=== PATIENT | male | born 1985 | race Caucasian/White ===

== ENCOUNTER 2018-11-19 21:10 | Inpatient (IN) | payer SELFPAY ==
[2018-11-19] MEDS ORDERED: ONDANSETRON 4 MG/2 ML VIAL IVP STA (21:23)
[2018-11-19] MEDS ORDERED: SODIUM CHLORIDE 0.9% 1,000 ML IV ONE (21:23)
[2018-11-19] MEDS ORDERED: ACETAMINOPHEN 500 MG TABLET PO STA (21:23)
[2018-11-19] MEDS ORDERED: KETOROLAC 15 MG/ML VIAL IVP STA (21:23)
[2018-11-19] MEDS ORDERED: SODIUM CHLORIDE 0.9% 3,500 ML IV STA (21:30)
[2018-11-19 21:51] LABS: BASOPHILS # (AUTO) 0.1 10^3/uL (0.0-0.1); BASOPHILS % (AUTO) 0.9 %; EOSINOPHILS % (AUTO) 0.6 %; HGB - HEMOGLOBIN 13.7 g/dL (14.0-18.0); LYMPHOCYTES # (AUTO) 0.7 10^3/uL (1.5-3.5); LYMPHOCYTES % (AUTO) 9.1 %; MEAN CORPUSCULAR HEMOGLOBIN 28.6 pg (27.0-31.0); MEAN CORPUSCULAR HGB CONC 35.1 g/dL (32.0-36.0); MEAN CORPUSCULAR VOLUME 81.5 fL (80.0-94.0); MEAN PLATELET VOLUME 7.2 fL (7.4-11.4); MONOCYTES # (AUTO) 0.6 10^3/uL (0.0-1.0); MONOCYTES % (AUTO) 7.7 %; NEUTROPHILS # (AUTO) 6.7 10^3/uL (1.5-6.6); NEUTROPHILS % (AUTO) 81.7 %; PLT - PLATELET COUNT 207 10^3/uL (130-450); RED BLOOD COUNT 4.79 10^6/uL (4.70-6.10); RED CELL DISTRIBUTION WIDTH 13.4 % (12.0-15.0); WHITE BLOOD COUNT 8.2 x10^3/uL (4.8-10.8)
[2018-11-19 22:00] LABS: ALBUMIN 3.9 g/dL (3.2-5.5); BILIRUBIN,TOTAL 1.6 mg/dL (0.2-1.0); CALCIUM 8.8 mg/dL (8.5-10.3); CREATININE 1.3 mg/dL (0.6-1.2); TOTAL PROTEIN 7.9 g/dL (6.7-8.2)
--- NOTE | 2018-11-19 22:17 | XRAY Report ---
Reason: Diabetic foot wound Procedure Date: 11/19/2018 Accession Number: [id number] / [id number] Procedure: XR - Foot 3 View RT CPT Code: FULL RESULT: EXAM: RIGHT FOOT RADIOGRAPHY EXAM DATE: 11/19/2018 09:57 PM. CLINICAL HISTORY: Diabetic foot wound. Swelling. COMPARISON: None. TECHNIQUE: 3 views. FINDINGS: Bones: Fracture in the proximal aspect of the fifth proximal phalanx which is probably healing. No focal area of bone destruction. Joints: No dislocation seen. Mild degenerative changes in the first MTP joint. Soft Tissues: Soft tissue swelling. Vascular calcifications. Gas in the plantar soft tissues at the proximal lateral aspect of the first proximal phalanx and first MTP joint. IMPRESSION: 1. Soft tissue swelling with gas in the soft tissues at the lateral proximal aspect of the great toe and first MTP joint. 2. Fracture at the base of the fifth proximal phalanx which is probably healing. [facility]
--- NOTE | 2018-11-19 22:18 | XRAY Report ---
Reason: chest pain Procedure Date: 11/19/2018 Accession Number: [id number] / [id number] Procedure: XR - Chest 1 View X-Ray CPT Code: 68654 FULL RESULT: EXAM: CHEST RADIOGRAPHY EXAM DATE: 11/19/2018 09:57 PM. CLINICAL HISTORY: Chest pain. Cough. Shortness of breath. COMPARISON: None. TECHNIQUE: 1 view. FINDINGS: Lungs/Pleura: No alveolar consolidation or pleural effusion seen. No pneumothorax is identified. Mediastinum: Within exam limitations, cardiomediastinal silhouette is unremarkable. Other: None. IMPRESSION: 1. No acute abnormality seen in the chest. [facility]
[2018-11-19 23:19] LABS: BILIRUBIN,URINE NEGATIVE (NEGATIVE); GLUCOSE, URINE (UA) >=1000 mg/dL (NEGATIVE); KETONES,URINE (UA) 15 mg/dL (NEGATIVE); LEUKOCYTE ESTERASE, URINE NEGATIVE (NEGATIVE); NITRITE,URINE NEGATIVE (NEGATIVE); OCCULT BLOOD,URINE SMALL (NEGATIVE); PH,URINE 5.5 PH (5.0-7.5); PROTEIN,URINE 30 mg/dL (NEGATIVE); UROBILINOGEN,URINE 2 E.U./dL (NORMAL)
[2018-11-19 23:24] LABS: CLARITY,URINE HAZY (CLEAR)
[2018-11-19] MEDS ORDERED: INSULIN REGULAR HUMAN 100 UNIT/1 ML 10 ML MDV IVP STA (23:35)
[2018-11-19 23:41] LABS: BACTERIA,URINE None Seen /HPF (None Seen); RBC,URINE 0-5 /HPF (0-5); SQUAMOUS EPITHELIAL CELL,UR RARE Squamous (<= Few)
[2018-11-19 23:51] LABS: VBG BASE EXCESS -2.6 mmol/L (-2 - +2); VBG PCO2 26.3 mmHg (41-51); VBG PH 7.488 (7.31-7.41); VBG PO2 79.5 mmHg (25-47); VBG TOTAL CO2 20.3 mmol/L (24-29)
--- NOTE | 2018-11-20 00:32 | ED Physician Documentation ---
History of Present Illness - Stated complaint Stated Complaint: FEVER/CHILLS/VOMITTING - Chief complaint Chief Complaint: General - History obtained from History obtained from: Patient - History of Present Illness Timing: How many days ago (3) Pain level max: 3 Pain level now: 3 Severity Comments: moderate Quality: Aching Radiates to: None Improved by: Nothing Worsened by: Nothing Associated symptoms: Body aches, fevers and chills Review of Systems Ten Systems: 10 systems reviewed and negative Constitutional: reports: Reviewed and negative Eyes: reports: Reviewed and negative Ears: reports: Reviewed and negative Nose: reports: Reviewed and negative Throat: reports: Reviewed and negative Cardiac: reports: Reviewed and negative Respiratory: reports: Reviewed and negative GI: reports: Reviewed and negative : reports: Reviewed and negative Skin: reports: Reviewed and negative Musculoskeletal: reports: Reviewed and negative Neurologic: reports: Reviewed and negative Psychiatric: reports: Reviewed and negative Endocrine: reports: Reviewed and negative Immunocompromised: reports: Reviewed and negative PD PAST MEDICAL HISTORY - Past Medical History Past Medical History: Yes Cardiovascular: Hypertension, High cholesterol Endocrine/Autoimmune: Type 2 diabetes - Past Surgical History Past Surgical History: No - Present Medications Home Medications: Ambulatory Orders Medication Instructions Recorded Confirmed Metformin HCl 500 mg PO BID 11/19/18 11/19/18 - Allergies Allergies/Adverse Reactions: Allergies Allergy/AdvReac Type Severity Reaction Status Date / Time macadiam nuts Allergy Anaphylaxis Uncoded 11/19/18 21:17 - Social History Does the pt smoke?: No Smoking Status: Never smoker Does the pt drink ETOH?: No - Immunizations Immunizations are current?: Yes PD ED PE NORMAL - Vitals Vital signs reviewed: Yes - General General: Alert and oriented X 3, No acute distress - HEENT HEENT: PERRL - Neck Neck: Supple, no meningeal sign - Cardiac Cardiac: RRR, No murmur - Respiratory Respiratory: Clear bilaterally - Abdomen Abdomen: Normal bowel sounds, Soft, Non tender, Non distended - Derm Derm: Warm and dry - Extremities Extremities: No deformity, Other (Right foot with open wound at the Right first metatarsal phalangeal jointNo crepitance) - Neuro Neuro: Alert and oriented X 3 - Psych Psych: Normal mood, Normal affect Results - Vitals Vitals: Vital Signs - 24 hr 01/27/19 01/27/19 01/27/19 21:12 21:40 21:45 Temperature 37.1 C 38.4 C H 38.4 C H Heart Rate 121 H 104 H Respiratory 19 15 Rate Blood Pressure 145/85 H 179/98 H O2 Saturation 100 97 11/19/18 11/19/18 11/19/18 22:11 22:26 22:30 Temperature 39.6 C H Heart Rate 102 H 96 96 Respiratory 20 17 19 Rate Blood Pressure 179/96 H 184/96 H 166/89 H O2 Saturation 95 97 99 11/19/18 11/19/18 11/19/18 23:10 23:30 23:45 Temperature 39.6 C H Heart Rate 96 96 96 Respiratory 18 17 18 Rate Blood Pressure 149/83 H 142/77 H 142/77 H O2 Saturation 98 99 99 11/20/18 11/20/18 00:00 00:26 Temperature Heart Rate 93 94 Respiratory 18 18 Rate Blood Pressure 128/74 131/74 H O2 Saturation 99 97 Oxygen O2 Source Room air - Labs Labs: Laboratory Tests 11/19/18 11/19/18 11/19/18 21:35 21:35 21:35 WBC 8.2 RBC 4.79 Hgb 13.7 L Hct 39.0 L MCV 81.5 MCH 28.6 MCHC 35.1 RDW 13.4 Plt Count 207 MPV 7.2 L Neut # (Auto) 6.7 H Lymph # (Auto) 0.7 L Hunt # (Auto) 0.6 Eos # (Auto) 0.0 Baso # (Auto) 0.1 Absolute Nucleated RBC 0.00 Nucleated RBC % 0.0 VBG pH VBG pCO2 VBG pO2 VBG HCO3 VBG Total CO2 VBG O2 Saturation VBG Base Excess Sodium 127 L Potassium 3.9 Chloride 90 L Carbon Dioxide 22 Anion Gap 15.0 H BUN 17 Creatinine 1.3 H Estimated GFR (MDRD) 63 L Glucose 386 H Lactic Acid 2.5 H Calcium 8.8 Total Bilirubin 1.6 H AST 30 ALT 27 Alkaline Phosphatase 70 Total Protein 7.9 Albumin 3.9 Globulin 4.0 Albumin/Globulin Ratio 1.0 Lipase 36 Urine Color Urine Clarity Urine pH Ur Specific [place] Urine Protein Urine Glucose (UA) Urine Ketones Urine Occult Blood Urine Nitrite Urine Bilirubin Urine Urobilinogen Ur Leukocyte Esterase Urine RBC Urine WBC Ur Squamous Epith Cells Urine Bacteria Urine Culture Comments Influenza A (Rapid) Influenza B (Rapid) 11/19/18 11/19/18 11/19/18 21:36 23:05 23:43 WBC RBC Hgb Hct MCV MCH MCHC RDW Plt Count MPV Neut # (Auto) Lymph # (Auto) Hunt # (Auto) Eos # (Auto) Baso # (Auto) Absolute Nucleated RBC Nucleated RBC % VBG pH 7.488 H VBG pCO2 26.3 L VBG pO2 79.5 H VBG HCO3 19.5 L VBG Total CO2 20.3 L VBG O2 Saturation 96.2 H VBG Base Excess -2.6 L Sodium Potassium Chloride Carbon Dioxide Anion Gap BUN Creatinine Estimated GFR (MDRD) Glucose Lactic Acid Calcium Total Bilirubin AST ALT Alkaline Phosphatase Total Protein Albumin Globulin Albumin/Globulin Ratio Lipase Urine Color DARK YELLOW Urine Clarity HAZY Urine pH 5.5 Ur Specific [place] 1.010 Urine Protein 30 H Urine Glucose (UA) >=1000 H Urine Ketones 15 H Urine Occult Blood SMALL H Urine Nitrite NEGATIVE Urine Bilirubin NEGATIVE Urine Urobilinogen 2 H Ur Leukocyte Esterase NEGATIVE Urine RBC 0-5 Urine WBC 0-3 Ur Squamous Epith Cells RARE Squamous Urine Bacteria None Seen Urine Culture Comments NOT INDICATED Influenza A (Rapid) Negative Influenza B (Rapid) Negative 11/20/18 00:56 WBC RBC Hgb Hct MCV MCH MCHC RDW Plt Count MPV Neut # (Auto) Lymph # (Auto) Hunt # (Auto) Eos # (Auto) Baso # (Auto) Absolute Nucleated RBC Nucleated RBC % VBG pH VBG pCO2 VBG pO2 VBG HCO3 VBG Total CO2 VBG O2 Saturation VBG Base Excess Sodium Potassium Chloride Carbon Dioxide Anion Gap BUN Creatinine Estimated GFR (MDRD) Glucose Lactic Acid 1.3 Calcium Total Bilirubin AST ALT Alkaline Phosphatase Total Protein Albumin Globulin Albumin/Globulin Ratio Lipase Urine Color Urine Clarity Urine pH Ur Specific [place] Urine Protein Urine Glucose (UA) Urine Ketones Urine Occult Blood Urine Nitrite Urine Bilirubin Urine Urobilinogen Ur Leukocyte Esterase Urine RBC Urine WBC Ur Squamous Epith Cells Urine Bacteria Urine Culture Comments Influenza A (Rapid) Influenza B (Rapid) - Rads (name of study) Foot x-ray Radiology: Final report received (No osseous destruction,Remote fracture, soft tissue Gas at first MTP) PD MEDICAL DECISION MAKING - ED course Complexity details: reviewed old records, reviewed results, re-evaluated patient, considered differential, d/w patient, d/w family, d/w work and family life consultant ED course: 33-year-old male with type 2 diabetes presents with body aches, fevers and chills, right diabetic foot wound. X-ray with evidence of osteomyelitis. Patient appears to be in borderline DKA and sepsis. However antibiotics were withheld for culture. Patient treated with IV fluids, insulin.Orthopedic surgery consulted who agrees to consult on patient. Departure - Departure Disposition: [facility] DC/Xfer Clinical Impression: Osteomyelitis due to type 2 diabetes mellitus, Diabetic foot infection, Hyponatremia, Hyperglycemia Condition: Fair Discharge Date/Time: 11/20/18 01:30
--- NOTE | 2018-11-20 00:41 | HISTORY & PHYSICAL EXAMINATION ---
Chief Complaint - Chief Complaint Chief Complaint: Flulike symptoms History of Present Illness - Admitted From Admitted From:: Emergency department - History Obtained From Records Reviewed: Emergency department record History obtained from: Patient Exam Limitations: None - History of Present Illness HPI Comment/Other: Patient is a 33-year-old male with past medical history of type 2 diabetes which is not closely monitored who states that he had about 4-5 days of flulike symptoms. He describes generalized body aches, fever chills sweats and headaches, and presented to the emergency room for further evaluation. He does have diabetes but does not check his blood sugar at home. His blood sugar here was noted to be 358, and when ED physician examined him he took off his socks and noticed a wound on the plantar aspect of his right foot. It is an open wound on the plantar aspect at the patient was not aware that he had. Denies any pain in the foot, denies any recent injury or trauma. 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 The x-ray also suggests a proximal phalanx fracture of the fifth digit which is in a stage of healing. He does not recall having this injury. Subsequently the patient went to x-ray which does show evidence of gas suggestive of osteomyelitis. Further labs and vitals reveal a white blood cell count and normal limits, T-max of 39.6 in the ED, minimally elevated blood pressure and normal heart rate, and hyperglycemia with sodium level corrected to 134. He also has a few abnormalities on the blood gases but not of major significance not suggestive of DKA or acidosis. His lactic acid was 2.4. He does not have other clinical signs of sepsis. Orthopedic surgery was notified, and they will see the patient in the morning. He will have an MRI in the morning to further evaluate. History - Past Medical History Cardiovascular: reports: Hypertension, High cholesterol Endocrine/Autoimmune: reports: Type 2 diabetes MRSA Hx?: No - Family & Social History Family History: Mother: Diabetes, Type 2, Hyperlipidemia, Hypertension, Father: Hyperlipidemia, Hypertension Living arrangement: At home Living Situation: With spouse/s.o. 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 - Substance History Use: Uses substance without health or social issues: NONE - POLST Patient has POLST: No POLST Status: Full Code Meds/Allgy - Home Medications Home Medications: Ambulatory Orders Medication Instructions Recorded Confirmed Metformin HCl 500 mg PO BID 11/19/18 11/19/18 - Allergies Allergies/Adverse Reactions: Allergies Allergy/AdvReac Type Severity Reaction Status Date / Time macadiam nuts Allergy Anaphylaxis Uncoded 11/19/18 21:17 Prior Level of Functionality: Fully independent and working Exam - Vital Signs Reviewed Vital Signs: Yes Vital Signs: Vital Signs x48h Temp Pulse Resp BP Pulse Ox 11/20/18 00:26 94 18 131/74 H 97 11/20/18 00:00 93 18 128/74 99 11/19/18 23:45 96 18 142/77 H 99 11/19/18 23:30 96 17 142/77 H 99 11/19/18 23:10 39.6 C H 96 18 149/83 H 98 11/19/18 22:30 96 19 166/89 H 99 11/19/18 22:26 96 17 184/96 H 97 11/19/18 22:11 39.6 C H 102 H 20 179/96 H 95 11/19/18 21:45 38.4 C H 104 H 15 179/98 H 97 11/19/18 21:40 38.4 C H 11/19/18 21:12 37.1 C 121 H 19 145/85 H 100 - Physical Exam General Appearance: positive: No acute distress Eyes Bilateral: positive: Normal inspection ENT: positive: ENT inspection nml Respiratory: positive: Chest non-tender Cardiovascular: positive: Regular rate & rhythm Peripheral Pulses: positive: 2+ Abdomen: positive: Non-tender Skin: positive: Color nml Extremities: positive: Other (Right foot exam demonstrates a plantar wound at the head of the first metatarsal and MTPJ. Small amount of serous drainage. So me surrounding ecchymosis. Sensation to light touch is nearly entirely absent on the plantar aspect of the foot and somewhat diminished on the dorsal aspect of the foot.) Neurologic/Psychiatric: positive: Oriented x3 Sepsis Event Note (H) - Evaluation Current Stage of Sepsis: Ruled out Possible source of Sepsis: positive: Bone/Joint Conclusion/Plan - Problem List (1) Osteomyelitis due to type 2 diabetes mellitus Conclusion/Plan: X-ray is strongly suggestive of osteomyelitis especially given his diabetes status and lack of sensation in the plantar aspect of the right foot. Given that he is stable and does not appear to be in sepsis at this point, I will withhold antibiotics until the morning so that if the patient is taken to the operating room we can have the most accurate culture and sensitivities. I will order an MRI with and without contrast to further delineate this and orthopedic surgery is already involved and plan to see him in the morning. Once he is taken to the operating room he will likely need IV antibiotics for a minimum of 2 weeks and possibly up to 6 weeks depending on the extension of infection in the bone. In the meantime, pain is minimal if any, and patient is stable, further evaluation to be done in the morning. (2) Type 2 diabetes mellitus Conclusion/Plan: It is unclear how well his diabetes is controlled as he admits the last time he had an A1c was 9 months ago. He does not check his blood sugars. He is not on insulin. We will withhold his home metformin for now and use to cover his blood sugar, check an A1c and a cholesterol level in the morning and proceed accordingly. Qualifiers: Diabetes mellitus director long term care insulin use: without director long term care use - Lab Results Lab results reviewed: Yes Fish Bones: 11/19/18 21:35 11/19/18 21:35 - Diagnostic Imaging Results Diagnostic Imaging Results: positive: Final report reviewed, Read independently Core Measures - Anticipated LOS I expect patient to be DC'd or transferred within 96 hours.: Yes - DVT/VTE - Prophylaxis VTE/DVT Device ordered at admit?: Yes
[2018-11-20] MEDS ORDERED: PROCHLORPERAZINE 10 MG/2 ML VIAL IVP PRN (00:58)
[2018-11-20] MEDS ORDERED: MORPHINE 2 MG/ML CARPUJECT IVP PRN (00:58)
[2018-11-20] MEDS ORDERED: SODIUM CHLORIDE FLUSH 0.9% 10 ML SYRINGE IVP PRN (00:58)
[2018-11-20] MEDS ORDERED: ZOLPIDEM 5 MG TABLET PO PRN (00:58)
[2018-11-20] MEDS ORDERED: ONDANSETRON 4 MG/2 ML VIAL IVP PRN (00:58)
[2018-11-20] MEDS: SODIUM CHLORIDE FLUSH 0.9% 10 ML SYRINGE IVP SCH ×3 (02:10→16:54)
[2018-11-20] MEDS: SODIUM CHLORIDE 0.9% 1,000 ML IV SCH ×2 (02:11→17:05)
[2018-11-20 05:36] LABS: MEAN CORPUSCULAR HEMOGLOBIN 28.4 pg (27.0-31.0); MEAN CORPUSCULAR HGB CONC 34.5 g/dL (32.0-36.0); MEAN CORPUSCULAR VOLUME 82.3 fL (80.0-94.0); MEAN PLATELET VOLUME 6.9 fL (7.4-11.4); RED BLOOD COUNT 4.21 10^6/uL (4.70-6.10); WHITE BLOOD COUNT 8.4 x10^3/uL (4.8-10.8)
[2018-11-20 05:43] LABS: BUN - BLOOD UREA NITROGEN 15 mg/dL (6-20); CALCIUM 7.9 mg/dL (8.5-10.3); CARBON DIOXIDE - CO2 21 mmol/L (21-32); CHLORIDE 103 mmol/L (101-111); CHOL/HDL RATIO 8.7 (<5.0); CHOLESTEROL 191 mg/dL; GFR - MDRD 85 (>89); GLUCOSE 254 mg/dL (70-100); HDL CHOLESTEROL 22 mg/dL; LDL CHOLESTEROL,CALCULATED 120 mg/dL; LDL/HDL RATIO 5.5 (<3.6); SODIUM 134 mmol/L (135-145); VLDL CHOLESTEROL 49 mg/dL
[2018-11-20 05:53] LABS: HB2 TOTAL 11.9 g/dL; HEMOGLOBIN A1C 0.97 g/dL; HEMOGLOBIN A1C % 9.6 % (4.6-6.2)
[2018-11-20] MEDS ORDERED: INSULIN ASPART 300 UNIT/3 ML PEN SUBQ SCH (08:00)
--- NOTE | 2018-11-20 08:46 | CONSULTATION NOTE ---
Referring Provider Name of Referring Provider:: Sb Vick MD Consult Date: 11/20/18 Chief Complaint - Chief Complaint Chief Complaint: Asked to evaluate for presumed osteomyelitis right foot. History of Present Illness - History of Present Illness HPI Comment/Other: Pelon is a 33-year-old gentleman with type 2 diabetes in his usual state of health until a number of days ago where he started to notice some overall fevers and malaise. He went to the emergency room at [facility] and was ultimately found to have a open wound on his right foot. Patient reports that he does show er on a regular basis but does not do any checks of his foot and did not notice anything in his foot. He says that he may have broken his toe in the distant past when he was a child but recalls no other recent injury to his foot. Patient is seen and examined in the hospital room with his and parents present. He denies other known problems with his feet neuropathy or other sequelae of diabetes to his knowledge. History - Past Medical History Cardiovascular: reports: Hypertension, High cholesterol Respiratory: reports: None Neuro: reports: Headaches, Peripheral neuropathy Endocrine/Autoimmune: reports: Type 2 diabetes : reports: None HEENT: reports: None Psych: reports: None Musculoskeletal: reports: None Derm: reports: None MRSA Hx?: No - Past Surgical History HEENT: reports: Other - Family & Social History Family History: Mother: Diabetes, Type 2, Hyperlipidemia, Hypertension, Father: Hyperlipidemia, Hypertension Living arrangement: At home Living Situation: With spouse/s.o. 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 - Substance History Use: Uses substance without health or social issues: NONE - POLST Patient has POLST: No POLST Status: Full Code Meds/Allgy - Home Medications Home Medications: Ambulatory Orders Medication Instructions Recorded Confirmed Metformin HCl 500 mg PO BID 11/19/18 11/19/18 - Allergies Allergies/Adverse Reactions: Allergies Allergy/AdvReac Type Severity Reaction Status Date / Time macadiam nuts Allergy Anaphylaxis Uncoded 11/19/18 21:17 Exam - Vital Signs Vital Signs: Vital Signs x48h Temp Pulse Pulse Resp BP BP Pulse Ox 11/20/18 07:43 37.2 C 92 14 136/80 H 96 11/20/18 05:00 36.5 C 85 20 141/85 H 99 11/20/18 02:08 37.0 C 87 18 146/82 H 96 11/20/18 01:30 37.0 C 81 20 146/82 H 96 11/20/18 01:19 37.0 C 84 18 136/83 H 98 - Physical Exam Comments/Other: Patient's well-developed 33-year-old gentleman no acute distress cooperative with the examination. Patient's right lower extremity he is able to initiate flexion extension of his toes and ankle he has reported light touch sensation to the toes with cap refill less than 2 seconds of the great and second toes with good warmth throughout. Foot compartments calf compartments soft. The metatarsal phalangeal region of the plantar aspect of the great toe shows a thick callosity with adjacent hematoma/blister with serosanguineous fluid very superficial. No fluctuance appreciated there is some drainage of the serosanguineous fluid. There is no significant erythema aside from immediately around the small area of drainage. Toe and foot compartments otherwise soft and nontender. Conclusion/Plan - Plan Plan: Pelon is a 33-year-old gentleman with type 2 diabetes and presumed peripheral neuropathy. He has a draining wound on the metatarsal phalangeal region of his right foot centered over the first ray. There is evidence of a superficial hematoma but no more deep fluid collection appreciated. There is a relatively thick callosity. Fortunately no evidence of osteomyelitis on MRI. I recommend plan for broad-spectrum antibiotics per hospitalist team. I recommend dry dressing to compress the superficial hematoma and to help drain residual fluid superficially. This is done with dry dressing and may use Emily or Ziyad wrap with twice daily dressing changes and skin checks. Ultimately once stabilized from a medical standpoint I think discharge is reasonable with appropriate antibiotic treatment and wound care at the [facility] clinic. We remain available for further follow-up as necessary depending on his progress. Patient and patient's family's questions were answered the above was reviewed with them as well as the hospitalist team patient's family will notify us if there is problems questions or worsening his condition. They are advised on daily skin checks and appropriate management of his diabetes. - Lab Results Lab results reviewed: Yes Fish Bones: 11/20/18 05:11 11/20/18 05:11 - Diagnostic Imaging Results Diagnostic Imaging Results: positive: See rad report (Patient had an MRI of his right foot it would be [facility] today. Please see official radiology read for further details. Of note there is evidence of a significant callosity and possible cellulitis at the metatarsal phalangeal region of the great toe. No deeper collection appreciated. No evidence of bony osteomyelitis noted. Fracture fifth proximal phalanx subacute.)
[2018-11-20] MEDS ORDERED: GADOBUTROL 10 MMOL/10 ML VIAL ONE (09:05)
[2018-11-20] MEDS ORDERED: GADOBUTROL 10 MMOL/10 ML VIAL IVP ONE (09:59)
[2018-11-20] MEDS: FAMOTIDINE 20 MG/50 ML 50 ML IV SCH ×2 (10:48→21:15)
[2018-11-20] MEDS: POLYETHYLENE GLYCOL 3350 17 GM PACKET PO SCH (10:51)
--- NOTE | 2018-11-20 11:07 | MRI Report ---
Reason: Open wound R 1st toe, r/o osteomyelitis Procedure Date: 11/20/2018 Accession Number: [id number] / [id number] Procedure: MRI - Foot RT W/WO CPT Code: FULL RESULT: EXAM: RIGHT FOREFOOT MRI WITHOUT AND WITH CONTRAST EXAM DATE: 11/20/2018 10:38 AM. CLINICAL HISTORY: Open wound R 1st toe, r/o osteomyelitis. COMPARISON: FOOT 3 VIEW RT 11/19/2018 9:45 PM. TECHNIQUE: Multiplanar, multisequence T1-weighted and fluid-sensitive sequences of the forefoot before and after administration of intravenous contrast. IV contrast: 10 cc Gadavist. Other: None. FINDINGS: Bones and articular surfaces: There is moderate joint space narrowing, cartilage thinning, fissuring and irregularity and marginal osteophytes at the first MTP joint. Small subchondral cyst formation. Mild joint space narrowing and marginal osteophytes throughout the interphalangeal joints. Hallux valgus and metatarsus primus varus. There is an oblique fracture at the proximal aspect of the fifth proximal phalanx. There is associated marrow edema and adjacent soft tissue edema. Some T1 fatty marrow signal is maintained. No additional fractures are identified. No additional marrow signal abnormality. Musculotendinous structures: Extensive fatty atrophy and low level edema throughout the intrinsic foot musculature. Small volume of fluid associated with the flexor digitorum brevis tendons. Visualized flexor and extensor tendons appear intact. Miscellaneous soft tissues: Subcutaneous soft tissue edema over the dorsum of the foot with contrast enhancement. Soft tissue edema at the first interspace and along the plantar base of the first and second digit. Soft tissue ulceration plantar to the base of the first toe. Soft tissue gas dissecting through the central and plantar aspect of the first interspace at the base of the great toe between the first and second proximal phalanges. However, no drainable fluid collection identified. The soft tissue gas appears confluent with the plantar soft tissue defect. IMPRESSION: 1. Oblique fracture at the proximal aspect of the fifth proximal phalanx with associated marrow edema. 2. Soft tissue gas at the first interspace which appears open to distal and plantar soft tissue ulceration. No obvious drainable fluid. 3. Patchy subcutaneous and deep soft tissue edema most pronounced adjacent to the base of the first and second toes and along the dorsum of the foot. Concerning for cellulitis at the first and second toes. 4. Mild flexor digitorum brevis tenosynovitis. 5. Atrophy and edema throughout the intrinsic foot musculature may reflect chronic diabetic change. Some areas of myositis not excluded. [facility] MUSCULOSKELETAL RADIOLOGY SECTION
[2018-11-20] MEDS: INSULIN GLARGINE 300 UNIT/3 ML PEN SUBQ SCH ×2 (11:11→21:16)
[2018-11-20] MEDS ORDERED: INSULIN REGULAR HUMAN 100 UNIT/1 ML 10 ML MDV SUBQ SCH (12:00)
[2018-11-20] MEDS ORDERED: VANCOMYCIN PER PHARMACY 100 GM in SODIUM CHLORIDE 0.9% 250 ML IV ONE (13:00)
[2018-11-20] MEDS ORDERED: INSULIN REGULAR HUMAN 100 UNIT/1 ML 10 ML MDV ONE (13:44)
[2018-11-20] MEDS ORDERED: VANCOMYCIN INJ 2.5 GM in SODIUM CHLORIDE 0.9% 500 ML IV SCH (14:00)
[2018-11-20] MEDS: INSULIN ASPART 300 UNIT/3 ML PEN SUBQ SCH ×3 (14:02→21:15)
[2018-11-20] MEDS: AMPICILLIN/SULBACTAM 3 GM in SODIUM CHLORIDE 0.9% MINIBAG 100 ML IV SCH ×2 (14:06→17:04)
[2018-11-20] MEDS: VANCOMYCIN INJ 1.5 GM in SODIUM CHLORIDE 0.9% 500 ML IV SCH (21:17)
[2018-11-20] MEDS ORDERED: VANCOMYCIN INJ 1.5 GM in SODIUM CHLORIDE 0.9% 250 ML IV SCH (22:00)
[2018-11-21] MEDS: AMPICILLIN/SULBACTAM 3 GM in SODIUM CHLORIDE 0.9% MINIBAG 100 ML IV SCH ×4 (00:24→17:35)
[2018-11-21] MEDS: SODIUM CHLORIDE FLUSH 0.9% 10 ML SYRINGE IVP SCH ×3 (00:58→17:25)
[2018-11-21] MEDS: ACETAMINOPHEN 325 MG TABLET PO PRN ×2 (01:14→23:54)
[2018-11-21] MEDS: SODIUM CHLORIDE 0.9% 1,000 ML IV SCH ×3 (05:12→17:39)
[2018-11-21] MEDS ORDERED: WATER FOR INJECTION,STERILE 0 ML ONE (05:51)
[2018-11-21] MEDS: VANCOMYCIN INJ 1.5 GM in SODIUM CHLORIDE 0.9% 500 ML IV SCH ×3 (05:54→21:49)
[2018-11-21 06:02] LABS: HGB - HEMOGLOBIN 11.1 g/dL (14.0-18.0); MEAN CORPUSCULAR HEMOGLOBIN 28.5 pg (27.0-31.0); MEAN CORPUSCULAR HGB CONC 34.4 g/dL (32.0-36.0); MEAN CORPUSCULAR VOLUME 82.7 fL (80.0-94.0); MEAN PLATELET VOLUME 6.8 fL (7.4-11.4); RED BLOOD COUNT 3.9 10^6/uL (4.70-6.10); RED CELL DISTRIBUTION WIDTH 13.3 % (12.0-15.0); WHITE BLOOD COUNT 6.6 x10^3/uL (4.8-10.8)
[2018-11-21 06:10] LABS: CALCIUM 7.8 mg/dL (8.5-10.3); CREATININE 0.9 mg/dL (0.6-1.2)
[2018-11-21] MEDS: INSULIN ASPART 300 UNIT/3 ML PEN SUBQ SCH ×4 (07:56→21:50)
[2018-11-21] MEDS: INSULIN GLARGINE 300 UNIT/3 ML PEN SUBQ SCH ×2 (07:58→21:50)
[2018-11-21] MEDS: POLYETHYLENE GLYCOL 3350 17 GM PACKET PO SCH (08:00)
[2018-11-21] MEDS ORDERED: POTASSIUM CHLORIDE 20 MEQ TABLET PO ONE (09:16)
[2018-11-21] MEDS: FAMOTIDINE 20 MG/50 ML 50 ML IV SCH ×2 (10:05→21:50)
--- NOTE | 2018-11-21 12:16 | PROVIDER PROGRESS NOTE ---
Assessment/Plan - Problem List (1) Cellulitis in diabetic foot Assessment/Plan: Osteomyelitis was ruled out by MRI. Dr Torres saw patient in consult, and also concluded that there was no osteo. No surgery was done, as he recommended no debridement, therefore no wound culture specimen was obtained. No superficial wound culture will be ordered, since organisms from superficial swabs are not reliable for predicting the pathogens responsible for deeper infections, according to UpToDate. The WBC is dropping and site of infection is decreasing in size, indicating good empiric iv antibiotic choice. Will treat with iv antibiotics for 48 hours, then [facility] patient on po antibiotics for a 2-4 week course. He will need outpatient follow-up, to determine if 2 weeks of antibiotics was adequate. The plan will be to discharge on Bactrim DS 1 po bid PLUS Augmentin 875/125 po bid (from UpToDate recommendations for moderate foot infection in a Diabetic). This plan was discussed with the patient and his at bedside today. 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 He is off his Metformin 500 ng bid dose while here, and on Insulin ss plus carb- controlled diet. He needs more strict glu control, and therefore will plan to restart the Metformin at 100 mg po bid at [facility]. Discussed with patient and his . He needs better management of Diabetic complications, such and neuropathy, which he has by definition, since there was no pain or other symptom of this foot infection for the patient. I reviewed needs for Ophtho F/U and that he could come to [facility] after [facility]. (3) Hypertriglyceridemia Assessment/Plan: He has a typical lipid panel result, for a diabetic, partly due to poor glucose conrol. I will not start a Fibrate while here, but will add this to his list of needed list of diagoses to manage as an outpatient, possibly with a statin +/- Fibrate. (4) Anemia Assessment/Plan: He has been getting iv fluids at 100 cc/hr since admission, therefore part of this drop in Hgb is due to hemodilation. Will decrease iv rate to 40 cc/hr. Will check Iron panel, stool guiac, B12 and folate levels and replace if low. (5) Hypokalemia Assessment/Plan: Likely due to Insulin use, promoting intracellular Potassium movement. Will replace with po KCl x1. Follow BMP daily. (6) Hyponatremia Assessment/Plan: Resolved. - Current Meds Current Meds: Current Medications Generic Name Dose Route Start Last Admin Trade Name Freq PRN Reason Stop Dose Admin Acetaminophen 650 mg 11/21/18 00:51 11/21/18 01:14 Tylenol PO 650 mg Q4HR PRN Administration Pain or Fever > 38C (100.4F) Famotidine 50 mls @ 100 mls/hr 11/20/18 09:00 11/21/18 10:35 Pepcid 20 Mg/50 Ml IV Infused BID PASCUAL Infusion Ampicillin Sodium/Sulbactam 100 mls @ 200 mls/hr 11/20/18 13:00 11/21/18 11:32 Sodium 3 gm/ Sodium Chloride IV 200 mls/hr Q6HR PASCUAL Administration Vancomycin HCl 1.5 gm/ Sodium 500 mls @ 250 mls/hr 11/20/18 22:00 11/21/18 09:05 Chloride IV Infused Q8H PASCUAL Infusion Sodium Chloride 1,000 mls @ 40 mls/hr 11/21/18 09:17 11/21/18 10:17 Normal Saline 0.9% IV 40 mls/hr .Q25H PASCUAL Administration Insulin Aspart 1 - 5 unit 11/20/18 13:17 11/21/18 11:57 Novolog SUBQ 3 unit 0800,1200,1700,2100 PASCUAL Administration Protocol Insulin Glargine 5 unit 11/20/18 10:00 11/21/18 07:58 Lantus Solostar SUBQ 5 unit [id number] PASCUAL Administration Insulin Glargine 10 unit 11/20/18 21:00 11/20/18 21:16 Lantus Solostar SUBQ 10 unit QPM PASCUAL Administration Polyethylene Glycol 17 gm 11/20/18 09:00 11/21/18 08:00 Miralax PO Not Given DAILY PASCUAL Sodium Chloride 10 ml 11/20/18 01:00 11/21/18 07:59 Normal Saline Flush 0.9% IVP 10 ml 0100,0900,1700 PASCUAL Administration - Lab Result Fish Bone Diagrams: 11/21/18 05:43 11/21/18 05:43 - Additional Planning My Orders: My Active Orders 11/21/18 09:17 Sodium Chloride 0.9% [Normal Saline 0.9%] 1,000 ml IV 40 mls/hr Subjective - Subjective Patient Reports: Feeling Better, Other (When the RN was dressing the wound this a.m., the redness and swelling were less.) Objective Vital Signs: Vital Signs - 24 hr 11/20/18 11/21/18 11/21/18 15:49 00:41 01:55 Temperature 37.6 C H 38.1 C H 37.9 C H Heart Rate [ 81 85 Brachial] Respiratory 16 17 Rate Blood Pressure 125/78 [Left Brachial artery] Blood Pressure 146/85 H [Right Brachial artery] O2 Saturation 97 95 11/21/18 11/21/18 05:25 08:00 Temperature 36.5 C 37.1 C Heart Rate [ 75 Brachial] Respiratory 18 Rate Blood Pressure 130/77 [Left Brachial artery] Blood Pressure [Right Brachial artery] O2 Saturation 99 Oxygen O2 Source Room air I&O (Last 24 Hrs): Intake and Output Totals x24h 11/19/18 11/20/18 11/21/18 23:59 23:59 23:59 Intake Total 3500 3420 2110.000 Output Total 150 803 Balance 3350 2617 2110.000 General: Alert, Oriented x3 HEENT: Mucous membr. moist/pink, Other (Male-pattern balding) Neck: Supple, No JVD Neuro: Alert, Non Focal Cardiovascular: Regular rate Respiratory: No respiratory distress Abdomen: Soft Extremities: No edema, Other (R foot in wound dressing) - Results Results: Laboratory Results WBC 6.6 x10^3/uL (4.8-10.8) 11/21/18 05:43 RBC 3.90 10^6/uL (4.70-6.10) L 11/21/18 05:43 Hgb 11.1 g/dL (14.0-18.0) L 11/21/18 05:43 Hct 32.3 % (42.0-52.0) L 11/21/18 05:43 MCV 82.7 fL (80.0-94.0) 11/21/18 05:43 MCH 28.5 pg (27.0-31.0) 11/21/18 05:43 MCHC 34.4 g/dL (32.0-36.0) 11/21/18 05:43 RDW 13.3 % (12.0-15.0) 11/21/18 05:43 Plt Count 188 10^3/uL (130-450) 11/21/18 05:43 MPV 6.8 fL (7.4-11.4) L 11/21/18 05:43 Neut # (Auto) 6.7 10^3/uL (1.5-6.6) H 11/19/18 21:35 Lymph # (Auto) 0.7 10^3/uL (1.5-3.5) L 11/19/18 21:35 Emanuel # (Auto) 0.6 10^3/uL (0.0-1.0) 11/19/18 21:35 Eos # (Auto) 0.0 10^3/uL (0.0-0.7) 11/19/18 21:35 Baso # (Auto) 0.1 10^3/uL (0.0-0.1) 11/19/18 21:35 Absolute Nucleated RBC 0.00 x10^3/uL 11/19/18 21:35 Nucleated RBC % 0.0 /100WBC 11/19/18 21:35 VBG pH 7.488 (7.31-7.41) H 11/19/18 23:43 VBG pCO2 26.3 mmHg (41-51) L 11/19/18 23:43 VBG pO2 79.5 mmHg (25-47) H 11/19/18 23:43 VBG HCO3 19.5 mmol/L (23-28) L 11/19/18 23:43 VBG Total CO2 20.3 mmol/L (24-29) L 11/19/18 23:43 VBG O2 Saturation 96.2 % (60-80) H 11/19/18 23:43 VBG Base Excess -2.6 mmol/L (-2 - +2) L 11/19/18 23:43 Sodium 135 mmol/L (135-145) 11/21/18 05:43 Potassium 3.4 mmol/L (3.5-5.0) L 11/21/18 05:43 Chloride 105 mmol/L (101-111) 11/21/18 05:43 Carbon Dioxide 22 mmol/L (21-32) 11/21/18 05:43 Anion Gap 8.0 (6-13) 11/21/18 05:43 BUN 11 mg/dL (6-20) 11/21/18 05:43 Creatinine 0.9 mg/dL (0.6-1.2) 11/21/18 05:43 Estimated GFR (MDRD) 96 (>89) 11/21/18 05:43 Glucose 202 mg/dL (70-100) H 11/21/18 05:43 POC Whole Bld Glucose 236 mg/dL (70 - 100) H 11/21/18 11:17 Glycated Hemoglobin 9.6 % (4.6-6.2) H 11/20/18 05:11 Estim Average Glucose 229 (70-100) H 11/20/18 05:11 Lactic Acid 1.3 mmol/L (0.5-2.2) 11/20/18 00:56 Calcium 7.8 mg/dL (8.5-10.3) L 11/21/18 05:43 Total Bilirubin 1.6 mg/dL (0.2-1.0) H 11/19/18 21:35 AST 30 IU/L (10-42) 11/19/18 21:35 ALT 27 IU/L (10-60) 11/19/18 21:35 Alkaline Phosphatase 70 IU/L (42-121) 11/19/18 21:35 Total Protein 7.9 g/dL (6.7-8.2) 11/19/18 21:35 Albumin 3.9 g/dL (3.2-5.5) 11/19/18 21:35 Globulin 4.0 g/dL (2.1-4.2) 11/19/18 21:35 Albumin/Globulin Ratio 1.0 (1.0-2.2) 11/19/18 21:35 Triglycerides 245 mg/dL (-149) H 11/20/18 05:11 Cholesterol 191 mg/dL (-199) 11/20/18 05:11 LDL Cholesterol, Calc 120 mg/dL (-129) 11/20/18 05:11 VLDL Cholesterol 49 mg/dL 11/20/18 05:11 HDL Cholesterol 22 mg/dL (60-) L 11/20/18 05:11 LDL/HDL Ratio 5.5 (<3.6) 11/20/18 05:11 Cholesterol/HDL Ratio 8.7 (<5.0) 11/20/18 05:11 Lipase 36 U/L (22-51) 11/19/18 21:35 Urine Color DARK YELLOW 11/19/18 23:05 Urine Clarity HAZY (CLEAR) 11/19/18 23:05 Urine pH 5.5 PH (5.0-7.5) 11/19/18 23:05 Ur Specific [place] 1.010 (1.002-1.030) 11/19/18 23:05 Urine Protein 30 mg/dL (NEGATIVE) H 11/19/18 23:05 Urine Glucose (UA) >=1000 mg/dL (NEGATIVE) H 11/19/18 23:05 Urine Ketones 15 mg/dL (NEGATIVE) H 11/19/18 23:05 Urine Occult Blood SMALL (NEGATIVE) H 11/19/18 23:05 Urine Nitrite NEGATIVE (NEGATIVE) 11/19/18 23:05 Urine Bilirubin NEGATIVE (NEGATIVE) 11/19/18 23:05 Urine Urobilinogen 2 E.U./dL (NORMAL) H 11/19/18 23:05 Ur Leukocyte Esterase NEGATIVE (NEGATIVE) 11/19/18 23:05 Urine RBC 0-5 /HPF (0-5) 11/19/18 23:05 Urine WBC 0-3 /HPF (0-3) 11/19/18 23:05 Ur Squamous Epith Cells RARE Squamous (<= Few) 11/19/18 23:05 Urine Bacteria None Seen /HPF (None Seen) 11/19/18 23:05 Urine Culture Comments NOT INDICATED 11/19/18 23:05 Influenza A (Rapid) Negative (Negative) 11/19/18 21:36 Influenza B (Rapid) Negative (Negative) 11/19/18 21:36 Sepsis Event Note (H) - Evaluation Current Stage of Sepsis: Ruled out Possible source of Sepsis: positive: Bone/Joint
[2018-11-21 14:02] LABS: VANCOMYCIN,TROUGH 15.4 ug/mL (10.0-20.0)
[2018-11-22] MEDS: AMPICILLIN/SULBACTAM 3 GM in SODIUM CHLORIDE 0.9% MINIBAG 100 ML IV SCH ×2 (00:40→05:28)
[2018-11-22 05:52] LABS: HGB - HEMOGLOBIN 11.1 g/dL (14.0-18.0); MEAN CORPUSCULAR HEMOGLOBIN 27.9 pg (27.0-31.0); MEAN CORPUSCULAR HGB CONC 34.1 g/dL (32.0-36.0); MEAN PLATELET VOLUME 6.8 fL (7.4-11.4); RED BLOOD COUNT 3.96 10^6/uL (4.70-6.10); RED CELL DISTRIBUTION WIDTH 13.3 % (12.0-15.0); WHITE BLOOD COUNT 6.8 x10^3/uL (4.8-10.8)
[2018-11-22 06:07] LABS: CREATININE 0.9 mg/dL (0.6-1.2)
[2018-11-22] MEDS: VANCOMYCIN INJ 1.5 GM in SODIUM CHLORIDE 0.9% 500 ML IV SCH (06:13)
[2018-11-22] MEDS: SODIUM CHLORIDE FLUSH 0.9% 10 ML SYRINGE IVP SCH ×2 (06:13→08:38)
[2018-11-22 06:30] LABS: FOLATE 17.52 ng/mL (5.90 - >24.8)
[2018-11-22 08:04] VITALS: BP 137/76
[2018-11-22] MEDS: INSULIN ASPART 300 UNIT/3 ML PEN SUBQ SCH (08:11)
[2018-11-22] MEDS: INSULIN GLARGINE 300 UNIT/3 ML PEN SUBQ SCH (08:12)
[2018-11-22] MEDS: FAMOTIDINE 20 MG/50 ML 50 ML IV SCH (08:37)
[2018-11-22] MEDS: POLYETHYLENE GLYCOL 3350 17 GM PACKET PO SCH (08:38)
[2018-11-22] MEDS ORDERED: POTASSIUM CHLORIDE 20 MEQ TABLET PO ONE (08:43)
[2018-11-22] MEDS ORDERED: FERROUS GLUCONATE 324 MG TABLET PO SCH (09:00)
--- NOTE | 2018-11-22 09:22 | Discharge Plan ---
Discharge Plan Disposition: Home, Self Care Condition: Fair Prescriptions: Amox/Clav 875/125 [Augmentin] 1 each PO Q12H #26 tablet Metformin HCl 1,000 mg PO BID #60 tablet Sulfamethox/Trimeth 800/160 [Bactrim Ds 800/160] 1 each PO BID #26 tablet Diet: Diabetic Activity Restrictions: Wt Bearing as Tolerated Shower Restrictions: No Driving Restrictions: No Weight Bearing: As tolerated on R foot Instruction Topics: Diabetes Treat Minor Foot Infecs, Cellulitis Dc Additional Instructions or Follow Up instructions: You were admitted with a fever and the infection was found to be a wound of the right foot, called cellulitis. You recieved 2 days of iv antibiotics, which helped the infection and you are being sent home on a 2 week course of 2 antibiotics. Take the pills until they are finished. See your PCP in 5-10 days in follow-up and to determine if longer treatment of the infection is needed. You need tighter glucose control of your Diabetes. The Metformin pill strength was increased from 500 mg twice a day to 1000 mg twice a day. See your PCP for further management of your Diabetes. You may also come [place] [facility] [place]. If you have new or worsening symptoms, come back to the ER. Follow-Up Care: [facility] - Diabetes Ed No Smoking: If you smoke, Please STOP! Call for help. Follow-up with: Viky Hadley MD [Primary Care Provider] -
--- NOTE | 2018-11-28 09:04 | DISCHARGE SUMMARY ---
Physician: Josee Valles MD DATE OF ADMISSION: 11/20/2018 DATE OF DISCHARGE: 11/22/2018 HISTORY OF PRESENT ILLNESS: This is a 33-year-old white male who has type 2 diabetes and does not follow his sugars carefully. He presented with several days of fatigue, aches and pains and a fever of over 39 degrees C. He was found to have a foot infection in the emergency room, as he wasn't aware of it, and was admitted for treatment of diabetes and a foot infection.. HOSPITAL COURSE AND DISCHARGE DIAGNOSES 1. Cellulitis in a diabetic foot. The patient was awaiting an MRI to evaluate for osteomyelitis and then plan for surgical debridement or possibly more extensive surgery. Antibiotics, therefore, were not started immediately, awaiting a surgical specimen. The MRI, however, ruled out osteomyelitis and was consistent with cellulitis. He was put on IV antibiotics, and the Orthopedic surgeon did not need to perform any surgery. He had topical wound treatment with daily dressing changes. He was on 48 hours of IV antibiotics and then discharged on p.o. antibiotics using Bactrim-DS 1 p.o. b.i.d. and Augmentin 875/125 p.o. b.i.d. for a 2-week course. He may need up to a 4-week course, and therefore, was advised to see his PCP for determination if longer antibiotics were needed. With management of his infection, his white blood count went from 8.2 down to 6.8, and he defervesced. Blood cultures x2 were done and had no growth at the time of discharge. Organisms cultured from a superficial swab are not reliable for predicting the pathogens responsible for a deeper infection in a diabetic foot infection (per UpToDate); therefore, there was no wound culture performed. 2. Type 2 diabetes. At admission, his glucose was over 350. His A1c was 9.6, indicating fairly poor control. He was off his metformin 500 b.i.d. dose while here and on a sliding scale of insulin plus a carb-controlled diet. The plan was to restart him on a higher dose of metformin at 1000 mg p.o. b.i.d. at discharge and to have closer followup with his PCP or come to the [facility] here for follow-up. 3. Hypertriglyceridemia. The patient's lipid panel was typical for a diabetic, showing cholesterol of 191, LDL of 120, and triglyceride level of 245. He was started on fibrate while here. Tighter glucose control may drop his triglyceride level as well. 4. Anemia. He was getting IV saline at 100 mL an hour; therefore, part of this was hemodilution. His labs showed adequate B12 and folate levels, but a low iron panel with total iron 21, TIBC 242, and percent saturation 9. He was started on iron while here. 5. Hypokalemia. This was likely due to insulin use, promoting movement of potassium intercellularly. He required minimal potassium chloride replacement while here. 6. Hyponatremia. On admission, he had a sodium of 127, which improved with the normal saline rehydration. LABS AND IMAGING: Reviewed and summarized above. ALLERGIES: MACADAMIA NUTS. MEDICATIONS AT THE TIME OF DISCHARGE 1. Augmentin 1 p.o. b.i.d. for 2 more weeks. 2. Bactrim-DS 1 p.o. b.i.d. for 2 more weeks. 3. Metformin 1000 mg p.o. b.i.d. CONDITION AT DISCHARGE: Stable. PHYSICAL EXAMINATION VITAL SIGNS: Blood pressure 137/76, heart rate 76 in sinus rhythm, afebrile, room air saturation 97%. 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 NECK: Without JVD or carotid bruits. CHEST: Clear. HEART: Sounds normal. ABDOMEN: Soft and benign. EXTREMITIES: The right foot is bandaged. The left has no clubbing, cyanosis or edema. NEUROLOGIC: He has decreased sensation in both feet. FOLLOWUP: He is advised to see his PCP within 1-2 weeks for further management of the foot cellulitis and his diabetes. Please consider Iron replacement, and daily aspirin in a diabetic. CODE STATUS: FULL CODE. Time required to complete this entire discharge, chart review, patient education, prescription orders, dictation: 30 minutes. cc: Viky Hadley MD TD: 11/28/2018 08:40 MTDD
== END 2018-11-22 10:42 | disposition home or self-care (01) | DRG 603 ==
LOC: ED 21:10 → MS2 11-20 01:01
PROVIDERS: ADMIT Family Medicine Sports Medicine; ATTEND Internal Medicine
DX: L03.115 Cellulitis of right lower limb (principal); E87.1 Hypo-osmolality and hyponatremia; E11.621 Type 2 diabetes mellitus with foot ulcer; L97.509 Non-pressure chronic ulcer of other part of unspecified foot with unspecified severity; E11.65 Type 2 diabetes mellitus with hyperglycemia; Z79.84 Long term (current) use of oral hypoglycemic drugs; I10 Essential (primary) hypertension; E78.00 Pure hypercholesterolemia, unspecified; Z91.018 Allergy to other foods; E78.1 Pure hyperglyceridemia; D64.9 Anemia, unspecified; E87.6 Hypokalemia; T38.3X5A Adverse effect of insulin and oral hypoglycemic [antidiabetic] drugs, initial encounter; E11.42 Type 2 diabetes mellitus with diabetic polyneuropathy
CPT/HCPCS: 36415; 71045; 80048; 80053; 80061; 80202; 81001; 82272; 82607; 82746; 82803; 83036; 83540; 83605; 83690; 83721; 84466; 85025; 85027; 87040; 87086; 87275; 87276; 96361; 96374; 96375; 99283; 99284; 99285

== ENCOUNTER 2019-01-12 15:38 | Emergency (ER) | payer SELFPAY ==
[2019-01-12] MEDS ORDERED: fentaNYL 100 MCG/2 ML VIAL IVP STA (18:37)
[2019-01-12] MEDS ORDERED: ACETAMINOPHEN 500 MG TABLET PO STA (18:37)
[2019-01-12] MEDS ORDERED: SODIUM CHLORIDE 0.9% 1,000 ML IV ONE (18:37)
[2019-01-12] MEDS ORDERED: CLINDAMYCIN 600 MG/50 ML 50 ML IV ONE (18:38)
[2019-01-12] MEDS ORDERED: AMPICILLIN/SULBACTAM 3 GM in SODIUM CHLORIDE 0.9% MINIBAG 100 ML IV STA (18:38)
--- NOTE | 2019-01-12 18:38 | ED Physician Documentation ---
History of Present Illness - Stated complaint Stated Complaint: RT FOOT PX - Chief complaint Chief Complaint: General - Additonal information Additional information: 33-year-old male presents the emergency department with a ulcer on his right foot which has become red and swollen.The patient was started on Levaquin and had 1 dose. The patient presents because of ongoing pain and redness and chills. No fevers. No significant change in the redness or swelling. Symptoms are described as moderate. Review of Systems Constitutional: reports: Chills. denies: Fever Eyes: denies: Discharge Ears: denies: Ear pain Nose: denies: Congestion Cardiac: denies: Chest pain / pressure Respiratory: denies: Cough GI: denies: Abdominal Pain Skin: reports: Lesions Musculoskeletal: denies: Neck pain Neurologic: denies: Focal weakness PD PAST MEDICAL HISTORY - Past Medical History Cardiovascular: Hypertension, High cholesterol Respiratory: None Neuro: Headaches, Peripheral neuropathy Endocrine/Autoimmune: Type 2 diabetes : None HEENT: None Psych: None Musculoskeletal: None Derm: None - Past Surgical History Past Surgical History: No HEENT: Other - Present Medications Home Medications: Ambulatory Orders Medication Instructions Recorded Confirmed Metformin HCl 1,000 mg PO BID #60 tablet 11/22/18 01/12/19 Amox/Clav 875/125 [Augmentin] 1 each PO Q12H #20 tablet 01/12/19 Sulfamethox/Trimeth 800/160 1 each PO BID #20 tablet 01/12/19 [Bactrim Ds 800/160] - Allergies Allergies/Adverse Reactions: Allergies Allergy/AdvReac Type Severity Reaction Status Date / Time macadiam nuts Allergy Anaphylaxis Uncoded 01/12/19 15:45 - Social History Does the pt smoke?: No Smoking Status: Never smoker Does the pt drink ETOH?: No - Immunizations Immunizations are current?: Yes - POLST Patient has POLST: No POLST Status: Full Code PD ED PE NORMAL - General General: Alert and oriented X 3, No acute distress - HEENT HEENT: Atraumatic, PERRL, EOMI, Ears normal - Cardiac Cardiac: RRR - Respiratory Respiratory: No respiratory distress - Neuro Neuro: Alert and oriented X 3, Normal speech - Psych Psych: Normal mood PD ED PE EXPANDED - Derm SKin visual: 1 - rash (Cellulitis) - Extremities DELORES LE visual: 1 - tenderness (The patient has an open ulcer on the volar aspect of the great toe and there is surrounding erythematous changes. The patient has a normal dorsalis pedis pulse and normal cap refill. There is no proximal erythematous changes or cellulitis of the leg) Results - Vitals Vitals: Vital Signs - 24 hr 01/12/19 01/12/19 01/12/19 15:45 18:19 20:01 Temperature 37.5 C 37.3 C Heart Rate 117 H 115 H 90 Respiratory 16 18 17 Rate Blood Pressure 142/81 H 123/78 119/67 O2 Saturation 100 98 Oxygen O2 Source Room air - Labs Labs: Laboratory Tests 01/12/19 01/12/19 01/12/19 18:50 18:50 18:50 WBC 11.3 H RBC 4.61 L Hgb 12.9 L Hct 36.8 L MCV 79.8 L MCH 28.0 MCHC 35.1 RDW 14.1 Plt Count 280 MPV 6.8 L Neut # (Auto) 9.0 H Lymph # (Auto) 1.4 L Mccreary # (Auto) 0.8 Eos # (Auto) 0.0 Baso # (Auto) 0.1 Absolute Nucleated RBC 0.00 Nucleated RBC % 0.0 Sodium 129 L Potassium 4.0 Chloride 91 L Carbon Dioxide 24 Anion Gap 14.0 H BUN 15 Creatinine 1.3 H Estimated GFR (MDRD) 63 L Glucose 266 H Lactic Acid 2.2 Calcium 9.1 Total Bilirubin 2.4 H AST 17 ALT 16 Alkaline Phosphatase 78 Total Creatine Kinase 55 Total Protein 8.7 H Albumin 4.0 Globulin 4.7 H Albumin/Globulin Ratio 0.9 L Lipase 26 - Rads (name of study) XR foot Radiology: Final report received, See rad report (IMPRESSION: No acute findings. Hallux valgus) PD MEDICAL DECISION MAKING - ED course ED course: The patient is only had one dose of oral Levaquin, currently I would not call this a failure of outpatient treatment. The patient has had no significant change in the cellulitic aspect of this redness. Presently on reevaluation the patient is resting comfortably and currently appears appropriate for ongoing outpatient management. I have advised to stop the Levaquin and we will start Augmentin and Bactrim. I discussed warning signs with the patient and advised that they should return back to the emergency department immediately for any worsening or any concerns. Otherwise they will follow-up as an outpatient with primary care, orthopedics and wound care which have already been arranged. Departure - Departure Disposition: Home, Self Care Clinical Impression: Diabetic foot infection Condition: Good Instructions: ED Cellulitis Ch, ED Infec Skin Cellulitis Follow-Up: Viky Hadley MD [Primary Care Provider] - Within 3 Days Prescriptions: Amox/Clav 875/125 [Augmentin] 1 each PO Q12H #20 tablet Sulfamethox/Trimeth 800/160 [Bactrim Ds 800/160] 1 each PO BID #20 tablet Comments: Stop taking the Levaquin. I am going to start you on Augmentin and Bactrim Please follow-up with primary care this coming week for recheck and reevaluation. Please return back to the emergency department immediately for any worsening or any concerns
[2019-01-12 19:16] LABS: BASOPHILS # (AUTO) 0.1 10^3/uL (0.0-0.1); BASOPHILS % (AUTO) 0.9 %; EOSINOPHILS % (AUTO) 0.2 %; HGB - HEMOGLOBIN 12.9 g/dL (14.0-18.0); LYMPHOCYTES # (AUTO) 1.4 10^3/uL (1.5-3.5); LYMPHOCYTES % (AUTO) 12.5 %; MEAN CORPUSCULAR HGB CONC 35.1 g/dL (32.0-36.0); MEAN CORPUSCULAR VOLUME 79.8 fL (80.0-94.0); MEAN PLATELET VOLUME 6.8 fL (7.4-11.4); MONOCYTES # (AUTO) 0.8 10^3/uL (0.0-1.0); MONOCYTES % (AUTO) 6.9 %; NEUTROPHILS % (AUTO) 79.5 %; PLT - PLATELET COUNT 280 10^3/uL (130-450); RED BLOOD COUNT 4.61 10^6/uL (4.70-6.10); RED CELL DISTRIBUTION WIDTH 14.1 % (12.0-15.0); WHITE BLOOD COUNT 11.3 x10^3/uL (4.8-10.8)
[2019-01-12] MEDS ORDERED: ONDANSETRON 4 MG/2 ML VIAL IVP STA (19:18)
[2019-01-12] MEDS ORDERED: ONDANSETRON 4 MG/2 ML VIAL ONE (19:24)
[2019-01-12 19:26] LABS: ALBUMIN/GLOBULIN RATIO 0.9 (1.0-2.2); BILIRUBIN,TOTAL 2.4 mg/dL (0.2-1.0); CALCIUM 9.1 mg/dL (8.5-10.3); CREATININE 1.3 mg/dL (0.6-1.2); TOTAL PROTEIN 8.7 g/dL (6.7-8.2)
--- NOTE | 2019-01-12 19:27 | XRAY Report ---
Reason: foot swelling, Redness and pain Procedure Date: 01/12/2019 Accession Number: [id number] / [id number] Procedure: XR - Foot 3 View RT CPT Code: FULL RESULT: EXAM: RIGHT FOOT RADIOGRAPHY EXAM DATE: 01/12/2019 07:13 PM. CLINICAL HISTORY: Right foot pain and swelling. COMPARISON: FOOT 3 VIEW RT 11/19/2018 9:45 PM. TECHNIQUE: 3 views. FINDINGS: Bones: No fracture or bone lesion. Joints: Hallux valgus deformity is seen. Minor first MTP DJD changes are seen. Soft Tissues: Diffuse vascular calcification is seen. IMPRESSION: No acute findings. Hallux valgus. RADIA
[2019-01-12 21:28] VITALS: BP 112/78
== END 2019-01-12 21:33 | disposition home or self-care (01) ==
LOC: ED 15:38
DX: E11.628 Type 2 diabetes mellitus with other skin complications (principal); L03.115 Cellulitis of right lower limb; E11.621 Type 2 diabetes mellitus with foot ulcer; L97.519 Non-pressure chronic ulcer of other part of right foot with unspecified severity; E11.42 Type 2 diabetes mellitus with diabetic polyneuropathy; Z79.84 Long term (current) use of oral hypoglycemic drugs; M20.11 Hallux valgus (acquired), right foot; I10 Essential (primary) hypertension
CPT/HCPCS: 36415; 73630; 80053; 82550; 83605; 83690; 85025; 87040; 96365; 96368; 96375; 99283; 99284; A9270

== ENCOUNTER 2019-01-14 14:07 | Inpatient (IN) | payer SELFPAY ==
[2019-01-14] MEDS ORDERED: PIPERACILLIN/TAZOBACTAM 4.5 GM in SODIUM CHLORIDE 0.9% MINIBAG 100 ML IV STA (14:49)
[2019-01-14] MEDS ORDERED: VANCOMYCIN INJ 2 GM in SODIUM CHLORIDE 0.9% 500 ML IV STA (14:49)
[2019-01-14] MEDS ORDERED: SODIUM CHLORIDE 0.9% 1,000 ML IV ONE (14:49)
--- NOTE | 2019-01-14 14:53 | ED Physician Documentation ---
PD HPI LOWER EXT INJURY - Stated complaint Stated Complaint: R FOOT PX/N/V - Chief complaint Chief Complaint: Wound - History obtained from History obtained from: Patient - History of Present Illness PD HPI LOW EXT INJURY LOCATION: Right, Foot Type of injury: Other (This is a 33 Male with poorly controlled type 2 diabetes, currently on metformin but no insulin due to lack of insurance. He was admitted for diabetic foot infection in October. He was seen 2 nights ago for diabetic foot infection, he was on Levaquin and was switched to Augmentin and Bactrim. Acutely today he is worsened With chills, nausea and vomiting, increased pain and redness of the right foot.) Review of Systems Ten Systems: 10 systems reviewed and negative Constitutional: reports: Fever, Chills Cardiac: denies: Chest pain / pressure, Palpitations Respiratory: denies: Dyspnea, Cough PD PAST MEDICAL HISTORY - Past Medical History Cardiovascular: Hypertension, High cholesterol Respiratory: None Neuro: Headaches, Peripheral neuropathy Endocrine/Autoimmune: Type 2 diabetes : None HEENT: None Psych: None Musculoskeletal: None Derm: None - Past Surgical History Past Surgical History: No HEENT: Other - Present Medications Home Medications: Ambulatory Orders Medication Instructions Recorded Confirmed Metformin HCl 1,000 mg PO BID #60 tablet 11/22/18 01/12/19 Amox/Clav 875/125 [Augmentin] 1 each PO Q12H #20 tablet 01/12/19 Sulfamethox/Trimeth 800/160 1 each PO BID #20 tablet 01/12/19 [Bactrim Ds 800/160] - Allergies Allergies/Adverse Reactions: Allergies Allergy/AdvReac Type Severity Reaction Status Date / Time macadiam nuts Allergy Anaphylaxis Uncoded 01/14/19 14:21 walnuts Allergy Anaphylaxis Uncoded 01/14/19 14:22 - Social History Does the pt smoke?: No Smoking Status: Never smoker Does the pt drink ETOH?: No - Family History Family history: reports: Non contributory - Immunizations Immunizations are current?: Yes - POLST Patient has POLST: No POLST Status: Full Code PD ED PE NORMAL - Vitals Vital signs reviewed: Yes - General General: Alert and oriented X 3, No acute distress - HEENT HEENT: PERRL, EOMI - Neck Neck: Supple, no meningeal sign, No bony TTP - Cardiac Cardiac: No murmur (Tachycardic but regular) - Respiratory Respiratory: No respiratory distress, Clear bilaterally - Abdomen Abdomen: Soft, Non tender - Back Back: No CVA TTP, No spinal TTP - Derm Derm: Normal color, Warm and dry - Extremities Extremities: Other (There is a wound about the size of a quarter, a clean-based ulcer on the bottom of the first metatarsal head. It was cultured during exam. He has cellulitis of basically the whole medial foot up to the midfoot.) - Neuro Neuro: Alert and oriented X 3, Normal speech - Psych Psych: Normal mood, Normal affect Results - Vitals Vitals: Vital Signs - 24 hr 01/14/19 01/14/19 14:18 15:24 Temperature 36.8 C Heart Rate 126 H 109 H Respiratory 18 18 Rate Blood Pressure 124/88 H 149/102 H O2 Saturation 100 100 Oxygen O2 Source Room air - Labs Labs: Laboratory Tests 01/14/19 01/14/19 01/14/19 14:58 14:58 14:58 WBC 8.9 RBC 4.73 Hgb 13.1 L Hct 37.8 L MCV 79.9 L MCH 27.6 MCHC 34.5 RDW 14.1 Plt Count 299 MPV 6.6 L Neut # (Auto) 7.0 H Lymph # (Auto) 1.0 L [place] # (Auto) 0.5 Eos # (Auto) 0.2 Baso # (Auto) 0.2 H Absolute Nucleated RBC 0.00 Nucleated RBC % 0.0 ESR Sodium 131 L Potassium 3.6 Chloride 93 L Carbon Dioxide 24 Anion Gap 14.0 H BUN 14 Creatinine 1.3 H Estimated GFR (MDRD) 63 L Glucose 295 H Lactic Acid 3.1 H* Calcium 9.0 Total Bilirubin 1.4 H AST 29 ALT 20 Alkaline Phosphatase 76 C-Reactive Protein Total Protein 9.0 H Albumin 4.1 Globulin 4.9 H Albumin/Globulin Ratio 0.8 L Lipase 32 01/14/19 01/14/19 14:58 14:58 WBC RBC Hgb Hct MCV MCH MCHC RDW Plt Count MPV Neut # (Auto) Lymph # (Auto) [place] # (Auto) Eos # (Auto) Baso # (Auto) Absolute Nucleated RBC Nucleated RBC % ESR 70 H Sodium Potassium Chloride Carbon Dioxide Anion Gap BUN Creatinine Estimated GFR (MDRD) Glucose Lactic Acid Calcium Total Bilirubin AST ALT Alkaline Phosphatase C-Reactive Protein 19.7 H Total Protein Albumin Globulin Albumin/Globulin Ratio Lipase PD MEDICAL DECISION MAKING - ED course ED course: This is a 33-year-old gentleman with a diabetic foot infection that is failed outpatient treatment with some soft signs of sepsis. He was cultured up and given Zosyn and vancomycin. Spoke with Dr. Orellana for admission at 3:55 PM. - Consults Consults: Consulted (name) (Ian Reyes, agronomy location manager ortho, will see in consult.) - Sepsis Event Current Stage of Sepsis: Sepsis Possible source of Sepsis: Bone/Joint Mental/Cognitive Status: Alert/Oriented X3 Capillary refill: Less than 2 seconds Peripheral Pulse Strength: 4+ Bounding Peripheral Pulse Location: Radial Bedside ultrasound performed: No Departure - Departure Disposition: 66 [facility] DC/Xfer Clinical Impression: Cellulitis in diabetic foot Type 2 diabetes mellitus Qualifiers: Diabetes mellitus termite treater insulin use: without care home use Diabetes mellitus complication status: with hyperglycemia Qualified Code(s): E11.65 - Type 2 diabetes mellitus with hyperglycemia Condition: Serious
[2019-01-14] MEDS ORDERED: INSULIN REGULAR HUMAN 100 UNIT/1 ML 10 ML MDV IVP STA (14:54)
[2019-01-14] MEDS ORDERED: ONDANSETRON 4 MG/2 ML VIAL IVP STA (15:06)
[2019-01-14 15:07] LABS: BASOPHILS # (AUTO) 0.2 10^3/uL (0.0-0.1); BASOPHILS % (AUTO) 2.2 %; EOSINOPHILS # (AUTO) 0.2 10^3/uL (0.0-0.7); EOSINOPHILS % (AUTO) 2.1 %; HGB - HEMOGLOBIN 13.1 g/dL (14.0-18.0); LYMPHOCYTES % (AUTO) 11.4 %; MEAN CORPUSCULAR HEMOGLOBIN 27.6 pg (27.0-31.0); MEAN CORPUSCULAR HGB CONC 34.5 g/dL (32.0-36.0); MEAN CORPUSCULAR VOLUME 79.9 fL (80.0-94.0); MEAN PLATELET VOLUME 6.6 fL (7.4-11.4); MONOCYTES # (AUTO) 0.5 10^3/uL (0.0-1.0); MONOCYTES % (AUTO) 5.9 %; NEUTROPHILS % (AUTO) 78.4 %; PLT - PLATELET COUNT 299 10^3/uL (130-450); RED BLOOD COUNT 4.73 10^6/uL (4.70-6.10); RED CELL DISTRIBUTION WIDTH 14.1 % (12.0-15.0); WHITE BLOOD COUNT 8.9 x10^3/uL (4.8-10.8)
[2019-01-14 15:21] LABS: ALBUMIN 4.1 g/dL (3.2-5.5); ALBUMIN/GLOBULIN RATIO 0.8 (1.0-2.2); BILIRUBIN,TOTAL 1.4 mg/dL (0.2-1.0); CREATININE 1.3 mg/dL (0.6-1.2)
--- NOTE | 2019-01-14 16:18 | XRAY Report ---
Reason: foot infection near 1st MT head, bottom Procedure Date: 01/14/2019 Accession Number: [id number] / [id number] Procedure: XR - Foot 3 View RT CPT Code: FULL RESULT: EXAM: RIGHT FOOT RADIOGRAPHY EXAM DATE: 01/14/2019 03:18 PM. CLINICAL HISTORY: Foot infection near 1st metatarsal head bottom. COMPARISON: FOOT 3 VIEW RT 01/12/2019 7:05 PM. TECHNIQUE: 3 views. FINDINGS: Bones: Normal. No fractures or bone lesions. Joints: Hallux valgus. No subluxations. Soft Tissues: Soft tissue swelling of the great toe. IMPRESSION: No acute osseous abnormality identified. RADIA
[2019-01-14] MEDS ORDERED: ACETAMINOPHEN 325 MG TABLET PO PRN (16:45)
[2019-01-14] MEDS ORDERED: HYDROcod/ACETAM 5/325 MG TABLET PO PRN (16:45)
[2019-01-14] MEDS ORDERED: ONDANSETRON 4 MG/2 ML VIAL IVP PRN (16:45)
--- NOTE | 2019-01-14 16:51 | HISTORY & PHYSICAL EXAMINATION ---
Chief Complaint - Chief Complaint Chief Complaint: right foot infection History of Present Illness - History of Present Illness HPI Comment/Other: Patient is a 33-year-old male with past medical history of uncontrolled type 2 diabetes and right foot infection, HTN, HLD, peripheral neuropathy, who present ER complain of worsening infection, fever, and nausea and vomiting. pt report he is currently on metformin but no insulin because of lack of insurance. He was admitted for diabetic foot infection in October 2018. MRI of his right foot at that time ruled out osteomyelitis. pt was prescribed Augmentin and Bactrim. pt was seen two days ago for diabetic foot infection. pt was prescribed on Levaquin. Pt report from Tuesday, he was worsened With fever and chills and with nausea and vomiting. pt report starting today morning his foot pain increased and redness around the right foot increased as well. Xray of today reveals on acute osseous abnormality identified. Pt denies chest pain, cough, shortness of breath, headache. Initially Pt is afebrile, slight tachycardia, otherwise he is hemodynamically stable. History - Past Medical History Cardiovascular: reports: Hypertension, High cholesterol Respiratory: reports: None Neuro: reports: Headaches, Peripheral neuropathy Endocrine/Autoimmune: reports: Type 2 diabetes : reports: None HEENT: reports: None Psych: reports: None Musculoskeletal: reports: None Derm: reports: None MRSA Hx?: No - Past Surgical History HEENT: reports: Other - Family & Social History Family History: Mother: Diabetes, Type 2, Hyperlipidemia, Hypertension, Father: Hyperlipidemia, Hypertension Family History Comment/Other: pt's mother is at pt's bedside, she report her family has strong DM family hisotry. she and her brothers had early age DM2, and both of her brothers from DM complications. 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 pt denies smoker, alcohol and drug problem - Substance History Use: Uses substance without health or social issues: NONE - POLST Patient has POLST: No POLST Status: Full Code Meds/Allgy - Home Medications Home Medications: Ambulatory Orders Medication Instructions Recorded Confirmed Metformin HCl 1,000 mg PO BID #60 tablet 11/22/18 01/14/19 Amox/Clav 875/125 [Augmentin] 1 each PO Q12H #20 tablet 01/12/19 01/14/19 Sulfamethox/Trimeth 800/160 1 each PO BID #20 tablet 01/12/19 01/14/19 [Bactrim Ds 800/160] - Allergies Allergies/Adverse Reactions: Allergies Allergy/AdvReac Type Severity Reaction Status Date / Time No Known Drug Intolerances Allergy Unknown Unknown Verified 01/14/19 18:34 macadiam nuts Allergy Anaphylaxis Uncoded 01/14/19 14:21 walnuts Allergy Anaphylaxis Uncoded 01/14/19 14:22 Review of Systems - Constitutional Constitutional: reports: Fever. denies: Fatigue, Chills, Malaise, Weakness, Poor appetite, Diaphoresis, Night sweats - Eyes Eyes: denies: Pain, Irritation, Amaurosis, Blurred vision, Field loss, Vision loss, Dipolpia - Ears, Nose & Throat Ears, Nose & Throat: denies: Ear pain, Hearing loss, Tinnitus, Vertigo, Nasal pain, Nasal discharge, Nosebleeds, Nasal obstruction, Dentures, Sore throat, Hoarseness, Mouth lesions, Bleeding gums - Cardiovascular Cariovascular: denies: Irregular heart rate, Palpitations, Chest pain, Edema, Lightheadedness, Syncope, Exertional dyspnea, Decr. exercise tolerance - Respiratory Respiratory: denies: Cough, Sputum production, Wheezing, Snoring, Hemoptysis, Orthopnea, SOB at rest, SOB with exertion - Gastrointestinal Gastrointestinal: reports: Nausea, Vomiting. denies: Abdominal pain, Abdominal distention, Constipation, Diarrhea, Change in bowel habits, Rectal bleeding, Black stools, Bloody stools, Bile emesis, Anjum blood emesis, Coffee grounds emesis, Reflux/heartburn, Bloating - Genitourinary Genitourinary: denies: Dysuria, Frequency, Urgency, Hematuria, Incontinence, Flank pain, Nocturia, Urethral discharge - Musculoskeletal Musculoskeletal: denies: Muscle pain, Back pain, Muscle aches, Stiffness, Limited range of motion, Muscle weakness, Gout, Joint pain - Integumentary Integumentary: reports: Rash. denies: Pruritis, Lesions, Dryness, Lumps, Acne, Pigment changes - Neurological Neurological: denies: General weakness, Focal weakness, Headache, Dizziness, Numbness, Memory problems, Pre-existing deficit, Abnormal gait, Seizures, Incoordination, Slurred speech - Psychiatric Psychiatric: denies: Depression, Anxiety, Suicidal, Delusions, Hallucinations, Homicidal - Endocrine Endocrine: denies: Polyuria, Polydypsia, Polyphagia, Intolerance to cold - Hematologic/Lymphatic Hematologic/Lymphatic: reports: Recurrent infections. denies: Anemia, Bruising, Petechiae, Blood clots, Lymphadenopathy, Bleeding tendencies Prior Level of Functionality: independent Exam - Vital Signs Reviewed Vital Signs: Yes Vital Signs: Vital Signs x48h Temp Pulse Resp BP Pulse Ox 01/14/19 16:14 99 16 132/91 H 100 01/14/19 15:41 100 16 138/88 H 100 01/14/19 15:24 109 H 18 149/102 H 100 01/14/19 14:18 36.8 C 126 H 18 124/88 H 100 - Physical Exam General Appearance: positive: No acute distress, Alert. negative: Lethargic Eyes Bilateral: positive: Normal inspection, PERRL, No lid inflammation, Conjunctivae nml ENT: positive: ENT inspection nml, Pharynx nml, No signs of dehydration. negative: Purulent nasal drainage, Pharyngeal erythema, Oral lesions Neck: positive: Nml inspection, Thyroid nml, No JVD, Trachea midline. negative: Thyromegaly, Lymphadenopathy (R), Lymphadenopathy (L), Stiff neck, Swelling/bruising, Tracheal deviation Respiratory: positive: Chest non-tender, No respiratory distress, Breath sounds nml. negative: Wheezes, Rales, Rhonchi Cardiovascular: positive: Regular rate & rhythm, No murmur, No gallop. negative: Irregularly irregular, Extrasystoles, Tachycardia, Bradycardia, JVD present, Systolic murmur, Diastolic murmur Peripheral Pulses: positive: 2+ Abdomen: positive: Non-tender, No organomegaly, Nml bowel sounds, No distention. negative: Tenderness, Guarding, Rebound Back: positive: Nml inspection. negative: CVA tenderness (R), CVA tenderness (L) Skin: positive: Warm, Skin rash, Laceration (cm). negative: Cyanosis, Diaphoresis, Pallor Extremities: positive: Non-tender, Full ROM. negative: Calf tenderness, Joint swelling, Renato's sign/cords Neurologic/Psychiatric: positive: Oriented x3, Motor nml, Sensation nml, Mood/affect nml. negative: Weakness, Sensory loss, Facial droop, Slurred/abnml speech, Depressed mood/affect Sepsis Event Note (H) - Evaluation Current Stage of Sepsis: Sepsis Possible source of Sepsis: positive: Bone/Joint - Sepsis Criteria Sepsis Criteria: Recorded Temperature greater than 38.3C or Less than 36C Conclusion/Plan - Problem List (1) Diabetic foot infection Conclusion/Plan: chronic foot infection, failure out of out-pt. Recent MRI and today Xray did not indicate osteomyelitis antibiotics IV of Zosyn and Vancomycin blood culture wound consult and wound care lab and vital monitor (2) Cellulitis in diabetic foot Conclusion/Plan: pt present erythema radiated from his right big toe, ulcer location, to the dorsum of right foot, pt also present lower degree of fever start with vancomycin for MRSA, and Zosyn IVF of NS followup blood culture (3) Type 2 diabetes mellitus Conclusion/Plan: pt only had metformin at home. uncontrolled hyperglycemia. his A1C has 8.5. pt may need start on insulin slide scale for insulin, ACHS hypoglycemia protocol Qualifiers: Diabetes mellitus snf insulin use: without snf use Diabetes mellitus complication status: with hyperglycemia Qualified Code(s): E11.65 - Type 2 diabetes mellitus with hyperglycemia (4) Dehydration Conclusion/Plan: pt has fever, elevated creatinine and BUN, it seems prerenal Azotemia IVF of NS, monitor with lab and vital (5) Hyponatremia Conclusion/Plan: chronic slight lower level of Na, can be caused uncontrolled DM2, hyperglycemia controlled glucose level with insulin, diet IVF of NS, lab monitor (6) Elevated lactic acid level Conclusion/Plan: pt has elevated Lactic acid. pt has fever, foot infection, sepsis is consideration aggressively treated with antibiotics with Zosyn and Vancomycin IVF of NS continue monitor lactic acid level (7) Full code status Conclusion/Plan: pt request full code status - Lab Results Fish Bones: 01/15/19 04:49 01/15/19 04:49 Core Measures - Anticipated LOS I expect patient to be DC'd or transferred within 96 hours.: Yes - DVT/VTE - Prophylaxis VTE/DVT Device ordered at admit?: Yes VTE/DVT Prophylaxis med ordered at admit?: Yes
[2019-01-14 16:56] LABS: HB2 TOTAL 14.2 g/dL; HEMOGLOBIN A1C 0.99 g/dL; HEMOGLOBIN A1C % 8.5 % (4.6-6.2)
[2019-01-14] MEDS ORDERED: VANCOMYCIN PER PHARMACY 1 GM in SODIUM CHLORIDE 0.9% 250 ML IV SCH (17:00)
[2019-01-14] MEDS: INSULIN ASPART 300 UNIT/3 ML PEN SUBQ SCH ×2 (18:52→21:51)
[2019-01-14] MEDS: SODIUM CHLORIDE FLUSH 0.9% 10 ML SYRINGE IVP SCH (18:53)
[2019-01-14] MEDS: SODIUM CHLORIDE 0.9% 1,000 ML IV SCH (18:55)
[2019-01-14] MEDS: PIPERACILLIN/TAZOBACTAM 3.375 GM in SODIUM CHLORIDE 0.9% MINIBAG 100 ML IV SCH (21:50)
[2019-01-14] MEDS: FAMOTIDINE 20 MG TABLET PO SCH (21:51)
[2019-01-15] MEDS: SODIUM CHLORIDE 0.9% 1,000 ML IV SCH (03:28)
[2019-01-15] MEDS: PIPERACILLIN/TAZOBACTAM 3.375 GM in SODIUM CHLORIDE 0.9% MINIBAG 100 ML IV SCH ×4 (03:50→22:11)
[2019-01-15] MEDS ORDERED: WATER FOR INJECTION,STERILE 20 ML ONE (04:58)
[2019-01-15] MEDS ORDERED: VANCOMYCIN INJ 1.5 GM in SODIUM CHLORIDE 0.9% 500 ML IV SCH (05:00)
[2019-01-15 05:13] LABS: BASOPHILS # (AUTO) 0.1 10^3/uL (0.0-0.1); BASOPHILS % (AUTO) 1.2 %; EOSINOPHILS # (AUTO) 0.3 10^3/uL (0.0-0.7); EOSINOPHILS % (AUTO) 4.8 %; HGB - HEMOGLOBIN 10.7 g/dL (14.0-18.0); LYMPHOCYTES # (AUTO) 1.3 10^3/uL (1.5-3.5); LYMPHOCYTES % (AUTO) 22.8 %; MEAN CORPUSCULAR HEMOGLOBIN 27.3 pg (27.0-31.0); MEAN CORPUSCULAR HGB CONC 34.1 g/dL (32.0-36.0); MEAN CORPUSCULAR VOLUME 80.1 fL (80.0-94.0); MEAN PLATELET VOLUME 6.6 fL (7.4-11.4); MONOCYTES # (AUTO) 0.6 10^3/uL (0.0-1.0); MONOCYTES % (AUTO) 10.2 %; NEUTROPHILS # (AUTO) 3.6 10^3/uL (1.5-6.6); PLT - PLATELET COUNT 238 10^3/uL (130-450); RED BLOOD COUNT 3.93 10^6/uL (4.70-6.10); RED CELL DISTRIBUTION WIDTH 14.4 % (12.0-15.0); WHITE BLOOD COUNT 5.8 x10^3/uL (4.8-10.8)
[2019-01-15 05:24] LABS: ALBUMIN 3.1 g/dL (3.2-5.5); ALBUMIN/GLOBULIN RATIO 0.9 (1.0-2.2); BILIRUBIN,TOTAL 1.1 mg/dL (0.2-1.0); MAGNESIUM 1.7 mg/dL (1.7-2.8); TOTAL PROTEIN 6.7 g/dL (6.7-8.2)
[2019-01-15] MEDS: SODIUM CHLORIDE FLUSH 0.9% 10 ML SYRINGE IVP SCH ×3 (05:45→18:42)
[2019-01-15] MEDS: FAMOTIDINE 20 MG TABLET PO SCH ×2 (08:01→21:16)
[2019-01-15] MEDS: INSULIN GLARGINE 300 UNIT/3 ML PEN SUBQ SCH (08:01)
[2019-01-15] MEDS: INSULIN ASPART 300 UNIT/3 ML PEN SUBQ SCH ×4 (08:01→21:16)
[2019-01-15] MEDS: ENOXAPARIN 40 MG/0.4 ML SYRINGE SUBQ SCH (08:01)
[2019-01-15] MEDS: POLYETHYLENE GLYCOL 3350 17 GM PACKET PO SCH (08:04)
[2019-01-15] MEDS ORDERED: LIDOCAINE JELLY 2% 30 ML TUBE TOP SCH (11:42)
--- NOTE | 2019-01-15 11:44 | PROVIDER PROGRESS NOTE ---
Subjective - Prog Note Date Prog Note Date: 01/15/19 - Subjective Pt reports feeling: Improved Subjective: pt report he feel better. The erythema is significantly reduced. swelling is reduced, no more drainage. pt report he has no more fever, no chest pain. Current Medications - Current Medications Current Medications: Active Medications Acetaminophen (Tylenol) 650 mg PO Q4HR PRN PRN Reason: Pain 1 to 4 Last Admin: 01/14/19 18:52 Dose: 650 mg Hydrocodone Bitart/Acetaminophen ([place] 5/325) 1 tab PO Q4HR PRN PRN Reason: Pain 5 to 7 Enoxaparin Sodium (Lovenox) 40 mg SUBQ DAILY [facility] Last Admin: 01/15/19 08:01 Dose: 40 mg Famotidine (Pepcid) 20 mg PO BID [facility] Last Admin: 01/15/19 08:01 Dose: 20 mg Piperacillin Sod/Tazobactam (Sod 3.375 gm/ Sodium Chloride) 100 mls @ 200 mls/hr IV Q6H [facility] Last Infusion: 01/15/19 11:15 Dose: Infused Vancomycin HCl 1.5 gm/ Sodium (Chloride) 500 mls @ 250 mls/hr IV Q8H [facility] Insulin Aspart (Novolog) 1 - 9 unit SUBQ 0800,1200,1700,2100 PASCUAL; Protocol Last Admin: 01/15/19 08:01 Dose: 1 unit Insulin Glargine (Lantus Solostar) 5 unit SUBQ QDBREAKFAST [facility] Last Admin: 01/15/19 08:01 Dose: 5 unit Lidocaine HCl (Xylocaine Jelly 2%) 1 ml TOP BID [facility] Ondansetron HCl (Zofran Inj) 4 mg IVP Q6HR PRN PRN Reason: Nausea / Vomiting Polyethylene Glycol (Miralax) 17 gm PO DAILY [facility] Last Admin: 01/15/19 08:04 Dose: Not Given Sodium Chloride (Normal Saline Flush 0.9%) 10 ml IVP PRN PRN PRN Reason: NEEDED PER PROVIDER ORDERS Sodium Chloride (Normal Saline Flush 0.9%) 10 ml IVP 0100,0900,1700 [facility] Last Admin: 01/15/19 08:04 Dose: Not Given Objective - Vital Signs/Intake & Output Reviewed Vital Signs: Yes Vital Signs: Vital Signs x48h Temp Pulse Pulse Resp BP Pulse Ox 01/15/19 10:00 37.2 C 79 12 99 01/15/19 07:25 37.2 C 78 16 132/85 H 98 01/15/19 04:49 37.4 C 87 18 141/89 H 97 Intake & Output: Intake & Output 01/12/19 01/13/19 01/14/19 01/15/19 23:59 23:59 23:59 23:59 Intake Total 2867.583 2935.417 Output Total 425 700 Balance 2442.583 2235.417 - Objective General Appearance: positive: No acute distress, Alert. negative: Lethargic Eyes Bilateral: positive: Normal inspection, PERRL, No lid inflammation, Conjunctivae nml ENT: positive: ENT inspection nml, Pharynx nml, No signs of dehydration. negative: Purulent nasal drainage, Pharyngeal erythema, Oral lesions Neck: positive: Nml inspection, Thyroid nml, No JVD. negative: Trachea midline, Thyromegaly, Lymphadenopathy (R), Lymphadenopathy (L), Stiff neck, Swelling/bruising, Tracheal deviation Respiratory: positive: Chest non-tender, No respiratory distress, Breath sounds nml. negative: Wheezes, Rales, Rhonchi Cardiovascular: positive: Regular rate & rhythm, No murmur, No gallop. negativ e: Irregularly irregular, Extrasystoles, Tachycardia, Bradycardia, JVD present, Systolic murmur, Diastolic murmur Peripheral Pulses: 2+ Radial (R), 2+ Radial (L), 2+ Dorsalis pedis (R), 2+ Dorsalis pedis (L) Abdomen: positive: Non-tender, No organomegaly, Nml bowel sounds, No distention. negative: Tenderness, Guarding, Rebound Back: positive: Nml inspection. negative: CVA tenderness (R), CVA tenderness (L) Skin: positive: Color nml, Warm, Dry, Skin rash, Laceration (cm). negative: Cyanosis, Diaphoresis, Pallor Extremities: positive: Non-tender. negative: Calf tenderness, Joint swelling, Renato's sign/cords Neurologic/Psychiatric: positive: Oriented x3, Sensation nml, Mood/affect nml. negative: Weakness, Sensory loss, Facial droop, Slurred/abnml speech, Depressed mood/affect - Lab Results Fish Bones: 01/15/19 04:49 01/15/19 04:49 Other Labs: Lab Results x24hrs 01/15/19 01/15/19 01/15/19 Range/Units 07:18 04:49 04:49 WBC 5.8 (4.8-10.8) x10^3/uL RBC 3.93 L (4.70-6.10) 10^6/uL Hgb 10.7 L (14.0-18.0) g/dL Hct 31.5 L (42.0-52.0) % MCV 80.1 (80.0-94.0) fL MCH 27.3 (27.0-31.0) pg MCHC 34.1 (32.0-36.0) g/dL RDW 14.4 (12.0-15.0) % Plt Count 238 (130-450) 10^3/uL MPV 6.6 L (7.4-11.4) fL Neut # (Auto) 3.6 (1.5-6.6) 10^3/uL Lymph # (Auto) 1.3 L (1.5-3.5) 10^3/uL [place] # (Auto) 0.6 (0.0-1.0) 10^3/uL Eos # (Auto) 0.3 (0.0-0.7) 10^3/uL Baso # (Auto) 0.1 (0.0-0.1) 10^3/uL Absolute Nucleated RBC 0.00 x10^3/uL Nucleated RBC % 0.0 /100WBC ESR (0-15) mm/Hr Sodium 133 L (135-145) mmol/L Potassium 3.6 (3.5-5.0) mmol/L Chloride 99 L (101-111) mmol/L Carbon Dioxide 24 (21-32) mmol/L Anion Gap 10.0 (6-13) BUN 11 (6-20) mg/dL Creatinine 1.0 (0.6-1.2) mg/dL Estimated GFR (MDRD) 85 L (>89) Glucose 154 H (70-100) mg/dL POC Whole Bld Glucose 141 H (70 - 100) mg/dL Glycated Hemoglobin (4.6-6.2) % Estim Average Glucose (70-100) Lactic Acid (0.5-2.2) mmol/L Calcium 8.0 L (8.5-10.3) mg/dL Magnesium 1.7 (1.7-2.8) mg/dL Total Bilirubin 1.1 H (0.2-1.0) mg/dL AST 18 (10-42) IU/L ALT 16 (10-60) IU/L Alkaline Phosphatase 53 (42-121) IU/L C-Reactive Protein (0-1.0) mg/dL Total Protein 6.7 (6.7-8.2) g/dL Albumin 3.1 L (3.2-5.5) g/dL Globulin 3.6 (2.1-4.2) g/dL Albumin/Globulin Ratio 0.9 L (1.0-2.2) Lipase (22-51) U/L 01/14/19 01/14/19 01/14/19 Range/Units 20:41 18:55 18:51 WBC (4.8-10.8) x10^3/uL RBC (4.70-6.10) 10^6/uL Hgb (14.0-18.0) g/dL Hct (42.0-52.0) % MCV (80.0-94.0) fL MCH (27.0-31.0) pg MCHC (32.0-36.0) g/dL RDW (12.0-15.0) % Plt Count (130-450) 10^3/uL MPV (7.4-11.4) fL Neut # (Auto) (1.5-6.6) 10^3/uL Lymph # (Auto) (1.5-3.5) 10^3/uL [place] # (Auto) (0.0-1.0) 10^3/uL Eos # (Auto) (0.0-0.7) 10^3/uL Baso # (Auto) (0.0-0.1) 10^3/uL Absolute Nucleated RBC x10^3/uL Nucleated RBC % /100WBC ESR (0-15) mm/Hr Sodium (135-145) mmol/L Potassium (3.5-5.0) mmol/L Chloride (101-111) mmol/L Carbon Dioxide (21-32) mmol/L Anion Gap (6-13) BUN (6-20) mg/dL Creatinine (0.6-1.2) mg/dL Estimated GFR (MDRD) (>89) Glucose (70-100) mg/dL POC Whole Bld Glucose 189 H 216 H (70 - 100) mg/dL Glycated Hemoglobin (4.6-6.2) % Estim Average Glucose (70-100) Lactic Acid 1.0 (0.5-2.2) mmol/L Calcium (8.5-10.3) mg/dL Magnesium (1.7-2.8) mg/dL Total Bilirubin (0.2-1.0) mg/dL AST (10-42) IU/L ALT (10-60) IU/L Alkaline Phosphatase (42-121) IU/L C-Reactive Protein (0-1.0) mg/dL Total Protein (6.7-8.2) g/dL Albumin (3.2-5.5) g/dL Globulin (2.1-4.2) g/dL Albumin/Globulin Ratio (1.0-2.2) Lipase (22-51) U/L 01/14/19 01/14/19 01/14/19 Range/Units 14:58 14:58 14:58 WBC (4.8-10.8) x10^3/uL RBC (4.70-6.10) 10^6/uL Hgb (14.0-18.0) g/dL Hct (42.0-52.0) % MCV (80.0-94.0) fL MCH (27.0-31.0) pg MCHC (32.0-36.0) g/dL RDW (12.0-15.0) % Plt Count (130-450) 10^3/uL MPV (7.4-11.4) fL Neut # (Auto) (1.5-6.6) 10^3/uL Lymph # (Auto) (1.5-3.5) 10^3/uL [place] # (Auto) (0.0-1.0) 10^3/uL Eos # (Auto) (0.0-0.7) 10^3/uL Baso # (Auto) (0.0-0.1) 10^3/uL Absolute Nucleated RBC x10^3/uL Nucleated RBC % /100WBC ESR 70 H (0-15) mm/Hr Sodium (135-145) mmol/L Potassium (3.5-5.0) mmol/L Chloride (101-111) mmol/L Carbon Dioxide (21-32) mmol/L Anion Gap (6-13) BUN (6-20) mg/dL Creatinine (0.6-1.2) mg/dL Estimated GFR (MDRD) (>89) Glucose (70-100) mg/dL POC Whole Bld Glucose (70 - 100) mg/dL Glycated Hemoglobin 8.5 H (4.6-6.2) % Estim Average Glucose 197 H (70-100) Lactic Acid (0.5-2.2) mmol/L Calcium (8.5-10.3) mg/dL Magnesium (1.7-2.8) mg/dL Total Bilirubin (0.2-1.0) mg/dL AST (10-42) IU/L ALT (10-60) IU/L Alkaline Phosphatase (42-121) IU/L C-Reactive Protein 19.7 H (0-1.0) mg/dL Total Protein (6.7-8.2) g/dL Albumin (3.2-5.5) g/dL Globulin (2.1-4.2) g/dL Albumin/Globulin Ratio (1.0-2.2) Lipase (22-51) U/L 01/14/19 01/14/19 01/14/19 Range/Units 14:58 14:58 14:58 WBC 8.9 (4.8-10.8) x10^3/uL RBC 4.73 (4.70-6.10) 10^6/uL Hgb 13.1 L (14.0-18.0) g/dL Hct 37.8 L (42.0-52.0) % MCV 79.9 L (80.0-94.0) fL MCH 27.6 (27.0-31.0) pg MCHC 34.5 (32.0-36.0) g/dL RDW 14.1 (12.0-15.0) % Plt Count 299 (130-450) 10^3/uL MPV 6.6 L (7.4-11.4) fL Neut # (Auto) 7.0 H (1.5-6.6) 10^3/uL Lymph # (Auto) 1.0 L (1.5-3.5) 10^3/uL [place] # (Auto) 0.5 (0.0-1.0) 10^3/uL Eos # (Auto) 0.2 (0.0-0.7) 10^3/uL Baso # (Auto) 0.2 H (0.0-0.1) 10^3/uL Absolute Nucleated RBC 0.00 x10^3/uL Nucleated RBC % 0.0 /100WBC ESR (0-15) mm/Hr Sodium 131 L (135-145) mmol/L Potassium 3.6 (3.5-5.0) mmol/L Chloride 93 L (101-111) mmol/L Carbon Dioxide 24 (21-32) mmol/L Anion Gap 14.0 H (6-13) BUN 14 (6-20) mg/dL Creatinine 1.3 H (0.6-1.2) mg/dL Estimated GFR (MDRD) 63 L (>89) Glucose 295 H (70-100) mg/dL POC Whole Bld Glucose (70 - 100) mg/dL Glycated Hemoglobin (4.6-6.2) % Estim Average Glucose (70-100) Lactic Acid 3.1 H* (0.5-2.2) mmol/L Calcium 9.0 (8.5-10.3) mg/dL Magnesium (1.7-2.8) mg/dL Total Bilirubin 1.4 H (0.2-1.0) mg/dL AST 29 (10-42) IU/L ALT 20 (10-60) IU/L Alkaline Phosphatase 76 (42-121) IU/L C-Reactive Protein (0-1.0) mg/dL Total Protein 9.0 H (6.7-8.2) g/dL Albumin 4.1 (3.2-5.5) g/dL Globulin 4.9 H (2.1-4.2) g/dL Albumin/Globulin Ratio 0.8 L (1.0-2.2) Lipase 32 (22-51) U/L ABX Reporting Has patient been on IV antibiotics over the past 48 hours?: Yes Sepsis Event Note (H) - Evaluation Current Stage of Sepsis: Sepsis Possible source of Sepsis: positive: Bone/Joint - Sepsis Criteria Sepsis Criteria: Recorded Temperature greater than 38.3C or Less than 36C Assessment/Plan - Problem List (1) Diabetic foot infection Impression: 01/15 great improvement. The erythema is significantly reduced. swelling is reduced, no more drainage. continue Zosyn and Vancomycin blood culture is pending followup wound consult and wound care lab and vital monitor chronic foot infection, failure out of out-pt. Recent MRI and today Xray did not indicate osteomyelitis antibiotics IV of Zosyn and Vancomycin blood culture wound consult and wound care lab and vital monitor (2) Cellulitis in diabetic foot Conclusion/Plan: 01/15 great improved. The erythema is significantly reduced continue Zosyn and Vancomycin pt present erythema radiated from his right big toe, ulcer location, to the do rsum of right foot, pt also present lower degree of fever start with vancomycin for MRSA, and Zosyn IVF of NS followup blood culture (3) Type 2 diabetes mellitus Conclusion/Plan: pt only had metformin at home. uncontrolled hyperglycemia. his A1C has 8.5. pt may need start on insulin slide scale for insulin, ACHS hypoglycemia protocol Qualifiers: Diabetes mellitus penitentiary insulin use: without penitentiary use Diabetes mellitus complication status: with hyperglycemia Qualified Code(s): E11.65 - Type 2 diabetes mellitus with hyperglycemia (4) Dehydration Conclusion/Plan: 01/15 resolved pt has fever, elevated creatinine and BUN, it seems prerenal Azotemia IVF of NS, monitor with lab and vital (5) Hyponatremia Conclusion/Plan: chronic slight lower level of Na, can be caused uncontrolled DM2, hyperglycemia controlled glucose level with insulin, diet IVF of NS, lab monitor (6) Elevated lactic acid level Conclusion/Plan: 01/15 resolved pt has elevated Lactic acid. pt has fever, foot infection, sepsis is consideration aggressively treated with antibiotics with Zosyn and Vancomycin IVF of NS continue monitor lactic acid level (3) Type 2 diabetes mellitus Qualifiers: Diabetes mellitus penitentiary insulin use: without long term care social worker use Diabetes mellitus complication status: with hyperglycemia Qualified Code(s): E11.65 - Type 2 diabetes mellitus with hyperglycemia
[2019-01-15] MEDS: VANCOMYCIN INJ 1.5 GM in SODIUM CHLORIDE 0.9% 500 ML IV SCH ×2 (11:58→19:54)
[2019-01-15] MEDS ORDERED: SILVER NITRATE APPLICATOR TOP ONE (12:04)
[2019-01-15] MEDS ORDERED: LIDOCAINE OINTMENT 5% 35.44 GM TUBE TOP PRN (12:05)
[2019-01-15] MEDS: SODIUM CHLORIDE FLUSH 0.9% 10 ML SYRINGE IVP PRN ×2 (16:13→19:54)
[2019-01-16] MEDS: PIPERACILLIN/TAZOBACTAM 3.375 GM in SODIUM CHLORIDE 0.9% MINIBAG 100 ML IV SCH ×4 (02:48→21:54)
[2019-01-16] MEDS: SODIUM CHLORIDE FLUSH 0.9% 10 ML SYRINGE IVP SCH ×3 (02:48→17:06)
[2019-01-16] MEDS: SODIUM CHLORIDE FLUSH 0.9% 10 ML SYRINGE IVP PRN ×4 (02:53→19:53)
[2019-01-16] MEDS: VANCOMYCIN INJ 1.5 GM in SODIUM CHLORIDE 0.9% 500 ML IV SCH ×3 (04:02→19:53)
[2019-01-16 05:43] LABS: BASOPHILS # (AUTO) 0.1 10^3/uL (0.0-0.1); BASOPHILS % (AUTO) 1.1 %; EOSINOPHILS # (AUTO) 0.8 10^3/uL (0.0-0.7); EOSINOPHILS % (AUTO) 13.3 %; HGB - HEMOGLOBIN 10.4 g/dL (14.0-18.0); LYMPHOCYTES # (AUTO) 1.8 10^3/uL (1.5-3.5); LYMPHOCYTES % (AUTO) 29.8 %; MEAN CORPUSCULAR HEMOGLOBIN 28.1 pg (27.0-31.0); MEAN CORPUSCULAR HGB CONC 35.7 g/dL (32.0-36.0); MEAN CORPUSCULAR VOLUME 78.8 fL (80.0-94.0); MEAN PLATELET VOLUME 6.2 fL (7.4-11.4); MONOCYTES # (AUTO) 0.6 10^3/uL (0.0-1.0); NEUTROPHILS # (AUTO) 2.8 10^3/uL (1.5-6.6); NEUTROPHILS % (AUTO) 45.8 %; PLT - PLATELET COUNT 230 10^3/uL (130-450); RED BLOOD COUNT 3.71 10^6/uL (4.70-6.10); RED CELL DISTRIBUTION WIDTH 14.2 % (12.0-15.0)
[2019-01-16 06:00] LABS: ALBUMIN 3.1 g/dL (3.2-5.5); ALBUMIN/GLOBULIN RATIO 0.8 (1.0-2.2); CALCIUM 8.4 mg/dL (8.5-10.3); CREATININE 0.8 mg/dL (0.6-1.2); TOTAL PROTEIN 6.9 g/dL (6.7-8.2)
[2019-01-16] MEDS ORDERED: POTASSIUM CHLORIDE 20 MEQ TABLET PO ONE (07:50)
[2019-01-16] MEDS: INSULIN ASPART 300 UNIT/3 ML PEN SUBQ SCH ×4 (08:12→21:52)
[2019-01-16] MEDS: FAMOTIDINE 20 MG TABLET PO SCH ×2 (08:12→21:54)
[2019-01-16] MEDS: INSULIN GLARGINE 300 UNIT/3 ML PEN SUBQ SCH (08:13)
[2019-01-16] MEDS: ENOXAPARIN 40 MG/0.4 ML SYRINGE SUBQ SCH (08:14)
[2019-01-16] MEDS: POLYETHYLENE GLYCOL 3350 17 GM PACKET PO SCH (08:20)
[2019-01-16 11:39] LABS: VANCOMYCIN,TROUGH 16.6 ug/mL (10.0-20.0)
[2019-01-16] MEDS ORDERED: GADOBUTROL 10 MMOL/10 ML VIAL ONE (11:42)
--- NOTE | 2019-01-16 11:56 | PROVIDER PROGRESS NOTE ---
Subjective - Prog Note Date Prog Note Date: 01/16/19 - Subjective Pt reports feeling: Improved Subjective: pt report he feel better, his foot erythema is significantly reduced, swelling is reduced also. pt will have MRI for his foot per orthopedics recommendation. Current Medications - Current Medications Current Medications: Active Medications Acetaminophen (Tylenol) 650 mg PO Q4HR PRN PRN Reason: Pain 1 to 4 Last Admin: 01/14/19 18:52 Dose: 650 mg Hydrocodone Bitart/Acetaminophen ([place] 5/325) 1 tab PO Q4HR PRN PRN Reason: Pain 5 to 7 Enoxaparin Sodium (Lovenox) 40 mg SUBQ DAILY [facility] [place] Last Admin: 01/16/19 08:14 Dose: 40 mg Famotidine (Pepcid) 20 mg PO BID [facility] [place] Last Admin: 01/16/19 08:12 Dose: 20 mg Piperacillin Sod/Tazobactam (Sod 3.375 gm/ Sodium Chloride) 100 mls @ 200 mls/hr IV Q6H [facility] [place] Last Infusion: 01/16/19 09:01 Dose: Infused Vancomycin HCl 1.5 gm/ Sodium (Chloride) 500 mls @ 250 mls/hr IV Q8H [facility] Last Infusion: 01/16/19 06:02 Dose: Infused Insulin Aspart (Novolog) 2 - 10 unit SUBQ 0800,1200,1700,2100 [facility]CUAL; Protocol Last Admin: 01/16/19 08:12 Dose: 2 unit Insulin Glargine (Lantus Solostar) 5 unit SUBQ QDBREAKFAST [facility] [place] Last Admin: 01/16/19 08:13 Dose: 5 unit Lidocaine (Xylocaine Ointment 5%) 1 applic TOP PRN PRN PRN Reason: WOUND CARE Ondansetron HCl (Zofran Inj) 4 mg IVP Q6HR PRN PRN Reason: Nausea / Vomiting Polyethylene Glycol (Miralax) 17 gm PO DAILY [facility] [place] Last Admin: 01/16/19 08:20 Dose: Not Given Sodium Chloride (Normal Saline Flush 0.9%) 10 ml IVP PRN PRN PRN Reason: NEEDED PER PROVIDER ORDERS Last Admin: 01/16/19 06:09 Dose: 10 ml Sodium Chloride (Normal Saline Flush 0.9%) 10 ml IVP 0100,0900,1700 [facility] [place] Last Admin: 01/16/19 08:14 Dose: 10 ml Objective - Vital Signs/Intake & Output Reviewed Vital Signs: Yes Vital Signs: Vital Signs x48h Temp Pulse Resp BP Pulse Ox 01/16/19 07:39 36.6 C 73 18 130/94 H 98 Intake & Output: Intake & Output 01/13/19 01/14/19 01/15/19 01/16/19 23:59 23:59 23:59 23:59 Intake Total 2867.583 5317.417 1200 Output Total 425 700 Balance 2442.583 4617.417 1200 - Objective General Appearance: positive: No acute distress, Alert. negative: Lethargic Eyes Bilateral: positive: Normal inspection, PERRL, No lid inflammation, Conjunctivae nml ENT: positive: ENT inspection nml, Pharynx nml, No signs of dehydration. negative: Purulent nasal drainage, Pharyngeal erythema, Oral lesions Neck: positive: Nml inspection, Thyroid nml, No JVD, Trachea midline. negative: Thyromegaly, Lymphadenopathy (R), Lymphadenopathy (L), Stiff neck, Swelling/bruising, Tracheal deviation Respiratory: positive: Chest non-tender, No respiratory distress, Breath sounds nml. negative: Wheezes, Rales, Rhonchi - Lab Results Fish Bones: 01/17/19 05:25 01/17/19 05:25 Other Labs: Lab Results x24hrs 01/16/19 01/16/19 01/16/19 Range/Units 11:27 11:12 07:35 WBC (4.8-10.8) x10^3/uL RBC (4.70-6.10) 10^6/uL Hgb (14.0-18.0) g/dL Hct (42.0-52.0) % MCV (80.0-94.0) fL MCH (27.0-31.0) pg MCHC (32.0-36.0) g/dL RDW (12.0-15.0) % Plt Count (130-450) 10^3/uL MPV (7.4-11.4) fL Neut # (Auto) (1.5-6.6) 10^3/uL Lymph # (Auto) (1.5-3.5) 10^3/uL [place] # (Auto) (0.0-1.0) 10^3/uL Eos # (Auto) (0.0-0.7) 10^3/uL Baso # (Auto) (0.0-0.1) 10^3/uL Absolute Nucleated RBC x10^3/uL Nucleated RBC % /100WBC Sodium (135-145) mmol/L Potassium (3.5-5.0) mmol/L Chloride (101-111) mmol/L Carbon Dioxide (21-32) mmol/L Anion Gap (6-13) BUN (6-20) mg/dL Creatinine (0.6-1.2) mg/dL Estimated GFR (MDRD) (>89) Glucose (70-100) mg/dL POC Whole Bld Glucose 244 H 161 H (70 - 100) mg/dL Calcium (8.5-10.3) mg/dL Total Bilirubin (0.2-1.0) mg/dL AST (10-42) IU/L ALT (10-60) IU/L Alkaline Phosphatase (42-121) IU/L Total Protein (6.7-8.2) g/dL Albumin (3.2-5.5) g/dL Globulin (2.1-4.2) g/dL Albumin/Globulin Ratio (1.0-2.2) Last Dose Date UNK Last Dose Time UNK Vancomycin Trough 16.6 (10.0-20.0) ug/mL 01/16/19 01/16/19 01/15/19 Range/Units 05:25 05:25 20:27 WBC 6.0 (4.8-10.8) x10^3/uL RBC 3.71 L (4.70-6.10) 10^6/uL Hgb 10.4 L (14.0-18.0) g/dL Hct 29.2 L (42.0-52.0) % MCV 78.8 L (80.0-94.0) fL MCH 28.1 (27.0-31.0) pg MCHC 35.7 (32.0-36.0) g/dL RDW 14.2 (12.0-15.0) % Plt Count 230 (130-450) 10^3/uL MPV 6.2 L (7.4-11.4) fL Neut # (Auto) 2.8 (1.5-6.6) 10^3/uL Lymph # (Auto) 1.8 (1.5-3.5) 10^3/uL [place] # (Auto) 0.6 (0.0-1.0) 10^3/uL Eos # (Auto) 0.8 H (0.0-0.7) 10^3/uL Baso # (Auto) 0.1 (0.0-0.1) 10^3/uL Absolute Nucleated RBC 0.00 x10^3/uL Nucleated RBC % 0.0 /100WBC Sodium 135 (135-145) mmol/L Potassium 3.4 L (3.5-5.0) mmol/L Chloride 100 L (101-111) mmol/L Carbon Dioxide 26 (21-32) mmol/L Anion Gap 9.0 (6-13) BUN 9 (6-20) mg/dL Creatinine 0.8 (0.6-1.2) mg/dL Estimated GFR (MDRD) 110 (>89) Glucose 174 H (70-100) mg/dL POC Whole Bld Glucose 215 H (70 - 100) mg/dL Calcium 8.4 L (8.5-10.3) mg/dL Total Bilirubin 1.0 (0.2-1.0) mg/dL AST 34 (10-42) IU/L ALT 29 (10-60) IU/L Alkaline Phosphatase 61 (42-121) IU/L Total Protein 6.9 (6.7-8.2) g/dL Albumin 3.1 L (3.2-5.5) g/dL Globulin 3.8 (2.1-4.2) g/dL Albumin/Globulin Ratio 0.8 L (1.0-2.2) Last Dose Date Last Dose Time Vancomycin Trough (10.0-20.0) ug/mL 01/15/19 Range/Units 16:40 WBC (4.8-10.8) x10^3/uL RBC (4.70-6.10) 10^6/uL Hgb (14.0-18.0) g/dL Hct (42.0-52.0) % MCV (80.0-94.0) fL MCH (27.0-31.0) pg MCHC (32.0-36.0) g/dL RDW (12.0-15.0) % Plt Count (130-450) 10^3/uL MPV (7.4-11.4) fL Neut # (Auto) (1.5-6.6) 10^3/uL Lymph # (Auto) (1.5-3.5) 10^3/uL [place] # (Auto) (0.0-1.0) 10^3/uL Eos # (Auto) (0.0-0.7) 10^3/uL Baso # (Auto) (0.0-0.1) 10^3/uL Absolute Nucleated RBC x10^3/uL Nucleated RBC % /100WBC Sodium (135-145) mmol/L Potassium (3.5-5.0) mmol/L Chloride (101-111) mmol/L Carbon Dioxide (21-32) mmol/L Anion Gap (6-13) BUN (6-20) mg/dL Creatinine (0.6-1.2) mg/dL Estimated GFR (MDRD) (>89) Glucose (70-100) mg/dL POC Whole Bld Glucose 192 H (70 - 100) mg/dL Calcium (8.5-10.3) mg/dL Total Bilirubin (0.2-1.0) mg/dL AST (10-42) IU/L ALT (10-60) IU/L Alkaline Phosphatase (42-121) IU/L Total Protein (6.7-8.2) g/dL Albumin (3.2-5.5) g/dL Globulin (2.1-4.2) g/dL Albumin/Globulin Ratio (1.0-2.2) Last Dose Date Last Dose Time Vancomycin Trough (10.0-20.0) ug/mL Sepsis Event Note (H) - Evaluation Current Stage of Sepsis: Sepsis Possible source of Sepsis: positive: Bone/Joint - Sepsis Criteria Sepsis Criteria: Recorded Temperature greater than 38.3C or Less than 36C Assessment/Plan - Problem List (1) Diabetic foot infection Impression: 01/[address] Reyes from MRI finding for possible joint septic fluid will followup recommendation continue antibiotics treatment wound culture is pending 01/15 great improvement. The erythema is significantly reduced. swelling is reduc ed, no more drainage. continue Zosyn and Vancomycin blood culture is pending followup wound consult and wound care lab and vital monitor chronic foot infection, failure out of out-pt. Recent MRI and today Xray did not indicate osteomyelitis antibiotics IV of Zosyn and Vancomycin blood culture wound consult and wound care lab and vital monitor (2) Cellulitis in diabetic foot Conclusion/Plan: 01/16 improved, continue antibiotics treatment 01/15 great improved. The erythema is significantly reduced continue Zosyn and Vancomycin pt present erythema radiated from his right big toe, ulcer location, to the dorsum of right foot, pt also present lower degree of fever start with vancomycin for MRSA, and Zosyn IVF of NS followup blood culture (3) Type 2 diabetes mellitus Conclusion/Plan: pt only had metformin at home. uncontrolled hyperglycemia. his A1C has 8.5. pt may need start on insulin slide scale for insulin, ACHS hypoglycemia protocol Qualifiers: Diabetes mellitus chcf insulin use: without exterminator helper termite use Diabetes mellitus complication status: with hyperglycemia Qualified Code(s): E11.65 - Type 2 diabetes mellitus with hyperglycemia (4) Dehydration Conclusion/Plan: 01/15 resolved pt has fever, elevated creatinine and BUN, it seems prerenal Azotemia IVF of NS, monitor with lab and vital (5) Hyponatremia Conclusion/Plan: chronic slight lower level of Na, can be caused uncontrolled DM2, hyperglycemia controlled glucose level with insulin, diet IVF of NS, lab monitor (6) Elevated lactic acid level Conclusion/Plan: 01/15 resolved pt has elevated Lactic acid. pt has fever, foot infection, sepsis is consideration aggressively treated with antibiotics with Zosyn and Vancomycin IVF of NS continue monitor lactic acid level (3) Type 2 diabetes mellitus Qualifiers: Diabetes mellitus exterminator helper termite insulin use: without chcf use Diabetes mellitus complication status: with hyperglycemia Qualified Code(s): E11.65 - Type 2 diabetes mellitus with hyperglycemia
[2019-01-16] MEDS ORDERED: GADOBUTROL 10 MMOL/10 ML VIAL IVP ONE (12:30)
--- NOTE | 2019-01-16 13:40 | MRI Report ---
Reason: DM Foot Infection, osteomyelitis Procedure Date: 01/16/2019 Accession Number: [id number] / [id number] Procedure: MRI - Foot RT W/WO CPT Code: FULL RESULT: EXAM: RIGHT FOREFOOT MRI WITHOUT AND WITH CONTRAST EXAM DATE: 01/16/2019 12:39 PM. CLINICAL HISTORY: Diabetes foot infection, osteomyelitis. COMPARISON: FOOT RT W/WO 11/20/2018 9:24 AM. TECHNIQUE: Multiplanar, multisequence T1-weighted and fluid-sensitive sequences of the forefoot before and after administration of intravenous contrast. IV contrast: 10 mL of Gadavist. Other: None. FINDINGS: Bones: No fractures. No marrow edema or abnormal enhancement. No bone lesions. Joints: Large effusion in the first metatarsophalangeal joint with thick enhancing synovium and internal debris. There is periarticular edema in the head of the first metatarsal and the proximal phalanx of the first digit. There is erosion of the cortex of the base of the proximal phalanx. The skin defect lies over the plantar aspect of the first MTPJ. The findings suggestive of septic arthritis. Articular Cartilage: The hyaline cartilage of the first metatarsophalangeal joint is severely eroded. There is mild degenerative change in the remaining metatarsophalangeal joints. Ligaments: The visualized collateral ligaments are intact. Tendons: The flexor and extensor tendons are unremarkable. Musculature: Moderate volume loss. Other: No Mortons neuroma. No intermetatarsal bursitis. There is moderate subcutaneous edema of the first digit. IMPRESSION: 1. 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 2. 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 RADIA MUSCULOSKELETAL RADIOLOGY SECTION
--- NOTE | 2019-01-16 18:23 | PROVIDER PROGRESS NOTE ---
Subjective - Prog Note Date Prog Note Date: 01/16/19 Prog Note Time: 18:21 - Subjective Pt reports feeling: Improved (Much less tenderness and less painful AROM of right great toe.) Objective - Vital Signs/Intake & Output Vital Signs: Vital Signs x48h Temp Pulse Resp BP Pulse Ox 01/16/19 15:49 36.7 C 72 18 128/94 H 98 Intake & Output: Intake & Output 01/13/19 01/14/19 01/15/19 01/16/19 23:59 23:59 23:59 23:59 Intake Total 2867.583 5317.417 2600 Output Total 425 700 Balance 2442.583 4617.417 2600 - Lab Results Fish Bones: 01/16/19 05:25 01/16/19 05:25 Other Labs: Lab Results x24hrs 01/16/19 01/16/19 01/16/19 Range/Units 16:53 11:27 11:12 WBC (4.8-10.8) x10^3/uL RBC (4.70-6.10) 10^6/uL Hgb (14.0-18.0) g/dL Hct (42.0-52.0) % MCV (80.0-94.0) fL MCH (27.0-31.0) pg MCHC (32.0-36.0) g/dL RDW (12.0-15.0) % Plt Count (130-450) 10^3/uL MPV (7.4-11.4) fL Neut # (Auto) (1.5-6.6) 10^3/uL Lymph # (Auto) (1.5-3.5) 10^3/uL [place] # (Auto) (0.0-1.0) 10^3/uL Eos # (Auto) (0.0-0.7) 10^3/uL Baso # (Auto) (0.0-0.1) 10^3/uL Absolute Nucleated RBC x10^3/uL Nucleated RBC % /100WBC Sodium (135-145) mmol/L Potassium (3.5-5.0) mmol/L Chloride (101-111) mmol/L Carbon Dioxide (21-32) mmol/L Anion Gap (6-13) BUN (6-20) mg/dL Creatinine (0.6-1.2) mg/dL Estimated GFR (MDRD) (>89) Glucose (70-100) mg/dL POC Whole Bld Glucose 244 H 244 H (70 - 100) mg/dL Calcium (8.5-10.3) mg/dL Total Bilirubin (0.2-1.0) mg/dL AST (10-42) IU/L ALT (10-60) IU/L Alkaline Phosphatase (42-121) IU/L Total Protein (6.7-8.2) g/dL Albumin (3.2-5.5) g/dL Globulin (2.1-4.2) g/dL Albumin/Globulin Ratio (1.0-2.2) Last Dose Date UNK Last Dose Time UNK Vancomycin Trough 16.6 (10.0-20.0) ug/mL 01/16/19 01/16/19 01/16/19 Range/Units 07:35 05:25 05:25 WBC 6.0 (4.8-10.8) x10^3/uL RBC 3.71 L (4.70-6.10) 10^6/uL Hgb 10.4 L (14.0-18.0) g/dL Hct 29.2 L (42.0-52.0) % MCV 78.8 L (80.0-94.0) fL MCH 28.1 (27.0-31.0) pg MCHC 35.7 (32.0-36.0) g/dL RDW 14.2 (12.0-15.0) % Plt Count 230 (130-450) 10^3/uL MPV 6.2 L (7.4-11.4) fL Neut # (Auto) 2.8 (1.5-6.6) 10^3/uL Lymph # (Auto) 1.8 (1.5-3.5) 10^3/uL [place] # (Auto) 0.6 (0.0-1.0) 10^3/uL Eos # (Auto) 0.8 H (0.0-0.7) 10^3/uL Baso # (Auto) 0.1 (0.0-0.1) 10^3/uL Absolute Nucleated RBC 0.00 x10^3/uL Nucleated RBC % 0.0 /100WBC Sodium 135 (135-145) mmol/L Potassium 3.4 L (3.5-5.0) mmol/L Chloride 100 L (101-111) mmol/L Carbon Dioxide 26 (21-32) mmol/L Anion Gap 9.0 (6-13) BUN 9 (6-20) mg/dL Creatinine 0.8 (0.6-1.2) mg/dL Estimated GFR (MDRD) 110 (>89) Glucose 174 H (70-100) mg/dL POC Whole Bld Glucose 161 H (70 - 100) mg/dL Calcium 8.4 L (8.5-10.3) mg/dL Total Bilirubin 1.0 (0.2-1.0) mg/dL AST 34 (10-42) IU/L ALT 29 (10-60) IU/L Alkaline Phosphatase 61 (42-121) IU/L Total Protein 6.9 (6.7-8.2) g/dL Albumin 3.1 L (3.2-5.5) g/dL Globulin 3.8 (2.1-4.2) g/dL Albumin/Globulin Ratio 0.8 L (1.0-2.2) Last Dose Date Last Dose Time Vancomycin Trough (10.0-20.0) ug/mL 01/15/19 Range/Units 20:27 WBC (4.8-10.8) x10^3/uL RBC (4.70-6.10) 10^6/uL Hgb (14.0-18.0) g/dL Hct (42.0-52.0) % MCV (80.0-94.0) fL MCH (27.0-31.0) pg MCHC (32.0-36.0) g/dL RDW (12.0-15.0) % Plt Count (130-450) 10^3/uL MPV (7.4-11.4) fL Neut # (Auto) (1.5-6.6) 10^3/uL Lymph # (Auto) (1.5-3.5) 10^3/uL [place] # (Auto) (0.0-1.0) 10^3/uL Eos # (Auto) (0.0-0.7) 10^3/uL Baso # (Auto) (0.0-0.1) 10^3/uL Absolute Nucleated RBC x10^3/uL Nucleated RBC % /100WBC Sodium (135-145) mmol/L Potassium (3.5-5.0) mmol/L Chloride (101-111) mmol/L Carbon Dioxide (21-32) mmol/L Anion Gap (6-13) BUN (6-20) mg/dL Creatinine (0.6-1.2) mg/dL Estimated GFR (MDRD) (>89) Glucose (70-100) mg/dL POC Whole Bld Glucose 215 H (70 - 100) mg/dL Calcium (8.5-10.3) mg/dL Total Bilirubin (0.2-1.0) mg/dL AST (10-42) IU/L ALT (10-60) IU/L Alkaline Phosphatase (42-121) IU/L Total Protein (6.7-8.2) g/dL Albumin (3.2-5.5) g/dL Globulin (2.1-4.2) g/dL Albumin/Globulin Ratio (1.0-2.2) Last Dose Date Last Dose Time Vancomycin Trough (10.0-20.0) ug/mL - Diagnostic Imaging Diagnostic Imaging Comments: MRI scan of right foot showed large effusion of right first MTP joint and periarticular edema. No marrow edema - Other Results/Comments Other Results/Comments: EXAM: Right great toe: Much less tender about first MTP joint. Better, less painful AROM and PROM of great toe MTP joint - total of 60 degree PROM with minimal pain (marked improvement from yesterday's exam). N/V unchanged. No lymphangitis. Mild swelling of first MTP joint; no erythema Sepsis Event Note (H) - Evaluation Current Stage of Sepsis: Sepsis Possible source of Sepsis: positive: Bone/Joint - Sepsis Criteria Sepsis Criteria: Recorded Temperature greater than 38.3C or Less than 36C Assessment/Plan - Problem List (1) Cellulitis in diabetic foot Impression: improved after 24-36 hour antibiotics. Unclear if effusion of first MTP joint seen on MRI scan represents inflammatory vs infectious effusion. However, clinically marked improvement after initial antibiotics PLAN: Since there is no evidence of acute osteomyelitis, recommend switching to broad spectrum oral antibiotics x 2 more weeks for right foot cellulitis and/or right septic first MTP joint due clinical improvement after 24-36 hour antibiotics and fact that high intra-articular antibiotic level can typically be attained with oral antibiotics. Continue outpt followup with wound care clinic for management of his plantar wound. Follow up with PCP for clinical inspection in 2 weeks or as needed.
--- NOTE | 2019-01-16 19:18 | CONSULTATION NOTE ---
DATE OF SERVICE: 01/15/2019 Physician: Ian Reyes MD Date of original evaluation of the patient was on 01/15/2019 (the official consult, however, was generated on 01/16/2019). REFERRING PROVIDER: FRANCO Quiroga, on the hospitalist service. CHIEF COMPLAINT: "My right foot is swollen and painful." HISTORY OF PRESENT ILLNESS: Patient is a 33-year-old male, type 2 diabetic poorly controlled on oral metformin, who has been evaluated for a right foot infection over the past 3 months. He was admitted in October 2018 with a foot infection. MRI scan at that time was negative for any underlying osteomyelitis. Clinically he did improve with his hospital course in-house and as an outpatient. The patient has had a slowly healing plantar wound/ulceration underneath the first metatarsal head associated with his foot infection. Per the patient, his wound was healing well post October admission as well. Approximately 4 days prior to his most recent admission, he began noticing increased swelling and redness in his right forefoot and increasing drainage from his plantar ulceration of his foot. Eventually sought an evaluation in the emergency room. On the day of his admission, the patient presented as being afebrile, but with a painful, swollen and erythematous right forefoot. His plantar wound had surrounding callosity, as well as some minimal drainage from his open wound. Admission laboratory showed a normal white count, but he had a markedly elevated sedimentation rate of 70 and an elevated C-reactive protein of 19.7. The patient was admitted to the medical service for treatment of his right foot infection. The day after his admission, the patient was seen by the wound care nurse who trimmed down the callosity surrounding his plantar wound underlying the first metatarsal head. He was also started on IV antibiotics. The patient denied a fever or shaking chills. FAMILY HISTORY: Significant for a relative who also was diabetic that eventually resulted in multiple foot amputations and eventually a [id number] amputation due to complications from his diabetes. PHYSICAL EXAMINATION GENERAL: The patient appeared to be a young, tall male lying in bed in minimal distress. VITAL SIGNS: Stable and he was afebrile. EXTREMITIES: Examination of his right foot showed some mild diffuse swelling in his right forefoot. Minimal erythema was seen in the forefoot. No lymphangitis noted. The patient had 1 to 2+ tenderness on palpation around the great toe, specifically about the first MTP joint. He had about 10-15 degrees of passive motion of the MTP joint before having some pain. Examination of his plantar wound showed that this was about 1.5 cm in diameter. There is some early granulation tissue seen. No expressible fluid was noted from the wound today. Neurovascularly he was symmetrical with his opposite foot but did appear to have diminished sensation qualitatively. Good capillary filling noted of the toe. RADIOLOGY REPORT: Review of x-rays were taken of the foot showed no obvious osteomyelitis seen. ASSESSMENT: Right foot cellulitis. The patient has a recurrent infection, which may be due to noncompliance. Need to rule out possible osteomyelitis. PLAN 1. Continue wound care as has been done by the wound care nurse. 2. Continue with his IV antibiotics as well. 3. Would recommend getting an MRI scan of the right foot to determine if there is any underlying osteomyelitis involved. TD: 01/16/2019 18:52 ABISAI
[2019-01-17] MEDS: SODIUM CHLORIDE FLUSH 0.9% 10 ML SYRINGE IVP SCH ×3 (00:24→11:53)
[2019-01-17] MEDS: SODIUM CHLORIDE FLUSH 0.9% 10 ML SYRINGE IVP PRN ×2 (02:57→06:42)
[2019-01-17] MEDS: PIPERACILLIN/TAZOBACTAM 3.375 GM in SODIUM CHLORIDE 0.9% MINIBAG 100 ML IV SCH ×3 (02:57→14:22)
[2019-01-17] MEDS: VANCOMYCIN INJ 1.5 GM in SODIUM CHLORIDE 0.9% 500 ML IV SCH ×2 (03:48→11:53)
[2019-01-17 05:50] LABS: BASOPHILS # (AUTO) 0.1 10^3/uL (0.0-0.1); BASOPHILS % (AUTO) 0.9 %; EOSINOPHILS % (AUTO) 13.4 %; HGB - HEMOGLOBIN 10.5 g/dL (14.0-18.0); LYMPHOCYTES % (AUTO) 27.7 %; MEAN CORPUSCULAR HEMOGLOBIN 27.5 pg (27.0-31.0); MEAN CORPUSCULAR HGB CONC 34.9 g/dL (32.0-36.0); MEAN CORPUSCULAR VOLUME 78.8 fL (80.0-94.0); MEAN PLATELET VOLUME 6.2 fL (7.4-11.4); MONOCYTES # (AUTO) 0.5 10^3/uL (0.0-1.0); MONOCYTES % (AUTO) 6.9 %; NEUTROPHILS # (AUTO) 3.7 10^3/uL (1.5-6.6); NEUTROPHILS % (AUTO) 51.1 %; PLT - PLATELET COUNT 261 10^3/uL (130-450); RED BLOOD COUNT 3.81 10^6/uL (4.70-6.10); WHITE BLOOD COUNT 7.3 x10^3/uL (4.8-10.8)
[2019-01-17 06:06] LABS: ALBUMIN 3.1 g/dL (3.2-5.5); ALBUMIN/GLOBULIN RATIO 0.8 (1.0-2.2); BILIRUBIN,TOTAL 0.9 mg/dL (0.2-1.0); CALCIUM 8.3 mg/dL (8.5-10.3); CREATININE 0.8 mg/dL (0.6-1.2); CRP - C-REACTIVE PROTEIN 5.9 mg/dL (0-1.0); TOTAL PROTEIN 6.8 g/dL (6.7-8.2)
[2019-01-17] MEDS: FAMOTIDINE 20 MG TABLET PO SCH (07:43)
[2019-01-17] MEDS: ENOXAPARIN 40 MG/0.4 ML SYRINGE SUBQ SCH (07:43)
[2019-01-17] MEDS: INSULIN ASPART 300 UNIT/3 ML PEN SUBQ SCH ×2 (07:44→11:57)
[2019-01-17] MEDS: INSULIN GLARGINE 300 UNIT/3 ML PEN SUBQ SCH (07:45)
[2019-01-17] MEDS: POLYETHYLENE GLYCOL 3350 17 GM PACKET PO SCH (07:46)
[2019-01-17] MEDS ORDERED: glipiZIDE 5 MG TABLET PO SCH (09:06)
--- NOTE | 2019-01-17 15:53 | Discharge Plan ---
Discharge Plan Disposition: Home, Self Care Condition: Poor Prescriptions: Clindamycin [Cleocin] 300 mg PO Q6H 14 Days #112 capsule Glipizide [Glucotrol] 5 mg PO DAILY #15 tablet Diet: Diabetic Activity Restrictions: Activity as Tolerated Shower Restrictions: No (fall precaution) Instruction Topics: Glipizide tablets, Clindamycin capsules Additional Instructions or Follow Up instructions: You may followup your PCP in one week, followup [facility] [place] [facility] for management of your plantar wound. Should your symptoms return or worsen, you may present ER or call 911, or your PCP for help. Follow-Up Care: [facility] - Wound/Ostomy No Smoking: If you smoke, Please STOP! Call for help. Follow-up with: Viky Hadley MD [Primary Care Provider] -
--- NOTE | 2019-01-17 15:58 | DISCHARGE SUMMARY ---
"Discharge Summary Discharge Date: 01/17/19 Discharging Provider: GALVEZ Primary Care Provider: Dr. Viky Hadley Condition at Discharge: Poor Discharge Disposition: 01 Home, Self Care Discharge Facility Name: home - DIAGNOSES Admission Diagnoses: (1) Diabetic foot infection (2) Cellulitis in diabetic foot (3) Type 2 diabetes mellitus (4) Dehydration (5) Hyponatremia (6) Elevated lactic acid level Discharge Diagnoses with Status of Each Condition: 1) Diabetic foot infection (2) Cellulitis in diabetic foot (3) Type 2 diabetes mellitus (4) Dehydration (5) Hyponatremia (6) Elevated lactic acid level - HPI History of Present Illness: Patient is a 33-year-old male with past medical history of uncontrolled type 2 diabetes and right foot infection, HTN, HLD, peripheral neuropathy, who present ER complain of worsening infection, fever, and nausea and vomiting. pt report he is currently on metformin but no insulin because of lack of insurance. He was admitted for diabetic foot infection in October 2018. MRI of his right foot at that time ruled out osteomyelitis. pt was prescribed Augmentin and Bactrim. pt was seen two days ago for diabetic foot infection. pt was prescribed on Levaquin. Pt report from Tuesday, he was worsened With fever and chills and with nausea and vomiting. pt report starting today morning his foot pain increased and redness around the right foot increased as well. Xray of today reveals on a cute osseous abnormality identified. Pt denies chest pain, cough, shortness of breath, headache. Initially Pt is afebrile, slight tachycardia, otherwise he is hemodynamically stable. - CONSULTS | PROCEDURES Consultations: orthopedics - HOSPITAL COURSE Hospital Course: 1) Diabetic foot infection pt had great improved. No drainage, no swelling, no erythema. WBC is normal. Dr. Reyes orthopedics d/c pt as well. Pt's MRI did not reveal osteomyelitis continue oral antibiotics for two weeks continue [facility] for [place] care. (2) Cellulitis in diabetic foot resolved. no erythema, swelling after treatment. WBC is normal. no fever, chill. (3) Type 2 diabetes mellitus pt is prescribed new meds Glucotrol. educate pt about the meds effect and side effects, pt state he understand. pt is advised to followup his PCP closely monitor his DM status. pt verbally state he will discuss with his PCP if insulin needed. our social work provided pt the help to apply health insurance and other information pt needs (4) Dehydration resolved (5) Hyponatremia resolved (6) Elevated lactic acid level resolved - ALLERGIES Allergies/Adverse Reactions: Allergies Allergy/AdvReac Type Severity Reaction Status Date / Time No Known Drug Intolerances Allergy Unknown Unknown Verified 01/14/19 18:34 macadamia nut oil Allergy Anaphylaxis Verified 01/15/19 12:27 walnut Allergy Anaphylaxis Verified 01/15/19 12:27 - MEDICATIONS Home Medications: Ambulatory Orders Medication Instructions Recorded Confirmed Metformin HCl 1,000 mg PO BID #60 tablet 11/22/18 01/14/19 Clindamycin [Cleocin] 300 mg PO Q6H 14 Days #112 capsule 01/17/19 Glipizide [Glucotrol] 5 mg PO DAILY #15 tablet 01/17/19 Saccharomyces Boulardii [Florastor] 250 mg PO BID #28 capsule 01/17/19 - PHYSICAL EXAM AT DISCHARGE General Appearance: positive: No acute distress, Alert. negative: Lethargic Eyes Bilateral: positive: Normal inspection, PERRL, No lid inflammation, Conjunctivae nml ENT: positive: ENT inspection nml, Pharynx nml, No signs of dehydration. negative: Purulent nasal drainage, Pharyngeal erythema, Oral lesions Neck: positive: Nml inspection, Thyroid nml, No JVD, Trachea midline. negative: Thyromegaly, Lymphadenopathy (R), Lymphadenopathy (L), Stiff neck, Swelling/bruising, Tracheal deviation Respiratory: positive: Chest non-tender, No respiratory distress, Breath sounds nml. negative: Wheezes, Rales, Rhonchi Cardiovascular: positive: Regular rate & rhythm, No murmur, No gallop. negative: Irregularly irregular, Extrasystoles, Tachycardia, Bradycardia, JVD present, Systolic murmur, Diastolic murmur Peripheral Pulses: positive: 2+ Abdomen: positive: Non-tender, No organomegaly, Nml bowel sounds, No distention. negative: Tenderness, Guarding, Rebound Back: positive: Nml inspection. negative: CVA tenderness (R), CVA tenderness (L) Skin: positive: No rash, Warm, Dry. negative: Cyanosis, Diaphoresis, Pallor Extremities: positive: Non-tender, Full ROM. negative: Calf tenderness, Renato's sign/cords Neurologic/Psychiatric: positive: Oriented x3, Motor nml, Sensation nml, Mood/affect nml. negative: Weakness, Sensory loss, Facial droop, Slurred/abnml speech, Depressed mood/affect - LABS Result Diagrams: 01/17/19 05:25 01/17/19 05:25 - SEPSIS Current Stage of Sepsis: Sepsis Possible source of Sepsis: Bone/Joint Sepsis Criteria: Recorded Temperature greater than 38.3C or Less than 36C - FOLLOW UP Follow Up: You may followup your PCP in one week, followup [facility] wound clinic for management of your plantar wound. Should your symptoms return or worsen, you may present ER or call 911, or your PCP for help. - TIME SPENT Time Spent in Discharge (Minutes): 60"
[2019-01-17 16:22] VITALS: BP 134/90
[2019-01-18] MEDS ORDERED: glipiZIDE 5 MG TABLET PO SCH (07:30)
== END 2019-01-17 17:08 | disposition home or self-care (01) | DRG 872 ==
LOC: ED 14:07 → MS2 16:40
PROVIDERS: ADMIT Nurse Practitioner Gerontology; ATTEND Nurse Practitioner Gerontology
DX: A41.01 Sepsis due to Methicillin susceptible Staphylococcus aureus (principal); E87.1 Hypo-osmolality and hyponatremia; E87.2 Acidosis; M00.9 Pyogenic arthritis, unspecified; E11.621 Type 2 diabetes mellitus with foot ulcer; L97.512 Non-pressure chronic ulcer of other part of right foot with fat layer exposed; E11.65 Type 2 diabetes mellitus with hyperglycemia; E11.628 Type 2 diabetes mellitus with other skin complications; L03.031 Cellulitis of right toe; B95.61 Methicillin susceptible Staphylococcus aureus infection as the cause of diseases classified elsewhere; E11.42 Type 2 diabetes mellitus with diabetic polyneuropathy; I10 Essential (primary) hypertension; E78.5 Hyperlipidemia, unspecified; E86.0 Dehydration; R39.2 Extrarenal uremia; T38.3X6A Underdosing of insulin and oral hypoglycemic [antidiabetic] drugs, initial encounter; Z79.84 Long term (current) use of oral hypoglycemic drugs; Z83.3 Family history of diabetes mellitus
CPT/HCPCS: 36415; 73630; 73720; 80053; 80202; 83036; 83605; 83690; 83735; 85025; 85651; 86140; 87040; 87070; 87181; 87205; 96365; 96368; 96375; 99284; 99285; A9270; A9585; J1650; J1815; J3370

== ENCOUNTER 2019-03-29 21:26 | Inpatient (IN) | payer SELFPAY ==
[2019-03-29 22:12] LABS: BASOPHILS # (AUTO) 0.1 10^3/uL (0.0-0.1); BASOPHILS % (AUTO) 0.6 %; EOSINOPHILS # (AUTO) 0.1 10^3/uL (0.0-0.7); EOSINOPHILS % (AUTO) 0.4 %; HGB - HEMOGLOBIN 11.1 g/dL (14.0-18.0); LYMPHOCYTES # (AUTO) 1.7 10^3/uL (1.5-3.5); LYMPHOCYTES % (AUTO) 11.5 %; MEAN CORPUSCULAR HEMOGLOBIN 25.2 pg (27.0-31.0); MEAN CORPUSCULAR HGB CONC 32.8 g/dL (32.0-36.0); MEAN CORPUSCULAR VOLUME 76.8 fL (80.0-94.0); MEAN PLATELET VOLUME 6.4 fL (7.4-11.4); MONOCYTES # (AUTO) 0.7 10^3/uL (0.0-1.0); MONOCYTES % (AUTO) 4.8 %; NEUTROPHILS # (AUTO) 12.1 10^3/uL (1.5-6.6); NEUTROPHILS % (AUTO) 82.7 %; PLT - PLATELET COUNT 414 10^3/uL (130-450); RED BLOOD COUNT 4.41 10^6/uL (4.70-6.10); RED CELL DISTRIBUTION WIDTH 14.8 % (12.0-15.0); WHITE BLOOD COUNT 14.6 x10^3/uL (4.8-10.8)
[2019-03-29 22:28] LABS: ALBUMIN 3.7 g/dL (3.2-5.5); ALBUMIN/GLOBULIN RATIO 0.7 (1.0-2.2); BILIRUBIN,TOTAL 1.1 mg/dL (0.2-1.0); CALCIUM 9.2 mg/dL (8.5-10.3); CREATININE 1.1 mg/dL (0.6-1.2); TOTAL PROTEIN 9.1 g/dL (6.7-8.2)
[2019-03-29] MEDS ORDERED: AMPICILLIN/SULBACTAM 3 GM in SODIUM CHLORIDE 0.9% MINIBAG 100 ML IV STA (22:56)
[2019-03-29] MEDS ORDERED: VANCOMYCIN INJ 2 GM in SODIUM CHLORIDE 0.9% 500 ML IV STA (22:56)
--- NOTE | 2019-03-29 23:00 | ED Physician Documentation ---
PD HPI LOWER EXT INJURY - Stated complaint Stated Complaint: LFT FOOT SWELLING - Chief complaint Chief Complaint: Wound - History obtained from History obtained from: Patient, Family - History of Present Illness PD HPI LOW EXT INJURY LOCATION: Left (This is a 33-year-old gentleman with diabetes. He has recurrent foot infections as a combination of the neuropathy and an odd foot strike. He was hospitalized in December for a few days for diabetic foot infection of the right foot. MRI at that time was suggestive of right first MTP septic arthritis. He improved significantly on IV antibiotics. Now he has an ulcer under the left fifth MTP. He had a debrided by his general warehouse worker on Tuesday and was started on doxycycline. He was not improving and subsequently has added levofloxacin and is taken 2 doses. Despite that has had increasing pain and drainage with a fever to 101.8 at home tonight and shaking chills.) Review of Systems Ten Systems: 10 systems reviewed and negative Constitutional: reports: Fever, Chills, Fatigue Cardiac: denies: Chest pain / pressure, Palpitations Respiratory: denies: Dyspnea, Cough GI: denies: Abdominal Pain PD PAST MEDICAL HISTORY - Past Medical History Cardiovascular: Hypertension, High cholesterol Respiratory: None Neuro: Headaches, Peripheral neuropathy Endocrine/Autoimmune: Type 2 diabetes : None HEENT: None Psych: None Musculoskeletal: None Derm: None - Past Surgical History Past Surgical History: No HEENT: Other - Present Medications Home Medications: Ambulatory Orders Medication Instructions Recorded Confirmed Metformin HCl 1,000 mg PO BID #60 tablet 11/22/18 01/14/19 Clindamycin [Cleocin] 300 mg PO Q6H 14 Days #112 capsule 01/17/19 Glipizide [Glucotrol] 5 mg PO DAILY #15 tablet 01/17/19 Saccharomyces Boulardii [Florastor] 250 mg PO BID #28 capsule 01/17/19 - Allergies Allergies/Adverse Reactions: Allergies Allergy/AdvReac Type Severity Reaction Status Date / Time No Known Drug Intolerances Allergy Unknown Unknown Verified 03/29/19 21:42 macadamia nut oil Allergy Anaphylaxis Verified 03/29/19 21:42 walnut Allergy Anaphylaxis Verified 03/29/19 21:42 - Social History Does the pt smoke?: No Smoking Status: Never smoker Does the pt drink ETOH?: No Does the pt have substance abuse?: No - Family History Family history: reports: Non contributory - Immunizations Immunizations are current?: Yes - POLST Patient has POLST: No POLST Status: Full Code PD ED PE NORMAL - Vitals Vital signs reviewed: Yes (Tachycardic) - General General: Alert and oriented X 3, No acute distress - HEENT HEENT: EOMI, Dentition benign - Neck Neck: Supple, no meningeal sign, No bony TTP - Cardiac Cardiac: Other (Tachycardic regular, no murmur) - Respiratory Respiratory: No respiratory distress, Clear bilaterally - Abdomen Abdomen: Normal bowel sounds, Soft, Non tender - Back Back: No CVA TTP, No spinal TTP - Derm Derm: Normal color, Warm and dry - Extremities Extremities: Other (There is a small ulcer under the right fifth MTP without active signs of infection. It looks like there is a brewing ulcer under the left first MTP and a deep necrotic ulcer with foul-smelling drainage and cellulitis from under the left fifth MTP that was cultured during examination.) - Neuro Neuro: Alert and oriented X 3, Normal speech Results - Vitals Vitals: Vital Signs - 24 hr 03/29/19 21:37 Temperature 37.6 C H Heart Rate 118 H Respiratory 18 Rate Blood Pressure 134/89 H O2 Saturation 99 Oxygen O2 Source Room air - Labs Labs: Microbiology 03/29/19 22:52 Wound Culture - Preliminary Foot - Left Laboratory Tests 03/29/19 03/29/19 03/29/19 22:01 22:01 22:05 WBC 14.6 H RBC 4.41 L Hgb 11.1 L Hct 33.8 L MCV 76.8 L MCH 25.2 L MCHC 32.8 RDW 14.8 Plt Count 414 MPV 6.4 L Neut # (Auto) 12.1 H Lymph # (Auto) 1.7 [place] # (Auto) 0.7 Eos # (Auto) 0.1 Baso # (Auto) 0.1 Absolute Nucleated RBC 0.00 Nucleated RBC % 0.0 Sodium 133 L Potassium 4.2 Chloride 96 L Carbon Dioxide 23 Anion Gap 14.0 H BUN 12 Creatinine 1.1 Estimated GFR (MDRD) 76 L Glucose 242 H Lactic Acid 1.3 Calcium 9.2 Total Bilirubin 1.1 H AST 19 ALT 21 Alkaline Phosphatase 81 Total Protein 9.1 H Albumin 3.7 Globulin 5.4 H Albumin/Globulin Ratio 0.7 L Lipase 39 PD MEDICAL DECISION MAKING - ED course ED course: This is a 33-year-old gentleman with a diabetic full foot ulcer under the left fifth MTP with cellulitis that has failed outpatient treatment with doxycycline and levofloxacin. He is febrile at home to 101.8 with shaking chills. His white count is up. I spoke with the on-call orthopedic surgeon, Dr. Hinds who agreed with admission and will consult. A call was placed to the hospitalist for admission at 11 PM. He was started on Unasyn and vancomycin after blood and wound cultures. Spoke with Dr. Dexter at 1121 for admission. Departure - Departure Disposition: [facility] DC/Xfer Clinical Impression: Cellulitis in diabetic foot, Diabetic foot infection Condition: Serious
[2019-03-29] MEDS ORDERED: MORPHINE 10 MG/ML VIAL IVP STA (23:04)
[2019-03-29] MEDS ORDERED: SODIUM CHLORIDE 0.9% 1,000 ML IV ONE (23:05)
--- NOTE | 2019-03-29 23:53 | XRAY Report ---
Reason: foot infection Procedure Date: 03/29/2019 Accession Number: [id number] / [id number] Procedure: XR - Foot 3 View LT CPT Code: FULL RESULT: EXAM: LEFT FOOT RADIOGRAPHY. EXAM DATE: 03/29/2019 11:18 PM. CLINICAL HISTORY: Foot infection. Diabetic ulcer, foot infection for 1 week. COMPARISON: FOOT 3 VIEW RT 01/14/2019 3:06 PM. FOOT 3 VIEW RT 11/19/2018 9:45 PM. FOOT 3 VIEW RT 01/12/2019 7:05 PM. TECHNIQUE: 3 views. FINDINGS: Bones: There is a cortical destruction noted at the base of the proximal fillings of the fifth toe. Possible cortical destruction of the head of the fifth metatarsal as well. Joints: No dislocation. There is moderate to severe first MTP degenerative joint disease. Mild hallux valgus deformity. Soft Tissues: Soft tissue gas noted at the fifth MTP joint. Mild bunion formation. IMPRESSION: Fifth MTP septic arthritis/osteomyelitis. RADIA
[2019-03-30] MEDS ORDERED: HYDROcod/ACETAM 10 MG/325 MG TABLET PO PRN (00:55)
[2019-03-30] MEDS ORDERED: ONDANSETRON 4 MG/2 ML VIAL IVP PRN (00:55)
[2019-03-30] MEDS ORDERED: LACTATED RINGERS 1,000 ML IV SCH (01:00)
[2019-03-30] MEDS: SODIUM CHLORIDE FLUSH 0.9% 10 ML SYRINGE IVP SCH ×3 (01:10→18:49)
[2019-03-30] MEDS ORDERED: INSULIN REGULAR HUMAN 100 UNIT/1 ML 10 ML MDV SUBQ SCH ×2 (01:25→08:00)
[2019-03-30] MEDS: ACETAMINOPHEN 325 MG TABLET PO PRN ×2 (01:59→08:11)
[2019-03-30 02:33] LABS: BILIRUBIN,URINE NEGATIVE (NEGATIVE); GLUCOSE, URINE (UA) NEGATIVE (NEGATIVE); KETONES,URINE (UA) NEGATIVE (NEGATIVE); LEUKOCYTE ESTERASE, URINE NEGATIVE (NEGATIVE); NITRITE,URINE NEGATIVE (NEGATIVE); OCCULT BLOOD,URINE TRACE-INTA (NEGATIVE); PROTEIN,URINE TRACE mg/dL (NEGATIVE); UROBILINOGEN,URINE 0.2 (NORMAL) E.U./dL (NORMAL)
[2019-03-30 02:45] LABS: CLARITY,URINE CLEAR (CLEAR)
--- NOTE | 2019-03-30 05:29 | HISTORY & PHYSICAL EXAMINATION ---
DATE OF SERVICE: 03/30/2019 Physician: Ingrid Dexter MD CHIEF COMPLAINT: Left foot swelling and pain. Fever. HISTORY OF PRESENT ILLNESS: Patient is a 33-year-old, diabetic male with poorly controlled diabetes. He was admitted in December, between the and , and was treated for right foot infection/diabetic foot. At that time, cultures showed methicillin-sensitive Staphylococcus aureus. He was treated with antibiotics and the right foot improved. Subsequently, the patient made efforts to achieve better diabetic control. Unfortunately, he does not have medical insurance and his 's insurance is not affordable. They do not qualify for Medicare, and it seems it is a catch 22. At the end, he is not able to afford insulin. Recently, he was given metformin and glipizide was increased. About a week prior to current presentation, he developed left foot swelling with a small wound. The wound was on the bottom of his foot and it was at the fifth toe. He followed up with transportation refrigeration technician as outpatient and was seen a week ago, at which time he was given doxycycline. Subsequently, he was followed up on March 26Tuesday, at which time, besides the doxycycline, levofloxacin was prescribed and debridement was done. The wound was worsening. Color Dipper has instructed the patient if he would develop fever or chills to present to the ER. During the past couple of days, the patient had chills and he was taking Tylenol. Subsequently, on March 29, regardless of taking Tylenol, he became febrile. He developed drainage, a bad-smelling wound with enlarging erythema. The wound on the left foot was increasingly painful. Therefore, on the evening of March 29, he came to the ER. 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 Regarding the ER course: vital signs included elevated temperature of 37.8, heart rate initially 118, blood pressure 130/89, oxygen saturation 96% on room air with a respiratory rate of 18. Laboratories showed white blood cell count of 14.6, hemoglobin 11.1, unremarkable lactic acid, blood glucose 242. Sodium 133, potassium 4.2, creatinine 1.1. X-ray of the left foot was ordered, which showed fifth MTP septic arthritis with osteomyelitis. This finding was discussed with the covering orthopedic surgeon, who will see the patient in consultation. In the meantime, Unasyn and vancomycin were started. PAST MEDICAL HISTORY 1. Poorly controlled diabetes/type 2. 2. Diabetic neuropathy. 3. Foot deformity. 4. Diabetic foot started on the right foot in October 2018, led to an admission in December 2018, subsequently developed left foot infection. 5. Dyslipidemia. OUTPATIENT MEDICATIONS 1. Metformin. 2. Glipizide. 3. Levofloxacin, which the patient took for 2 days. 4. Doxycycline, which he took for 4 days prior to admission. 5. Florastor. SOCIAL HISTORY: Patient does not smoke, does not drink. Lives with his . FAMILY HISTORY: Reviewed, noncontributory. PRIMARY CARE PHYSICIAN: Viky Hadley MD REVIEW OF SYSTEMS: Please see pertinent positives listed above at history of present illness. Patient did not report additional complaints on the 12-system review. Besides the above-listed symptoms, the patient complained of about a 30-pound weight loss during the past 6 months. PHYSICAL EXAMINATION VITAL SIGNS: Please see listed above at history of present illness. GENERAL: Patient is a well-developed, young male who was not in acute distress. MUSCULOSKELETAL: Right foot appears with a toe deformity, questionable Charcot foot. Healing, dry wound on the bottom of the foot between the great and second toes. Left foot at the fifth toe with draining wound. Malodorous discharge and erythema extending on the forefoot. Skin: Cellulitis of the left foot. Skin with pallor. No jaundice. CARDIOVASCULAR: S1, S2. Regular tachycardia. No obvious murmur. RESPIRATORY: Clear to auscultation bilaterally. ABDOMEN: Benign. Nontender. Bowel tones present. LYMPHATIC: No lymphedema. NEUROLOGIC: Alert, oriented, nonfocal. PSYCHIATRIC: Cooperative. ASSESSMENT AND PLAN: Patient is a 33-year-old, diabetic male with poorly controlled diabetes. Reviewing the prior record, his hemoglobin A1c in October was 9.6, subsequently in December was 8.5. He is getting admitted with diabetic foot and x-ray of the left foot showed fifth MTP septic arthritis and osteomyelitis. ACTIVE ISSUES/DIAGNOSES 1. Hyperglycemia/poorly controlled diabetes. 2. Lack of resources/insurance coverage issues. For that, social work should be requested, possibly medication assistance should be provided. There must be some program that could cover this patient's insulin, if nothing else than [facility]. 3. Weight loss, secondary to poor diabetic control and ongoing infection of the feet since October. 4. Osteomyelitis of the left foot/fifth toe, with septic arthritis of the MTP. 5. Anemia, likely secondary to chronic inflammation. 6. Sepsis, based on vital sign criteria including elevated temperature and tachycardia, the patient rules in for the diagnosis of sepsis. In addition, he has elevated white blood cell count, which indicates systemic infection and the source of infection is left foot osteomyelitis. 7. Failed outpatient treatment. Notably, patient had outpatient debridement at the podiatry office 3 days prior to current admission and was on 2 different oral antibiotics. At this point, he needs inpatient treatment and IV antibiotic. PLAN AND ORDERS 1. Patient is getting admitted as inpatient. We will continue Unasyn and vancomycin, sent MRSA screen and ESR. Orthopedic consult in the morning. Nonweightbearing on the left foot. Wound care as appropriate. Regarding glycemic control, the patient will be n.p.o., awaiting orthopedic evaluation, possibly could go for surgical procedure. Therefore, he will be covered with regular insulin q.6 hourly. In addition, a small dose of Lantus is ordered, which will be held prior to procedure. 2. The case should be discussed with social contact worker during the daytime to assist this patient with outpatient resources, obtaining insulin. His situation is challenging, but even [facility] resources could be appropriate. 3. Regarding sepsis, patient is getting IV hydration overnight. 4. DVT prophylaxis. 5. Bowel prophylaxis. 6. FULL CODE. ATTESTATION: I certify that the reasonable expectation for this patient is to remain hospitalized for at least 48 hours, he meets inpatient criteria. He requires inpatient treatment with IV antibiotics. I certify that he will likely discharge within 96 hours or transfer to another facility. Time spent in the care of this patient was 65 minutes. TD: 03/30/2019 02:15 ABISAI
[2019-03-30 05:34] LABS: BASOPHILS # (AUTO) 0.1 10^3/uL (0.0-0.1); BASOPHILS % (AUTO) 0.5 %; EOSINOPHILS # (AUTO) 0.1 10^3/uL (0.0-0.7); HGB - HEMOGLOBIN 9.3 g/dL (14.0-18.0); LYMPHOCYTES # (AUTO) 2.3 10^3/uL (1.5-3.5); LYMPHOCYTES % (AUTO) 16.3 %; MEAN CORPUSCULAR HEMOGLOBIN 25.5 pg (27.0-31.0); MEAN CORPUSCULAR HGB CONC 33.1 g/dL (32.0-36.0); MEAN CORPUSCULAR VOLUME 76.8 fL (80.0-94.0); MEAN PLATELET VOLUME 6.8 fL (7.4-11.4); MONOCYTES # (AUTO) 1.1 10^3/uL (0.0-1.0); MONOCYTES % (AUTO) 7.4 %; NEUTROPHILS # (AUTO) 10.7 10^3/uL (1.5-6.6); NEUTROPHILS % (AUTO) 74.8 %; PLT - PLATELET COUNT 343 10^3/uL (130-450); RED BLOOD COUNT 3.64 10^6/uL (4.70-6.10); RED CELL DISTRIBUTION WIDTH 15.2 % (12.0-15.0); WHITE BLOOD COUNT 14.3 x10^3/uL (4.8-10.8)
[2019-03-30 05:38] LABS: INR 1.9 (0.8-1.2); PT - PROTHROMBIN TIME 21.2 secs (9.9-12.6)
[2019-03-30 05:51] LABS: ALBUMIN 2.8 g/dL (3.2-5.5); CALCIUM 8.1 mg/dL (8.5-10.3); CREATININE 1.1 mg/dL (0.6-1.2); PHOSPHORUS 3.1 mg/dL (2.5-4.6)
[2019-03-30] MEDS: AMPICILLIN/SULBACTAM 1.5 GM in SODIUM CHLORIDE 0.9% MINIBAG 100 ML IV SCH ×3 (06:12→18:48)
[2019-03-30] MEDS: INSULIN GLARGINE 300 UNIT/3 ML PEN SUBQ SCH ×2 (06:18→18:57)
[2019-03-30 06:29] LABS: HB2 TOTAL 7.8 g/dL; HEMOGLOBIN A1C 0.53 g/dL; HEMOGLOBIN A1C % 8.4 % (4.6-6.2)
[2019-03-30] MEDS: SACCHAROMYCES BOULARDII 250 MG CAPSULE PO SCH ×2 (08:11→21:15)
[2019-03-30] MEDS: POLYETHYLENE GLYCOL 3350 17 GM PACKET PO SCH (09:00)
--- NOTE | 2019-03-30 09:54 | CONSULTATION NOTE ---
Referring Provider Name of Referring Provider:: Nii Consult Date: 03/30/19 Chief Complaint - Chief Complaint Chief Complaint: left foot diabetic infection and ulcer History of Present Illness - Admitted From Admitted From:: ER - History Obtained From Records Reviewed: Chart History obtained from: Patient Exam Limitations: none - History of Present Illness HPI Comment/Other: 33yo diabetic with chronic breakdown under 5th and 1st Metatarsal heads bilatera l feet. Hx of high arch, foot deformities, and use of standard shoes leading to pressure breakdown. Debridement of left 5th MT head area on 03/26. increasing fevers chills led to hospital admission through ER yesterday. History - Past Medical History Cardiovascular: reports: Hypertension, High cholesterol Respiratory: reports: None Neuro: reports: Headaches, Peripheral neuropathy Endocrine/Autoimmune: reports: Type 2 diabetes : reports: None HEENT: reports: None Psych: reports: None Musculoskeletal: reports: None Derm: reports: None MRSA Hx?: No - Past Surgical History HEENT: reports: Other - Family & Social History Family History: Mother: Diabetes, Type 2, Hyperlipidemia, Hypertension, Father: Hyperlipidemia, Hypertension Family History Comment/Other: pt's mother is at pt's bedside, she report her family has strong DM family hisotry. she and her brothers had early age DM2, and both of her brothers from DM complications. 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 pt denies smoker, alcohol and drug problem - Substance History Use: Uses substance without health or social issues: NONE - POLST Patient has POLST: No POLST Status: Full Code Meds/Allgy - Home Medications Home Medications: Ambulatory Orders Medication Instructions Recorded Confirmed Metformin HCl 1,000 mg PO BID #60 tablet 11/22/18 01/14/19 Clindamycin [Cleocin] 300 mg PO Q6H 14 Days #112 capsule 01/17/19 Glipizide [Glucotrol] 5 mg PO DAILY #15 tablet 01/17/19 Saccharomyces Boulardii [Florastor] 250 mg PO BID #28 capsule 01/17/19 - Allergies Allergies/Adverse Reactions: Allergies Allergy/AdvReac Type Severity Reaction Status Date / Time No Known Drug Intolerances Allergy Unknown Unknown Verified 03/29/19 21:42 macadamia nut oil Allergy Anaphylaxis Verified 03/29/19 21:42 walnut Allergy Anaphylaxis Verified 03/29/19 21:42 Exam - Vital Signs Reviewed Vital Signs: Yes Vital Signs: Vital Signs x48h Temp Pulse Resp BP Pulse Ox 03/30/19 08:00 37.8 C H 95 16 127/71 96 03/30/19 06:56 37.9 C H - Physical Exam General Appearance: positive: No acute distress Eyes Bilateral: positive: Normal inspection ENT: positive: ENT inspection nml Neck: positive: Nml inspection Respiratory: positive: Chest non-tender Cardiovascular: positive: Regular rate & rhythm Peripheral Pulses: positive: 1+ Abdomen: positive: Non-tender Extremities: positive: Other (right foot: hypercallousity under 1st and 5th Metatarsal heads. no current breakdown or cellulitis,drainage or redness. Left foot: 1cm ulcer with necrotic base directly below 5th MT head. dorsal erythema to midfoot. purulent foul smelling drainage can be squeezed from ulcer. no significant pain with 5th toe movement. no generalized leg swelling, or st reaking. no sig. adenopathy. Foot is warm and 1+ pulses. N/V seems intact and pt. denies neuropathy) Conclusion/Plan - Diagnosis Diagnosis: Diabetic ulceration of left foot. Probable septic arthritis 5th MTP joint and Osteomyelitis. - Lab Results Fish Bones: 03/30/19 04:40 03/30/19 04:40 - Diagnostic Imaging Results Diagnostic Imaging Results: positive: Read independently - Other Other Results/Comments: I have had a discussion about the gravity of the patient's problem. He seems to feel that it will "just get better with IV antibiotics just like the other foot did in December 2018". I believe he will require amputation of the 5th toe/ray to bring about a cure. Rec: continue IV abx. for the next 3 days to improve the prospects for a more limited surgery and improved outcome. the patient will ultimately need to give consent after further discussion about the seriousness of the problem. (He seems to be in serious denial).
[2019-03-30] MEDS ORDERED: LIDOCAINE JELLY 2% 5 ML TUBE TOP SCH (12:00)
[2019-03-30] MEDS: INSULIN ASPART 300 UNIT/3 ML PEN SUBQ SCH ×3 (12:19→21:19)
[2019-03-30] MEDS ORDERED: SODIUM CHLORIDE 0.9% 500 ML IV ONE (12:37)
--- NOTE | 2019-03-30 15:42 | PROVIDER PROGRESS NOTE ---
Subjective - Prog Note Date Prog Note Date: 03/30/19 Prog Note Time: 15:39 - Subjective Pt reports feeling: Improved Subjective: Pelon has no complaints, except that he cannot walk very well. He denies headaches, blurred vision, chest pain, shortness of breath, a new rash or a new cough. Current Medications - Current Medications Current Medications: Active Medications: Acetaminophen (Tylenol) 650 mg PO Q4HR PRN Hydrocodone Bitart/Acetaminophen ([place] 10 Mg/325 Mg) 1 tab PO Q4HR PRN Enoxaparin Sodium (Lovenox) 40 mg SUBQ DAILY [facility] Ampicillin Sodium/Sulbactam (Sodium 1.5 gm/ Sodium Chloride) 100 mls @ 200 mls/hr IV Q6HR [facility] Insulin Aspart (Novolog) 1 - 9 unit SUBQ 0800,1200,1700,2100 PASCUAL; Protocol Insulin Glargine (Lantus Solostar) 5 unit SUBQ 0600,1800 PASCUAL Ondansetron HCl (Zofran Inj) 4 mg IVP Q6HR PRN Polyethylene Glycol (Miralax) 17 gm PO DAILY [facility] Saccharomyces Boulardii (Florastor) 250 mg PO BID [facility] HOME meds: Metformin HCl 1,000 mg PO BIDWM 03/30/19 glipiZIDE [Glipizide] 5 mg PO 0730 03/30/19 Objective - Vital Signs/Intake & Output Reviewed Vital Signs: Yes Vital Signs: Vital Signs x48h Temp Pulse Resp BP Pulse Ox 03/30/19 08:00 37.8 C H 95 16 127/71 96 Intake & Output: Intake & Output 03/27/19 03/28/19 03/29/19 03/30/19 23:59 23:59 23:59 23:59 Intake Total 3050 Output Total 550 Balance 2500 - Objective General Appearance: positive: No acute distress, Alert Eyes Bilateral: positive: PERRL ENT: positive: Pharynx nml, No signs of dehydration Neck: positive: Thyroid nml, No JVD, Trachea midline Respiratory: positive: Chest non-tender, No respiratory distress, Breath sounds nml Cardiovascular: positive: Regular rate & rhythm, No gallop, Systolic murmur, Decreased pulse(s) Peripheral Pulses: 1+ Radial (R), 1+ Radial (L), 1+ Popliteal (R), 1+ Popliteal (L) Abdomen: positive: Non-tender, Nml bowel sounds Back: positive: Nml inspection Skin: positive: Color nml, No rash, Warm, Dry Extremities: positive: Non-tender, Pedal edema, Joint swelling Neurologic/Psychiatric: positive: Oriented x3, CN's nml (2-12), Motor nml, Sensation nml Reflexes: Bicep (R): 3+, Bicep (L): 3+ - Lab Results Fish Bones: 03/31/19 05:00 03/31/19 05:00 Other Labs: Lab Results x24hrs 03/30/19 03/30/19 03/30/19 Range/Units 11:40 07:58 04:40 WBC (4.8-10.8) x10^3/uL RBC (4.70-6.10) 10^6/uL Hgb (14.0-18.0) g/dL Hct (42.0-52.0) % MCV (80.0-94.0) fL MCH (27.0-31.0) pg MCHC (32.0-36.0) g/dL RDW (12.0-15.0) % Plt Count (130-450) 10^3/uL MPV (7.4-11.4) fL Neut # (Auto) (1.5-6.6) 10^3/uL Lymph # (Auto) (1.5-3.5) 10^3/uL [place] # (Auto) (0.0-1.0) 10^3/uL Eos # (Auto) (0.0-0.7) 10^3/uL Baso # (Auto) (0.0-0.1) 10^3/uL Absolute Nucleated RBC x10^3/uL Nucleated RBC % /100WBC ESR (0-15) mm/Hr PT 21.2 H (9.9-12.6) secs INR 1.9 H (0.8-1.2) Sodium (135-145) mmol/L Potassium (3.5-5.0) mmol/L Chloride (101-111) mmol/L Carbon Dioxide (21-32) mmol/L Anion Gap (6-13) BUN (6-20) mg/dL Creatinine (0.6-1.2) mg/dL Estimated GFR (MDRD) (>89) Glucose (70-100) mg/dL POC Whole Bld Glucose 167 H 186 H (70 - 100) mg/dL Glycated Hemoglobin (4.6-6.2) % Estim Average Glucose (70-100) Lactic Acid (0.5-2.2) mmol/L Calcium (8.5-10.3) mg/dL Phosphorus (2.5-4.6) mg/dL Total Bilirubin (0.2-1.0) mg/dL AST (10-42) IU/L ALT (10-60) IU/L Alkaline Phosphatase (42-121) IU/L Total Protein (6.7-8.2) g/dL Albumin (3.2-5.5) g/dL Globulin (2.1-4.2) g/dL Albumin/Globulin Ratio (1.0-2.2) Lipase (22-51) U/L Urine Color Urine Clarity (CLEAR) Urine pH (5.0-7.5) PH Ur Specific [place] (1.002-1.030) Urine Protein (NEGATIVE) mg/dL Urine Glucose (UA) (NEGATIVE) mg/dL Urine Ketones (NEGATIVE) mg/dL Urine Occult Blood (NEGATIVE) Urine Nitrite (NEGATIVE) Urine Bilirubin (NEGATIVE) Urine Urobilinogen (NORMAL) E.U./dL Ur Leukocyte Esterase (NEGATIVE) Ur Microscopic Review Urine Culture Comments Nasal Screen MRSA (PCR) (NEGATIVE) 03/30/19 03/30/19 03/30/19 Range/Units 04:40 04:40 04:40 WBC 14.3 H (4.8-10.8) x10^3/uL RBC 3.64 L (4.70-6.10) 10^6/uL Hgb 9.3 L (14.0-18.0) g/dL Hct 27.9 L (42.0-52.0) % MCV 76.8 L (80.0-94.0) fL MCH 25.5 L (27.0-31.0) pg MCHC 33.1 (32.0-36.0) g/dL RDW 15.2 H (12.0-15.0) % Plt Count 343 (130-450) 10^3/uL MPV 6.8 L (7.4-11.4) fL Neut # (Auto) 10.7 H (1.5-6.6) 10^3/uL Lymph # (Auto) 2.3 (1.5-3.5) 10^3/uL [place] # (Auto) 1.1 H (0.0-1.0) 10^3/uL Eos # (Auto) 0.1 (0.0-0.7) 10^3/uL Baso # (Auto) 0.1 (0.0-0.1) 10^3/uL Absolute Nucleated RBC 0.00 x10^3/uL Nucleated RBC % 0.0 /100WBC ESR (0-15) mm/Hr PT (9.9-12.6) secs INR (0.8-1.2) Sodium 133 L (135-145) mmol/L Potassium 3.5 (3.5-5.0) mmol/L Chloride 98 L (101-111) mmol/L Carbon Dioxide 24 (21-32) mmol/L Anion Gap 11.0 (6-13) BUN 11 (6-20) mg/dL Creatinine 1.1 (0.6-1.2) mg/dL Estimated GFR (MDRD) 76 L (>89) Glucose 179 H (70-100) mg/dL POC Whole Bld Glucose (70 - 100) mg/dL Glycated Hemoglobin 8.4 H (4.6-6.2) % Estim Average Glucose 194 H (70-100) Lactic Acid (0.5-2.2) mmol/L Calcium 8.1 L (8.5-10.3) mg/dL Phosphorus 3.1 (2.5-4.6) mg/dL Total Bilirubin (0.2-1.0) mg/dL AST (10-42) IU/L ALT (10-60) IU/L Alkaline Phosphatase (42-121) IU/L Total Protein (6.7-8.2) g/dL Albumin 2.8 L (3.2-5.5) g/dL Globulin (2.1-4.2) g/dL Albumin/Globulin Ratio (1.0-2.2) Lipase (22-51) U/L Urine Color Urine Clarity (CLEAR) Urine pH (5.0-7.5) PH Ur Specific [place] (1.002-1.030) Urine Protein (NEGATIVE) mg/dL Urine Glucose (UA) (NEGATIVE) mg/dL Urine Ketones (NEGATIVE) mg/dL Urine Occult Blood (NEGATIVE) Urine Nitrite (NEGATIVE) Urine Bilirubin (NEGATIVE) Urine Urobilinogen (NORMAL) E.U./dL Ur Leukocyte Esterase (NEGATIVE) Ur Microscopic Review Urine Culture Comments Nasal Screen MRSA (PCR) (NEGATIVE) 03/30/19 03/30/19 03/30/19 Range/Units 02:18 01:51 01:20 WBC (4.8-10.8) x10^3/uL RBC (4.70-6.10) 10^6/uL Hgb (14.0-18.0) g/dL Hct (42.0-52.0) % MCV (80.0-94.0) fL MCH (27.0-31.0) pg MCHC (32.0-36.0) g/dL RDW (12.0-15.0) % Plt Count (130-450) 10^3/uL MPV (7.4-11.4) fL Neut # (Auto) (1.5-6.6) 10^3/uL Lymph # (Auto) (1.5-3.5) 10^3/uL [place] # (Auto) (0.0-1.0) 10^3/uL Eos # (Auto) (0.0-0.7) 10^3/uL Baso # (Auto) (0.0-0.1) 10^3/uL Absolute Nucleated RBC x10^3/uL Nucleated RBC % /100WBC ESR (0-15) mm/Hr PT (9.9-12.6) secs INR (0.8-1.2) Sodium (135-145) mmol/L Potassium (3.5-5.0) mmol/L Chloride (101-111) mmol/L Carbon Dioxide (21-32) mmol/L Anion Gap (6-13) BUN (6-20) mg/dL Creatinine (0.6-1.2) mg/dL Estimated GFR (MDRD) (>89) Glucose (70-100) mg/dL POC Whole Bld Glucose 191 H (70 - 100) mg/dL Glycated Hemoglobin (4.6-6.2) % Estim Average Glucose (70-100) Lactic Acid (0.5-2.2) mmol/L Calcium (8.5-10.3) mg/dL Phosphorus (2.5-4.6) mg/dL Total Bilirubin (0.2-1.0) mg/dL AST (10-42) IU/L ALT (10-60) IU/L Alkaline Phosphatase (42-121) IU/L Total Protein (6.7-8.2) g/dL Albumin (3.2-5.5) g/dL Globulin (2.1-4.2) g/dL Albumin/Globulin Ratio (1.0-2.2) Lipase (22-51) U/L Urine Color YELLOW Urine Clarity CLEAR (CLEAR) Urine pH 7.0 (5.0-7.5) PH Ur Specific [place] 1.010 (1.002-1.030) Urine Protein TRACE (NEGATIVE) mg/dL Urine Glucose (UA) NEGATIVE (NEGATIVE) mg/dL Urine Ketones NEGATIVE (NEGATIVE) mg/dL Urine Occult Blood [place]ACE[place] (NEGATIVE) Urine Nitrite NEGATIVE (NEGATIVE) Urine Bilirubin NEGATIVE (NEGATIVE) Urine Urobilinogen 0.2 (NORMAL) (NORMAL) E.U./dL Ur Leukocyte Esterase NEGATIVE (NEGATIVE) Ur Microscopic Review NOT INDICATED Urine Culture Comments NOT INDICATED Nasal Screen MRSA (PCR) NEGATIVE (NEGATIVE) 03/29/19 03/29/19 03/29/19 Range/Units 23:40 22:05 22:01 WBC (4.8-10.8) x10^3/uL RBC (4.70-6.10) 10^6/uL Hgb (14.0-18.0) g/dL Hct (42.0-52.0) % MCV (80.0-94.0) fL MCH (27.0-31.0) pg MCHC (32.0-36.0) g/dL RDW (12.0-15.0) % Plt Count (130-450) 10^3/uL MPV (7.4-11.4) fL Neut # (Auto) (1.5-6.6) 10^3/uL Lymph # (Auto) (1.5-3.5) 10^3/uL [place] # (Auto) (0.0-1.0) 10^3/uL Eos # (Auto) (0.0-0.7) 10^3/uL Baso # (Auto) (0.0-0.1) 10^3/uL Absolute Nucleated RBC x10^3/uL Nucleated RBC % /100WBC ESR 18 H (0-15) mm/Hr PT (9.9-12.6) secs INR (0.8-1.2) Sodium 133 L (135-145) mmol/L Potassium 4.2 (3.5-5.0) mmol/L Chloride 96 L (101-111) mmol/L Carbon Dioxide 23 (21-32) mmol/L Anion Gap 14.0 H (6-13) BUN 12 (6-20) mg/dL Creatinine 1.1 (0.6-1.2) mg/dL Estimated GFR (MDRD) 76 L (>89) Glucose 242 H (70-100) mg/dL POC Whole Bld Glucose (70 - 100) mg/dL Glycated Hemoglobin (4.6-6.2) % Estim Average Glucose (70-100) Lactic Acid 1.3 (0.5-2.2) mmol/L Calcium 9.2 (8.5-10.3) mg/dL Phosphorus (2.5-4.6) mg/dL Total Bilirubin 1.1 H (0.2-1.0) mg/dL AST 19 (10-42) IU/L ALT 21 (10-60) IU/L Alkaline Phosphatase 81 (42-121) IU/L Total Protein 9.1 H (6.7-8.2) g/dL Albumin 3.7 (3.2-5.5) g/dL Globulin 5.4 H (2.1-4.2) g/dL Albumin/Globulin Ratio 0.7 L (1.0-2.2) Lipase 39 (22-51) U/L Urine Color Urine Clarity (CLEAR) Urine pH (5.0-7.5) PH Ur Specific [place] (1.002-1.030) Urine Protein (NEGATIVE) mg/dL Urine Glucose (UA) (NEGATIVE) mg/dL Urine Ketones (NEGATIVE) mg/dL Urine Occult Blood (NEGATIVE) Urine Nitrite (NEGATIVE) Urine Bilirubin (NEGATIVE) Urine Urobilinogen (NORMAL) E.U./dL Ur Leukocyte Esterase (NEGATIVE) Ur Microscopic Review Urine Culture Comments Nasal Screen MRSA (PCR) (NEGATIVE) 03/29/19 Range/Units 22:01 WBC 14.6 H (4.8-10.8) x10^3/uL RBC 4.41 L (4.70-6.10) 10^6/uL Hgb 11.1 L (14.0-18.0) g/dL Hct 33.8 L (42.0-52.0) % MCV 76.8 L (80.0-94.0) fL MCH 25.2 L (27.0-31.0) pg MCHC 32.8 (32.0-36.0) g/dL RDW 14.8 (12.0-15.0) % Plt Count 414 (130-450) 10^3/uL MPV 6.4 L (7.4-11.4) fL Neut # (Auto) 12.1 H (1.5-6.6) 10^3/uL Lymph # (Auto) 1.7 (1.5-3.5) 10^3/uL [place] # (Auto) 0.7 (0.0-1.0) 10^3/uL Eos # (Auto) 0.1 (0.0-0.7) 10^3/uL Baso # (Auto) 0.1 (0.0-0.1) 10^3/uL Absolute Nucleated RBC 0.00 x10^3/uL Nucleated RBC % 0.0 /100WBC ESR (0-15) mm/Hr PT (9.9-12.6) secs INR (0.8-1.2) Sodium (135-145) mmol/L Potassium (3.5-5.0) mmol/L Chloride (101-111) mmol/L Carbon Dioxide (21-32) mmol/L Anion Gap (6-13) BUN (6-20) mg/dL Creatinine (0.6-1.2) mg/dL Estimated GFR (MDRD) (>89) Glucose (70-100) mg/dL POC Whole Bld Glucose (70 - 100) mg/dL Glycated Hemoglobin (4.6-6.2) % Estim Average Glucose (70-100) Lactic Acid (0.5-2.2) mmol/L Calcium (8.5-10.3) mg/dL Phosphorus (2.5-4.6) mg/dL Total Bilirubin (0.2-1.0) mg/dL AST (10-42) IU/L ALT (10-60) IU/L Alkaline Phosphatase (42-121) IU/L Total Protein (6.7-8.2) g/dL Albumin (3.2-5.5) g/dL Globulin (2.1-4.2) g/dL Albumin/Globulin Ratio (1.0-2.2) Lipase (22-51) U/L Urine Color Urine Clarity (CLEAR) Urine pH (5.0-7.5) PH Ur Specific [place] (1.002-1.030) Urine Protein (NEGATIVE) mg/dL Urine Glucose (UA) (NEGATIVE) mg/dL Urine Ketones (NEGATIVE) mg/dL Urine Occult Blood (NEGATIVE) Urine Nitrite (NEGATIVE) Urine Bilirubin (NEGATIVE) Urine Urobilinogen (NORMAL) E.U./dL Ur Leukocyte Esterase (NEGATIVE) Ur Microscopic Review Urine Culture Comments Nasal Screen MRSA (PCR) (NEGATIVE) - Diagnostic Imaging Diagnostic Imaging Results: positive: Final report reviewed ABX Reporting Has patient been on IV antibiotics over the past 48 hours?: Yes Sepsis Event Note (H) - Evaluation Current Stage of Sepsis: Sepsis Possible source of Sepsis: positive: Bone/Joint - Sepsis Criteria Sepsis Criteria: Recorded Heart Rate greater than 90 bpm, WBC count greater than 12,000 or less than 4000 Assessment/Plan - Problem List (1) Cellulitis in diabetic foot Impression: - Left 5th toe with redness, tenderness, drainage - Failed outpatient treatment with oral antibiotics and debridement with Podiatry Plan: continue Unasyn/vanco and ortho consult. Wound care is following (2) Osteomyelitis of foot Impression: - Plain film left foot x-ray shows a 5th and septic arthritis of the MTP - Also has a history of gout - Not requiring pain medications today - Encouraged to elevate his legs when ever possible - + pulses in popiteal region - Status post bed side debridement with [facility] provider, see notes - Dr. Hinds- ortho suggests no interventions for the next few days, then consider I & D verses amputation after MRI to re-evaluate the extent of infection Plan: continue IV antibiotics- Unasyn/vanco, ortho following, and wound care following (3) Anemia Impression: - Known history of anemia, and iron studies from October confirm iron deficiency - Not listed on home med list - Now on iron supplement BID Plan: Continue iron, await iron studies in the AM Qualifiers: Anemia type: iron deficiency (4) Congenital hip dysplasia Impression: - Chronic pain due to this condition - Has been seen by ortho surgery in the past - No known surgical interventions and has been ambulating with ataxia from his current foot infection Plan: Offer pain meds, encourage movement (5) Essential hypertension Impression: - No home medications for HTN on med list - B/P today has been light 127/71 Plan: Continue to monitor, consider MARCELLUS inhibitor given his DM (6) Gout Impression: - Found in patient records - No complaints of recent flare ups Plan: Continue to monitor, treat current infection, if slow improvement, consider low dose steroids (7) Peripheral neuropathy Impression: - Weak pulses in BLEs - Discoloration to toes and feet from long standing peripheral vascular disorder - Numbness and tingling are chronic - Recurrent foot ulcers, infections Plan: Continue to have good control on DM and monitor for improvement (8) Depression Impression: - Currently , but may be soon - On exam, conversational, but with a flat affect Plan: Consider antidepressant at a later date, or as per PCP (9) Type 2 diabetes mellitus Impression: - Current A1 C is 8.4% on 03/30/2019 - Takes at least metformin at home - Non-compliant at times Plan: SSI, blood sugar checks, carb controlled diet Qualifiers:
[2019-03-30] MEDS: FERROUS SULFATE 325 MG TABLET PO SCH (17:12)
[2019-03-30] MEDS: ENOXAPARIN 40 MG/0.4 ML SYRINGE SUBQ SCH (21:15)
[2019-03-30] MEDS ORDERED: SODIUM CHLORIDE 0.9% MINIBAG 100 ML IV ONE (23:33)
[2019-03-31] MEDS: AMPICILLIN/SULBACTAM 1.5 GM in SODIUM CHLORIDE 0.9% MINIBAG 100 ML IV SCH ×3 (00:05→11:31)
[2019-03-31] MEDS: SODIUM CHLORIDE FLUSH 0.9% 10 ML SYRINGE IVP SCH ×3 (00:08→16:50)
[2019-03-31] MEDS: ACETAMINOPHEN 325 MG TABLET PO PRN (00:48)
[2019-03-31 05:16] LABS: BASOPHILS # (AUTO) 0.1 10^3/uL (0.0-0.1); BASOPHILS % (AUTO) 0.5 %; EOSINOPHILS # (AUTO) 0.1 10^3/uL (0.0-0.7); EOSINOPHILS % (AUTO) 1.2 %; HGB - HEMOGLOBIN 9.1 g/dL (14.0-18.0); LYMPHOCYTES # (AUTO) 2.5 10^3/uL (1.5-3.5); LYMPHOCYTES % (AUTO) 20.2 %; MEAN CORPUSCULAR HEMOGLOBIN 25.1 pg (27.0-31.0); MEAN CORPUSCULAR HGB CONC 32.8 g/dL (32.0-36.0); MEAN CORPUSCULAR VOLUME 76.6 fL (80.0-94.0); MEAN PLATELET VOLUME 6.3 fL (7.4-11.4); MONOCYTES # (AUTO) 0.9 10^3/uL (0.0-1.0); MONOCYTES % (AUTO) 7.6 %; NEUTROPHILS # (AUTO) 8.6 10^3/uL (1.5-6.6); NEUTROPHILS % (AUTO) 70.5 %; PLT - PLATELET COUNT 316 10^3/uL (130-450); RED BLOOD COUNT 3.61 10^6/uL (4.70-6.10); RED CELL DISTRIBUTION WIDTH 14.9 % (12.0-15.0); WHITE BLOOD COUNT 12.2 x10^3/uL (4.8-10.8)
[2019-03-31 05:30] LABS: ALBUMIN/GLOBULIN RATIO 0.6 (1.0-2.2); BILIRUBIN,TOTAL 0.9 mg/dL (0.2-1.0); CALCIUM 8.6 mg/dL (8.5-10.3); MAGNESIUM 1.9 mg/dL (1.7-2.8); PHOSPHORUS 4.4 mg/dL (2.5-4.6); TOTAL PROTEIN 7.7 g/dL (6.7-8.2)
[2019-03-31] MEDS: INSULIN GLARGINE 300 UNIT/3 ML PEN SUBQ SCH ×2 (06:13→18:14)
--- NOTE | 2019-03-31 07:13 | PROVIDER PROGRESS NOTE ---
Subjective - Prog Note Date Prog Note Date: 03/31/19 Prog Note Time: 07:13 - Subjective Pt reports feeling: Improved Subjective: Pelon has no complaints and has no increased pain to his LLE. He continues on IV antibiotics which were changed today due to a shortage issue. Current Medications - Current Medications Current Medications: Active Medications: Acetaminophen (Tylenol) 650 mg PO Q4HR PRN Hydrocodone Bitart/Acetaminophen ([place] 10 Mg/325 Mg) 1 tab PO Q4HR PRN Atorvastatin Calcium (Lipitor) 40 mg PO QPM [facility]CU[facility] Enoxaparin Sodium (Lovenox) 40 mg SUBQ DAILY [facility] Ferrous Gluconate ([place]) 324 mg PO BIDWM [facility] Piperacillin Sod/Tazobactam (Sod 3.375 gm/ Sodium Chloride) 100 mls @ 200 mls/hr IV ONCE PASCUAL Piperacillin Sod/Tazobactam (Sod 3.375 gm/ Sodium Chloride) 100 mls @ 25 mls/hr IV Q8H [facility] Insulin Aspart (Novolog) 1 - 9 unit SUBQ 0800,1200,1700,2100 PASCU[facility]; Protocol Insulin Glargine (Lantus Solostar) 5 unit SUBQ 0600,1800 [facility] Lisinopril (Zestril) 10 mg PO DAILY [facility] Multivitamins (Theragran) 1 tab PO DAILYWM [facility] Ondansetron HCl (Zofran Inj) 4 mg IVP Q6HR PRN Polyethylene Glycol (Miralax) 17 gm PO DAILY [facility] Saccharomyces Boulardii (Florastor) 250 mg PO BID [facility] HOME meds: Metformin HCl 1,000 mg PO BIDWM 03/30/19 glipiZIDE [Glipizide] 5 mg PO 0730 03/30/19 Objective - Vital Signs/Intake & Output Reviewed Vital Signs: Yes Vital Signs: Vital Signs x48h Temp Pulse Resp BP Pulse Ox 03/31/19 06:09 36.9 C 03/31/19 01:46 36.5 C 03/31/19 00:51 38.5 C H 03/31/19 00:00 37.8 C H 100 18 128/90 H 98 Intake & Output: Intake & Output 03/28/19 03/29/19 03/30/19 03/31/19 23:59 23:59 23:59 23:59 Intake Total 3990 200 Output Total 550 Balance 3440 200 - Objective General Appearance: positive: No acute distress, Alert Eyes Bilateral: positive: PERRL ENT: positive: Pharynx nml, No signs of dehydration Neck: positive: Thyroid nml, No JVD, Trachea midline Respiratory: positive: Chest non-tender, No respiratory distress, Breath sounds nml Cardiovascular: positive: Regular rate & rhythm, No gallop Peripheral Pulses: 1+ Radial (R), 1+ Radial (L) Abdomen: positive: Non-tender, Nml bowel sounds Back: positive: Nml inspection Skin: positive: No rash, Warm, Dry Extremities: positive: Full ROM, Pedal edema, Joint swelling Neurologic/Psychiatric: positive: Oriented x3, CN's nml (2-12), Motor nml, Sen sation nml, Depressed mood/affect Reflexes: Bicep (R): 3+, Bicep (L): 3+ - Lab Results Fish Bones: 04/01/19 05:13 04/01/19 05:13 Other Labs: Lab Results x24hrs 03/31/19 03/31/19 03/31/19 Range/Units 05:00 05:00 05:00 WBC 12.2 H (4.8-10.8) x10^3/uL RBC 3.61 L (4.70-6.10) 10^6/uL Hgb 9.1 L (14.0-18.0) g/dL Hct 27.7 L (42.0-52.0) % MCV 76.6 L (80.0-94.0) fL MCH 25.1 L (27.0-31.0) pg MCHC 32.8 (32.0-36.0) g/dL RDW 14.9 (12.0-15.0) % Plt Count 316 (130-450) 10^3/uL MPV 6.3 L (7.4-11.4) fL Neut # (Auto) 8.6 H (1.5-6.6) 10^3/uL Lymph # (Auto) 2.5 (1.5-3.5) 10^3/uL [place] # (Auto) 0.9 (0.0-1.0) 10^3/uL Eos # (Auto) 0.1 (0.0-0.7) 10^3/uL Baso # (Auto) 0.1 (0.0-0.1) 10^3/uL Absolute Nucleated RBC 0.01 x10^3/uL Nucleated RBC % 0.1 /100WBC Sodium 134 L (135-145) mmol/L Potassium 3.6 (3.5-5.0) mmol/L Chloride 98 L (101-111) mmol/L Carbon Dioxide 24 (21-32) mmol/L Anion Gap 12.0 (6-13) BUN 13 (6-20) mg/dL Creatinine 1.0 (0.6-1.2) mg/dL Estimated GFR (MDRD) 85 L (>89) Glucose 143 H (70-100) mg/dL POC Whole Bld Glucose (70 - 100) mg/dL Lactic Acid 0.8 (0.5-2.2) mmol/L Calcium 8.6 (8.5-10.3) mg/dL Phosphorus 4.4 (2.5-4.6) mg/dL Magnesium 1.9 (1.7-2.8) mg/dL Total Bilirubin 0.9 (0.2-1.0) mg/dL AST 14 (10-42) IU/L ALT 19 (10-60) IU/L Alkaline Phosphatase 67 (42-121) IU/L C-Reactive Protein 19.0 H (0-1.0) mg/dL Total Protein 7.7 (6.7-8.2) g/dL Albumin 3.0 L (3.2-5.5) g/dL Globulin 4.7 H (2.1-4.2) g/dL Albumin/Globulin Ratio 0.6 L (1.0-2.2) 03/30/19 03/30/19 Range/Units 11:40 07:58 WBC (4.8-10.8) x10^3/uL RBC (4.70-6.10) 10^6/uL Hgb (14.0-18.0) g/dL Hct (42.0-52.0) % MCV (80.0-94.0) fL MCH (27.0-31.0) pg MCHC (32.0-36.0) g/dL RDW (12.0-15.0) % Plt Count (130-450) 10^3/uL MPV (7.4-11.4) fL Neut # (Auto) (1.5-6.6) 10^3/uL Lymph # (Auto) (1.5-3.5) 10^3/uL [place] # (Auto) (0.0-1.0) 10^3/uL Eos # (Auto) (0.0-0.7) 10^3/uL Baso # (Auto) (0.0-0.1) 10^3/uL Absolute Nucleated RBC x10^3/uL Nucleated RBC % /100WBC Sodium (135-145) mmol/L Potassium (3.5-5.0) mmol/L Chloride (101-111) mmol/L Carbon Dioxide (21-32) mmol/L Anion Gap (6-13) BUN (6-20) mg/dL Creatinine (0.6-1.2) mg/dL Estimated GFR (MDRD) (>89) Glucose (70-100) mg/dL POC Whole Bld Glucose 167 H 186 H (70 - 100) mg/dL Lactic Acid (0.5-2.2) mmol/L Calcium (8.5-10.3) mg/dL Phosphorus (2.5-4.6) mg/dL Magnesium (1.7-2.8) mg/dL Total Bilirubin (0.2-1.0) mg/dL AST (10-42) IU/L ALT (10-60) IU/L Alkaline Phosphatase (42-121) IU/L C-Reactive Protein (0-1.0) mg/dL Total Protein (6.7-8.2) g/dL Albumin (3.2-5.5) g/dL Globulin (2.1-4.2) g/dL Albumin/Globulin Ratio (1.0-2.2) ABX Reporting Has patient been on IV antibiotics over the past 48 hours?: Yes Assessment/Plan - Problem List (1) Cellulitis in diabetic foot Impression: - Left 5th toe with redness, tenderness, drainage - Failed outpatient treatment with oral antibiotics and debridement with Podiatry - See the chart for great wound pictures, and to compare to previous admission in December of 2018 - Shortage of Unasyn, so changed to Zosyn - Wound culture results are still pending for sensitivities Plan: continue Zosyn/vanco and ortho consult. Wound care is following (2) Osteomyelitis of foot Impression: - Plain film left foot x-ray shows a 5th and septic arthritis of the MTP - Also has a history of gout - Not requiring pain medications today - Encouraged to elevate his legs when ever possible - + pulses in popiteal region - Status post bed side debridement with [facility] provider, see notes - Dr. Hinds- ortho suggests no interventions for the next few days, then consider I & D verses amputation after MRI to re-evaluate the extent of infection Plan: continue IV antibiotics- Zosyn/vanco, ortho following, and wound care following (3) Type 2 diabetes mellitus Impression: - Current A1 C is 8.4% on 03/30/2019 - Takes at least metformin at home - Non-compliant at times Plan: SSI, blood sugar checks, carb controlled diet Qualifiers: (4) Anemia Impression: - Known history of anemia, and iron studies from October confirm iron deficiency - Not listed on home med list - Now on iron supplement BID - H/H trending down; .7 today Plan: Continue iron, await iron studies in the AM Qualifiers: Anemia type: iron deficiency (5) Congenital hip dysplasia Impression: - Chronic pain due to this condition - Has been seen by ortho surgery in the past - No known surgical interventions and has been ambulating with ataxia from his current foot infection Plan: Offer pain meds, encourage movement (6) Essential hypertension Impression: - No home medications for HTN on med list - Lisinopril added today for continued HTN with a blood pressure of 131/83 - Patient refused new medication today, will provide teaching Plan: Continue to monitor, continue to encourage medication (7) Gout Impression: - Found in patient records - No complaints of recent flare ups Plan: Continue to monitor, treat current infection, if slow improvement, consider low dose steroids (8) Peripheral neuropathy Impression: - Weak pulses in BLEs - Discoloration to toes and feet from long standing peripheral vascular disorder - Numbness and tingling are chronic - Recurrent foot ulcers, infections Plan: Continue to have good control on DM and monitor for improvement
[2019-03-31] MEDS: ENOXAPARIN 40 MG/0.4 ML SYRINGE SUBQ SCH (09:32)
[2019-03-31] MEDS: POLYETHYLENE GLYCOL 3350 17 GM PACKET PO SCH (09:32)
[2019-03-31] MEDS: FERROUS SULFATE 325 MG TABLET PO SCH (09:32)
[2019-03-31] MEDS: MULTIVITAMIN TABLET PO SCH (09:33)
[2019-03-31] MEDS: SACCHAROMYCES BOULARDII 250 MG CAPSULE PO SCH ×2 (09:33→21:07)
[2019-03-31] MEDS: INSULIN ASPART 300 UNIT/3 ML PEN SUBQ SCH ×4 (09:34→21:07)
[2019-03-31] MEDS ORDERED: LISINOPRIL 5 MG TABLET PO SCH (11:00)
[2019-03-31] MEDS: FERROUS GLUCONATE 324 MG TABLET PO SCH (16:45)
[2019-03-31] MEDS ORDERED: PIPERACILLIN/TAZOBACTAM 3.375 GM in SODIUM CHLORIDE 0.9% MINIBAG 100 ML IV SCH (18:00)
[2019-03-31] MEDS: PIPERACILLIN/TAZOBACTAM 3.375 GM in SODIUM CHLORIDE 0.9% MINIBAG 100 ML IV SCH (20:02)
[2019-03-31] MEDS: ATORVASTATIN 40 MG TABLET PO SCH (21:07)
[2019-04-01] MEDS: SODIUM CHLORIDE FLUSH 0.9% 10 ML SYRINGE IVP SCH ×3 (00:38→18:44)
[2019-04-01] MEDS: ACETAMINOPHEN 325 MG TABLET PO PRN (00:51)
[2019-04-01] MEDS: PIPERACILLIN/TAZOBACTAM 3.375 GM in SODIUM CHLORIDE 0.9% MINIBAG 100 ML IV SCH (04:29)
[2019-04-01 05:34] LABS: BASOPHILS # (AUTO) 0.1 10^3/uL (0.0-0.1); BASOPHILS % (AUTO) 0.6 %; EOSINOPHILS # (AUTO) 0.1 10^3/uL (0.0-0.7); LYMPHOCYTES # (AUTO) 2.3 10^3/uL (1.5-3.5); LYMPHOCYTES % (AUTO) 18.3 %; MEAN CORPUSCULAR HEMOGLOBIN 25.4 pg (27.0-31.0); MEAN CORPUSCULAR HGB CONC 33.6 g/dL (32.0-36.0); MEAN CORPUSCULAR VOLUME 75.6 fL (80.0-94.0); MEAN PLATELET VOLUME 6.4 fL (7.4-11.4); MONOCYTES # (AUTO) 1.1 10^3/uL (0.0-1.0); NEUTROPHILS # (AUTO) 8.8 10^3/uL (1.5-6.6); NEUTROPHILS % (AUTO) 71.1 %; PLT - PLATELET COUNT 322 10^3/uL (130-450); RED BLOOD COUNT 3.55 10^6/uL (4.70-6.10); RED CELL DISTRIBUTION WIDTH 15.4 % (12.0-15.0); WHITE BLOOD COUNT 12.4 x10^3/uL (4.8-10.8)
[2019-04-01 05:47] LABS: % IRON SATURATION 5 % (20-50); ALBUMIN 2.9 g/dL (3.2-5.5); ALBUMIN/GLOBULIN RATIO 0.6 (1.0-2.2); ALKALINE PHOSPHATASE 64 IU/L (42-121); ALT ALANINE AMINOTRANSFERASE 25 IU/L (10-60); AST ASPARTATE AMINOTRANSFERASE 19 IU/L (10-42); BILIRUBIN,TOTAL 0.9 mg/dL (0.2-1.0); BUN - BLOOD UREA NITROGEN 14 mg/dL (6-20); CALCIUM 8.5 mg/dL (8.5-10.3); CARBON DIOXIDE - CO2 24 mmol/L (21-32); CHLORIDE 96 mmol/L (101-111); CHOL/HDL RATIO 5.6 (<5.0); CHOLESTEROL 124 mg/dL; GFR - MDRD 85 (>89); GLUCOSE 173 mg/dL (70-100); HDL CHOLESTEROL 22 mg/dL; IRON 9 ug/dL (45-182); LDL CHOLESTEROL,CALCULATED 85 mg/dL; LDL/HDL RATIO 3.9 (<3.6); MAGNESIUM 1.9 mg/dL (1.7-2.8); PHOSPHORUS 4.5 mg/dL (2.5-4.6); SODIUM 134 mmol/L (135-145); TOTAL IRON BINDING CAPACITY 182 ug/dL (250-450); TOTAL PROTEIN 7.8 g/dL (6.7-8.2); TRANSFERRIN 130 mg/dL (180-329); VLDL CHOLESTEROL 17 mg/dL
[2019-04-01] MEDS: INSULIN GLARGINE 300 UNIT/3 ML PEN SUBQ SCH ×2 (07:43→18:48)
[2019-04-01] MEDS: INSULIN ASPART 300 UNIT/3 ML PEN SUBQ SCH ×4 (07:44→21:03)
[2019-04-01] MEDS: MULTIVITAMIN TABLET PO SCH (07:56)
[2019-04-01] MEDS: FERROUS GLUCONATE 324 MG TABLET PO SCH ×2 (07:56→17:09)
--- NOTE | 2019-04-01 08:11 | PROVIDER PROGRESS NOTE ---
Subjective - Prog Note Date Prog Note Date: 04/01/19 Prog Note Time: 08:08 - Subjective Pt reports feeling: No change Subjective: Pelon complains of left knee discomfort and swelling. He states that this has happened before to his right knee. He denies headaches, shortness of breath, chest pain, nausea, vomiting, a rash, or a new cough. He states that he was symptomatic overnight with his fever of 103 F of which tylenol helped. Current Medications - Current Medications Current Medications: Active Medications: Acetaminophen (Tylenol) 650 mg PO Q4HR PRN Hydrocodone Bitart/Acetaminophen ([place] 10 Mg/325 Mg) 1 tab PO Q4HR PRN Atorvastatin Calcium (Lipitor) 40 mg PO QPM [facility] Enoxaparin Sodium (Lovenox) 40 mg SUBQ DAILY [facility] Ferrous Gluconate (Fergon) 324 mg PO BIDWM [facility] Meropenem 1 gm/ Sodium (Chloride) 100 mls @ 200 mls/hr IV Q8H [facility]CU[facility] Vancomycin HCl 100 gm/ Sodium (Chloride) 250 mls @ 167 mls/hr IV Q400H [facility] Insulin Aspart (Novolog) 1 - 9 unit SUBQ 0800,1200,1700,2100 PASCUAL; Protocol Insulin Glargine (Lantus Solostar) 5 unit SUBQ 0600,1800 [facility] Lisinopril (Zestril) 2.5 mg PO DAILY [facility] Multivitamins (Theragran) 1 tab PO DAILYWM [facility] Ondansetron HCl (Zofran Inj) 4 mg IVP Q6HR PRN Polyethylene Glycol (Miralax) 17 gm PO DAILY [facility] Saccharomyces Boulardii (Florastor) 250 mg PO BID [facility] HOME meds: Metformin HCl 1,000 mg PO BIDWM 03/30/19 glipiZIDE [Glipizide] 5 mg PO 0730 03/30/19 Objective - Vital Signs/Intake & Output Reviewed Vital Signs: Yes Vital Signs: Vital Signs x48h Temp Pulse Resp BP Pulse Ox 04/01/19 08:00 37.3 C 97 14 140/82 H 98 04/01/19 05:38 37.5 C 04/01/19 02:22 37.7 C H 04/01/19 00:45 39.5 C H 102 H 18 116/76 94 Intake & Output: Intake & Output 03/29/19 03/30/19 03/31/19 04/01/19 23:59 23:59 23:59 23:59 Intake Total 3990 1910 350 Output Total 550 Balance 3440 1910 350 - Objective General Appearance: positive: No acute distress, Alert Eyes Bilateral: positive: PERRL ENT: positive: Pharynx nml, No signs of dehydration Neck: positive: Thyroid nml, No JVD, Trachea midline Respiratory: positive: Chest non-tender, No respiratory distress, Breath sounds nml Cardiovascular: positive: Regular rate & rhythm, No gallop, Systolic murmur Peripheral Pulses: 1+ Radial (R), 1+ Radial (L) Abdomen: positive: Non-tender, Nml bowel sounds Back: positive: Nml inspection Skin: positive: Color nml, No rash, Warm, Dry Extremities: positive: Pedal edema, Joint swelling (left knee swelling, BLE slight pitting edema, swelling to left 5th toe, right first toe and ball of foot with skin discoloration) Neurologic/Psychiatric: positive: Oriented x3, CN's nml (2-12), Motor nml, Sensation nml, Depressed mood/affect Reflexes: Bicep (R): 3+, Bicep (L): 3+ - Lab Results Fish Bones: 04/01/19 05:13 04/01/19 05:13 Other Labs: Lab Results x24hrs 04/01/19 04/01/19 04/01/19 Range/Units 07:25 05:13 05:13 WBC (4.8-10.8) x10^3/uL RBC (4.70-6.10) 10^6/uL Hgb (14.0-18.0) g/dL Hct (42.0-52.0) % MCV (80.0-94.0) fL MCH (27.0-31.0) pg MCHC (32.0-36.0) g/dL RDW (12.0-15.0) % Plt Count (130-450) 10^3/uL MPV (7.4-11.4) fL Neut # (Auto) (1.5-6.6) 10^3/uL Lymph # (Auto) (1.5-3.5) 10^3/uL [place] # (Auto) (0.0-1.0) 10^3/uL Eos # (Auto) (0.0-0.7) 10^3/uL Baso # (Auto) (0.0-0.1) 10^3/uL Absolute Nucleated RBC x10^3/uL Nucleated RBC % /100WBC Sodium (135-145) mmol/L Potassium (3.5-5.0) mmol/L Chloride (101-111) mmol/L Carbon Dioxide (21-32) mmol/L Anion Gap (6-13) BUN (6-20) mg/dL Creatinine (0.6-1.2) mg/dL Estimated GFR (MDRD) (>89) Glucose (70-100) mg/dL POC Whole Bld Glucose 179 H (70 - 100) mg/dL Lactic Acid 0.8 (0.5-2.2) mmol/L Calcium (8.5-10.3) mg/dL Phosphorus (2.5-4.6) mg/dL Magnesium (1.7-2.8) mg/dL Iron (45-182) ug/dL TIBC (250-450) ug/dL % Saturation (20-50) % Transferrin (180-329) mg/dL Total Bilirubin (0.2-1.0) mg/dL AST (10-42) IU/L ALT (10-60) IU/L Alkaline Phosphatase (42-121) IU/L Total Protein (6.7-8.2) g/dL Albumin (3.2-5.5) g/dL Globulin (2.1-4.2) g/dL Albumin/Globulin Ratio (1.0-2.2) Triglycerides ( - 149) mg/dL Cholesterol ( - 199) mg/dL LDL Cholesterol, Calc ( - 129) mg/dL VLDL Cholesterol mg/dL HDL Cholesterol (60 - ) mg/dL LDL/HDL Ratio (<3.6) Cholesterol/HDL Ratio (<5.0) Vitamin B12 189 (180-914) pg/mL 04/01/19 04/01/19 03/31/19 Range/Units 05:13 05:13 20:51 WBC 12.4 H (4.8-10.8) x10^3/uL RBC 3.55 L (4.70-6.10) 10^6/uL Hgb 9.0 L (14.0-18.0) g/dL Hct 26.9 L (42.0-52.0) % MCV 75.6 L (80.0-94.0) fL MCH 25.4 L (27.0-31.0) pg MCHC 33.6 (32.0-36.0) g/dL RDW 15.4 H (12.0-15.0) % Plt Count 322 (130-450) 10^3/uL MPV 6.4 L (7.4-11.4) fL Neut # (Auto) 8.8 H (1.5-6.6) 10^3/uL Lymph # (Auto) 2.3 (1.5-3.5) 10^3/uL [place] # (Auto) 1.1 H (0.0-1.0) 10^3/uL Eos # (Auto) 0.1 (0.0-0.7) 10^3/uL Baso # (Auto) 0.1 (0.0-0.1) 10^3/uL Absolute Nucleated RBC 0.00 x10^3/uL Nucleated RBC % 0.0 /100WBC Sodium 134 L (135-145) mmol/L Potassium 4.0 (3.5-5.0) mmol/L Chloride 96 L (101-111) mmol/L Carbon Dioxide 24 (21-32) mmol/L Anion Gap 14.0 H (6-13) BUN 14 (6-20) mg/dL Creatinine 1.0 (0.6-1.2) mg/dL Estimated GFR (MDRD) 85 L (>89) Glucose 173 H (70-100) mg/dL POC Whole Bld Glucose 188 H (70 - 100) mg/dL Lactic Acid (0.5-2.2) mmol/L Calcium 8.5 (8.5-10.3) mg/dL Phosphorus 4.5 (2.5-4.6) mg/dL Magnesium 1.9 (1.7-2.8) mg/dL Iron 9 L (45-182) ug/dL TIBC 182 L (250-450) ug/dL % Saturation 5 L (20-50) % Transferrin 130 L (180-329) mg/dL Total Bilirubin 0.9 (0.2-1.0) mg/dL AST 19 (10-42) IU/L ALT 25 (10-60) IU/L Alkaline Phosphatase 64 (42-121) IU/L Total Protein 7.8 (6.7-8.2) g/dL Albumin 2.9 L (3.2-5.5) g/dL Globulin 4.9 H (2.1-4.2) g/dL Albumin/Globulin Ratio 0.6 L (1.0-2.2) Triglycerides 85 ( - 149) mg/dL Cholesterol 124 ( - 199) mg/dL LDL Cholesterol, Calc 85 ( - 129) mg/dL VLDL Cholesterol 17 mg/dL HDL Cholesterol 22 L (60 - ) mg/dL LDL/HDL Ratio 3.9 (<3.6) Cholesterol/HDL Ratio 5.6 (<5.0) Vitamin B12 (180-914) pg/mL 03/31/19 03/31/19 Range/Units 16:36 11:08 WBC (4.8-10.8) x10^3/uL RBC (4.70-6.10) 10^6/uL Hgb (14.0-18.0) g/dL Hct (42.0-52.0) % MCV (80.0-94.0) fL MCH (27.0-31.0) pg MCHC (32.0-36.0) g/dL RDW (12.0-15.0) % Plt Count (130-450) 10^3/uL MPV (7.4-11.4) fL Neut # (Auto) (1.5-6.6) 10^3/uL Lymph # (Auto) (1.5-3.5) 10^3/uL [place] # (Auto) (0.0-1.0) 10^3/uL Eos # (Auto) (0.0-0.7) 10^3/uL Baso # (Auto) (0.0-0.1) 10^3/uL Absolute Nucleated RBC x10^3/uL Nucleated RBC % /100WBC Sodium (135-145) mmol/L Potassium (3.5-5.0) mmol/L Chloride (101-111) mmol/L Carbon Dioxide (21-32) mmol/L Anion Gap (6-13) BUN (6-20) mg/dL Creatinine (0.6-1.2) mg/dL Estimated GFR (MDRD) (>89) Glucose (70-100) mg/dL POC Whole Bld Glucose 231 H 251 H (70 - 100) mg/dL Lactic Acid (0.5-2.2) mmol/L Calcium (8.5-10.3) mg/dL Phosphorus (2.5-4.6) mg/dL Magnesium (1.7-2.8) mg/dL Iron (45-182) ug/dL TIBC (250-450) ug/dL % Saturation (20-50) % Transferrin (180-329) mg/dL Total Bilirubin (0.2-1.0) mg/dL AST (10-42) IU/L ALT (10-60) IU/L Alkaline Phosphatase (42-121) IU/L Total Protein (6.7-8.2) g/dL Albumin (3.2-5.5) g/dL Globulin (2.1-4.2) g/dL Albumin/Globulin Ratio (1.0-2.2) Triglycerides ( - 149) mg/dL Cholesterol ( - 199) mg/dL LDL Cholesterol, Calc ( - 129) mg/dL VLDL Cholesterol mg/dL HDL Cholesterol (60 - ) mg/dL LDL/HDL Ratio (<3.6) Cholesterol/HDL Ratio (<5.0) Vitamin B12 (180-914) pg/mL ABX Reporting Has patient been on IV antibiotics over the past 48 hours?: Yes Sepsis Event Note (H) - Evaluation Current Stage of Sepsis: Sepsis Possible source of Sepsis: positive: Bone/Joint - Sepsis Criteria Sepsis Criteria: Recorded Temperature greater than 38.3C or Less than 36C, Recorded Heart Rate greater than 90 bpm, WBC count greater than 12,000 or less than 4000 Assessment/Plan - Problem List (1) Fever Impression: - Nursing reported temp max of 39.5 C overnight - APAP improved symptoms - Afebrile this AM - New BC x2 are now pending- drawn this AM - Stopped Zosyn, changed to meropemum and vanco Plan: Continue to monitor, start new antibiotics (2) Cellulitis in diabetic foot Impression: - Left 5th toe with redness, tenderness, drainage - Failed outpatient treatment with oral antibiotics and debridement with Podiatry - See the chart for great wound pictures, and to compare to previous admission in December of 2018 - Shortage of Unasyn, so changed to Zosyn - Due to lack of improvement, changing antibiotics to vanco, and meropenum - Wound culture results are still pending for sensitivities - Temp max overnight was 103 F orally - New BC x2 are pending - WBC count remains the same- elevated at 12 Plan: Change antibiotics to adding vanco, start meropenum, and ortho consult. Wound care is following (3) Osteomyelitis of foot Impression: - Plain film left foot x-ray shows a 5th and septic arthritis of the MTP - Also has a history of gout - Not requiring pain medications today - Encouraged to elevate his legs when ever possible - + pulses in popiteal region - Status post bed side debridement with [facility] provider, see notes - Dr. Hinds- ortho suggests no interventions for the next few days, then c onsider I & D verses amputation after MRI to re-evaluate the extent of infection - Temp max 103 F orally overnight - BC x2 are now pending Plan: Change IV antibiotics- meropenum, start vanco, ortho following, and wound care following (4) Effusion, left knee Impression: - Patient admits that this started yesterday and does not affect his ambulation - On exam, very obvious abnormality with fluid noted to the anterior aspect of the patella - Dr. Reyes has been called per patient request Plan: Await Dr. Reyes's evaluation, wrap using an MARCELLUS wrap for compression to reduce swelling (5) Type 2 diabetes mellitus Impression: - Current A1 C is 8.4% on 03/30/2019 - Takes at least metformin at home - Non-compliant at times Plan: SSI, blood sugar checks, carb controlled diet Qualifiers: (6) Anemia Impression: - Known history of anemia, and iron studies from October confirm iron deficiency - Not listed on home med list - Now on iron supplement BID - H/H trending down; 9.0/26.9 n today - Iron studies confirm iron deficiency anemia Plan: Continue iron, routine labs Qualifiers: Anemia type: iron deficiency (7) Congenital hip dysplasia Impression: - Chronic pain due to this condition - Has been seen by ortho surgery in the past - No known surgical interventions and has been ambulating with ataxia from his current foot infection Plan: Offer pain meds, encourage movement (8) Essential hypertension Impression: - No home medications for HTN on med list - Lisinopril adjusted to 2.5 mg daily for light blood pressures - Blood pressure today 116/76 - Patient refused new medication yesterday, so this morning I pointed out to the patient that MARCELLUS inhibitors are to protect the kidneys Plan: Continue to monitor, continue low dose lisinopril (9) Gout Impression: - Found in patient records - No complaints of recent flare ups - Now with left knee swelling, presumed effusion - No other complaints with any other joints concerning for current flare ups Plan: Continue to monitor, treat current infection, if slow improvement, consider low dose steroids (10) Peripheral neuropathy Impression: - Weak pulses in BLEs - Discoloration to toes and feet from long standing peripheral vascular disorder - Numbness and tingling are chronic - Recurrent foot ulcers, infections Plan: Continue to have good control on DM and monitor for improvement
[2019-04-01] MEDS ORDERED: VANCOMYCIN PER PHARMACY 100 GM in SODIUM CHLORIDE 0.9% 250 ML IV SCH (09:00)
[2019-04-01] MEDS: POLYETHYLENE GLYCOL 3350 17 GM PACKET PO SCH (09:21)
[2019-04-01] MEDS: MEROPENEM 1 GM in SODIUM CHLORIDE 0.9% MINIBAG 100 ML IV SCH ×2 (09:31→17:08)
[2019-04-01] MEDS: LISINOPRIL 5 MG TABLET PO SCH (09:31)
[2019-04-01] MEDS: SACCHAROMYCES BOULARDII 250 MG CAPSULE PO SCH ×2 (09:32→21:03)
[2019-04-01] MEDS: ENOXAPARIN 40 MG/0.4 ML SYRINGE SUBQ SCH (09:32)
[2019-04-01] MEDS: VANCOMYCIN INJ 1 GM, VANCOMYCIN INJ 250 MG in SODIUM CHLORIDE 0.9% 250 ML IV SCH ×2 (10:29→18:44)
--- NOTE | 2019-04-01 11:48 | PROVIDER PROGRESS NOTE ---
Subjective - Prog Note Date Prog Note Date: 04/01/19 Prog Note Time: 11:46 - Subjective Pt reports feeling: Worse (Asked to evaluate patient c/o 24 hour hx of atraumatic left knee swelling and anterior knee pain. Painful knee motion and difficulty weightbearing on left. Has had similar episodes in the past. Hx of gout, albeit always involving toes.) Objective - Vital Signs/Intake & Output Vital Signs: Vital Signs x48h Temp Pulse Resp BP Pulse Ox 04/01/19 08:00 37.3 C 97 14 140/82 H 98 04/01/19 05:38 37.5 C Intake & Output: Intake & Output 03/29/19 03/30/19 03/31/19 04/01/19 23:59 23:59 23:59 23:59 Intake Total 3990 1910 750 Output Total 550 Balance 3440 1910 750 - Lab Results Fish Bones: 04/01/19 05:13 04/01/19 05:13 Other Labs: Lab Results x24hrs 04/01/19 04/01/19 04/01/19 Range/Units 11:29 07:25 05:13 WBC (4.8-10.8) x10^3/uL RBC (4.70-6.10) 10^6/uL Hgb (14.0-18.0) g/dL Hct (42.0-52.0) % MCV (80.0-94.0) fL MCH (27.0-31.0) pg MCHC (32.0-36.0) g/dL RDW (12.0-15.0) % Plt Count (130-450) 10^3/uL MPV (7.4-11.4) fL Neut # (Auto) (1.5-6.6) 10^3/uL Lymph # (Auto) (1.5-3.5) 10^3/uL [place] # (Auto) (0.0-1.0) 10^3/uL Eos # (Auto) (0.0-0.7) 10^3/uL Baso # (Auto) (0.0-0.1) 10^3/uL Absolute Nucleated RBC x10^3/uL Nucleated RBC % /100WBC Sodium (135-145) mmol/L Potassium (3.5-5.0) mmol/L Chloride (101-111) mmol/L Carbon Dioxide (21-32) mmol/L Anion Gap (6-13) BUN (6-20) mg/dL Creatinine (0.6-1.2) mg/dL Estimated GFR (MDRD) (>89) Glucose (70-100) mg/dL POC Whole Bld Glucose 179 H 179 H (70 - 100) mg/dL Lactic Acid (0.5-2.2) mmol/L Calcium (8.5-10.3) mg/dL Phosphorus (2.5-4.6) mg/dL Magnesium (1.7-2.8) mg/dL Iron (45-182) ug/dL TIBC (250-450) ug/dL % Saturation (20-50) % Transferrin (180-329) mg/dL Total Bilirubin (0.2-1.0) mg/dL AST (10-42) IU/L ALT (10-60) IU/L Alkaline Phosphatase (42-121) IU/L Total Protein (6.7-8.2) g/dL Albumin (3.2-5.5) g/dL Globulin (2.1-4.2) g/dL Albumin/Globulin Ratio (1.0-2.2) Triglycerides ( - 149) mg/dL Cholesterol ( - 199) mg/dL LDL Cholesterol, Calc ( - 129) mg/dL VLDL Cholesterol mg/dL HDL Cholesterol (60 - ) mg/dL LDL/HDL Ratio (<3.6) Cholesterol/HDL Ratio (<5.0) Vitamin B12 189 (180-914) pg/mL 04/01/19 04/01/19 04/01/19 Range/Units 05:13 05:13 05:13 WBC 12.4 H (4.8-10.8) x10^3/uL RBC 3.55 L (4.70-6.10) 10^6/uL Hgb 9.0 L (14.0-18.0) g/dL Hct 26.9 L (42.0-52.0) % MCV 75.6 L (80.0-94.0) fL MCH 25.4 L (27.0-31.0) pg MCHC 33.6 (32.0-36.0) g/dL RDW 15.4 H (12.0-15.0) % Plt Count 322 (130-450) 10^3/uL MPV 6.4 L (7.4-11.4) fL Neut # (Auto) 8.8 H (1.5-6.6) 10^3/uL Lymph # (Auto) 2.3 (1.5-3.5) 10^3/uL [place] # (Auto) 1.1 H (0.0-1.0) 10^3/uL Eos # (Auto) 0.1 (0.0-0.7) 10^3/uL Baso # (Auto) 0.1 (0.0-0.1) 10^3/uL Absolute Nucleated RBC 0.00 x10^3/uL Nucleated RBC % 0.0 /100WBC Sodium 134 L (135-145) mmol/L Potassium 4.0 (3.5-5.0) mmol/L Chloride 96 L (101-111) mmol/L Carbon Dioxide 24 (21-32) mmol/L Anion Gap 14.0 H (6-13) BUN 14 (6-20) mg/dL Creatinine 1.0 (0.6-1.2) mg/dL Estimated GFR (MDRD) 85 L (>89) Glucose 173 H (70-100) mg/dL POC Whole Bld Glucose (70 - 100) mg/dL Lactic Acid 0.8 (0.5-2.2) mmol/L Calcium 8.5 (8.5-10.3) mg/dL Phosphorus 4.5 (2.5-4.6) mg/dL Magnesium 1.9 (1.7-2.8) mg/dL Iron 9 L (45-182) ug/dL TIBC 182 L (250-450) ug/dL % Saturation 5 L (20-50) % Transferrin 130 L (180-329) mg/dL Total Bilirubin 0.9 (0.2-1.0) mg/dL AST 19 (10-42) IU/L ALT 25 (10-60) IU/L Alkaline Phosphatase 64 (42-121) IU/L Total Protein 7.8 (6.7-8.2) g/dL Albumin 2.9 L (3.2-5.5) g/dL Globulin 4.9 H (2.1-4.2) g/dL Albumin/Globulin Ratio 0.6 L (1.0-2.2) Triglycerides 85 ( - 149) mg/dL Cholesterol 124 ( - 199) mg/dL LDL Cholesterol, Calc 85 ( - 129) mg/dL VLDL Cholesterol 17 mg/dL HDL Cholesterol 22 L (60 - ) mg/dL LDL/HDL Ratio 3.9 (<3.6) Cholesterol/HDL Ratio 5.6 (<5.0) Vitamin B12 (180-914) pg/mL 03/31/19 03/31/19 Range/Units 20:51 16:36 WBC (4.8-10.8) x10^3/uL RBC (4.70-6.10) 10^6/uL Hgb (14.0-18.0) g/dL Hct (42.0-52.0) % MCV (80.0-94.0) fL MCH (27.0-31.0) pg MCHC (32.0-36.0) g/dL RDW (12.0-15.0) % Plt Count (130-450) 10^3/uL MPV (7.4-11.4) fL Neut # (Auto) (1.5-6.6) 10^3/uL Lymph # (Auto) (1.5-3.5) 10^3/uL [place] # (Auto) (0.0-1.0) 10^3/uL Eos # (Auto) (0.0-0.7) 10^3/uL Baso # (Auto) (0.0-0.1) 10^3/uL Absolute Nucleated RBC x10^3/uL Nucleated RBC % /100WBC Sodium (135-145) mmol/L Potassium (3.5-5.0) mmol/L Chloride (101-111) mmol/L Carbon Dioxide (21-32) mmol/L Anion Gap (6-13) BUN (6-20) mg/dL Creatinine (0.6-1.2) mg/dL Estimated GFR (MDRD) (>89) Glucose (70-100) mg/dL POC Whole Bld Glucose 188 H 231 H (70 - 100) mg/dL Lactic Acid (0.5-2.2) mmol/L Calcium (8.5-10.3) mg/dL Phosphorus (2.5-4.6) mg/dL Magnesium (1.7-2.8) mg/dL Iron (45-182) ug/dL TIBC (250-450) ug/dL % Saturation (20-50) % Transferrin (180-329) mg/dL Total Bilirubin (0.2-1.0) mg/dL AST (10-42) IU/L ALT (10-60) IU/L Alkaline Phosphatase (42-121) IU/L Total Protein (6.7-8.2) g/dL Albumin (3.2-5.5) g/dL Globulin (2.1-4.2) g/dL Albumin/Globulin Ratio (1.0-2.2) Triglycerides ( - 149) mg/dL Cholesterol ( - 199) mg/dL LDL Cholesterol, Calc ( - 129) mg/dL VLDL Cholesterol mg/dL HDL Cholesterol (60 - ) mg/dL LDL/HDL Ratio (<3.6) Cholesterol/HDL Ratio (<5.0) Vitamin B12 (180-914) pg/mL - Diagnostic Imaging Diagnostic Imaging Comments: Xof left knee: show no acute fx. Effusion present - Other Results/Comments Other Results/Comments: EXAM: Left knee - 2+ effusion present wiht mild warmth; no erythema. ROM: 5-70 degrees with some pain at extreme motion. Maximal tenderness anterior over patella tendon and parapatellar tendon area. Ligaments stable. Sepsis Event Note (H) - Evaluation Current Stage of Sepsis: Sepsis Possible source of Sepsis: positive: Bone/Joint - Sepsis Criteria Sepsis Criteria: Recorded Temperature greater than 38.3C or Less than 36C, Recorded Heart Rate greater than 90 bpm, WBC count greater than 12,000 or less than 4000 Assessment/Plan - Problem List (1) Effusion, left knee Impression: Atraumatic effusion - r/o gout inflammatory effusion vs septic arthritis in this poor controlled diabetic patient recently admitted for left 5th toe oste omyelitis PLAN: With patient's consent, left knee was aspirated after betadine skin prep with 18 gauge needle. 65 ml of cloudy, blood-tinged, yellowish fluid aspirated and sent to lab for joint analysis (cell count with differential and crystal analysis), Gram stain with aerobic and anaerobic cultures and sensitivities. Patient tolerated procedure well. He was much more comfortable after joint decompression with the aspiration.
--- NOTE | 2019-04-01 12:18 | CONSULTATION NOTE ---
DATE OF SERVICE: 04/01/2019 Physician: Ian Reyes MD REFERRING PROVIDER: Gianna Chow, Nurse Practitioner. CHIEF COMPLAINT: "My left knee is swollen and painful." HISTORY OF PRESENT ILLNESS: Patient is a 33-year-old male, a poorly controlled diabetic, who was recently admitted to the hospital for treatment of a diabetic left foot infection. His workup showed an infected soft tissue infection with associated osteomyelitis of his fifth toe and distal fifth metatarsal. Currently he is on IV antibiotics and wound care. The patient was noted on rounds Tuesday morning to have about a 24-hour history of an effusion to the left knee, atraumatic in origin. The patient, on questioning, apparently has had episodes of knee swelling in the past, which resolve without any treatment. He also has a history of having had gout attacks in the past, although they have always involved just the toes. The patient has restricted motion secondary to pain and the swelling, and difficulty weightbearing on the left side. PHYSICAL EXAMINATION: The patient's left knee was inspected and he did indeed have about a 2-3+ effusion of the knee. Minimal warmth on palpation around the knee. No erythema appreciated. The patient had maximal tenderness anteriorly in his knee overlying his patellar tendon on the parapatellar tendon regions. He had restricted motion of the knee from about 5 degrees to 70 degrees with pain at extreme ranges of motion. The patient's ligaments are stable on testing. Unable to do a Charli's maneuver on his knee. No evidence of any lymphangitis in the thigh. IMAGES: X-ray of the left knee showed no acute fractures. Effusion was present. PROCEDURE: With the patient's consent, we proceeded to aspirate the knee. After Betadine skin preparation, an 18-gauge needle was introduced into the knee from a lateral approach. We were able to aspirate 65 mL of yellowish cloudy, blood-tinged synovial fluid. The patient tolerated the injection well. Specimen was sent to the laboratory for body fluid analysis to include cell count with differential and crystal analysis. Also, fluid will have a Gram staining and aerobic and anaerobic cultures and sensitivities done. ASSESSMENT: Atraumatic left knee effusion - need to rule out an inflammatory effusion from gout versus septic process. PLAN: The patient will be treated symptomatically and will continue on his IV antibiotics. We will see what the fluid analysis reveals. TD: 04/01/2019 12:03 [email or web address]
[2019-04-01 13:04] LABS: CC,BF RBC 17509 /mm^3
--- NOTE | 2019-04-01 13:04 | XRAY Report ---
Reason: left knee effusion Procedure Date: 04/01/2019 Accession Number: [id number] / [id number] Procedure: XR - Knee 2 View LT CPT Code: FULL RESULT: EXAM: LEFT KNEE RADIOGRAPHY EXAM DATE: 04/01/2019 10:12 AM. CLINICAL HISTORY: Left knee effusion. COMPARISON: None available. TECHNIQUE: AP and lateral views. FINDINGS: Bones: No acute fracture or dislocation. Joints: Moderate left knee joint effusion. Joint spaces are preserved. Soft Tissues: Calcified atherosclerotic plaques in the distal femoral and popliteal arteries. Curvilinear calcific density along the lateral epicondyle of the distal femur likely representing vascular calcification. IMPRESSION: Moderate left knee joint effusion. No acute fracture or dislocation visualized. RADIA
[2019-04-01 13:05] LABS: BF SOURCE SYNOVIAL
[2019-04-01 13:20] LABS: BF COLOR PINK; LYMPHOCYTES %,BODY FLUID 1; MONOCYTES %,BODY FLUID 1 %
[2019-04-01] MEDS: ATORVASTATIN 40 MG TABLET PO SCH (21:03)
[2019-04-02] MEDS: MEROPENEM 1 GM in SODIUM CHLORIDE 0.9% MINIBAG 100 ML IV SCH ×3 (00:04→16:59)
[2019-04-02] MEDS: SODIUM CHLORIDE FLUSH 0.9% 10 ML SYRINGE IVP SCH ×3 (00:06→16:57)
[2019-04-02] MEDS ORDERED: SODIUM CHLORIDE 0.9% 500 ML IV ONE (00:18)
[2019-04-02] MEDS: VANCOMYCIN INJ 1 GM, VANCOMYCIN INJ 250 MG in SODIUM CHLORIDE 0.9% 250 ML IV SCH ×2 (01:18→11:01)
[2019-04-02 05:13] LABS: BASOPHILS # (AUTO) 0.1 10^3/uL (0.0-0.1); BASOPHILS % (AUTO) 0.5 %; EOSINOPHILS # (AUTO) 0.3 10^3/uL (0.0-0.7); EOSINOPHILS % (AUTO) 2.8 %; HGB - HEMOGLOBIN 8.3 g/dL (14.0-18.0); LYMPHOCYTES # (AUTO) 1.8 10^3/uL (1.5-3.5); LYMPHOCYTES % (AUTO) 18.5 %; MEAN CORPUSCULAR HEMOGLOBIN 25.7 pg (27.0-31.0); MEAN CORPUSCULAR HGB CONC 33.8 g/dL (32.0-36.0); MEAN CORPUSCULAR VOLUME 75.9 fL (80.0-94.0); MEAN PLATELET VOLUME 6.5 fL (7.4-11.4); MONOCYTES # (AUTO) 0.8 10^3/uL (0.0-1.0); MONOCYTES % (AUTO) 7.6 %; NEUTROPHILS % (AUTO) 70.6 %; PLT - PLATELET COUNT 298 10^3/uL (130-450); RED BLOOD COUNT 3.23 10^6/uL (4.70-6.10); RED CELL DISTRIBUTION WIDTH 15.2 % (12.0-15.0); WHITE BLOOD COUNT 9.9 x10^3/uL (4.8-10.8)
[2019-04-02 05:46] LABS: ALBUMIN 2.7 g/dL (3.2-5.5); ALBUMIN/GLOBULIN RATIO 0.6 (1.0-2.2); BILIRUBIN,TOTAL 0.9 mg/dL (0.2-1.0); CALCIUM 8.4 mg/dL (8.5-10.3); CRP - C-REACTIVE PROTEIN 20.6 mg/dL (0-1.0); TOTAL PROTEIN 7.6 g/dL (6.7-8.2); URIC ACID 4.6 mg/dL (2.6-7.2)
[2019-04-02] MEDS: INSULIN GLARGINE 300 UNIT/3 ML PEN SUBQ SCH (06:16)
[2019-04-02] MEDS: FERROUS GLUCONATE 324 MG TABLET PO SCH ×2 (09:18→16:41)
[2019-04-02] MEDS: MULTIVITAMIN TABLET PO SCH (09:18)
[2019-04-02] MEDS: ENOXAPARIN 40 MG/0.4 ML SYRINGE SUBQ SCH (09:18)
[2019-04-02] MEDS: LISINOPRIL 5 MG TABLET PO SCH (09:20)
[2019-04-02] MEDS: INSULIN ASPART 300 UNIT/3 ML PEN SUBQ SCH ×4 (09:21→21:38)
[2019-04-02] MEDS: POLYETHYLENE GLYCOL 3350 17 GM PACKET PO SCH (09:24)
[2019-04-02] MEDS: SACCHAROMYCES BOULARDII 250 MG CAPSULE PO SCH ×2 (09:25→21:36)
[2019-04-02 10:14] LABS: VANCOMYCIN,TROUGH 14.9 ug/mL (10.0-20.0)
[2019-04-02] MEDS: SODIUM CHLORIDE FLUSH 0.9% 10 ML SYRINGE IVP PRN ×3 (10:18→18:00)
--- NOTE | 2019-04-02 13:06 | MRI Report ---
Reason: osteomyletis Procedure Date: 04/02/2019 Accession Number: [id number] / [id number] Procedure: MRI - Foot LT W/O CPT Code: FULL RESULT: EXAM: LEFT MIDFOOT MRI WITHOUT CONTRAST EXAM DATE: 04/02/2019 11:45 AM. CLINICAL HISTORY: Osteomyelitis. Ulceration plantar lateral aspect fifth metatarsal phalangeal joint with question of osteomyelitis. COMPARISON: FOOT 3 VIEW LT 03/29/2019 11:03 PM. TECHNIQUE: Multiplanar, multisequence T1-weighted and fluid-sensitive sequences of the midfoot without contrast. Other: None. FINDINGS: Bones: Negative for first metatarsal head osteomyelitis. Moderate spurring is noted at the dorsal and plantar aspect first metatarsal head. Marrow edema fifth metatarsal head and base of proximal phalanx fifth digit. Decreased marrow signal fifth metatarsal head T1-weighted sequence. Articular Cartilage and joint: Moderate osteoarthritis first metatarsal phalangeal joint. Ligaments: The visualized intertarsal, intermetatarsal, and tarsometatarsal ligaments are intact. This includes the Lisfranc ligament. The visualized collateral ligaments are intact. Tendons: The flexor and extensor tendons are unremarkable. Musculature: Diffuse forefoot muscle edema. Other: No effusions. The visualized portion of the tarsal tunnel is unremarkable. Ulceration plantar aspect first metatarsal phalangeal joint with extension to the lateral great toe sesamoid with osteomyelitis identified. Ulceration is noted at the lateral plantar aspect fifth metatarsal head with associated proximal phalanx base fifth digit and fifth metatarsal head marrow edema. There is decreased marrow signal noncontrast T1-weighted sequence fifth metatarsal head. Negative for discrete osseous erosion. Large periarticular abscess fifth metatarsophalangeal joint with intermetatarsal component 1.8 cm in AP dimension, 7 mm in transverse dimension, dorsal aspect distal fifth metatarsal abscess 4.5 cm in length and 2.5 cm in transverse dimension and subcutaneous abscess associated with the ulceration lateral plantar aspect fifth metatarsal head. Abscess extends to involve the dorsal aspect fifth digit to the proximal interphalangeal joint (image 5 series 601). IMPRESSION: 1. Associated with the ulceration lateral plantar aspect fifth metatarsal head is a large fifth metatarsophalangeal joint periarticular, fourth and fifth intermetatarsal bursa and dorsal fifth digit abscess measuring 4.5 cm in length, 2.8 cm in transverse dimension and 3.4 cm in AP dimension (image 7 series 601 and image 13 series 801). 2. Altered marrow signal fifth metatarsal head consistent with osteomyelitis and there is edema with possible early dorsal erosion base proximal phalanx fifth digit. RADIA
--- NOTE | 2019-04-02 14:25 | Ultrasound Report ---
Reason: osteomyelitis of 5th left toe Procedure Date: 04/02/2019 Accession Number: [id number] / [id number] Procedure: US - Ankle Brachial Index CPT Code: FULL RESULT: EXAM: BILATERAL ANKLE/BRACHIAL INDEX EXAM DATE: 04/02/2019 12:52 PM. CLINICAL HISTORY: Osteomyelitis of 5th left toe. COMPARISON: None. TECHNIQUE: A blood pressure cuff and pulse volume recording Doppler ultrasound was used to evaluate the arterial pressures in the arms and ankle. No images were acquired. FINDINGS: Brachial pressure: Right brachial artery: 123/85 mmHg Left brachial artery: 135/92 mmHg Right foot/ankle:Triphasic waveforms in the right posterior tibial artery. Monophasic waveforms in the right dorsalis pedis artery. Left foot/ankle:Monophasic waveforms in the left posterior tibial and dorsalis pedis arteries. IMPRESSION: 1. Right ankle/brachial index: 1.3. 2. Left ankle/brachial index: 1.0. ANKLE/BRACHIAL INDEX REFERENCE STANDARDS 1.0-1.4: Normal 0.90-0.99: Borderline < 0.9: Abnormal RADIA
[2019-04-02] MEDS: COLCHICINE 0.6 MG TABLET PO SCH (16:41)
--- NOTE | 2019-04-02 17:20 | PROVIDER PROGRESS NOTE ---
Subjective - Prog Note Date Prog Note Date: 04/02/19 Prog Note Time: 08:00 - Subjective Pt reports feeling: Improved Subjective: Pelon is extremely happy about his care from Dr. Reyes. He states that he is eating well, no problems with sleep. He is not requiring any medications for pain. He denies any new symptoms such as chest pain, nausea, vomiting, a new rash, or diarrhea. Current Medications - Current Medications Current Medications: Active Medications: Acetaminophen (Tylenol) 650 mg PO Q4HR PRN Hydrocodone Bitart/Acetaminophen ([place] 10 Mg/325 Mg) 1 tab PO Q4HR PRN Atorvastatin Calcium (Lipitor) 40 mg PO QPM [facility] Colchicine (Colcrys) 0.6 mg PO DAILY [facility] Enoxaparin Sodium (Lovenox) 40 mg SUBQ DAILY [facility] Ferrous Gluconate (Fergon) 324 mg PO BIDWM [facility] Meropenem 1 gm/ Sodium (Chloride) 100 mls @ 200 mls/hr IV Q8H [facility] Insulin Aspart (Novolog) 1 - 9 unit SUBQ 0800,1200,1700,2100 [facility]; Protocol Insulin Glargine (Lantus Solostar) 8 unit SUBQ DAILY [facility] Lisinopril (Zestril) 2.5 mg PO DAILY [facility] Multivitamins (Theragran) 1 tab PO DAILYWM [facility] Ondansetron HCl (Zofran Inj) 4 mg IVP Q6HR PRN Polyethylene Glycol (Miralax) 17 gm PO DAILY [facility] Saccharomyces Boulardii (Florastor) 250 mg PO BID [facility] HOME meds: Metformin HCl 1,000 mg PO BIDWM 03/30/19 glipiZIDE [Glipizide] 5 mg PO 0730 03/30/19 Objective - Vital Signs/Intake & Output Reviewed Vital Signs: Yes Intake & Output: Intake & Output 03/30/19 03/31/19 04/01/19 04/02/19 23:59 23:59 23:59 23:59 Intake Total 3990 1910 3190 1640.00 Output Total 487 529 2674 Balance 3440 1910 2790 290.00 - Objective General Appearance: positive: No acute distress, Alert Eyes Bilateral: positive: PERRL ENT: positive: Pharynx nml, No signs of dehydration Neck: positive: Thyroid nml, No JVD, Trachea midline Respiratory: positive: Chest non-tender, No respiratory distress, Breath sounds nml Cardiovascular: positive: Regular rate & rhythm, No gallop, Systolic murmur Peripheral Pulses: 1+ Radial (R), 1+ Radial (L) Abdomen: positive: Non-tender, Nml bowel sounds Back: positive: Nml inspection Skin: positive: No rash, Warm, Dry Extremities: positive: Non-tender, Pedal edema, Joint swelling, Other (left greater than right knee swelling. Fluid is apparent on exam to left knee. Discoloration to BLEs, left 5th toe wound, see wound photos in chart) Neurologic/Psychiatric: positive: Oriented x3, CN's nml (2-12), Motor nml, Se nsation nml, Depressed mood/affect Reflexes: Bicep (R): 3+, Bicep (L): 3+ - Lab Results Fish Bones: 04/02/19 04:56 04/02/19 04:56 Other Labs: Lab Results x24hrs 04/02/19 04/02/19 04/02/19 Range/Units 16:45 13:00 09:55 WBC (4.8-10.8) x10^3/uL RBC (4.70-6.10) 10^6/uL Hgb (14.0-18.0) g/dL Hct (42.0-52.0) % MCV (80.0-94.0) fL MCH (27.0-31.0) pg MCHC (32.0-36.0) g/dL RDW (12.0-15.0) % Plt Count (130-450) 10^3/uL MPV (7.4-11.4) fL Neut # (Auto) (1.5-6.6) 10^3/uL Lymph # (Auto) (1.5-3.5) 10^3/uL [place] # (Auto) (0.0-1.0) 10^3/uL Eos # (Auto) (0.0-0.7) 10^3/uL Baso # (Auto) (0.0-0.1) 10^3/uL Absolute Nucleated RBC x10^3/uL Nucleated RBC % /100WBC Sodium (135-145) mmol/L Potassium (3.5-5.0) mmol/L Chloride (101-111) mmol/L Carbon Dioxide (21-32) mmol/L Anion Gap (6-13) BUN (6-20) mg/dL Creatinine (0.6-1.2) mg/dL Estimated GFR (MDRD) (>89) Glucose (70-100) mg/dL POC Whole Bld Glucose 208 H 167 H (70 - 100) mg/dL Uric Acid (2.6-7.2) mg/dL Calcium (8.5-10.3) mg/dL Total Bilirubin (0.2-1.0) mg/dL AST (10-42) IU/L ALT (10-60) IU/L Alkaline Phosphatase (42-121) IU/L C-Reactive Protein (0-1.0) mg/dL Total Protein (6.7-8.2) g/dL Albumin (3.2-5.5) g/dL Globulin (2.1-4.2) g/dL Albumin/Globulin Ratio (1.0-2.2) Last Dose Date 04/02/19 Last Dose Time 0254 Vancomycin Trough 14.9 (10.0-20.0) ug/mL 04/02/19 04/02/19 04/02/19 Range/Units 08:03 04:56 04:56 WBC 9.9 (4.8-10.8) x10^3/uL RBC 3.23 L (4.70-6.10) 10^6/uL Hgb 8.3 L (14.0-18.0) g/dL Hct 24.5 L (42.0-52.0) % MCV 75.9 L (80.0-94.0) fL MCH 25.7 L (27.0-31.0) pg MCHC 33.8 (32.0-36.0) g/dL RDW 15.2 H (12.0-15.0) % Plt Count 298 (130-450) 10^3/uL MPV 6.5 L (7.4-11.4) fL Neut # (Auto) 7.0 H (1.5-6.6) 10^3/uL Lymph # (Auto) 1.8 (1.5-3.5) 10^3/uL [place] # (Auto) 0.8 (0.0-1.0) 10^3/uL Eos # (Auto) 0.3 (0.0-0.7) 10^3/uL Baso # (Auto) 0.1 (0.0-0.1) 10^3/uL Absolute Nucleated RBC 0.00 x10^3/uL Nucleated RBC % 0.0 /100WBC Sodium 136 (135-145) mmol/L Potassium 3.6 (3.5-5.0) mmol/L Chloride 99 L (101-111) mmol/L Carbon Dioxide 25 (21-32) mmol/L Anion Gap 12.0 (6-13) BUN 14 (6-20) mg/dL Creatinine 1.0 (0.6-1.2) mg/dL Estimated GFR (MDRD) 85 L (>89) Glucose 142 H (70-100) mg/dL POC Whole Bld Glucose 136 H (70 - 100) mg/dL Uric Acid 4.6 (2.6-7.2) mg/dL Calcium 8.4 L (8.5-10.3) mg/dL Total Bilirubin 0.9 (0.2-1.0) mg/dL AST 63 H (10-42) IU/L ALT 58 (10-60) IU/L Alkaline Phosphatase 68 (42-121) IU/L C-Reactive Protein 20.6 H (0-1.0) mg/dL Total Protein 7.6 (6.7-8.2) g/dL Albumin 2.7 L (3.2-5.5) g/dL Globulin 4.9 H (2.1-4.2) g/dL Albumin/Globulin Ratio 0.6 L (1.0-2.2) Last Dose Date Last Dose Time Vancomycin Trough (10.0-20.0) ug/mL 04/01/19 Range/Units 20:28 WBC (4.8-10.8) x10^3/uL RBC (4.70-6.10) 10^6/uL Hgb (14.0-18.0) g/dL Hct (42.0-52.0) % MCV (80.0-94.0) fL MCH (27.0-31.0) pg MCHC (32.0-36.0) g/dL RDW (12.0-15.0) % Plt Count (130-450) 10^3/uL MPV (7.4-11.4) fL Neut # (Auto) (1.5-6.6) 10^3/uL Lymph # (Auto) (1.5-3.5) 10^3/uL [place] # (Auto) (0.0-1.0) 10^3/uL Eos # (Auto) (0.0-0.7) 10^3/uL Baso # (Auto) (0.0-0.1) 10^3/uL Absolute Nucleated RBC x10^3/uL Nucleated RBC % /100WBC Sodium (135-145) mmol/L Potassium (3.5-5.0) mmol/L Chloride (101-111) mmol/L Carbon Dioxide (21-32) mmol/L Anion Gap (6-13) BUN (6-20) mg/dL Creatinine (0.6-1.2) mg/dL Estimated GFR (MDRD) (>89) Glucose (70-100) mg/dL POC Whole Bld Glucose 171 H (70 - 100) mg/dL Uric Acid (2.6-7.2) mg/dL Calcium (8.5-10.3) mg/dL Total Bilirubin (0.2-1.0) mg/dL AST (10-42) IU/L ALT (10-60) IU/L Alkaline Phosphatase (42-121) IU/L C-Reactive Protein (0-1.0) mg/dL Total Protein (6.7-8.2) g/dL Albumin (3.2-5.5) g/dL Globulin (2.1-4.2) g/dL Albumin/Globulin Ratio (1.0-2.2) Last Dose Date Last Dose Time Vancomycin Trough (10.0-20.0) ug/mL ABX Reporting Has patient been on IV antibiotics over the past 48 hours?: Yes Sepsis Event Note (H) - Evaluation Current Stage of Sepsis: Resolved Assessment/Plan - Problem List (1) Fever Impression: - Afebrile today - Second set of new BC x2 are now pending - Continue meropemum, d/c vanco Plan: Continue to monitor, Continue antibiotics (2) Cellulitis in diabetic foot Impression: - Left 5th toe with redness, tenderness, drainage - Failed outpatient treatment with oral antibiotics and debridement with Podiatry - See the chart for great wound pictures, and to compare to previous admission in December of 2018 - Shortage of Unasyn, so changed to Zosyn- now discontinued - Due to lack of improvement, changing antibiotics to vanco, and meropenum - Vanco discontinued - Wound culture results showed Providencia Stuarti - Afebrile today - New BC x2 are pending - WBC count now normal Plan: Continue antibiotics, stop vanco, ortho consult. Wound care is following (3) Osteomyelitis of foot Impression: - Plain film left foot x-ray shows a 5th and septic arthritis of the MTP - Also has a history of gout - Not requiring pain medications today - Encouraged to elevate his legs when ever possible - + pulses in popiteal region - Status post bed side debridement with [facility] provider, see notes - Dr. Hinds- ortho suggests no interventions for the next few days, then consider I & D verses amputation after MRI to re-evaluate the extent of i nfection - Dr. Reyes has assumed care - MRI of LLE today shows osteomyelitis with edema in the 5th metatarsal head - PAM of BLEs shows no evidence of vessel occlusion - Afebrile today - BC x2 are NGTD Plan: Continue IV antibiotics- meropenum, stop vanco, ortho following, and wound care following (4) Effusion, left knee Impression: - Patient admits that this started yesterday and does not affect his ambulation - On exam, very obvious abnormality with fluid noted to the anterior aspect of the patella - Dr. Reyes drained ~ 60 mL of fluid yesterday 04/01- cultures are pending - Crystals noted, indicates likely a gouty flare - Uric acid normal - Started on Colchicine started, after checking with the patient Plan: Orders to wrap left knee using an MARCELLUS wrap for compression to reduce swelling, continue colchicine (5) Type 2 diabetes mellitus Impression: - Current A1 C is 8.4% on 03/30/2019 - Takes at least metformin at home - Non-compliant at times - Blood sugars 136-208 today - Adjusted Lantus from BID to once daily at HS reduced to 8 units Plan: SSI, blood sugar checks, Lantus at night, carb controlled diet Qualifiers: (6) Anemia Impression: - Known history of anemia, and iron studies from October confirm iron deficiency - Not listed on home med list - Now on iron supplement BID - H/H trending down; 8.3/24.5 today - Iron studies confirm iron deficiency anemia - No evidence of acute bleeding Plan: Continue iron, routine labs Qualifiers: Anemia type: iron deficiency (7) Congenital hip dysplasia Impression: - Chronic pain due to this condition - Has been seen by ortho surgery in the past - No known surgical interventions and has been ambulating with ataxia from his current foot infection Plan: Offer pain meds, encourage movement (8) Essential hypertension Impression: - No home medications for HTN on med list - Lisinopril adjusted to 2.5 mg daily for light blood pressures - Blood pressure today 127/76 - Patient refused new medication initially, so he was taught about MARCELLUS inhibitors are to protect the kidneys Plan: Continue to monitor, continue low dose lisinopril (9) Gout Impression: - Found in patient records - No complaints of recent flare ups - Left knee swelling is only mildly improved since aspirating by Dr. Reyes - No other complaints with any other joints concerning for current flare ups - Preliminary left knee fluid shows crystals, indicating a gouty flare - Colchicine has been started to avoid steroids - Uric acid level was normal Plan: Continue to monitor, treat current infection, if slow improvement, consider low dose steroids (10) Peripheral neuropathy Impression: - Weak pulses in BLEs - Discoloration to toes and feet from long standing peripheral vascular disorder - Numbness and tingling are chronic - Recurrent foot ulcers, infections - Baseline BLE edema Plan: Continue to have good control on DM and monitor for improvement
[2019-04-02] MEDS ORDERED: INSULIN GLARGINE 300 UNIT/3 ML PEN SUBQ SCH (21:00)
[2019-04-02] MEDS: ATORVASTATIN 40 MG TABLET PO SCH (21:36)
[2019-04-03] MEDS: SODIUM CHLORIDE FLUSH 0.9% 10 ML SYRINGE IVP SCH ×3 (00:39→17:08)
[2019-04-03] MEDS: MEROPENEM 1 GM in SODIUM CHLORIDE 0.9% MINIBAG 100 ML IV SCH ×3 (00:39→17:05)
[2019-04-03 05:28] LABS: BASOPHILS # (AUTO) 0.1 10^3/uL (0.0-0.1); BASOPHILS % (AUTO) 0.9 %; EOSINOPHILS # (AUTO) 0.4 10^3/uL (0.0-0.7); EOSINOPHILS % (AUTO) 4.5 %; HGB - HEMOGLOBIN 8.7 g/dL (14.0-18.0); LYMPHOCYTES # (AUTO) 1.6 10^3/uL (1.5-3.5); LYMPHOCYTES % (AUTO) 18.3 %; MEAN CORPUSCULAR HEMOGLOBIN 25.3 pg (27.0-31.0); MEAN CORPUSCULAR HGB CONC 33.2 g/dL (32.0-36.0); MEAN CORPUSCULAR VOLUME 76.2 fL (80.0-94.0); MEAN PLATELET VOLUME 6.8 fL (7.4-11.4); MONOCYTES # (AUTO) 0.6 10^3/uL (0.0-1.0); MONOCYTES % (AUTO) 6.5 %; NEUTROPHILS # (AUTO) 6.3 10^3/uL (1.5-6.6); NEUTROPHILS % (AUTO) 69.8 %; PLT - PLATELET COUNT 345 10^3/uL (130-450); RED BLOOD COUNT 3.45 10^6/uL (4.70-6.10); RED CELL DISTRIBUTION WIDTH 15.3 % (12.0-15.0)
[2019-04-03 05:43] LABS: ALBUMIN 2.6 g/dL (3.2-5.5); ALBUMIN/GLOBULIN RATIO 0.5 (1.0-2.2); BILIRUBIN,TOTAL 0.6 mg/dL (0.2-1.0); CALCIUM 8.5 mg/dL (8.5-10.3); CREATININE 0.9 mg/dL (0.6-1.2); TOTAL PROTEIN 7.6 g/dL (6.7-8.2)
[2019-04-03] MEDS: INSULIN ASPART 300 UNIT/3 ML PEN SUBQ SCH ×4 (07:59→21:21)
[2019-04-03] MEDS: POLYETHYLENE GLYCOL 3350 17 GM PACKET PO SCH (08:21)
[2019-04-03] MEDS: LISINOPRIL 5 MG TABLET PO SCH (08:22)
[2019-04-03] MEDS: COLCHICINE 0.6 MG TABLET PO SCH (08:22)
[2019-04-03] MEDS: ENOXAPARIN 40 MG/0.4 ML SYRINGE SUBQ SCH (08:22)
[2019-04-03] MEDS: SACCHAROMYCES BOULARDII 250 MG CAPSULE PO SCH ×2 (08:22→21:20)
[2019-04-03] MEDS: MULTIVITAMIN TABLET PO SCH (08:23)
[2019-04-03] MEDS: FERROUS GLUCONATE 324 MG TABLET PO SCH ×2 (08:23→17:05)
[2019-04-03] MEDS ORDERED: INSULIN GLARGINE 300 UNIT/3 ML PEN SUBQ SCH (09:00)
--- NOTE | 2019-04-03 11:21 | PROVIDER PROGRESS NOTE ---
Subjective - Prog Note Date Prog Note Date: 04/03/19 - Subjective Pt reports feeling: Improved Subjective: pt report he feel he is much better in his left knee. I discuss with pt about MRI finding. pt report he discussed with surgeon and agree to have surgery on tomorrow. pt denies fever, chill. Current Medications - Current Medications Current Medications: Active Medications Acetaminophen (Tylenol) 650 mg PO Q4HR PRN PRN Reason: Pain 1 to 4 Last Admin: 04/01/19 00:51 Dose: 650 mg Hydrocodone Bitart/Acetaminophen ([place] 10 Mg/325 Mg) 1 tab PO Q4HR PRN PRN Reason: Pain 8 to 10 Last Admin: 03/31/19 14:53 Dose: 1 tab Atorvastatin Calcium (Lipitor) 20 mg PO QPM [facility] Colchicine (Colcrys) 0.6 mg PO DAILY [facility] Last Admin: 04/03/19 08:22 Dose: 0.6 mg Enoxaparin Sodium (Lovenox) 40 mg SUBQ DAILY [facility] Last Admin: 04/03/19 08:22 Dose: 40 mg Ferrous Gluconate (Fergon) 324 mg PO BIDWM [facility] Last Admin: 04/03/19 08:23 Dose: 324 mg Meropenem 1 gm/ Sodium (Chloride) 100 mls @ 200 mls/hr IV Q8H [facility] Last Infusion: 04/03/19 09:00 Dose: Infused Ferric Sodium Gluconate Complex 125 mg/ Sodium Chloride 110 mls @ 100 mls/hr IV ONCE ONE Stop: 04/03/19 12:35 Insulin Aspart (Novolog) 2 - 10 unit SUBQ 0800,1200,1700,2100 [facility]; Protocol Last Admin: 04/03/19 07:59 Dose: Not Given Insulin Glargine (Lantus Solostar) 10 unit SUBQ DAILY [facility] Last Admin: 04/03/19 08:23 Dose: 10 unit Lisinopril (Zestril) 2.5 mg PO DAILY [facility] Last Admin: 04/03/19 08:22 Dose: 2.5 mg Multivitamins (Theragran) 1 tab PO DAILYWM [facility] Last Admin: 04/03/19 08:23 Dose: 1 tab Ondansetron HCl (Zofran Inj) 4 mg IVP Q6HR PRN PRN Reason: Nausea / Vomiting Polyethylene Glycol (Miralax) 17 gm PO DAILY [facility] Last Admin: 04/03/19 08:21 Dose: 17 gm Saccharomyces Boulardii (Florastor) 250 mg PO BID [facility] Last Admin: 04/03/19 08:22 Dose: 250 mg Sodium Chloride (Normal Saline Flush 0.9%) 10 ml IVP PRN PRN PRN Reason: NEEDED PER PROVIDER ORDERS Last Admin: 04/02/19 18:00 Dose: 10 ml Sodium Chloride (Normal Saline Flush 0.9%) 10 ml IVP 0100,0900,1700 [facility] Last Admin: 04/03/19 08:22 Dose: 10 ml Metformin HCl 1,000 mg PO BIDWM 03/30/19 glipiZIDE [Glipizide] 5 mg PO 0730 03/30/19 Objective - Vital Signs/Intake & Output Reviewed Vital Signs: Yes Vital Signs: Vital Signs x48h Temp Pulse Resp BP Pulse Ox 04/03/19 07:52 36.8 C 81 14 145/66 H 97 Intake & Output: Intake & Output 03/31/19 04/01/19 04/02/19 04/03/19 23:59 23:59 23:59 23:59 Intake Total 1910 3190 2100.00 650 Output Total 400 2274 700 Balance 0 2790 -174.00 -50 - Objective General Appearance: positive: No acute distress, Alert. negative: Lethargic Eyes Bilateral: positive: Normal inspection, PERRL, No lid inflammation, Conjunctivae nml ENT: positive: ENT inspection nml, Pharynx nml, No signs of dehydration. negative: Purulent nasal drainage, Pharyngeal erythema, Oral lesions, Dry mucous membranes Neck: positive: Nml inspection, Thyroid nml, No JVD, Trachea midline. negative: Thyromegaly, Lymphadenopathy (R), Lymphadenopathy (L), Stiff neck, Carotid bruit, Swelling/bruising, Tracheal deviation Respiratory: positive: Chest non-tender, No respiratory distress, Breath sounds nml. negative: Wheezes, Rales, Rhonchi Cardiovascular: positive: Regular rate & rhythm, No murmur, No gallop. negative: Irregularly irregular, Extrasystoles, Tachycardia, Bradycardia, JVD present, Systolic murmur, Diastolic murmur Peripheral Pulses: 2+ Radial (R), 2+ Radial (L), 2+ Dorsalis pedis (R), 2+ Dorsalis pedis (L) Abdomen: positive: Non-tender, No organomegaly, Nml bowel sounds, No distention. negative: Tenderness, Guarding, Rebound Back: positive: Nml inspection. negative: CVA tenderness (R), CVA tenderness (L) Skin: positive: Warm, Dry, Skin rash, Laceration (cm). negative: Cyanosis, Diaphoresis, Pallor Extremities: negative: Calf tenderness, Renato's sign/cords Neurologic/Psychiatric: positive: Oriented x3, Mood/affect nml. negative: Weakness, Sensory loss, Facial droop, Slurred/abnml speech, Depressed mood/ affect - Lab Results Fish Bones: 04/03/19 04:37 04/03/19 04:37 Other Labs: Lab Results x24hrs 04/03/19 04/03/19 04/03/19 Range/Units 11:12 07:31 04:37 WBC (4.8-10.8) x10^3/uL RBC (4.70-6.10) 10^6/uL Hgb (14.0-18.0) g/dL Hct (42.0-52.0) % MCV (80.0-94.0) fL MCH (27.0-31.0) pg MCHC (32.0-36.0) g/dL RDW (12.0-15.0) % Plt Count (130-450) 10^3/uL MPV (7.4-11.4) fL Neut # (Auto) (1.5-6.6) 10^3/uL Lymph # (Auto) (1.5-3.5) 10^3/uL [place] # (Auto) (0.0-1.0) 10^3/uL Eos # (Auto) (0.0-0.7) 10^3/uL Baso # (Auto) (0.0-0.1) 10^3/uL Absolute Nucleated RBC x10^3/uL Nucleated RBC % /100WBC Sodium 135 (135-145) mmol/L Potassium 4.0 (3.5-5.0) mmol/L Chloride 98 L (101-111) mmol/L Carbon Dioxide 25 (21-32) mmol/L Anion Gap 12.0 (6-13) BUN 13 (6-20) mg/dL Creatinine 0.9 (0.6-1.2) mg/dL Estimated GFR (MDRD) 96 (>89) Glucose 152 H (70-100) mg/dL POC Whole Bld Glucose 229 H 140 H (70 - 100) mg/dL Calcium 8.5 (8.5-10.3) mg/dL Total Bilirubin 0.6 (0.2-1.0) mg/dL AST 208 H (10-42) IU/L ALT 210 H (10-60) IU/L Alkaline Phosphatase 88 (42-121) IU/L Total Protein 7.6 (6.7-8.2) g/dL Albumin 2.6 L (3.2-5.5) g/dL Globulin 5.0 H (2.1-4.2) g/dL Albumin/Globulin Ratio 0.5 L (1.0-2.2) 04/03/19 04/02/19 04/02/19 Range/Units 04:37 20:56 16:45 WBC 9.0 (4.8-10.8) x10^3/uL RBC 3.45 L (4.70-6.10) 10^6/uL Hgb 8.7 L (14.0-18.0) g/dL Hct 26.3 L (42.0-52.0) % MCV 76.2 L (80.0-94.0) fL MCH 25.3 L (27.0-31.0) pg MCHC 33.2 (32.0-36.0) g/dL RDW 15.3 H (12.0-15.0) % Plt Count 345 (130-450) 10^3/uL MPV 6.8 L (7.4-11.4) fL Neut # (Auto) 6.3 (1.5-6.6) 10^3/uL Lymph # (Auto) 1.6 (1.5-3.5) 10^3/uL [place] # (Auto) 0.6 (0.0-1.0) 10^3/uL Eos # (Auto) 0.4 (0.0-0.7) 10^3/uL Baso # (Auto) 0.1 (0.0-0.1) 10^3/uL Absolute Nucleated RBC 0.00 x10^3/uL Nucleated RBC % 0.0 /100WBC Sodium (135-145) mmol/L Potassium (3.5-5.0) mmol/L Chloride (101-111) mmol/L Carbon Dioxide (21-32) mmol/L Anion Gap (6-13) BUN (6-20) mg/dL Creatinine (0.6-1.2) mg/dL Estimated GFR (MDRD) (>89) Glucose (70-100) mg/dL POC Whole Bld Glucose 205 H 208 H (70 - 100) mg/dL Calcium (8.5-10.3) mg/dL Total Bilirubin (0.2-1.0) mg/dL AST (10-42) IU/L ALT (10-60) IU/L Alkaline Phosphatase (42-121) IU/L Total Protein (6.7-8.2) g/dL Albumin (3.2-5.5) g/dL Globulin (2.1-4.2) g/dL Albumin/Globulin Ratio (1.0-2.2) 04/02/19 Range/Units 13:00 WBC (4.8-10.8) x10^3/uL RBC (4.70-6.10) 10^6/uL Hgb (14.0-18.0) g/dL Hct (42.0-52.0) % MCV (80.0-94.0) fL MCH (27.0-31.0) pg MCHC (32.0-36.0) g/dL RDW (12.0-15.0) % Plt Count (130-450) 10^3/uL MPV (7.4-11.4) fL Neut # (Auto) (1.5-6.6) 10^3/uL Lymph # (Auto) (1.5-3.5) 10^3/uL [place] # (Auto) (0.0-1.0) 10^3/uL Eos # (Auto) (0.0-0.7) 10^3/uL Baso # (Auto) (0.0-0.1) 10^3/uL Absolute Nucleated RBC x10^3/uL Nucleated RBC % /100WBC Sodium (135-145) mmol/L Potassium (3.5-5.0) mmol/L Chloride (101-111) mmol/L Carbon Dioxide (21-32) mmol/L Anion Gap (6-13) BUN (6-20) mg/dL Creatinine (0.6-1.2) mg/dL Estimated GFR (MDRD) (>89) Glucose (70-100) mg/dL POC Whole Bld Glucose 167 H (70 - 100) mg/dL Calcium (8.5-10.3) mg/dL Total Bilirubin (0.2-1.0) mg/dL AST (10-42) IU/L ALT (10-60) IU/L Alkaline Phosphatase (42-121) IU/L Total Protein (6.7-8.2) g/dL Albumin (3.2-5.5) g/dL Globulin (2.1-4.2) g/dL Albumin/Globulin Ratio (1.0-2.2) ABX Reporting Has patient been on IV antibiotics over the past 48 hours?: Yes Sepsis Event Note (H) - Evaluation Current Stage of Sepsis: Resolved Possible source of Sepsis: positive: Bone/Joint - Sepsis Criteria Sepsis Criteria: Recorded Temperature greater than 38.3C or Less than 36C, Recorded Heart Rate greater than 90 bpm, WBC count greater than 12,000 or less than 4000 Assessment/Plan - Problem List (1) Diabetic foot infection Impression: MRI reveals left lateral plantar abscess and osteomylitis at left fifth metatarsal head. discussed the MRI result with pt. Pt has already known the result, and discussed with orthopedics surgeon, and agreed to have surgeon on tomorrow. pain control continue antibiotics Meopenum. wound culture reveals positive two bacterial, Providencia stuarti, and beta hemolytic strep Group B, sensitive to Meopenum. NPO at middle (2) Fever Impression: stable, no more fever, and continue Afebrile today. Second set of new BC x2 are now negative - Continue meropemum (3) Effusion, left knee Impression: pt repot he feel much better after Dr. Reyes drained out on his left knee. Crystals noted, indicates likely a gouty flare. culture and stain are negative for bacterial Serum Uric acid normal contine Colchicine, pt's kidney function is normal continue wrap left knee using an MARCELLUS wrap for compression to reduce swelling continue pain control (4) Type 2 diabetes mellitus Impression: Non-compliant at home for insulin. Current A1 C is 8.4% on 03/30/2019 Blood sugars is slight high Adjusted Lantus from BID to once daily at HS reduced to 10 units carb-controlled diet (6) iron deficiency Anemia Impression: Known history of iron deficiency anemia, and iron studies from October confirm iron deficiency iron was 6, very low, start with IV of Iron continue PO iron pill (7) Congenital hip dysplasia pt has hx of contenital hip hysplasia encourage movement, continue support (8) Essential hypertension Impression: stable (9) Gout knee effusion reveals monosodium urate. serum uric acid level is normal contine Colchicine, pt's kidney function is normal (10) Peripheral neuropathy Impression: stable
[2019-04-03] MEDS ORDERED: FERRIC GLUCONATE 125 MG in SODIUM CHLORIDE 0.9% 100ML 100 ML IV ONE (11:30)
--- NOTE | 2019-04-03 12:33 | PROVIDER PROGRESS NOTE ---
Subjective - Prog Note Date Prog Note Date: 04/03/19 Prog Note Time: 12:31 - Subjective Pt reports feeling: No change Objective - Vital Signs/Intake & Output Vital Signs: Vital Signs x48h Temp Pulse Resp BP Pulse Ox 04/03/19 07:52 36.8 C 81 14 145/66 H 97 Intake & Output: Intake & Output 03/31/19 04/01/19 04/02/19 04/03/19 23:59 23:59 23:59 23:59 Intake Total 1910 3190 2100.00 1050 Output Total 400 2274 700 Balance 1910 2790 -174.00 350 - Lab Results Fish Bones: 04/03/19 04:37 04/03/19 04:37 Other Labs: Lab Results x24hrs 04/03/19 04/03/19 04/03/19 Range/Units 11:12 07:31 04:37 WBC (4.8-10.8) x10^3/uL RBC (4.70-6.10) 10^6/uL Hgb (14.0-18.0) g/dL Hct (42.0-52.0) % MCV (80.0-94.0) fL MCH (27.0-31.0) pg MCHC (32.0-36.0) g/dL RDW (12.0-15.0) % Plt Count (130-450) 10^3/uL MPV (7.4-11.4) fL Neut # (Auto) (1.5-6.6) 10^3/uL Lymph # (Auto) (1.5-3.5) 10^3/uL [place] # (Auto) (0.0-1.0) 10^3/uL Eos # (Auto) (0.0-0.7) 10^3/uL Baso # (Auto) (0.0-0.1) 10^3/uL Absolute Nucleated RBC x10^3/uL Nucleated RBC % /100WBC Sodium 135 (135-145) mmol/L Potassium 4.0 (3.5-5.0) mmol/L Chloride 98 L (101-111) mmol/L Carbon Dioxide 25 (21-32) mmol/L Anion Gap 12.0 (6-13) BUN 13 (6-20) mg/dL Creatinine 0.9 (0.6-1.2) mg/dL Estimated GFR (MDRD) 96 (>89) Glucose 152 H (70-100) mg/dL POC Whole Bld Glucose 229 H 140 H (70 - 100) mg/dL Calcium 8.5 (8.5-10.3) mg/dL Total Bilirubin 0.6 (0.2-1.0) mg/dL AST 208 H (10-42) IU/L ALT 210 H (10-60) IU/L Alkaline Phosphatase 88 (42-121) IU/L Total Protein 7.6 (6.7-8.2) g/dL Albumin 2.6 L (3.2-5.5) g/dL Globulin 5.0 H (2.1-4.2) g/dL Albumin/Globulin Ratio 0.5 L (1.0-2.2) 04/03/19 04/02/19 04/02/19 Range/Units 04:37 20:56 16:45 WBC 9.0 (4.8-10.8) x10^3/uL RBC 3.45 L (4.70-6.10) 10^6/uL Hgb 8.7 L (14.0-18.0) g/dL Hct 26.3 L (42.0-52.0) % MCV 76.2 L (80.0-94.0) fL MCH 25.3 L (27.0-31.0) pg MCHC 33.2 (32.0-36.0) g/dL RDW 15.3 H (12.0-15.0) % Plt Count 345 (130-450) 10^3/uL MPV 6.8 L (7.4-11.4) fL Neut # (Auto) 6.3 (1.5-6.6) 10^3/uL Lymph # (Auto) 1.6 (1.5-3.5) 10^3/uL [place] # (Auto) 0.6 (0.0-1.0) 10^3/uL Eos # (Auto) 0.4 (0.0-0.7) 10^3/uL Baso # (Auto) 0.1 (0.0-0.1) 10^3/uL Absolute Nucleated RBC 0.00 x10^3/uL Nucleated RBC % 0.0 /100WBC Sodium (135-145) mmol/L Potassium (3.5-5.0) mmol/L Chloride (101-111) mmol/L Carbon Dioxide (21-32) mmol/L Anion Gap (6-13) BUN (6-20) mg/dL Creatinine (0.6-1.2) mg/dL Estimated GFR (MDRD) (>89) Glucose (70-100) mg/dL POC Whole Bld Glucose 205 H 208 H (70 - 100) mg/dL Calcium (8.5-10.3) mg/dL Total Bilirubin (0.2-1.0) mg/dL AST (10-42) IU/L ALT (10-60) IU/L Alkaline Phosphatase (42-121) IU/L Total Protein (6.7-8.2) g/dL Albumin (3.2-5.5) g/dL Globulin (2.1-4.2) g/dL Albumin/Globulin Ratio (1.0-2.2) 04/02/19 Range/Units 13:00 WBC (4.8-10.8) x10^3/uL RBC (4.70-6.10) 10^6/uL Hgb (14.0-18.0) g/dL Hct (42.0-52.0) % MCV (80.0-94.0) fL MCH (27.0-31.0) pg MCHC (32.0-36.0) g/dL RDW (12.0-15.0) % Plt Count (130-450) 10^3/uL MPV (7.4-11.4) fL Neut # (Auto) (1.5-6.6) 10^3/uL Lymph # (Auto) (1.5-3.5) 10^3/uL [place] # (Auto) (0.0-1.0) 10^3/uL Eos # (Auto) (0.0-0.7) 10^3/uL Baso # (Auto) (0.0-0.1) 10^3/uL Absolute Nucleated RBC x10^3/uL Nucleated RBC % /100WBC Sodium (135-145) mmol/L Potassium (3.5-5.0) mmol/L Chloride (101-111) mmol/L Carbon Dioxide (21-32) mmol/L Anion Gap (6-13) BUN (6-20) mg/dL Creatinine (0.6-1.2) mg/dL Estimated GFR (MDRD) (>89) Glucose (70-100) mg/dL POC Whole Bld Glucose 167 H (70 - 100) mg/dL Calcium (8.5-10.3) mg/dL Total Bilirubin (0.2-1.0) mg/dL AST (10-42) IU/L ALT (10-60) IU/L Alkaline Phosphatase (42-121) IU/L Total Protein (6.7-8.2) g/dL Albumin (3.2-5.5) g/dL Globulin (2.1-4.2) g/dL Albumin/Globulin Ratio (1.0-2.2) - Other Results/Comments Other Results/Comments: EXAM: Less swelling/erythema about 5th MTP. Scant drainage from plantar ulceration. Sepsis Event Note (H) - Evaluation Current Stage of Sepsis: Resolved Possible source of Sepsis: positive: Bone/Joint - Sepsis Criteria Sepsis Criteria: Recorded Temperature greater than 38.3C or Less than 36C, Recorded Heart Rate greater than 90 bpm, WBC count greater than 12,000 or less than 4000 Assessment/Plan - Problem List (2) Diabetic foot infection Impression: Stable to improved PLAN: To OR in AM for partial left 5th ray amputation. Consent signed; leg marked
[2019-04-03] MEDS: ATORVASTATIN 40 MG TABLET PO SCH (21:21)
[2019-04-04] MEDS: MEROPENEM 1 GM in SODIUM CHLORIDE 0.9% MINIBAG 100 ML IV SCH ×3 (00:20→16:59)
[2019-04-04] MEDS: SODIUM CHLORIDE FLUSH 0.9% 10 ML SYRINGE IVP SCH ×5 (00:21→17:04)
--- NOTE | 2019-04-04 06:48 | ANESTHESIA ---
Pre-Anesthesia VS, & Labs - Diagnosis Diagnosis Diabetic ulceration of left foot. Probable septic arthritis 5th MTP joint and Osteomyelitis . - Procedure partial amputation left foot ftfth digit Vital Signs: Temp Pulse Resp BP Pulse Ox 36.8 C 78 18 120/84 H 97 04/04/19 00:00 04/04/19 00:00 04/04/19 00:00 04/04/19 00:00 04/04/19 00:00 Height 6 ft 7 in Weight (kg) 104.5 kg Body Mass Index 25.9 - NPO >8 hours - Lab Results Current Lab Results: Laboratory Tests 04/04/19 06:01: POC Whole Bld Glucose 204 H 04/03/19 23:28: POC Whole Bld Glucose 212 H 04/03/19 20:48: POC Whole Bld Glucose 201 H 04/03/19 16:06: POC Whole Bld Glucose 189 H 04/03/19 11:12: POC Whole Bld Glucose 229 H 04/03/19 07:31: POC Whole Bld Glucose 140 H 04/03/19 04:37: Sodium 135, Potassium 4.0, Chloride 98 L, Carbon Dioxide 25, Anion Gap 12.0, BUN 13, Creatinine 0.9, Estimated GFR (MDRD) 96, Glucose 152 H, Calcium 8.5, Total Bilirubin 0.6, AST 208 H, ALT 210 H, Alkaline Phosphatase 88, Total Protein 7.6, Albumin 2.6 L, Globulin 5.0 H, Albumin/Globulin Ratio 0.5 L 04/03/19 04:37: WBC 9.0, RBC 3.45 L, Hgb 8.7 L, Hct 26.3 L, MCV 76.2 L, MCH 25.3 L, MCHC 33.2, RDW 15.3 H, Plt Count 345, MPV 6.8 L, Neut # (Auto) 6.3, Lymph # (Auto) 1.6, [place] # (Auto) 0.6, Eos # (Auto) 0.4, Baso # (Auto) 0.1, Absolute Nucleated RBC 0.00, Nucleated RBC % 0.0 04/02/19 20:56: POC Whole Bld Glucose 205 H 04/02/19 16:45: POC Whole Bld Glucose 208 H 04/02/19 13:00: POC Whole Bld Glucose 167 H 04/02/19 09:55: Last Dose Date 04/02/19, Last Dose Time 0254, Vancomycin Trough 14.9 04/02/19 08:03: POC Whole Bld Glucose 136 H 04/02/19 04:56: Sodium 136, Potassium 3.6, Chloride 99 L, Carbon Dioxide 25, Anion Gap 12.0, BUN 14, Creatinine 1.0, Estimated GFR (MDRD) 85 L, Glucose 142 H , Uric Acid 4.6, Calcium 8.4 L, Total Bilirubin 0.9, AST 63 H, ALT 58, Alkaline Phosphatase 68, C-Reactive Protein 20.6 H, Total Protein 7.6, Albumin 2.7 L, Globulin 4.9 H, Albumin/Globulin Ratio 0.6 L 04/02/19 04:56: WBC 9.9, RBC 3.23 L, Hgb 8.3 L, Hct 24.5 L, MCV 75.9 L, MCH 25.7 L, MCHC 33.8, RDW 15.2 H, Plt Count 298, MPV 6.5 L, Neut # (Auto) 7.0 H, Lymph # (Auto) 1.8, [place] # (Auto) 0.8, Eos # (Auto) 0.3, Baso # (Auto) 0.1, Absolute Nucleated RBC 0.00, Nucleated RBC % 0.0 04/01/19 20:28: POC Whole Bld Glucose 171 H 04/01/19 16:25: POC Whole Bld Glucose 182 H 04/01/19 11:29: POC Whole Bld Glucose 179 H 04/01/19 07:25: POC Whole Bld Glucose 179 H 04/01/19 05:13: Vitamin B12 189 04/01/19 05:13: Lactic Acid 0.8 04/01/19 05:13: WBC 12.4 H, RBC 3.55 L, Hgb 9.0 L, Hct 26.9 L, MCV 75.6 L, MCH 25.4 L, MCHC 33.6, RDW 15.4 H, Plt Count 322, MPV 6.4 L, Neut # (Auto) 8.8 H, Lymph # (Auto) 2.3, [place] # (Auto) 1.1 H, Eos # (Auto) 0.1, Baso # (Auto) 0.1, Absolute Nucleated RBC 0.00, Nucleated RBC % 0.0 04/01/19 05:13: Sodium 134 L, Potassium 4.0, Chloride 96 L, Carbon Dioxide 24, Anion Gap 14.0 H, BUN 14, Creatinine 1.0, Estimated GFR (MDRD) 85 L, Glucose 173 H, Calcium 8.5, Phosphorus 4.5, Magnesium 1.9, Iron 9 L, TIBC 182 L, % Saturation 5 L, Transferrin 130 L, Total Bilirubin 0.9, AST 19, ALT 25, Alkaline Phosphatase 64, Total Protein 7.8, Albumin 2.9 L, Globulin 4.9 H, Albumin/Globulin Ratio 0.6 L, Triglycerides 85, Cholesterol 124, LDL Cholesterol , Calc 85, VLDL Cholesterol 17, HDL Cholesterol 22 L, LDL/HDL Ratio 3.9, Ch olesterol/HDL Ratio 5.6 03/31/19 20:51: POC Whole Bld Glucose 188 H 03/31/19 16:36: POC Whole Bld Glucose 231 H 03/31/19 11:08: POC Whole Bld Glucose 251 H 03/31/19 07:38: POC Whole Bld Glucose 141 H 03/31/19 05:00: Lactic Acid 0.8 03/31/19 05:00: Sodium 134 L, Potassium 3.6, Chloride 98 L, Carbon Dioxide 24, Anion Gap 12.0, BUN 13, Creatinine 1.0, Estimated GFR (MDRD) 85 L, Glucose 143 H , Calcium 8.6, Phosphorus 4.4, Magnesium 1.9, Total Bilirubin 0.9, AST 14, ALT 19, Alkaline Phosphatase 67, C-Reactive Protein 19.0 H, Total Protein 7.7, Albumin 3.0 L, Globulin 4.7 H, Albumin/Globulin Ratio 0.6 L 03/31/19 05:00: WBC 12.2 H, RBC 3.61 L, Hgb 9.1 L, Hct 27.7 L, MCV 76.6 L, MCH 25.1 L, MCHC 32.8, RDW 14.9, Plt Count 316, MPV 6.3 L, Neut # (Auto) 8.6 H, Lymph # (Auto) 2.5, [place] # (Auto) 0.9, Eos # (Auto) 0.1, Baso # (Auto) 0.1, Absolute Nucleated RBC 0.01, Nucleated RBC % 0.1 03/30/19 20:45: POC Whole Bld Glucose 217 H 03/30/19 16:44: POC Whole Bld Glucose 201 H 03/30/19 11:40: POC Whole Bld Glucose 167 H 03/30/19 07:58: POC Whole Bld Glucose 186 H 03/30/19 04:40: PT 21.2 H, INR 1.9 H 03/30/19 04:40: Sodium 133 L, Potassium 3.5, Chloride 98 L, Carbon Dioxide 24, Anion Gap 11.0, BUN 11, Creatinine 1.1, Estimated GFR (MDRD) 76 L, Glucose 179 H , Calcium 8.1 L, Phosphorus 3.1, Albumin 2.8 L 03/30/19 04:40: WBC 14.3 H, RBC 3.64 L, Hgb 9.3 L, Hct 27.9 L, MCV 76.8 L, MCH 25.5 L, MCHC 33.1, RDW 15.2 H, Plt Count 343, MPV 6.8 L, Neut # (Auto) 10.7 H, Lymph # (Auto) 2.3, [place] # (Auto) 1.1 H, Eos # (Auto) 0.1, Baso # (Auto) 0.1, Absolute Nucleated RBC 0.00, Nucleated RBC % 0.0 03/30/19 04:40: Glycated Hemoglobin 8.4 H, Estim Average Glucose 194 H 03/30/19 01:51: POC Whole Bld Glucose 191 H 03/29/19 23:40: ESR 18 H 03/29/19 22:05: Lactic Acid 1.3 03/29/19 22:01: Sodium 133 L, Potassium 4.2, Chloride 96 L, Carbon Dioxide 23, Anion Gap 14.0 H, BUN 12, Creatinine 1.1, Estimated GFR (MDRD) 76 L, Glucose 242 H, Calcium 9.2, Total Bilirubin 1.1 H, AST 19, ALT 21, Alkaline Phosphatase 81, Total Protein 9.1 H, Albumin 3.7, Globulin 5.4 H, Albumin/Globulin Ratio 0.7 L, Lipase 39 03/29/19 22:01: WBC 14.6 H, RBC 4.41 L, Hgb 11.1 L, Hct 33.8 L, MCV 76.8 L, MCH 25.2 L, MCHC 32.8, RDW 14.8, Plt Count 414, MPV 6.4 L, Neut # (Auto) 12.1 H, Lymph # (Auto) 1.7, [place] # (Auto) 0.7, Eos # (Auto) 0.1, Baso # (Auto) 0.1, A bsolute Nucleated RBC 0.00, Nucleated RBC % 0.0 Fish Bones: 04/03/19 04:37 04/03/19 04:37 Home Medications and Allergies Home Medications: Ambulatory Orders Metformin HCl 1,000 mg PO BIDWM 03/30/19 glipiZIDE [Glipizide] 5 mg PO 0730 03/30/19 Active Medications Acetaminophen (Tylenol) 650 mg PO Q4HR PRN PRN Reason: Pain 1 to 4 Last Admin: 04/01/19 00:51 Dose: 650 mg Hydrocodone Bitart/Acetaminophen ([place] 10 Mg/325 Mg) 1 tab PO Q4HR PRN PRN Reason: Pain 8 to 10 Last Admin: 03/31/19 14:53 Dose: 1 tab Atorvastatin Calcium (Lipitor) 20 mg PO QPM [facility] Last Admin: 04/03/19 21:21 Dose: 20 mg Colchicine (Colcrys) 0.6 mg PO DAILY [facility] Last Admin: 04/03/19 08:22 Dose: 0.6 mg Enoxaparin Sodium (Lovenox) 40 mg SUBQ DAILY [facility] Last Admin: 04/03/19 08:22 Dose: 40 mg Ferrous Gluconate (Fergon) 324 mg PO BIDWM [facility] Last Admin: 04/03/19 17:05 Dose: 324 mg Meropenem 1 gm/ Sodium (Chloride) 100 mls @ 200 mls/hr IV Q8H [facility] Last Infusion: 04/04/19 01:29 Dose: Infused Insulin Aspart (Novolog) 2 - 10 unit SUBQ 0800,1200,1700,2100 [facility]; Protocol Last Admin: 04/03/19 21:21 Dose: 4 unit Insulin Glargine (Lantus Solostar) 10 unit SUBQ DAILY [facility] Last Admin: 04/03/19 08:23 Dose: 10 unit Lisinopril (Zestril) 2.5 mg PO DAILY [facility] Last Admin: 04/03/19 08:22 Dose: 2.5 mg Multivitamins (Theragran) 1 tab PO DAILYWM [facility] Last Admin: 04/03/19 08:23 Dose: 1 tab Ondansetron HCl (Zofran Inj) 4 mg IVP Q6HR PRN PRN Reason: Nausea / Vomiting Polyethylene Glycol (Miralax) 17 gm PO DAILY [facility] Last Admin: 04/03/19 08:21 Dose: 17 gm Saccharomyces Boulardii (Florastor) 250 mg PO BID [facility] Last Admin: 04/03/19 21:20 Dose: 250 mg Sodium Chloride (Normal Saline Flush 0.9%) 10 ml IVP PRN PRN PRN Reason: NEEDED PER PROVIDER ORDERS Last Admin: 04/02/19 18:00 Dose: 10 ml Sodium Chloride (Normal Saline Flush 0.9%) 10 ml IVP 0100,0900,1700 [facility] Last Admin: 04/04/19 00:21 Dose: 10 ml Metformin HCl 1,000 mg PO BIDWM 03/30/19 glipiZIDE [Glipizide] 5 mg PO 0730 03/30/19 Allergies/Adverse Reactions: Allergies Allergy/AdvReac Type Severity Reaction Status Date / Time No Known Drug Intolerances Allergy Unknown Unknown Verified 03/29/19 21:42 macadamia nut oil Allergy Anaphylaxis Verified 03/29/19 21:42 walnut Allergy Anaphylaxis Verified 03/29/19 21:42 Anes History & Medical History - Anesthetic History Anesthesia Complications: reports: No previous complications Family history of Anesthesia Complications: Reports (nausea) Family history of Malignant Hyperthermia: Denies - Medical History Cardiovascular: reports: Hypertension, High cholesterol Pulmonary: reports: None Urinary: reports: None Neuro: reports: Headaches, Peripheral neuropathy Musculoskeletal: reports: None Endocrine/Autoimmune: reports: Type 2 diabetes Blood Disorders: reports: None Skin: reports: None Smoking Status: Former smoker - Surgical History Eyes Ears Nose Throat (EENT): Other Exam General: Alert, Oriented x3, Cooperative, No acute distress Dental: Loose/Frag Mouth Openin Fingerbreadth Neck Mobility: Normal Mallampati classification: III Thyromental Distance: greater than 6 cm Respiratory: Lungs clear, Normal breath sounds, No respiratory distress, No accessory muscle use Cardiovascular: Regular rate, Normal S1, Normal S2, No murmurs Plan Anesthesia Type: General Consent for Procedure(s) Verified and Reviewed: Yes Code Status: Attempt Resuscitation ASA classification: 3-Severe systemic disease Is this case an emergency?: No
[2019-04-04] MEDS ORDERED: BUPIVACAINE 0.25% PF 30 ML VIAL ONE (07:01)
[2019-04-04] MEDS ORDERED: LIDOCAINE-MPF 1% 30 ML VIAL ONE (07:01)
--- NOTE | 2019-04-04 07:27 | PROVIDER PROGRESS NOTE ---
Assessment/Plan - Problem List (2) Diabetic foot infection Assessment/Plan: Stable PLAN: No change in plans. Proceed to OR for surgery. - Current Meds Current Meds: Current Medications Generic Name Dose Route Start Last Admin Trade Name Freq PRN Reason Stop Dose Admin Acetaminophen 650 mg 03/30/19 00:55 04/01/19 00:51 Tylenol PO 650 mg Q4HR PRN Administration Pain 1 to 4 Hydrocodone Bitart/Acetaminophen 1 tab 03/30/19 00:55 03/31/19 14:53 [place] 10 Mg/325 Mg PO 1 tab Q4HR PRN Administration Pain 8 to 10 Atorvastatin Calcium 20 mg 04/03/19 21:00 04/03/19 21:21 Lipitor PO 20 mg QPM [facility] Administration Colchicine 0.6 mg 04/02/19 16:00 04/03/19 08:22 Colcrys PO 0.6 mg DAILY [facility] Administration Enoxaparin Sodium 40 mg 03/30/19 21:00 04/03/19 08:22 Lovenox SUBQ 40 mg DAILY [facility] Administration Ferrous Gluconate 324 mg 03/31/19 17:00 04/03/19 17:05 Fergon PO 324 mg BIDWM [facility] Administration Meropenem 1 gm/ Sodium 100 mls @ 200 mls/hr 04/01/19 09:00 04/04/19 01:29 Chloride IV Infused Q8H [facility] Infusion Insulin Aspart 2 - 10 unit 04/03/19 08:00 04/03/19 21:21 Novolog SUBQ 4 unit 0800,1200,1700,2100 [facility] Administration Protocol Insulin Glargine 10 unit 04/03/19 09:00 04/03/19 08:23 Lantus Solostar SUBQ 10 unit DAILY [facility] Administration Lisinopril 2.5 mg 04/01/19 09:00 04/03/19 08:22 Zestril PO 2.5 mg DAILY [facility] Administration Multivitamins 1 tab 03/31/19 08:00 04/03/19 08:23 Theragran PO 1 tab DAILYWM [facility] Administration Polyethylene Glycol 17 gm 03/30/19 09:00 04/03/19 08:21 Miralax PO 17 gm DAILY [facility] Administration Saccharomyces Boulardii 250 mg 03/30/19 09:00 04/03/19 21:20 Florastor PO 250 mg BID [facility] Administration Sodium Chloride 10 ml 03/30/19 00:55 04/02/19 18:00 Normal Saline Flush 0.9% IVP 10 ml PRN PRN Administration NEEDED PER PROVIDER ORDERS Sodium Chloride 10 ml 03/30/19 01:00 04/04/19 00:21 Normal Saline Flush 0.9% IVP 10 ml 0100,0900,1700 [facility] Administration - Lab Result Fish Bone Diagrams: 04/03/19 04:37 04/03/19 04:37 Objective Vital Signs: Vital Signs - 24 hr 04/03/19 04/03/19 04/04/19 07:52 15:52 00:00 Temperature 36.8 C 37 C 36.8 C Heart Rate [ 81 67 78 Brachial] Respiratory 14 22 18 Rate Blood Pressure 145/66 H 117/74 120/84 H [Right Brachial artery] O2 Saturation 97 97 97 Oxygen O2 Source Room air I&O (Last 24 Hrs): Intake and Output Totals x24h 04/02/19 04/03/19 04/04/19 23:59 23:59 23:59 Intake Total 2100.00 3800 100 Output Total 2274 700 Balance -174.00 3100 100 Comments/Notes: EXAM: No interval changes - Results Results: Laboratory Results WBC 9.0 x10^3/uL (4.8-10.8) 04/03/19 04:37 RBC 3.45 10^6/uL (4.70-6.10) L 04/03/19 04:37 Hgb 8.7 g/dL (14.0-18.0) L 04/03/19 04:37 Hct 26.3 % (42.0-52.0) L 04/03/19 04:37 MCV 76.2 fL (80.0-94.0) L 04/03/19 04:37 MCH 25.3 pg (27.0-31.0) L 04/03/19 04:37 MCHC 33.2 g/dL (32.0-36.0) 04/03/19 04:37 RDW 15.3 % (12.0-15.0) H 04/03/19 04:37 Plt Count 345 10^3/uL (130-450) 04/03/19 04:37 MPV 6.8 fL (7.4-11.4) L 04/03/19 04:37 Neut # (Auto) 6.3 10^3/uL (1.5-6.6) 04/03/19 04:37 Lymph # (Auto) 1.6 10^3/uL (1.5-3.5) 04/03/19 04:37 [place] # (Auto) 0.6 10^3/uL (0.0-1.0) 04/03/19 04:37 Eos # (Auto) 0.4 10^3/uL (0.0-0.7) 04/03/19 04:37 Baso # (Auto) 0.1 10^3/uL (0.0-0.1) 04/03/19 04:37 Absolute Nucleated RBC 0.00 x10^3/uL 04/03/19 04:37 Nucleated RBC % 0.0 /100WBC 04/03/19 04:37 ESR 18 mm/Hr (0-15) H 03/29/19 23:40 PT 21.2 secs (9.9-12.6) H 03/30/19 04:40 INR 1.9 (0.8-1.2) H 03/30/19 04:40 Sodium 135 mmol/L (135-145) 04/03/19 04:37 Potassium 4.0 mmol/L (3.5-5.0) 04/03/19 04:37 Chloride 98 mmol/L (101-111) L 04/03/19 04:37 Carbon Dioxide 25 mmol/L (21-32) 04/03/19 04:37 Anion Gap 12.0 (6-13) 04/03/19 04:37 BUN 13 mg/dL (6-20) 04/03/19 04:37 Creatinine 0.9 mg/dL (0.6-1.2) 04/03/19 04:37 Estimated GFR (MDRD) 96 (>89) 04/03/19 04:37 Glucose 152 mg/dL (70-100) H 04/03/19 04:37 POC Whole Bld Glucose 204 mg/dL (70 - 100) H 04/04/19 06:01 Glycated Hemoglobin 8.4 % (4.6-6.2) H 03/30/19 04:40 Estim Average Glucose 194 (70-100) H 03/30/19 04:40 Lactic Acid 0.8 mmol/L (0.5-2.2) 04/01/19 05:13 Uric Acid 4.6 mg/dL (2.6-7.2) 04/02/19 04:56 Calcium 8.5 mg/dL (8.5-10.3) 04/03/19 04:37 Phosphorus 4.5 mg/dL (2.5-4.6) 04/01/19 05:13 Magnesium 1.9 mg/dL (1.7-2.8) 04/01/19 05:13 Iron 9 ug/dL (45-182) L 04/01/19 05:13 TIBC 182 ug/dL (250-450) L 04/01/19 05:13 % Saturation 5 % (20-50) L 04/01/19 05:13 Transferrin 130 mg/dL (180-329) L 04/01/19 05:13 Total Bilirubin 0.6 mg/dL (0.2-1.0) 04/03/19 04:37 AST 208 IU/L (10-42) H 04/03/19 04:37 ALT 210 IU/L (10-60) H 04/03/19 04:37 Alkaline Phosphatase 88 IU/L (42-121) 04/03/19 04:37 C-Reactive Protein 20.6 mg/dL (0-1.0) H 04/02/19 04:56 Total Protein 7.6 g/dL (6.7-8.2) 04/03/19 04:37 Albumin 2.6 g/dL (3.2-5.5) L 04/03/19 04:37 Globulin 5.0 g/dL (2.1-4.2) H 04/03/19 04:37 Albumin/Globulin Ratio 0.5 (1.0-2.2) L 04/03/19 04:37 Triglycerides 85 mg/dL (-149) 04/01/19 05:13 Cholesterol 124 mg/dL (-199) 04/01/19 05:13 LDL Cholesterol, Calc 85 mg/dL (-129) 04/01/19 05:13 VLDL Cholesterol 17 mg/dL 04/01/19 05:13 HDL Cholesterol 22 mg/dL (60-) L 04/01/19 05:13 LDL/HDL Ratio 3.9 (<3.6) 04/01/19 05:13 Cholesterol/HDL Ratio 5.6 (<5.0) 04/01/19 05:13 Lipase 39 U/L (22-51) 03/29/19 22:01 Vitamin B12 189 pg/mL (180-914) 04/01/19 05:13 Urine Color YELLOW 03/30/19 02:18 Urine Clarity CLEAR (CLEAR) 03/30/19 02:18 Urine pH 7.0 PH (5.0-7.5) 03/30/19 02:18 Ur Specific [place] 1.010 (1.002-1.030) 03/30/19 02:18 Urine Protein TRACE mg/dL (NEGATIVE) 03/30/19 02:18 Urine Glucose (UA) NEGATIVE mg/dL (NEGATIVE) 03/30/19 02:18 Urine Ketones NEGATIVE mg/dL (NEGATIVE) 03/30/19 02:18 Urine Occult Blood TRACE-INTA (NEGATIVE) 03/30/19 02:18 Urine Nitrite NEGATIVE (NEGATIVE) 03/30/19 02:18 Urine Bilirubin NEGATIVE (NEGATIVE) 03/30/19 02:18 Urine Urobilinogen 0.2 (NORMAL) E.U./dL (NORMAL) 03/30/19 02:18 Ur Leukocyte Esterase NEGATIVE (NEGATIVE) 03/30/19 02:18 Ur Microscopic Review NOT INDICATED 03/30/19 02:18 Urine Culture Comments NOT INDICATED 03/30/19 02:18 Fluid Source SYNOVIAL 04/01/19 11:30 Fluid Color PINK 04/01/19 11:30 Fluid Clarity TURBID 04/01/19 11:30 Fluid WBC 96879 /mm^3 04/01/19 11:30 Fluid RBC 37101 /mm^3 04/01/19 11:30 Fluid Neutrophils % 98 % 04/01/19 11:30 Fluid Lymphocytes % 1 04/01/19 11:30 Fluid Monocytes % 1 % 04/01/19 11:30 Fluid Crystals MONOSODIUM URATE (N) 04/01/19 11:30 Nasal Screen MRSA (PCR) NEGATIVE (NEGATIVE) 03/30/19 01:20 Last Dose Date 04/02/19 04/02/19 09:55 Last Dose Time 0254 04/02/19 09:55 Vancomycin Trough 14.9 ug/mL (10.0-20.0) 04/02/19 09:55 Sepsis Event Note (H) - Evaluation Current Stage of Sepsis: Resolved Possible source of Sepsis: positive: Bone/Joint - Sepsis Criteria Sepsis Criteria: Recorded Temperature greater than 38.3C or Less than 36C, Recorded Heart Rate greater than 90 bpm, WBC count greater than 12,000 or less than 4000
[2019-04-04] MEDS: LACTATED RINGERS 1,000 ML IV ONE (08:13)
[2019-04-04] MEDS ORDERED: LACTATED RINGERS 1,000 ML IV ONE (08:13)
[2019-04-04] MEDS ORDERED: ONDANSETRON 4 MG/2 ML VIAL IVP ONE (08:40)
[2019-04-04] MEDS ORDERED: PROPOFOL 200 MG/20 ML VIAL IVP ONE (08:40)
[2019-04-04] MEDS ORDERED: fentaNYL 100 MCG/2 ML VIAL IVP ONE (08:40)
[2019-04-04] MEDS ORDERED: LIDOCAINE-MPF 2% 5 ML VIAL IM ONE (08:40)
[2019-04-04 08:45] LABS: INR 1.8 (0.8-1.2); PT - PROTHROMBIN TIME 19.5 secs (9.9-12.6)
[2019-04-04 08:52] LABS: ALBUMIN 2.6 g/dL (3.2-5.5); ALBUMIN/GLOBULIN RATIO 0.5 (1.0-2.2); BASOPHILS # (AUTO) 0.1 10^3/uL (0.0-0.1); BASOPHILS % (AUTO) 0.8 %; BILIRUBIN,TOTAL 0.5 mg/dL (0.2-1.0); CALCIUM 8.2 mg/dL (8.5-10.3); CREATININE 0.8 mg/dL (0.6-1.2); EOSINOPHILS # (AUTO) 0.3 10^3/uL (0.0-0.7); HGB - HEMOGLOBIN 8.7 g/dL (14.0-18.0); LYMPHOCYTES # (AUTO) 1.6 10^3/uL (1.5-3.5); LYMPHOCYTES % (AUTO) 19.8 %; MEAN CORPUSCULAR HEMOGLOBIN 25.1 pg (27.0-31.0); MEAN CORPUSCULAR VOLUME 76.2 fL (80.0-94.0); MEAN PLATELET VOLUME 6.6 fL (7.4-11.4); MONOCYTES # (AUTO) 0.5 10^3/uL (0.0-1.0); MONOCYTES % (AUTO) 6.1 %; NEUTROPHILS # (AUTO) 5.7 10^3/uL (1.5-6.6); NEUTROPHILS % (AUTO) 69.3 %; PLT - PLATELET COUNT 373 10^3/uL (130-450); RED BLOOD COUNT 3.47 10^6/uL (4.70-6.10); RED CELL DISTRIBUTION WIDTH 15.3 % (12.0-15.0); TOTAL PROTEIN 7.4 g/dL (6.7-8.2); WHITE BLOOD COUNT 8.2 x10^3/uL (4.8-10.8)
--- NOTE | 2019-04-04 08:52 | OPERATIVE REPORT ---
Operative Report - General Admit Date: 03/29/19 Procedure Date: 04/04/19 Planned Procedure: Partial left 5th ray amputation Pre-Op Diagnosis: Diabetic left foot infection with osteomyelitis Procedure Performed: Partial left 5th ray amputation Post Op Diagnosis: Same - Procedure Note Primary Surgeon: Katia Reyes MD Anesthesia Provider: Rajan Castelan MD Anesthesia Technique: General LMA Pathology: Left 5th toe/distal 5th metatarsal IV Fluids (mL): 600 Estimated Blood Loss (mL): 100 Drain/Tube Type: Prabhjot Stoner drain (1/4 inch) Complications: None
[2019-04-04] MEDS ORDERED: HYDROcod/ACETAM 5/325 MG TABLET PO PRN (08:53)
[2019-04-04] MEDS ORDERED: ONDANSETRON 4 MG/2 ML VIAL IVP PRN (08:53)
[2019-04-04] MEDS ORDERED: ACETAMINOPHEN 325 MG TABLET PO PRN (08:53)
[2019-04-04] MEDS ORDERED: ACETAMINOPHEN 1,000 MG/100 ML 100 ML IV PRN (08:53)
[2019-04-04] MEDS ORDERED: SODIUM CHLORIDE FLUSH 0.9% 10 ML SYRINGE IVP PRN (08:53)
[2019-04-04] MEDS ORDERED: PROCHLORPERAZINE 10 MG/2 ML VIAL IVP PRN (08:53)
[2019-04-04] MEDS ORDERED: INSULIN GLARGINE 300 UNIT/3 ML PEN SUBQ SCH (09:00)
--- NOTE | 2019-04-04 09:25 | OPERATIVE REPORT ---
DATE OF SERVICE: 04/04/2019 Physician: Ian Reyes MD PREOPERATIVE DIAGNOSIS: Diabetic left foot infection with associated osteomyelitis. POSTOPERATIVE DIAGNOSIS: Diabetic left foot infection with associated osteomyelitis. PROCEDURE PERFORMED: Partial left fifth ray amputation. SURGEON: Ian Reyes MD ANESTHESIA: General. DESCRIPTION OF PROCEDURE: Patient was taken to the operating room on the morning of 04/04/2019, where he was placed under a general anesthetic in the supine position without any complications. We did apply a calf pneumatic tourniquet to the left leg, but this was not inflated during the procedure. We then prepped and draped the left foot free in the usual fashion for our procedure. Placing a racket type incision about the base of the fifth toe, we incised the lateral border of the foot. The incision was modified to allow us to excise the plantar ulceration/sinus tract to the fifth metatarsophalangeal joint. We then used an oscillating saw to place an oblique osteotomy in the proximal portion of the fifth metatarsal. Once this was done, we were able to excise the distal portion of the fifth ray removing the distal fifth metatarsal along with the fifth toe in its entirety. This was sent to pathology for inspection. We then debrided the bed of the wound using a rongeur. The soft tissue bed appeared to be perfusing well; no arterial bleeding seen. No significant purulence or necrotic tissue was left in the wound after our debridement. We then copiously irrigated the wound with sterile saline. We then proceeded to loosely close the wound using near-far, far-near type stitches of 2-0 nylon to loosely close our wound over a 0.25 inch Gail drain. We then washed the wound and applied Xeroform gauze, 4 x 4's, ABD, and a soft wrap to the foot. The patient was then awoken from his anesthetic and taken to the recovery room in satisfactory condition. ESTIMATED BLOOD LOSS: 100 mL REPLACEMENT: 600 mL of crystalloid. INTRAOPERATIVE COMPLICATIONS: None. PLAN: We will plan on removing the Gail drain in 36-48 hours. We will evaluate the wound and determine whether subsequent debridements or revision amputation may be indicated in the future. Continue him on his antibiotics. TD: 04/04/2019 09:12 ABISAI
[2019-04-04] MEDS: COLCHICINE 0.6 MG TABLET PO SCH (10:49)
[2019-04-04] MEDS: SACCHAROMYCES BOULARDII 250 MG CAPSULE PO SCH ×2 (10:54→20:44)
[2019-04-04] MEDS: MULTIVITAMIN TABLET PO SCH (10:55)
[2019-04-04] MEDS: LISINOPRIL 5 MG TABLET PO SCH ×2 (10:55→10:57)
[2019-04-04] MEDS: FERROUS GLUCONATE 324 MG TABLET PO SCH ×2 (10:55→17:00)
[2019-04-04] MEDS: ENOXAPARIN 40 MG/0.4 ML SYRINGE SUBQ SCH (10:58)
[2019-04-04] MEDS: INSULIN ASPART 300 UNIT/3 ML PEN SUBQ SCH ×4 (11:00→20:43)
[2019-04-04] MEDS: ASPIRIN 325 MG TABLET PO SCH ×2 (11:10→17:00)
[2019-04-04] MEDS: POLYETHYLENE GLYCOL 3350 17 GM PACKET PO SCH (11:11)
[2019-04-04] MEDS: SODIUM CHLORIDE 0.9% 1,000 ML IV SCH ×2 (11:33→22:53)
[2019-04-04] MEDS: CYANOCOBALAMIN 500 MCG TABLET PO SCH (11:35)
--- NOTE | 2019-04-04 14:46 | PROVIDER PROGRESS NOTE ---
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 pt feel fine, tolerate the operation, and denies pain. Current Medications - Current Medications Current Medications: Active Medications Acetaminophen (Tylenol) 650 mg PO Q4HR PRN PRN Reason: Pain 1 to 4 Last Admin: 04/01/19 00:51 Dose: 650 mg Acetaminophen (Tylenol) 650 - 975 mg PO Q4HR PRN PRN Reason: PAIN Hydrocodone Bitart/Acetaminophen ([place] 10 Mg/325 Mg) 1 tab PO Q4HR PRN PRN Reason: Pain 8 to 10 Last Admin: 03/31/19 14:53 Dose: 1 tab Hydrocodone Bitart/Acetaminophen ([place] 5/325) 1 tab PO Q4HR PRN PRN Reason: PAIN Aspirin (Robby) 325 mg PO BIDWM [facility] Last Admin: 04/04/19 11:10 Dose: 325 mg Atorvastatin Calcium (Lipitor) 20 mg PO QPM [facility] Last Admin: 04/03/19 21:21 Dose: 20 mg Colchicine (Colcrys) 0.6 mg PO DAILY [facility] Last Admin: 04/04/19 10:49 Dose: 0.6 mg Cyanocobalamin (Vitamin B-12) 500 mcg PO DAILY [facility] Last Admin: 04/04/19 11:35 Dose: 500 mcg Enoxaparin Sodium (Lovenox) 40 mg SUBQ DAILY [facility] Last Admin: 04/04/19 10:58 Dose: 40 mg Ferrous Gluconate (Fergon) 324 mg PO BIDWM [facility] Last Admin: 04/04/19 10:55 Dose: 324 mg Meropenem 1 gm/ Sodium (Chloride) 100 mls @ 200 mls/hr IV Q8H [facility] Last Admin: 04/04/19 11:34 Dose: 200 mls/hr Acetaminophen (Ofirmev) 100 mls @ 400 mls/hr IV Q6HR PRN PRN Reason: PAIN Last Infusion: 04/04/19 11:35 Dose: Infused Sodium Chloride (Normal Saline 0.9%) 1,000 mls @ 100 mls/hr IV .Q10H [facility] Last Admin: 04/04/19 11:33 Dose: 100 mls/hr Insulin Aspart (Novolog) 2 - 10 unit SUBQ 0800,1200,1700,2100 [facility]; Protocol Last Admin: 04/04/19 11:44 Dose: 4 unit Insulin Glargine (Lantus Solostar) 12 unit SUBQ DAILY [facility] Last Admin: 04/04/19 10:59 Dose: 12 unit Lisinopril (Zestril) 2.5 mg PO DAILY [facility] Last Admin: 04/04/19 10:57 Dose: 2.5 mg Multivitamins (Theragran) 1 tab PO DAILYWM [facility] Last Admin: 04/04/19 10:55 Dose: 1 tab Ondansetron HCl (Zofran Inj) 4 mg IVP Q6HR PRN PRN Reason: Nausea / Vomiting Ondansetron HCl (Zofran Inj) 4 mg IVP Q6HR PRN PRN Reason: Nausea / Vomiting Polyethylene Glycol (Miralax) 17 gm PO DAILY [facility] Last Admin: 04/04/19 11:11 Dose: 17 gm Prochlorperazine Edisylate (Compazine Inj) 10 mg IVP Q6HR PRN PRN Reason: Nausea / Vomiting Saccharomyces Boulardii (Florastor) 250 mg PO BID [facility] Last Admin: 04/04/19 10:54 Dose: 250 mg Sodium Chloride (Normal Saline Flush 0.9%) 10 ml IVP PRN PRN PRN Reason: NEEDED PER PROVIDER ORDERS Last Admin: 04/02/19 18:00 Dose: 10 ml Sodium Chloride (Normal Saline Flush 0.9%) 10 ml IVP 0100,0900,1700 [facility] Last Admin: 04/04/19 11:09 Dose: 10 ml Sodium Chloride (Normal Saline Flush 0.9%) 10 ml IVP 0100,0900,1700 [facility] Last Admin: 04/04/19 11:28 Dose: Not Given Sodium Chloride (Normal Saline Flush 0.9%) 10 ml IVP PRN PRN PRN Reason: NEEDED PER PROVIDER ORDERS Metformin HCl 1,000 mg PO BIDWM 03/30/19 glipiZIDE [Glipizide] 5 mg PO 0730 03/30/19 Objective - Vital Signs/Intake & Output Reviewed Vital Signs: Yes Vital Signs: Vital Signs x48h Temp Pulse Pulse Resp BP BP Pulse Ox 04/04/19 11:23 36.3 C L 68 14 112/76 99 04/04/19 10:23 36.4 C L 79 14 126/80 99 04/04/19 09:23 36.6 C 71 14 121/73 98 04/04/19 09:07 36.8 C 81 12 121/86 H 95 04/04/19 09:00 83 18 125/86 H 98 04/04/19 08:57 81 14 123/83 H 97 04/04/19 08:53 36.6 C 76 14 123/82 H 99 04/04/19 08:50 37.2 C 83 18 112/72 98 04/04/19 07:50 36.4 C L 77 14 119/74 99 Intake & Output: Intake & Output 04/01/19 04/02/19 04/03/19 04/04/19 23:59 23:59 23:59 23:59 Intake Total 3190 2100.00 3800 1350 Output Total 400 2274 700 Balance 2790 -174.00 3100 1350 - Objective General Appearance: positive: No acute distress, Alert. negative: Lethargic Eyes Bilateral: positive: Normal inspection, PERRL, No lid inflammation, Conjunctivae nml ENT: positive: ENT inspection nml, Pharynx nml, No signs of dehydration. negative: Purulent nasal drainage, Pharyngeal erythema, Oral lesions Neck: positive: Nml inspection, Thyroid nml, No JVD, Trachea midline. negative: Thyromegaly, Lymphadenopathy (R), Lymphadenopathy (L), Stiff neck, Swelling/bruising, Tracheal deviation Respiratory: positive: Chest non-tender, No respiratory distress, Breath sounds nml. negative: Wheezes, Rales, Rhonchi Cardiovascular: positive: Regular rate & rhythm, No murmur, No gallop. negative: Irregularly irregular, Extrasystoles, Tachycardia, Bradycardia, JVD present, Systolic murmur Peripheral Pulses: 2+ Radial (R), 2+ Radial (L), 2+ Dorsalis pedis (R), 2+ Dorsalis pedis (L) Abdomen: positive: Non-tender, No organomegaly, Nml bowel sounds, No distention. negative: Tenderness, Guarding, Rebound Back: positive: Nml inspection. negative: CVA tenderness (R), CVA tenderness (L) Skin: positive: Warm, Dry. negative: Cyanosis, Diaphoresis, Pallor Extremities: negative: Non-tender, Calf tenderness, Renato's sign/cords Neurologic/Psychiatric: positive: Oriented x3, Sensation nml, Mood/affect nml. negative: Weakness, Sensory loss, Facial droop, Slurred/abnml speech, Depressed mood/affect - Lab Results Fish Bones: 04/04/19 08:30 04/04/19 08:30 Other Labs: Lab Results x24hrs 04/04/19 04/04/19 04/04/19 Range/Units 11:16 08:54 08:30 WBC (4.8-10.8) x10^3/uL RBC (4.70-6.10) 10^6/uL Hgb (14.0-18.0) g/dL Hct (42.0-52.0) % MCV (80.0-94.0) fL MCH (27.0-31.0) pg MCHC (32.0-36.0) g/dL RDW (12.0-15.0) % Plt Count (130-450) 10^3/uL MPV (7.4-11.4) fL Neut # (Auto) (1.5-6.6) 10^3/uL Lymph # (Auto) (1.5-3.5) 10^3/uL [place] # (Auto) (0.0-1.0) 10^3/uL Eos # (Auto) (0.0-0.7) 10^3/uL Baso # (Auto) (0.0-0.1) 10^3/uL Absolute Nucleated RBC x10^3/uL Nucleated RBC % /100WBC PT (9.9-12.6) secs INR (0.8-1.2) Sodium 135 (135-145) mmol/L Potassium 4.4 (3.5-5.0) mmol/L Chloride 100 L (101-111) mmol/L Carbon Dioxide 26 (21-32) mmol/L Anion Gap 9.0 (6-13) BUN 14 (6-20) mg/dL Creatinine 0.8 (0.6-1.2) mg/dL Estimated GFR (MDRD) 110 (>89) Glucose 211 H (70-100) mg/dL POC Whole Bld Glucose 182 H 192 H (70 - 100) mg/dL Calcium 8.2 L (8.5-10.3) mg/dL Total Bilirubin 0.5 (0.2-1.0) mg/dL AST 88 H (10-42) IU/L ALT 188 H (10-60) IU/L Alkaline Phosphatase 78 (42-121) IU/L Total Protein 7.4 (6.7-8.2) g/dL Albumin 2.6 L (3.2-5.5) g/dL Globulin 4.8 H (2.1-4.2) g/dL Albumin/Globulin Ratio 0.5 L (1.0-2.2) 04/04/19 04/04/19 04/04/19 Range/Units 08:30 08:30 06:01 WBC 8.2 (4.8-10.8) x10^3/uL RBC 3.47 L (4.70-6.10) 10^6/uL Hgb 8.7 L (14.0-18.0) g/dL Hct 26.4 L (42.0-52.0) % MCV 76.2 L (80.0-94.0) fL MCH 25.1 L (27.0-31.0) pg MCHC 33.0 (32.0-36.0) g/dL RDW 15.3 H (12.0-15.0) % Plt Count 373 (130-450) 10^3/uL MPV 6.6 L (7.4-11.4) fL Neut # (Auto) 5.7 (1.5-6.6) 10^3/uL Lymph # (Auto) 1.6 (1.5-3.5) 10^3/uL [place] # (Auto) 0.5 (0.0-1.0) 10^3/uL Eos # (Auto) 0.3 (0.0-0.7) 10^3/uL Baso # (Auto) 0.1 (0.0-0.1) 10^3/uL Absolute Nucleated RBC 0.00 x10^3/uL Nucleated RBC % 0.0 /100WBC PT 19.5 H (9.9-12.6) secs INR 1.8 H (0.8-1.2) Sodium (135-145) mmol/L Potassium (3.5-5.0) mmol/L Chloride (101-111) mmol/L Carbon Dioxide (21-32) mmol/L Anion Gap (6-13) BUN (6-20) mg/dL Creatinine (0.6-1.2) mg/dL Estimated GFR (MDRD) (>89) Glucose (70-100) mg/dL POC Whole Bld Glucose 204 H (70 - 100) mg/dL Calcium (8.5-10.3) mg/dL Total Bilirubin (0.2-1.0) mg/dL AST (10-42) IU/L ALT (10-60) IU/L Alkaline Phosphatase (42-121) IU/L Total Protein (6.7-8.2) g/dL Albumin (3.2-5.5) g/dL Globulin (2.1-4.2) g/dL Albumin/Globulin Ratio (1.0-2.2) 04/03/19 04/03/19 04/03/19 Range/Units 23:28 20:48 16:06 WBC (4.8-10.8) x10^3/uL RBC (4.70-6.10) 10^6/uL Hgb (14.0-18.0) g/dL Hct (42.0-52.0) % MCV (80.0-94.0) fL MCH (27.0-31.0) pg MCHC (32.0-36.0) g/dL RDW (12.0-15.0) % Plt Count (130-450) 10^3/uL MPV (7.4-11.4) fL Neut # (Auto) (1.5-6.6) 10^3/uL Lymph # (Auto) (1.5-3.5) 10^3/uL [place] # (Auto) (0.0-1.0) 10^3/uL Eos # (Auto) (0.0-0.7) 10^3/uL Baso # (Auto) (0.0-0.1) 10^3/uL Absolute Nucleated RBC x10^3/uL Nucleated RBC % /100WBC PT (9.9-12.6) secs INR (0.8-1.2) Sodium (135-145) mmol/L Potassium (3.5-5.0) mmol/L Chloride (101-111) mmol/L Carbon Dioxide (21-32) mmol/L Anion Gap (6-13) BUN (6-20) mg/dL Creatinine (0.6-1.2) mg/dL Estimated GFR (MDRD) (>89) Glucose (70-100) mg/dL POC Whole Bld Glucose 212 H 201 H 189 H (70 - 100) mg/dL Calcium (8.5-10.3) mg/dL Total Bilirubin (0.2-1.0) mg/dL AST (10-42) IU/L ALT (10-60) IU/L Alkaline Phosphatase (42-121) IU/L Total Protein (6.7-8.2) g/dL Albumin (3.2-5.5) g/dL Globulin (2.1-4.2) g/dL Albumin/Globulin Ratio (1.0-2.2) ABX Reporting Has patient been on IV antibiotics over the past 48 hours?: Yes Sepsis Event Note (H) - Evaluation Current Stage of Sepsis: Resolved Possible source of Sepsis: positive: Bone/Joint - Sepsis Criteria Sepsis Criteria: Recorded Temperature greater than 38.3C or Less than 36C, Recorded Heart Rate greater than 90 bpm, WBC count greater than 12,000 or less than 4000 Assessment/Plan - Problem List (1) Diabetic foot infection Impression: 04/04 pt is 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 pt tolerate the procedure well, and ate the lunch and denies pain. continue antibiotics Meopenum. 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 discussed the MRI result with pt. Pt has already known the result, and discussed with orthopedics surgeon, and agreed to have surgeon on tomorrow. pain control continue antibiotics Meopenum. wound culture reveals positive two bacterial, Providencia stuarti, and beta hemolytic strep Group B, sensitive to Meopenum. NPO at middle (2) Fever Impression: resolved stable, no more fever, and continue Afebrile today. Second set of new BC x2 are now negative - Continue meropemum (3) Effusion, left knee Impression: stable/resolved, continue Colchicine pt repot he feel much better after Dr. Reyes drained out on his left knee. Crystals noted, indicates likely a gouty flare. culture and stain are negative for bacterial Serum Uric acid normal contine Colchicine, pt's kidney function is normal continue wrap left knee using an MARCELLUS wrap for compression to reduce swelling continue pain control (4) Type 2 diabetes mellitus Impression: 04/04, discuss with pt about his insulin issue at his home, advise pt continue his insulin treatment for his uncontrolled and complicated DM Non-compliant at home for insulin. Current A1 C is 8.4% on 03/30/2019 Blood sugars is slight high Adjusted Lantus from BID to once daily at HS reduced to 10 units carb-controlled diet (6) iron deficiency Anemia Impression: HGB increase, continue iron pill, and lab monitor Known history of iron deficiency anemia, and iron studies from October confirm iron deficiency iron was 6, very low, start with IV of Iron continue PO iron pill (7) Congenital hip dysplasia stable pt has hx of contenital hip hysplasia encourage movement, continue support (8) Essential hypertension Impression: stable (9) Gout 04/04 pt report he has no more pain ,and no more swelling continue Colchicine knee effusion reveals monosodium urate. serum uric acid level is normal contine Colchicine, pt's kidney function is normal (10) Peripheral neuropathy Impression: stable
[2019-04-04] MEDS ORDERED: ASPIRIN 325 MG TABLET PO SCH (17:00)
[2019-04-04] MEDS: ATORVASTATIN 40 MG TABLET PO SCH (20:42)
[2019-04-05] MEDS: MEROPENEM 1 GM in SODIUM CHLORIDE 0.9% MINIBAG 100 ML IV SCH ×3 (00:34→17:11)
[2019-04-05] MEDS: SODIUM CHLORIDE FLUSH 0.9% 10 ML SYRINGE IVP SCH ×6 (00:36→17:42)
[2019-04-05 05:45] LABS: BASOPHILS # (AUTO) 0.1 10^3/uL (0.0-0.1); BASOPHILS % (AUTO) 0.7 %; EOSINOPHILS # (AUTO) 0.4 10^3/uL (0.0-0.7); EOSINOPHILS % (AUTO) 4.7 %; HGB - HEMOGLOBIN 8.8 g/dL (14.0-18.0); LYMPHOCYTES % (AUTO) 24.4 %; MEAN CORPUSCULAR HEMOGLOBIN 25.1 pg (27.0-31.0); MEAN CORPUSCULAR HGB CONC 32.4 g/dL (32.0-36.0); MEAN CORPUSCULAR VOLUME 77.5 fL (80.0-94.0); MEAN PLATELET VOLUME 6.8 fL (7.4-11.4); MONOCYTES # (AUTO) 0.5 10^3/uL (0.0-1.0); NEUTROPHILS # (AUTO) 5.3 10^3/uL (1.5-6.6); NEUTROPHILS % (AUTO) 64.2 %; PLT - PLATELET COUNT 381 10^3/uL (130-450); RED BLOOD COUNT 3.51 10^6/uL (4.70-6.10); RED CELL DISTRIBUTION WIDTH 15.2 % (12.0-15.0); WHITE BLOOD COUNT 8.3 x10^3/uL (4.8-10.8)
[2019-04-05 05:50] LABS: ALBUMIN 2.5 g/dL (3.2-5.5); ALBUMIN/GLOBULIN RATIO 0.5 (1.0-2.2); BILIRUBIN,TOTAL 0.2 mg/dL (0.2-1.0); CALCIUM 8.2 mg/dL (8.5-10.3); CREATININE 0.8 mg/dL (0.6-1.2); TOTAL PROTEIN 7.2 g/dL (6.7-8.2)
[2019-04-05] MEDS: INSULIN GLARGINE 300 UNIT/3 ML PEN SUBQ SCH (08:30)
[2019-04-05] MEDS: INSULIN ASPART 300 UNIT/3 ML PEN SUBQ SCH ×4 (08:31→20:57)
[2019-04-05] MEDS: ENOXAPARIN 40 MG/0.4 ML SYRINGE SUBQ SCH (08:32)
[2019-04-05] MEDS: POLYETHYLENE GLYCOL 3350 17 GM PACKET PO SCH (08:37)
[2019-04-05] MEDS: COLCHICINE 0.6 MG TABLET PO SCH (08:42)
[2019-04-05] MEDS: CYANOCOBALAMIN 500 MCG TABLET PO SCH (08:43)
[2019-04-05] MEDS: MULTIVITAMIN TABLET PO SCH (08:43)
[2019-04-05] MEDS: FERROUS GLUCONATE 324 MG TABLET PO SCH ×2 (08:43→17:13)
[2019-04-05] MEDS: ASPIRIN 325 MG TABLET PO SCH ×2 (08:43→17:13)
[2019-04-05] MEDS: SACCHAROMYCES BOULARDII 250 MG CAPSULE PO SCH ×2 (08:44→20:57)
[2019-04-05] MEDS: SODIUM CHLORIDE 0.9% 1,000 ML IV SCH (08:51)
--- NOTE | 2019-04-05 11:32 | PROVIDER PROGRESS NOTE ---
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 pt denies fever, chill. I discussed with Dr. Reyes about pt's surgery wound management. The wound has drainage, topically it is normal after procedure. Dr. Reyes recommend pt may be d/c to home on Tuesday with PO antibiotics, wound dress change Current Medications - Current Medications Current Medications: Active Medications Acetaminophen (Tylenol) 650 mg PO Q4HR PRN PRN Reason: Pain 1 to 4 Last Admin: 04/01/19 00:51 Dose: 650 mg Acetaminophen (Tylenol) 650 - 975 mg PO Q4HR PRN PRN Reason: PAIN Hydrocodone Bitart/Acetaminophen ([place] 10 Mg/325 Mg) 1 tab PO Q4HR PRN PRN Reason: Pain 8 to 10 Last Admin: 03/31/19 14:53 Dose: 1 tab Hydrocodone Bitart/Acetaminophen ([place] 5/325) 1 tab PO Q4HR PRN PRN Reason: PAIN Aspirin ([place]) 325 mg PO BIDWM [facility] Last Admin: 04/05/19 08:43 Dose: 325 mg Atorvastatin Calcium (Lipitor) 20 mg PO QPM [facility] Last Admin: 04/04/19 20:42 Dose: 20 mg Colchicine (Colcrys) 0.6 mg PO DAILY [facility] Last Admin: 04/05/19 08:42 Dose: 0.6 mg Cyanocobalamin (Vitamin B-12) 500 mcg PO DAILY [facility] Last Admin: 04/05/19 08:43 Dose: 500 mcg Enoxaparin Sodium (Lovenox) 40 mg SUBQ DAILY [facility] Last Admin: 04/05/19 08:32 Dose: 40 mg Ferrous Gluconate (Fergon) 324 mg PO BIDWM [facility] Last Admin: 04/05/19 08:43 Dose: 324 mg Meropenem 1 gm/ Sodium (Chloride) 100 mls @ 200 mls/hr IV Q8H [facility] Last Infusion: 04/05/19 09:42 Dose: Infused Acetaminophen (Ofirmev) 100 mls @ 400 mls/hr IV Q6HR PRN PRN Reason: PAIN Last Infusion: 04/04/19 11:35 Dose: Infused Sodium Chloride (Normal Saline 0.9%) 1,000 mls @ 100 mls/hr IV .Q10H [facility] Last Admin: 04/05/19 08:51 Dose: 100 mls/hr Insulin Aspart (Novolog) 2 - 10 unit SUBQ 0800,1200,1700,2100 [facility]; Protocol Last Admin: 04/05/19 08:31 Dose: 4 unit Insulin Glargine (Lantus Solostar) 15 unit SUBQ DAILY [facility] Last Admin: 04/05/19 08:30 Dose: 15 unit Lisinopril (Zestril) 2.5 mg PO DAILY [facility] Last Admin: 04/04/19 10:57 Dose: 2.5 mg Multivitamins (Theragran) 1 tab PO DAILYWM [facility] Last Admin: 04/05/19 08:43 Dose: 1 tab Ondansetron HCl (Zofran Inj) 4 mg IVP Q6HR PRN PRN Reason: Nausea / Vomiting Ondansetron HCl (Zofran Inj) 4 mg IVP Q6HR PRN PRN Reason: Nausea / Vomiting Polyethylene Glycol (Miralax) 17 gm PO DAILY [facility] Last Admin: 04/05/19 08:37 Dose: 17 gm Prochlorperazine Edisylate (Compazine Inj) 10 mg IVP Q6HR PRN PRN Reason: Nausea / Vomiting Saccharomyces Boulardii (Florastor) 250 mg PO BID [facility] Last Admin: 04/05/19 08:44 Dose: 250 mg Sodium Chloride (Normal Saline Flush 0.9%) 10 ml IVP PRN PRN PRN Reason: NEEDED PER PROVIDER ORDERS Last Admin: 04/02/19 18:00 Dose: 10 ml Sodium Chloride (Normal Saline Flush 0.9%) 10 ml IVP 0100,0900,1700 [facility] Last Admin: 04/05/19 09:00 Dose: Not Given Sodium Chloride (Normal Saline Flush 0.9%) 10 ml IVP 0100,0900,1700 [facility] Last Admin: 04/05/19 09:00 Dose: Not Given Sodium Chloride (Normal Saline Flush 0.9%) 10 ml IVP PRN PRN PRN Reason: NEEDED PER PROVIDER ORDERS Metformin HCl 1,000 mg PO BIDWM 03/30/19 glipiZIDE [Glipizide] 5 mg PO 0730 03/30/19 Objective - Vital Signs/Intake & Output Reviewed Vital Signs: Yes Vital Signs: Vital Signs x48h Temp Pulse Resp BP BP Pulse Ox 04/05/19 07:53 36.2 C L 67 16 114/78 98 04/05/19 07:49 36.2 C L 67 16 118/78 98 04/05/19 04:37 36.8 C 73 18 113/65 96 Intake & Output: Intake & Output 04/02/19 04/03/19 04/04/19 04/05/19 23:59 23:59 23:59 23:59 Intake Total 2100.00 3800 4300 1346.666 Output Total 2274 700 830 Balance -174.00 3100 4300 516.666 - Objective General Appearance: positive: No acute distress, Alert. negative: Lethargic Eyes Bilateral: positive: Normal inspection, PERRL, No lid inflammation, Conjunctivae nml ENT: positive: ENT inspection nml, Pharynx nml, No signs of dehydration. negative: Purulent nasal drainage, Pharyngeal erythema, Oral lesions, Dry mucous membranes Neck: positive: Nml inspection, Thyroid nml, No JVD, Trachea midline. negative: Thyromegaly, Lymphadenopathy (R), Lymphadenopathy (L), Stiff neck, Swelling/bruising, Tracheal deviation Respiratory: positive: Chest non-tender, No respiratory distress, Breath sounds nml. negative: Wheezes, Rales, Rhonchi Cardiovascular: positive: Regular rate & rhythm, No murmur, No gallop. negative: Irregularly irregular, Extrasystoles, Tachycardia, Bradycardia, JVD present, Systolic murmur, Diastolic murmur Peripheral Pulses: 2+ Radial (R), 2+ Radial (L), 2+ Dorsalis pedis (R), 2+ Dorsalis pedis (L) Abdomen: positive: Non-tender, No organomegaly, Nml bowel sounds, No distention. negative: Tenderness, Guarding, Rebound Back: positive: Nml inspection. negative: CVA tenderness (R), CVA tenderness (L) Skin: positive: Warm, Dry. negative: Cyanosis, Diaphoresis, Pallor Extremities: negative: Calf tenderness, Renato's sign/cords Neurologic/Psychiatric: positive: Oriented x3, Sensation nml, Mood/affect nml. negative: Weakness, Sensory loss, Facial droop, Slurred/abnml speech, Depressed mood/affect - Lab Results Fish Bones: 04/05/19 04:35 04/05/19 04:35 Other Labs: Lab Results x24hrs 04/05/19 04/05/19 04/05/19 Range/Units 11:12 07:29 04:35 WBC (4.8-10.8) x10^3/uL RBC (4.70-6.10) 10^6/uL Hgb (14.0-18.0) g/dL Hct (42.0-52.0) % MCV (80.0-94.0) fL MCH (27.0-31.0) pg MCHC (32.0-36.0) g/dL RDW (12.0-15.0) % Plt Count (130-450) 10^3/uL MPV (7.4-11.4) fL Neut # (Auto) (1.5-6.6) 10^3/uL Lymph # (Auto) (1.5-3.5) 10^3/uL [place] # (Auto) (0.0-1.0) 10^3/uL Eos # (Auto) (0.0-0.7) 10^3/uL Baso # (Auto) (0.0-0.1) 10^3/uL Absolute Nucleated RBC x10^3/uL Nucleated RBC % /100WBC Sodium 137 (135-145) mmol/L Potassium 4.0 (3.5-5.0) mmol/L Chloride 101 (101-111) mmol/L Carbon Dioxide 25 (21-32) mmol/L Anion Gap 11.0 (6-13) BUN 13 (6-20) mg/dL Creatinine 0.8 (0.6-1.2) mg/dL Estimated GFR (MDRD) 110 (>89) Glucose 204 H (70-100) mg/dL POC Whole Bld Glucose 199 H 202 H (70 - 100) mg/dL Calcium 8.2 L (8.5-10.3) mg/dL Total Bilirubin 0.2 (0.2-1.0) mg/dL AST 50 H (10-42) IU/L ALT 148 H (10-60) IU/L Alkaline Phosphatase 89 (42-121) IU/L Total Protein 7.2 (6.7-8.2) g/dL Albumin 2.5 L (3.2-5.5) g/dL Globulin 4.7 H (2.1-4.2) g/dL Albumin/Globulin Ratio 0.5 L (1.0-2.2) 04/05/19 04/04/19 04/04/19 Range/Units 04:35 20:39 16:52 WBC 8.3 (4.8-10.8) x10^3/uL RBC 3.51 L (4.70-6.10) 10^6/uL Hgb 8.8 L (14.0-18.0) g/dL Hct 27.2 L (42.0-52.0) % MCV 77.5 L (80.0-94.0) fL MCH 25.1 L (27.0-31.0) pg MCHC 32.4 (32.0-36.0) g/dL RDW 15.2 H (12.0-15.0) % Plt Count 381 (130-450) 10^3/uL MPV 6.8 L (7.4-11.4) fL Neut # (Auto) 5.3 (1.5-6.6) 10^3/uL Lymph # (Auto) 2.0 (1.5-3.5) 10^3/uL [place] # (Auto) 0.5 (0.0-1.0) 10^3/uL Eos # (Auto) 0.4 (0.0-0.7) 10^3/uL Baso # (Auto) 0.1 (0.0-0.1) 10^3/uL Absolute Nucleated RBC 0.00 x10^3/uL Nucleated RBC % 0.0 /100WBC Sodium (135-145) mmol/L Potassium (3.5-5.0) mmol/L Chloride (101-111) mmol/L Carbon Dioxide (21-32) mmol/L Anion Gap (6-13) BUN (6-20) mg/dL Creatinine (0.6-1.2) mg/dL Estimated GFR (MDRD) (>89) Glucose (70-100) mg/dL POC Whole Bld Glucose 218 H 173 H (70 - 100) mg/dL Calcium (8.5-10.3) mg/dL Total Bilirubin (0.2-1.0) mg/dL AST (10-42) IU/L ALT (10-60) IU/L Alkaline Phosphatase (42-121) IU/L Total Protein (6.7-8.2) g/dL Albumin (3.2-5.5) g/dL Globulin (2.1-4.2) g/dL Albumin/Globulin Ratio (1.0-2.2) ABX Reporting Has patient been on IV antibiotics over the past 48 hours?: Yes Sepsis Event Note (H) - Evaluation Current Stage of Sepsis: Resolved Possible source of Sepsis: positive: Bone/Joint - Sepsis Criteria Sepsis Criteria: Recorded Temperature greater than 38.3C or Less than 36C, Recorded Heart Rate greater than 90 bpm, WBC count greater than 12,000 or less than 4000 Assessment/Plan - Problem List (1) Diabetic foot infection Impression: 04/05 day one 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 pt tolerate the procedure well, and ate the lunch and denies pain. continue antibiotics Meopenum. 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 discussed the MRI result with pt. Pt has already known the result, and discussed with orthopedics surgeon, and agreed to have surgeon on tomorrow. pain control continue antibiotics Meopenum. wound culture reveals positive two bacterial, Providencia stuarti, and beta hemolytic strep Group B, sensitive to Meopenum. NPO at middle (2) Fever Impression: resolved stable, no more fever, and continue Afebrile today. Second set of new BC x2 are now negative - Continue meropemum (3) Effusion, left knee Impression: stable/resolved, continue Colchicine pt repot he feel much better after Dr. Reyes drained out on his left knee. Crystals noted, indicates likely a gouty flare. culture and stain are negative for bacterial Serum Uric acid normal contine Colchicine, pt's kidney function is normal continue wrap left knee using an MARCELLUS wrap for compression to reduce swelling continue pain control (4) Type 2 diabetes mellitus Impression: 04/05, increase Lantus to 15 unit daily since pt still has slight elevated glucose level continue slide scale, ACHS, and hypoglycemia protocol 04/04, discuss with pt about his insulin issue at his home, advise pt continue his insulin treatment for his uncontrolled and complicated DM Non-compliant at home for insulin. Current A1 C is 8.4% on 03/30/2019 Blood sugars is slight high Adjusted Lantus from BID to once daily at HS reduced to 10 units carb-controlled diet (6) iron deficiency Anemia Impression: 04/05 HGB is steady slightly increased. continue iron supplement HGB increase, continue iron pill, and lab monitor Known history of iron deficiency anemia, and iron studies from October confirm iron deficiency iron was 6, very low, start with IV of Iron continue PO iron pill (7) Congenital hip dysplasia stable pt has hx of contenital hip hysplasia encourage movement, continue support (8) Essential hypertension Impression: stable (9) Gout 04/04 pt report he has no more pain ,and no more swelling continue Colchicine knee effusion reveals monosodium urate. serum uric acid level is normal contine Colchicine, pt's kidney function is normal (10) Peripheral neuropathy Impression: stable
--- NOTE | 2019-04-05 12:03 | PROVIDER PROGRESS NOTE ---
Subjective - Prog Note Date Prog Note Date: 04/05/19 Prog Note Time: 12:00 - Subjective Pt reports feeling: Improved (No new complaints) Objective - Vital Signs/Intake & Output Vital Signs: Vital Signs x48h Temp Pulse Resp BP BP Pulse Ox 04/05/19 11:48 36.5 C 66 16 128/88 H 98 04/05/19 07:53 36.2 C L 67 16 114/78 98 04/05/19 07:49 36.2 C L 67 16 118/78 98 04/05/19 04:37 36.8 C 73 18 113/65 96 Intake & Output: Intake & Output 04/02/19 04/03/19 04/04/19 04/05/19 23:59 23:59 23:59 23:59 Intake Total 2100.00 3800 4300 1346.666 Output Total 2274 700 830 Balance -174.00 3100 4300 516.666 - Lab Results Fish Bones: 04/05/19 04:35 04/05/19 04:35 Other Labs: Lab Results x24hrs 04/05/19 04/05/19 04/05/19 Range/Units 11:12 07:29 04:35 WBC (4.8-10.8) x10^3/uL RBC (4.70-6.10) 10^6/uL Hgb (14.0-18.0) g/dL Hct (42.0-52.0) % MCV (80.0-94.0) fL MCH (27.0-31.0) pg MCHC (32.0-36.0) g/dL RDW (12.0-15.0) % Plt Count (130-450) 10^3/uL MPV (7.4-11.4) fL Neut # (Auto) (1.5-6.6) 10^3/uL Lymph # (Auto) (1.5-3.5) 10^3/uL [place] # (Auto) (0.0-1.0) 10^3/uL Eos # (Auto) (0.0-0.7) 10^3/uL Baso # (Auto) (0.0-0.1) 10^3/uL Absolute Nucleated RBC x10^3/uL Nucleated RBC % /100WBC Sodium 137 (135-145) mmol/L Potassium 4.0 (3.5-5.0) mmol/L Chloride 101 (101-111) mmol/L Carbon Dioxide 25 (21-32) mmol/L Anion Gap 11.0 (6-13) BUN 13 (6-20) mg/dL Creatinine 0.8 (0.6-1.2) mg/dL Estimated GFR (MDRD) 110 (>89) Glucose 204 H (70-100) mg/dL POC Whole Bld Glucose 199 H 202 H (70 - 100) mg/dL Calcium 8.2 L (8.5-10.3) mg/dL Total Bilirubin 0.2 (0.2-1.0) mg/dL AST 50 H (10-42) IU/L ALT 148 H (10-60) IU/L Alkaline Phosphatase 89 (42-121) IU/L Total Protein 7.2 (6.7-8.2) g/dL Albumin 2.5 L (3.2-5.5) g/dL Globulin 4.7 H (2.1-4.2) g/dL Albumin/Globulin Ratio 0.5 L (1.0-2.2) 04/05/19 04/04/19 04/04/19 Range/Units 04:35 20:39 16:52 WBC 8.3 (4.8-10.8) x10^3/uL RBC 3.51 L (4.70-6.10) 10^6/uL Hgb 8.8 L (14.0-18.0) g/dL Hct 27.2 L (42.0-52.0) % MCV 77.5 L (80.0-94.0) fL MCH 25.1 L (27.0-31.0) pg MCHC 32.4 (32.0-36.0) g/dL RDW 15.2 H (12.0-15.0) % Plt Count 381 (130-450) 10^3/uL MPV 6.8 L (7.4-11.4) fL Neut # (Auto) 5.3 (1.5-6.6) 10^3/uL Lymph # (Auto) 2.0 (1.5-3.5) 10^3/uL [place] # (Auto) 0.5 (0.0-1.0) 10^3/uL Eos # (Auto) 0.4 (0.0-0.7) 10^3/uL Baso # (Auto) 0.1 (0.0-0.1) 10^3/uL Absolute Nucleated RBC 0.00 x10^3/uL Nucleated RBC % 0.0 /100WBC Sodium (135-145) mmol/L Potassium (3.5-5.0) mmol/L Chloride (101-111) mmol/L Carbon Dioxide (21-32) mmol/L Anion Gap (6-13) BUN (6-20) mg/dL Creatinine (0.6-1.2) mg/dL Estimated GFR (MDRD) (>89) Glucose (70-100) mg/dL POC Whole Bld Glucose 218 H 173 H (70 - 100) mg/dL Calcium (8.5-10.3) mg/dL Total Bilirubin (0.2-1.0) mg/dL AST (10-42) IU/L ALT (10-60) IU/L Alkaline Phosphatase (42-121) IU/L Total Protein (6.7-8.2) g/dL Albumin (3.2-5.5) g/dL Globulin (2.1-4.2) g/dL Albumin/Globulin Ratio (1.0-2.2) - Other Results/Comments Other Results/Comments: EXAM: Dressing changed. Moderate amount of serosangious drainage. The dorsal wound edge (1 cm wide) is bruised appearing but not necrotic. Mild swelling; no erythema noted Sepsis Event Note (H) - Evaluation Current Stage of Sepsis: Resolved Possible source of Sepsis: positive: Bone/Joint - Sepsis Criteria Sepsis Criteria: Recorded Temperature greater than 38.3C or Less than 36C, Recorded Heart Rate greater than 90 bpm, WBC count greater than 12,000 or less than 4000 Assessment/Plan - Problem List (2) Diabetic foot infection Impression: Satis post op PLAN: Drain out in AM. Dry dressing changes daily thereafter. Likely can go home Sat with oral antibiotics x 10-14 days and home dressing changes. Follow up in clinic in 5-7 days for wound check
[2019-04-05] MEDS: ATORVASTATIN 40 MG TABLET PO SCH (20:57)
[2019-04-06] MEDS: SODIUM CHLORIDE FLUSH 0.9% 10 ML SYRINGE IVP SCH ×6 (00:34→16:42)
[2019-04-06] MEDS: MEROPENEM 1 GM in SODIUM CHLORIDE 0.9% MINIBAG 100 ML IV SCH ×2 (00:40→08:05)
[2019-04-06] MEDS: SODIUM CHLORIDE FLUSH 0.9% 10 ML SYRINGE IVP PRN (01:32)
[2019-04-06 05:44] LABS: BASOPHILS # (AUTO) 0.1 10^3/uL (0.0-0.1); EOSINOPHILS # (AUTO) 0.3 10^3/uL (0.0-0.7); HGB - HEMOGLOBIN 8.3 g/dL (14.0-18.0); LYMPHOCYTES # (AUTO) 2.2 10^3/uL (1.5-3.5); LYMPHOCYTES % (AUTO) 28.3 %; MEAN CORPUSCULAR HEMOGLOBIN 25.5 pg (27.0-31.0); MEAN CORPUSCULAR HGB CONC 33.3 g/dL (32.0-36.0); MEAN CORPUSCULAR VOLUME 76.4 fL (80.0-94.0); MEAN PLATELET VOLUME 6.6 fL (7.4-11.4); MONOCYTES # (AUTO) 0.4 10^3/uL (0.0-1.0); MONOCYTES % (AUTO) 5.6 %; NEUTROPHILS # (AUTO) 4.7 10^3/uL (1.5-6.6); NEUTROPHILS % (AUTO) 61.1 %; PLT - PLATELET COUNT 369 10^3/uL (130-450); RED BLOOD COUNT 3.25 10^6/uL (4.70-6.10); RED CELL DISTRIBUTION WIDTH 15.4 % (12.0-15.0); WHITE BLOOD COUNT 7.7 x10^3/uL (4.8-10.8)
[2019-04-06 05:55] LABS: ALBUMIN 2.6 g/dL (3.2-5.5); ALBUMIN/GLOBULIN RATIO 0.6 (1.0-2.2); BILIRUBIN,TOTAL 0.4 mg/dL (0.2-1.0); CALCIUM 8.7 mg/dL (8.5-10.3); CREATININE 0.8 mg/dL (0.6-1.2); TOTAL PROTEIN 7.3 g/dL (6.7-8.2)
[2019-04-06] MEDS: CYANOCOBALAMIN 500 MCG TABLET PO SCH (08:10)
[2019-04-06] MEDS: LISINOPRIL 5 MG TABLET PO SCH (08:10)
[2019-04-06] MEDS: SACCHAROMYCES BOULARDII 250 MG CAPSULE PO SCH ×2 (08:10→20:50)
[2019-04-06] MEDS: COLCHICINE 0.6 MG TABLET PO SCH (08:10)
[2019-04-06] MEDS: ASPIRIN 325 MG TABLET PO SCH ×2 (08:10→17:06)
[2019-04-06] MEDS: ENOXAPARIN 40 MG/0.4 ML SYRINGE SUBQ SCH (08:11)
[2019-04-06] MEDS: DOCUSATE SODIUM 250 MG CAPSULE PO SCH (08:11)
[2019-04-06] MEDS: MULTIVITAMIN TABLET PO SCH (08:11)
[2019-04-06] MEDS: FERROUS GLUCONATE 324 MG TABLET PO SCH ×2 (08:11→17:06)
[2019-04-06] MEDS: POLYETHYLENE GLYCOL 3350 17 GM PACKET PO SCH (08:12)
[2019-04-06] MEDS: INSULIN GLARGINE 300 UNIT/3 ML PEN SUBQ SCH (08:22)
[2019-04-06] MEDS: INSULIN ASPART 300 UNIT/3 ML PEN SUBQ SCH ×4 (08:23→20:50)
[2019-04-06] MEDS ORDERED: FERRIC GLUCONATE 125 MG in SODIUM CHLORIDE 0.9% 100ML 100 ML IV ONE (10:00)
--- NOTE | 2019-04-06 10:16 | PROVIDER PROGRESS NOTE ---
Subjective - Prog Note Date Prog Note Date: 04/06/19 - Subjective Pt reports feeling: Improved Subjective: pt report his leg pain is controlled, denies fever, and chill. Discuss with pt about his wound dress change, he verbally state he understand. Discussed with Dr. Reyes and pt, if pt continue improved, pt may be d/c on tomorrow with PO antibiotics and wound dress change, and followup orthopedics office. Current Medications - Current Medications Current Medications: Active Medications Acetaminophen (Tylenol) 650 mg PO Q4HR PRN PRN Reason: Pain 1 to 4 Last Admin: 04/01/19 00:51 Dose: 650 mg Hydrocodone Bitart/Acetaminophen ([place] 10 Mg/325 Mg) 1 tab PO Q4HR PRN PRN Reason: Pain 8 to 10 Last Admin: 03/31/19 14:53 Dose: 1 tab Aspirin (Robby) 325 mg PO BIDWM [facility] Last Admin: 04/06/19 08:10 Dose: 325 mg Atorvastatin Calcium (Lipitor) 20 mg PO QPM [facility] Last Admin: 04/05/19 20:57 Dose: 20 mg Colchicine (Colcrys) 0.6 mg PO DAILY [facility] Last Admin: 04/06/19 08:10 Dose: 0.6 mg Cyanocobalamin (Vitamin B-12) 500 mcg PO DAILY [facility] Last Admin: 04/06/19 08:10 Dose: 500 mcg Docusate Sodium (Colace 250mg Capsule) 250 - 500 mg PO DAILY [facility] Last Admin: 04/06/19 08:11 Dose: 250 mg Enoxaparin Sodium (Lovenox) 40 mg SUBQ DAILY [facility] Last Admin: 04/06/19 08:11 Dose: 40 mg Ferrous Gluconate (Fergon) 324 mg PO BIDWM [facility] Last Admin: 04/06/19 08:11 Dose: 324 mg Meropenem 1 gm/ Sodium (Chloride) 100 mls @ 200 mls/hr IV Q8H [facility] Last Infusion: 04/06/19 09:35 Dose: Infused Insulin Aspart (Novolog) 3 - 11 unit SUBQ 0800,1200,1700,2100 [facility]; Protocol Last Admin: 04/06/19 08:23 Dose: 3 unit Insulin Glargine (Lantus Solostar) 15 unit SUBQ DAILY [facility] Last Admin: 04/06/19 08:22 Dose: 15 unit Lisinopril (Zestril) 2.5 mg PO DAILY [facility] Last Admin: 04/06/19 08:10 Dose: 2.5 mg Multivitamins (Theragran) 1 tab PO DAILYWM [facility] Last Admin: 04/06/19 08:11 Dose: 1 tab Ondansetron HCl (Zofran Inj) 4 mg IVP Q6HR PRN PRN Reason: Nausea / Vomiting Ondansetron HCl (Zofran Inj) 4 mg IVP Q6HR PRN PRN Reason: Nausea / Vomiting Polyethylene Glycol (Miralax) 17 gm PO DAILY [facility] Last Admin: 04/06/19 08:12 Dose: 17 gm Prochlorperazine Edisylate (Compazine Inj) 10 mg IVP Q6HR PRN PRN Reason: Nausea / Vomiting Saccharomyces Boulardii (Florastor) 250 mg PO BID [facility] Last Admin: 04/06/19 08:10 Dose: 250 mg Sodium Chloride (Normal Saline Flush 0.9%) 10 ml IVP PRN PRN PRN Reason: NEEDED PER PROVIDER ORDERS Last Admin: 04/06/19 01:32 Dose: 10 ml Sodium Chloride (Normal Saline Flush 0.9%) 10 ml IVP 0100,0900,1700 [facility] Last Admin: 04/06/19 08:07 Dose: 10 ml Sodium Chloride (Normal Saline Flush 0.9%) 10 ml IVP 0100,0900,1700 [facility] Last Admin: 04/06/19 08:13 Dose: 10 ml Sodium Chloride (Normal Saline Flush 0.9%) 10 ml IVP PRN PRN PRN Reason: NEEDED PER PROVIDER ORDERS Metformin HCl 1,000 mg PO BIDWM 03/30/19 glipiZIDE [Glipizide] 5 mg PO 0730 03/30/19 Objective - Vital Signs/Intake & Output Reviewed Vital Signs: Yes Vital Signs: Vital Signs x48h Temp Pulse Resp BP Pulse Ox 04/06/19 07:50 36.8 C 62 17 118/85 H 99 Intake & Output: Intake & Output 04/03/19 04/04/19 04/05/19 04/06/19 23:59 23:59 23:59 23:59 Intake Total 3800 4300 5003.266 560 Output Total 700 830 Balance 3100 4300 4173.266 560 - Objective General Appearance: positive: No acute distress, Alert. negative: Lethargic Eyes Bilateral: positive: Normal inspection, PERRL, No lid inflammation, Conjunctivae nml ENT: positive: ENT inspection nml, Pharynx nml, No signs of dehydration. negative: Purulent nasal drainage, Pharyngeal erythema, Oral lesions Neck: positive: Nml inspection, Thyroid nml, No JVD, Trachea midline. negative: Thyromegaly, Lymphadenopathy (R), Lymphadenopathy (L), Stiff neck, Swelling/bruising, Tracheal deviation Respiratory: positive: Chest non-tender, No respiratory distress, Breath sounds nml. negative: Wheezes, Rales, Rhonchi Cardiovascular: positive: Regular rate & rhythm, No murmur, No gallop. ne gative: Irregularly irregular Peripheral Pulses: 2+ Radial (R), 2+ Radial (L), 2+ Dorsalis pedis (R), 2+ Dorsalis pedis (L) Abdomen: positive: Non-tender, No organomegaly, Nml bowel sounds, No distention. negative: Tenderness, Guarding, Rebound Back: positive: Nml inspection. negative: CVA tenderness (R), CVA tenderness ( L) Skin: positive: Warm, Dry. negative: Cyanosis, Diaphoresis, Pallor Extremities: negative: Calf tenderness, Joint swelling, Renato's sign/cords Neurologic/Psychiatric: positive: Oriented x3, Sensation nml, Mood/affect nml. negative: Weakness, Sensory loss, Facial droop, Slurred/abnml speech, Depressed mood/affect - Lab Results Fish Bones: 04/06/19 05:00 04/06/19 05:00 Other Labs: Lab Results x24hrs 04/06/19 04/06/19 04/06/19 Range/Units 07:51 05:00 05:00 WBC 7.7 (4.8-10.8) x10^3/uL RBC 3.25 L (4.70-6.10) 10^6/uL Hgb 8.3 L (14.0-18.0) g/dL Hct 24.8 L (42.0-52.0) % MCV 76.4 L (80.0-94.0) fL MCH 25.5 L (27.0-31.0) pg MCHC 33.3 (32.0-36.0) g/dL RDW 15.4 H (12.0-15.0) % Plt Count 369 (130-450) 10^3/uL MPV 6.6 L (7.4-11.4) fL Neut # (Auto) 4.7 (1.5-6.6) 10^3/uL Lymph # (Auto) 2.2 (1.5-3.5) 10^3/uL [place] # (Auto) 0.4 (0.0-1.0) 10^3/uL Eos # (Auto) 0.3 (0.0-0.7) 10^3/uL Baso # (Auto) 0.1 (0.0-0.1) 10^3/uL Absolute Nucleated RBC 0.00 x10^3/uL Nucleated RBC % 0.1 /100WBC Sodium 138 (135-145) mmol/L Potassium 4.0 (3.5-5.0) mmol/L Chloride 102 (101-111) mmol/L Carbon Dioxide 26 (21-32) mmol/L Anion Gap 10.0 (6-13) BUN 12 (6-20) mg/dL Creatinine 0.8 (0.6-1.2) mg/dL Estimated GFR (MDRD) 110 (>89) Glucose 151 H (70-100) mg/dL POC Whole Bld Glucose 160 H (70 - 100) mg/dL Calcium 8.7 (8.5-10.3) mg/dL Total Bilirubin 0.4 (0.2-1.0) mg/dL AST 37 (10-42) IU/L ALT 117 H (10-60) IU/L Alkaline Phosphatase 85 (42-121) IU/L Total Protein 7.3 (6.7-8.2) g/dL Albumin 2.6 L (3.2-5.5) g/dL Globulin 4.7 H (2.1-4.2) g/dL Albumin/Globulin Ratio 0.6 L (1.0-2.2) 04/05/19 04/05/19 04/05/19 Range/Units 20:45 16:41 11:12 WBC (4.8-10.8) x10^3/uL RBC (4.70-6.10) 10^6/uL Hgb (14.0-18.0) g/dL Hct (42.0-52.0) % MCV (80.0-94.0) fL MCH (27.0-31.0) pg MCHC (32.0-36.0) g/dL RDW (12.0-15.0) % Plt Count (130-450) 10^3/uL MPV (7.4-11.4) fL Neut # (Auto) (1.5-6.6) 10^3/uL Lymph # (Auto) (1.5-3.5) 10^3/uL [place] # (Auto) (0.0-1.0) 10^3/uL Eos # (Auto) (0.0-0.7) 10^3/uL Baso # (Auto) (0.0-0.1) 10^3/uL Absolute Nucleated RBC x10^3/uL Nucleated RBC % /100WBC Sodium (135-145) mmol/L Potassium (3.5-5.0) mmol/L Chloride (101-111) mmol/L Carbon Dioxide (21-32) mmol/L Anion Gap (6-13) BUN (6-20) mg/dL Creatinine (0.6-1.2) mg/dL Estimated GFR (MDRD) (>89) Glucose (70-100) mg/dL POC Whole Bld Glucose 221 H 241 H 199 H (70 - 100) mg/dL Calcium (8.5-10.3) mg/dL Total Bilirubin (0.2-1.0) mg/dL AST (10-42) IU/L ALT (10-60) IU/L Alkaline Phosphatase (42-121) IU/L Total Protein (6.7-8.2) g/dL Albumin (3.2-5.5) g/dL Globulin (2.1-4.2) g/dL Albumin/Globulin Ratio (1.0-2.2) ABX Reporting Has patient been on IV antibiotics over the past 48 hours?: Yes Sepsis Event Note (H) - Evaluation Current Stage of Sepsis: Resolved Possible source of Sepsis: positive: Bone/Joint - Sepsis Criteria Sepsis Criteria: Recorded Temperature greater than 38.3C or Less than 36C, Recorded Heart Rate greater than 90 bpm, WBC count greater than 12,000 or less than 4000 Assessment/Plan - Problem List (1) Diabetic foot infection Impression: 04/06 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 pt tolerate the procedure well, and ate the lunch and denies pain. continue antibiotics Meopenum. 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 discussed the MRI result with pt. Pt has already known the result, and discussed with orthopedics surgeon, and agreed to have surgeon on tomorrow. pain control continue antibiotics Meopenum. wound culture reveals positive two bacterial, Providencia stuarti, and beta hemolytic strep Group B, sensitive to Meopenum. NPO at middle (2) Fever Impression: resolved stable, no more fever, and continue Afebrile today. Second set of new BC x2 are now negative - Continue meropemum (3) Effusion, left knee Impression: stable/resolved, continue Colchicine pt repot he feel much better after Dr. Reyes drained out on his left knee. Cryst als noted, indicates likely a gouty flare. culture and stain are negative for bacterial Serum Uric acid normal contine Colchicine, pt's kidney function is normal continue wrap left knee using an MARCELLUS wrap for compression to reduce swelling continue pain control (4) Type 2 diabetes mellitus Impression: 04/06 glucose is 150 at morning, continue Lantus 15 units daily continue slide scale, ACHS, and hypoglycemia protocol 04/05, increase Lantus to 15 unit daily since pt still has slight elevated glucose level continue slide scale, ACHS, and hypoglycemia protocol 04/04, discuss with pt about his insulin issue at his home, advise pt continue his insulin treatment for his uncontrolled and complicated DM Non-compliant at home for insulin. Current A1 C is 8.4% on 03/30/2019 Blood sugars is slight high Adjusted Lantus from BID to once daily at HS reduced to 10 units carb-controlled diet (6) iron deficiency Anemia Impression: 04/06 HGB is stable, likely chronic iron deficiency 04/05 HGB is steady slightly increased. continue iron supplement HGB increase, continue iron pill, and lab monitor Known history of iron deficiency anemia, and iron studies from October confirm iron deficiency iron was 6, very low, start with IV of Iron continue PO iron pill (7) Congenital hip dysplasia stable pt has hx of contenital hip hysplasia encourage movement, continue support (8) Essential hypertension Impression: stable (9) Gout 04/04 pt report he has no more pain ,and no more swelling continue Colchicine knee effusion reveals monosodium urate. serum uric acid level is normal contine Colchicine, pt's kidney function is normal (10) Peripheral neuropathy Impression: stable (11)transaminitis pt has elevated liver enzyme, but is reduced to closely to normal, unknown etiology. pt is asymptomatic, no N/V or loss of appetite continue lab monitor, hold hepatic toxical agent.
--- NOTE | 2019-04-06 12:56 | PROVIDER PROGRESS NOTE ---
Subjective - Prog Note Date Prog Note Date: 04/06/19 Prog Note Time: 12:53 - Subjective Pt reports feeling: Improved (No new complaints) Objective - Vital Signs/Intake & Output Vital Signs: Vital Signs x48h Temp Pulse Resp BP Pulse Ox 04/06/19 07:50 36.8 C 62 17 118/85 H 99 Intake & Output: Intake & Output 04/03/19 04/04/19 04/05/19 04/06/19 23:59 23:59 23:59 23:59 Intake Total 3800 4300 5003.266 560 Output Total 700 830 Balance 3100 4300 4173.266 560 - Lab Results Fish Bones: 04/06/19 05:00 04/06/19 05:00 Other Labs: Lab Results x24hrs 04/06/19 04/06/19 04/06/19 Range/Units 12:00 07:51 05:00 WBC (4.8-10.8) x10^3/uL RBC (4.70-6.10) 10^6/uL Hgb (14.0-18.0) g/dL Hct (42.0-52.0) % MCV (80.0-94.0) fL MCH (27.0-31.0) pg MCHC (32.0-36.0) g/dL RDW (12.0-15.0) % Plt Count (130-450) 10^3/uL MPV (7.4-11.4) fL Neut # (Auto) (1.5-6.6) 10^3/uL Lymph # (Auto) (1.5-3.5) 10^3/uL [place] # (Auto) (0.0-1.0) 10^3/uL Eos # (Auto) (0.0-0.7) 10^3/uL Baso # (Auto) (0.0-0.1) 10^3/uL Absolute Nucleated RBC x10^3/uL Nucleated RBC % /100WBC Sodium 138 (135-145) mmol/L Potassium 4.0 (3.5-5.0) mmol/L Chloride 102 (101-111) mmol/L Carbon Dioxide 26 (21-32) mmol/L Anion Gap 10.0 (6-13) BUN 12 (6-20) mg/dL Creatinine 0.8 (0.6-1.2) mg/dL Estimated GFR (MDRD) 110 (>89) Glucose 151 H (70-100) mg/dL POC Whole Bld Glucose 193 H 160 H (70 - 100) mg/dL Calcium 8.7 (8.5-10.3) mg/dL Total Bilirubin 0.4 (0.2-1.0) mg/dL AST 37 (10-42) IU/L ALT 117 H (10-60) IU/L Alkaline Phosphatase 85 (42-121) IU/L Total Protein 7.3 (6.7-8.2) g/dL Albumin 2.6 L (3.2-5.5) g/dL Globulin 4.7 H (2.1-4.2) g/dL Albumin/Globulin Ratio 0.6 L (1.0-2.2) 04/06/19 04/05/19 04/05/19 Range/Units 05:00 20:45 16:41 WBC 7.7 (4.8-10.8) x10^3/uL RBC 3.25 L (4.70-6.10) 10^6/uL Hgb 8.3 L (14.0-18.0) g/dL Hct 24.8 L (42.0-52.0) % MCV 76.4 L (80.0-94.0) fL MCH 25.5 L (27.0-31.0) pg MCHC 33.3 (32.0-36.0) g/dL RDW 15.4 H (12.0-15.0) % Plt Count 369 (130-450) 10^3/uL MPV 6.6 L (7.4-11.4) fL Neut # (Auto) 4.7 (1.5-6.6) 10^3/uL Lymph # (Auto) 2.2 (1.5-3.5) 10^3/uL [place] # (Auto) 0.4 (0.0-1.0) 10^3/uL Eos # (Auto) 0.3 (0.0-0.7) 10^3/uL Baso # (Auto) 0.1 (0.0-0.1) 10^3/uL Absolute Nucleated RBC 0.00 x10^3/uL Nucleated RBC % 0.1 /100WBC Sodium (135-145) mmol/L Potassium (3.5-5.0) mmol/L Chloride (101-111) mmol/L Carbon Dioxide (21-32) mmol/L Anion Gap (6-13) BUN (6-20) mg/dL Creatinine (0.6-1.2) mg/dL Estimated GFR (MDRD) (>89) Glucose (70-100) mg/dL POC Whole Bld Glucose 221 H 241 H (70 - 100) mg/dL Calcium (8.5-10.3) mg/dL Total Bilirubin (0.2-1.0) mg/dL AST (10-42) IU/L ALT (10-60) IU/L Alkaline Phosphatase (42-121) IU/L Total Protein (6.7-8.2) g/dL Albumin (3.2-5.5) g/dL Globulin (2.1-4.2) g/dL Albumin/Globulin Ratio (1.0-2.2) - Other Results/Comments Other Results/Comments: EXAM: minimal drainage from wound - Gail drain removed without problem. Wound is benign, with the dorsal edge still ecchymotic but not necrotic. Sepsis Event Note (H) - Evaluation Current Stage of Sepsis: Resolved Possible source of Sepsis: positive: Bone/Joint - Sepsis Criteria Sepsis Criteria: Recorded Temperature greater than 38.3C or Less than 36C, Recorded Heart Rate greater than 90 bpm, WBC count greater than 12,000 or less than 4000 Assessment/Plan - Problem List (2) Diabetic foot infection Impression: stable PLAN: Discharge home Sat AM. Daily dressing changes with spouse assistance. Continue on oral antibiotics x 10-14 days. Follow up in clinic in 5-7 days for wound check.
[2019-04-06] MEDS: CEFEPIME 2 GM in SODIUM CHLORIDE 0.9% MINIBAG 100 ML IV SCH (20:50)
[2019-04-06] MEDS: ATORVASTATIN 40 MG TABLET PO SCH (20:50)
[2019-04-07] MEDS: SODIUM CHLORIDE FLUSH 0.9% 10 ML SYRINGE IVP SCH ×4 (00:03→08:50)
[2019-04-07 05:50] LABS: BASOPHILS # (AUTO) 0.1 10^3/uL (0.0-0.1); EOSINOPHILS # (AUTO) 0.3 10^3/uL (0.0-0.7); HGB - HEMOGLOBIN 9.3 g/dL (14.0-18.0); LYMPHOCYTES # (AUTO) 2.2 10^3/uL (1.5-3.5); LYMPHOCYTES % (AUTO) 26.1 %; MEAN CORPUSCULAR HEMOGLOBIN 25.5 pg (27.0-31.0); MEAN CORPUSCULAR HGB CONC 33.1 g/dL (32.0-36.0); MEAN CORPUSCULAR VOLUME 77.1 fL (80.0-94.0); MEAN PLATELET VOLUME 6.5 fL (7.4-11.4); MONOCYTES # (AUTO) 0.4 10^3/uL (0.0-1.0); MONOCYTES % (AUTO) 4.9 %; NEUTROPHILS # (AUTO) 5.5 10^3/uL (1.5-6.6); PLT - PLATELET COUNT 422 10^3/uL (130-450); RED BLOOD COUNT 3.65 10^6/uL (4.70-6.10); RED CELL DISTRIBUTION WIDTH 15.6 % (12.0-15.0); WHITE BLOOD COUNT 8.4 x10^3/uL (4.8-10.8)
[2019-04-07 06:00] LABS: ALBUMIN 2.8 g/dL (3.2-5.5); ALBUMIN/GLOBULIN RATIO 0.6 (1.0-2.2); BILIRUBIN,TOTAL 0.4 mg/dL (0.2-1.0); CALCIUM 9.1 mg/dL (8.5-10.3); CREATININE 0.8 mg/dL (0.6-1.2); TOTAL PROTEIN 7.5 g/dL (6.7-8.2)
[2019-04-07] MEDS: SACCHAROMYCES BOULARDII 250 MG CAPSULE PO SCH (08:49)
[2019-04-07] MEDS: CEFEPIME 2 GM in SODIUM CHLORIDE 0.9% MINIBAG 100 ML IV SCH (08:49)
[2019-04-07] MEDS: FERROUS GLUCONATE 324 MG TABLET PO SCH (08:49)
[2019-04-07] MEDS: POLYETHYLENE GLYCOL 3350 17 GM PACKET PO SCH (08:49)
[2019-04-07] MEDS: ENOXAPARIN 40 MG/0.4 ML SYRINGE SUBQ SCH (08:49)
[2019-04-07] MEDS: LISINOPRIL 5 MG TABLET PO SCH (08:49)
[2019-04-07] MEDS: ASPIRIN 325 MG TABLET PO SCH (08:49)
[2019-04-07] MEDS: DOCUSATE SODIUM 250 MG CAPSULE PO SCH (08:50)
[2019-04-07] MEDS: COLCHICINE 0.6 MG TABLET PO SCH (08:50)
[2019-04-07] MEDS: MULTIVITAMIN TABLET PO SCH (08:50)
[2019-04-07] MEDS: CYANOCOBALAMIN 500 MCG TABLET PO SCH (08:50)
[2019-04-07] MEDS: INSULIN GLARGINE 300 UNIT/3 ML PEN SUBQ SCH (08:53)
[2019-04-07] MEDS: INSULIN ASPART 300 UNIT/3 ML PEN SUBQ SCH ×2 (08:53→12:06)
[2019-04-07 09:02] VITALS: BP 118/83
--- NOTE | 2019-04-07 11:31 | Discharge Plan ---
Discharge Plan Disposition: Home, Self Care Condition: Serious Prescriptions: HYDROcodone/ACET 10/325 [[place] 10 mg/325 mg] 1 tab PO Q4HR PRN #20 tablet PRN Reason: Pain 8 to 10 Aspirin [Robby] 325 mg PO BIDWM #30 tablet Ciprofloxacin HCl [Cipro] 500 mg PO BID #30 tablet Colchicine [Colcrys] 0.6 mg PO DAILY #10 tablet Cyanocobalamin (Vitamin B-12) [Vitamin B-12] 1,000 mcg PO DAILY #10 capsule Ferrous Sulfate 325 mg PO DAILY #30 tablet Lisinopril [Zestril] 2.5 mg PO DAILY #15 tablet Saccharomyces Boulardii [Florastor] 250 mg PO DAILY #15 capsule Diet: Diabetic Activity Restrictions: Activity as Tolerated Instruction Topics: Ciprofloxacin tablets, Aspirin ASA chewable tablets, Colchicine tablets or capsules, Anemia Ch, Lisinopril tablets, Acetaminophen Hydrocodone tablets or capsules Additional Instructions or Follow Up instructions: you may followup your PCP in one week, followup [facility] and nurse instruction for wound care, follow up in orthopedic clinic in 5-7 days for wound check. Please discuss with PCP for diabetes management. You are prescribed antibiotics for wound care, Aspirin for DVT prophylaxis when you have wound, colchicine for gout in your knee, B12 and iron pill for your anemia, lisinopril for your HTN. Should your symptoms return or worsen, you may present ER, call 911 or your PCP for help. Follow-Up Care: [facility] [place] [facility] - Wound/Ostomy, [facility] [place] - Diabetes Ed No Smoking: If you smoke, Please STOP! Call for help. Follow-up with: Viky Hadley MD [Primary Care Provider] -
--- NOTE | 2019-04-07 12:35 | DISCHARGE SUMMARY ---
"Discharge Summary Discharge Date: 04/07/19 Discharging Provider: GALVEZ Primary Care Provider: Viky Jesus Condition at Discharge: Poor Discharge Disposition: Home Health Service Discharge Facility Name: home - DIAGNOSES Admission Diagnoses: (1) Cellulitis in diabetic foot (2) Osteomyelitis of foot (3) Anemia (4) Congenital hip dysplasia (5) Essential hypertension (6) Gout (7) Peripheral neuropathy (8) Depression (9) Type 2 diabetes mellitus Discharge Diagnoses with Status of Each Condition: (1) Diabetic foot infection pt had partial left 5th ray amputation of left foot done by Dr. leahy. Dr. Leahy checked daily and recommend pt can be d/c today with PO antibiotics Cipro per wound culture study and sensitive study. Wound care provider also saw pt , and recommend and arrange pt followup [facility] would care. Nurse also teach pt and his how to change pt's wound dress. followup orthopedics office in one week (2) Fever resolved. blood culture is negative (3) Effusion, left knee resolved. drainage fluid culture and stain reveals no bacteria seen and show monosodium Urate. pt is prescribed Colchicine. followup PCP for continue management. (4) Type 2 diabetes mellitus, uncontrolled resume his home meds. pt had his insurance issue and he did not use insulin at home although he had prescribe of insulin from his PCP. pt was provided many information by our social and counseling case manager to deal with his medical compliance. pt has hx of medical non-compliance. advise pt resolve his own insurance issue and followup his PCP for DM2 management, medical compliant. Advise pt DM2 control is essential for his wound healing. (6) iron deficiency Anemia improved and HGB increased. pt is prescribed iron pill, B12, followup PCP (7) Congenital hip dysplasia stable (8) Essential hypertension stable, pt is prescribed Lisinopril (9) Gout Colchicine, followup PCP continue management (10) Peripheral neuropathy stable (11) transaminitis resolved (12) hx of medical non-compliance advise pt medical compliance importance for his DM2 management, and his wound healing and control. - HPI History of Present Illness: pt is 33-yrs old male with poor controlled DM2 and hx of right foot infection. Pt complain his left foot infection at this time. pt report he did not have his insulin to treat his DM2 because his insurance issue. orthopedics was consulted for his DM2 foot infection. - CONSULTS | PROCEDURES Consultations: Dr. Leahy, orthopedics Procedures: left knee drainage and partial left 5th ray amputation of left foot - HOSPITAL COURSE Hospital Course: pt is initially treated with antibiotics per pt request. he decline surgery intervention initially, although image study of foot show pt had osteomyelitis on left 5th toe of left foot. pt also develop left knee pain, swelling, tenderness. Dr. Leahy drained his left knee. Culture and stain reveals of drainage fluid monosodium urate, without bacteria seen. Finally pt agree to have surgery intervention for his left 5th toe. Dr. leahy did surgery of left 5th ray amputation of left foot to pt. pt has no complication after surgery. Dr. Leahy recommend pt can be d/c today with PO antibiotics Cipro. Pt had wound culture from his left 5 toe infection site which reveals positive for Providencia Stuartii, and beta hemolytic strep Group B, sensitive to cipro. - ALLERGIES Allergies/Adverse Reactions: Allergies Allergy/AdvReac Type Severity Reaction Status Date / Time No Known Drug Intolerances Allergy Unknown Unknown Verified 03/29/19 21:42 macadamia nut oil Allergy Anaphylaxis Verified 03/29/19 21:42 walnut Allergy Anaphylaxis Verified 03/29/19 21:42 - MEDICATIONS Home Medications: Ambulatory Orders Medication Instructions Recorded Confirmed Metformin HCl 1,000 mg PO BIDWM 03/30/19 03/30/19 glipiZIDE [Glipizide] 5 mg PO 0730 03/30/19 03/30/19 Aspirin [Robby] 325 mg PO BIDWM #30 tablet 04/07/19 Ciprofloxacin HCl [Cipro] 500 mg PO BID #30 tablet 04/07/19 Colchicine [Colcrys] 0.6 mg PO DAILY #10 tablet 04/07/19 Cyanocobalamin (Vitamin B-12) 1,000 mcg PO DAILY #10 capsule 04/07/19 [Vitamin B-12] Ferrous Sulfate 325 mg PO DAILY #30 tablet 04/07/19 HYDROcodone/ACET 10/325 [Lamar 10 1 tab PO Q4HR PRN #20 tablet 04/07/19 mg/325 mg] Lisinopril [Zestril] 2.5 mg PO DAILY #15 tablet 04/07/19 Saccharomyces Boulardii [Florastor] 250 mg PO DAILY #15 capsule 04/07/19 - PHYSICAL EXAM AT DISCHARGE General Appearance: positive: No acute distress, Alert. negative: Lethargic Eyes Bilateral: positive: Normal inspection, PERRL, No lid inflammation, Conjunctivae nml ENT: positive: ENT inspection nml, Pharynx nml, No signs of dehydration. negative: Purulent nasal drainage, Pharyngeal erythema, Oral lesions Neck: positive: Nml inspection, Thyroid nml, No JVD, Trachea midline. negative: Thyromegaly, Lymphadenopathy (R), Lymphadenopathy (L), Stiff neck, Swell ing/bruising, Tracheal deviation Respiratory: positive: Chest non-tender, No respiratory distress, Breath sounds nml. negative: Wheezes, Rales, Rhonchi Cardiovascular: positive: Regular rate & rhythm, No murmur, No gallop. negative: Irregularly irregular, Extrasystoles, Tachycardia, Bradycardia, JVD present, Systolic murmur, Diastolic murmur Peripheral Pulses: positive: 2+ Abdomen: positive: Non-tender, No organomegaly, Nml bowel sounds, No distention. negative: Tenderness, Guarding, Rebound Back: positive: Nml inspection. negative: CVA tenderness (R), CVA tenderness (L) Skin: positive: Warm, Dry. negative: Cyanosis, Diaphoresis, Pallor Extremities: negative: Calf tenderness, Renato's sign/cords Neurologic/Psychiatric: positive: Oriented x3. negative: Weakness, Sensory loss, Facial droop, Slurred/abnml speech, Depressed mood/affect - LABS Result Diagrams: 04/07/19 05:05 04/07/19 05:05 - SEPSIS Current Stage of Sepsis: Resolved Possible source of Sepsis: Bone/Joint Sepsis Criteria: Recorded Temperature greater than 38.3C or Less than 36C, Recorded Heart Rate greater than 90 bpm, WBC count greater than 12,000 or less than 4000 - FOLLOW UP Follow Up: you may followup your PCP in one week, followup [facility] clinic and nurse instruction for wound care, follow up in orthopedic clinic in 5-7 days for wound check. Please discuss with PCP for diabetes management. You are prescribed antibiotics for wound care, Aspirin for DVT prophylaxis when you have wound, colchicine for gout in your knee, B12 and iron pill for your anemia, lisinopril for your HTN. Should your symptoms return or worsen, you may present ER, call 911 or your PCP for help. - TIME SPENT Time Spent in Discharge (Minutes): 60"
== END 2019-04-07 13:51 | disposition home health service (06) | DRG 854 ==
LOC: ED 21:26 → MS3 23:25
PROVIDERS: ADMIT Internal Medicine; ATTEND Nurse Practitioner Gerontology
PROC: 0LBW0ZZ Excision of Left Foot Tendon, Open Approach (ICD-10-PCS; 2019-03-30)
PROC: 0S9D3ZX Drainage of Left Knee Joint, Percutaneous Approach, Diagnostic (ICD-10-PCS; 2019-04-01)
PROC: 0Y6Y0Z0 Detachment at Left 5th Toe, Complete, Open Approach (ICD-10-PCS; principal; 2019-04-04 07:30)
DX: A40.1 Sepsis due to streptococcus, group B (principal); L97.526 Non-pressure chronic ulcer of other part of left foot with bone involvement without evidence of necrosis; M86.672 Other chronic osteomyelitis, left ankle and foot; M00.9 Pyogenic arthritis, unspecified; A41.89 Other specified sepsis; E11.621 Type 2 diabetes mellitus with foot ulcer; E11.628 Type 2 diabetes mellitus with other skin complications; L03.032 Cellulitis of left toe; E11.42 Type 2 diabetes mellitus with diabetic polyneuropathy; E11.65 Type 2 diabetes mellitus with hyperglycemia; E11.51 Type 2 diabetes mellitus with diabetic peripheral angiopathy without gangrene; D50.9 Iron deficiency anemia, unspecified; I10 Essential (primary) hypertension; M10.9 Gout, unspecified; F32.9 Major depressive disorder, single episode, unspecified; R74.0 Nonspecific elevation of levels of transaminase and lactic acid dehydrogenase [LDH]; E78.5 Hyperlipidemia, unspecified; T38.3X6A Underdosing of insulin and oral hypoglycemic [antidiabetic] drugs, initial encounter; Q65.89 Other specified congenital deformities of hip; Z91.138 Patient's unintentional underdosing of medication regimen for other reason; Y92.009 Unspecified place in unspecified non-institutional (private) residence as the place of occurrence of the external cause; Z87.891 Personal history of nicotine dependence; Z79.84 Long term (current) use of oral hypoglycemic drugs
CPT/HCPCS: 36415; 73560; 73630; 73718; 80053; 80061; 80069; 80202; 81003; 82607; 83036; 83540; 83605; 83690; 83735; 84100; 84466; 84550; 85025; 85610; 85651; 86140; 87040; 87070; 87077; 87181; 87205; 87640; 89051; 89060; 93922; 97161; 97165; 99283; 99284; A9270; J0131; J1650; J1815; J2185; J2916; J3370; J3490; J7120; 81001; 83721; 87086

== ENCOUNTER 2019-05-24 14:24 | Outpatient (CLI) | payer SELFPAY ==
[2019-05-24 14:45] LABS: BASOPHILS # (AUTO) 0.1 10^3/uL (0.0-0.1); BASOPHILS % (AUTO) 0.6 %; EOSINOPHILS # (AUTO) 0.2 10^3/uL (0.0-0.7); EOSINOPHILS % (AUTO) 2.3 %; HGB - HEMOGLOBIN 13.5 g/dL (14.0-18.0); LYMPHOCYTES # (AUTO) 2.5 10^3/uL (1.5-3.5); LYMPHOCYTES % (AUTO) 30.4 %; MEAN CORPUSCULAR HEMOGLOBIN 26.2 pg (27.0-31.0); MEAN CORPUSCULAR VOLUME 79.4 fL (80.0-94.0); MEAN PLATELET VOLUME 8.3 fL (7.4-11.4); MONOCYTES # (AUTO) 0.4 10^3/uL (0.0-1.0); MONOCYTES % (AUTO) 4.7 %; NEUTROPHILS % (AUTO) 61.4 %; PLT - PLATELET COUNT 301 10^3/uL (130-450); RED BLOOD COUNT 5.15 10^6/uL (4.70-6.10); RED CELL DISTRIBUTION WIDTH 15.2 % (12.0-15.0); WHITE BLOOD COUNT 8.2 x10^3/uL (4.8-10.8)
[2019-05-24 15:14] LABS: CREATININE 0.9 mg/dL (0.6-1.2)
[2019-05-24] MEDS ORDERED: GADOBUTROL 10 MMOL/10 ML VIAL IVP ONE (16:07)
--- NOTE | 2019-05-25 16:03 | MRI Report ---
Reason: R FOOT WOUND INFECTED Procedure Date: 05/24/2019 Accession Number: [id number] / [id number] Procedure: MRI - Foot RT W/WO CPT Code: FULL RESULT: EXAM: RIGHT FOREFOOT MRI WITHOUT AND WITH CONTRAST EXAM DATE: 05/24/2019 04:43 PM. CLINICAL HISTORY: R FOOT WOUND INFECTED. COMPARISON: FOOT RT W/WO 01/16/2019 11:40 AM FOOT 3 VIEW BILAT 05/23/2019 8:51 AM. TECHNIQUE: Multiplanar, multisequence T1-weighted and fluid-sensitive sequences of the forefoot before and after administration of intravenous contrast. IV contrast: 10 cc Gadavist. Other: None. FINDINGS: Bones and articular surfaces: Ill-defined joint effusion, synovial thickening and enhancement at the first MTP joint. Partial destruction of the distal first metatarsal and base of the proximal phalanx. Associated severe marrow edema, and enhancement and loss of T1 fatty marrow signal. Appearance consistent with septic arthritis with osteomyelitis. Marrow edema and enhancement also involves the medial greater than lateral sesamoid. Lateral subluxation of the proximal phalanx at the first MTP joint. Trace amount of marrow edema at the distal plantar aspect of the fifth metatarsal with a normal T1 fatty marrow signal maintained. Remaining visualized metatarsals and phalanges demonstrate normal marrow signal. Soft tissues: Severe soft tissue thickening, edema and enhancement within and surrounding the first MTP joint. No discrete drainable abscess identified. Possible small skin ulceration plantar to the distal fifth metatarsal. Slight degree of marrow edema in the underlying distal fifth metatarsal could represent reactive edema. Normal fatty marrow signal is maintained. Edema and atrophy throughout the intrinsic foot musculature. IMPRESSION: 1. Left first MTP septic arthritis and osteomyelitis. Adjacent cellulitis. 2. Possible small skin ulceration plantar to the distal fifth metatarsal with some underlying reactive marrow edema. RADIA
== END 2019-05-24 14:25 | disposition home or self-care (01) ==
LOC: LAB 14:24 → DI 14:25
PROVIDERS: ATTEND Internal Medicine
DX: M00.9 Pyogenic arthritis, unspecified (principal); M86.8X7 Other osteomyelitis, ankle and foot; L03.115 Cellulitis of right lower limb; Z48.89 Encounter for other specified surgical aftercare; Z79.899 Other long term (current) drug therapy
CPT/HCPCS: 36415; 82565; 85025; 85610; 85651

== ENCOUNTER 2019-06-19 06:01 | Day surgery (SDC) | payer SELFPAY ==
[2019-06-19] MEDS ORDERED: fentaNYL 100 MCG/2 ML VIAL IVP ONE (06:02)
[2019-06-19] MEDS ORDERED: KETAMINE 500 MG/10 ML VIAL IVP ONE (06:02)
[2019-06-19] MEDS ORDERED: MIDAZOLAM 2 MG/2 ML VIAL IVP ONE (06:02)
[2019-06-19] MEDS ORDERED: PROPOFOL 200 MG/20 ML VIAL IVP ONE (06:02)
[2019-06-19] MEDS ORDERED: CEFAZOLIN SODIUM IN 0.9 % NACL 2 GM/100 ML BAG IV ONE (06:38)
[2019-06-19] MEDS ORDERED: LACTATED RINGERS 1,000 ML IV ONE (06:51)
[2019-06-19 06:58] LABS: BASOPHILS # (AUTO) 0.1 10^3/uL (0.0-0.1); BASOPHILS % (AUTO) 0.6 %; EOSINOPHILS # (AUTO) 0.2 10^3/uL (0.0-0.7); EOSINOPHILS % (AUTO) 2.1 %; LYMPHOCYTES % (AUTO) 35.7 %; MEAN CORPUSCULAR HEMOGLOBIN 26.4 pg (27.0-31.0); MEAN CORPUSCULAR HGB CONC 32.9 g/dL (32.0-36.0); MEAN PLATELET VOLUME 8.6 fL (7.4-11.4); MONOCYTES # (AUTO) 0.6 10^3/uL (0.0-1.0); MONOCYTES % (AUTO) 7.1 %; NEUTROPHILS # (AUTO) 4.6 10^3/uL (1.5-6.6); NEUTROPHILS % (AUTO) 54.1 %; PLT - PLATELET COUNT 236 10^3/uL (130-450); RED BLOOD COUNT 5.31 10^6/uL (4.70-6.10); RED CELL DISTRIBUTION WIDTH 15.2 % (12.0-15.0); WHITE BLOOD COUNT 8.4 x10^3/uL (4.8-10.8)
--- NOTE | 2019-06-19 06:58 | ANESTHESIA ---
Pre-Anesthesia VS, & Labs - Diagnosis L foot diabetic foot ulcer - Procedure L great toe digit amputation partial v. complete Vital Signs: Temp Pulse Resp BP Pulse Ox 36.9 C 107 H 18 154/100 H 100 06/19/19 06:37 06/19/19 06:37 06/19/19 06:37 06/19/19 06:37 06/19/19 06:37 Height 6 ft 7 in Weight (kg) 114.4 kg Body Mass Index 31.8 - NPO >8 hours - Lab Results Current Lab Results: Laboratory Tests 06/19/19 06:49: POC Whole Bld Glucose 356 H Lab results reviewed: Yes Fish Bones: 06/19/19 06:50 Home Medications and Allergies Home Medications: Ambulatory Orders Amoxicillin/Potassium Clav [Amox Tr-K Clv 875-125 mg Tab] 1 each PO BID 06/18/19 Cholecalciferol (Vitamin D3) [Vitamin D] 2,000 unit PO DAILY 06/18/19 Ciprofloxacin HCl [Cipro] 500 mg PO BID 06/18/19 RX: Aspirin [Robby] 325 mg PO DAILY 06/18/19 Metformin HCl 1,000 mg PO BIDWM 03/30/19 glipiZIDE [Glipizide] 5 mg PO 0730 03/30/19 Doxycycline Hyclate 100 mg PO BID 05/07/19 Amoxicillin/Potassium Clav [Amox Tr-K Clv 875-125 mg Tab] 1 each PO BID 06/18/19 Aspirin [Robby] 325 mg PO DAILY 06/18/19 Cholecalciferol (Vitamin D3) [Vitamin D] 2,000 unit PO DAILY 06/18/19 Ciprofloxacin HCl [Cipro] 500 mg PO BID 06/18/19 Allergies/Adverse Reactions: Allergies Allergy/AdvReac Type Severity Reaction Status Date / Time No Known Drug Intolerances Allergy Unknown Unknown Verified 03/29/19 21:42 macadamia nut oil Allergy Anaphylaxis Verified 03/29/19 21:42 tree nut Allergy Anaphylaxis Verified 06/18/19 10:05 walnut Allergy Anaphylaxis Verified 03/29/19 21:42 Anes History & Medical History - Anesthetic History Anesthesia Complications: reports: No previous complications Family history of Anesthesia Complications: Denies Family history of Malignant Hyperthermia: Denies - Medical History Cardiovascular: reports: Hypertension, High cholesterol Pulmonary: reports: None Gastrointestinal: reports: GERD Urinary: reports: None Neuro: reports: Headaches, Peripheral neuropathy Musculoskeletal: reports: None Endocrine/Autoimmune: reports: Type 2 diabetes Blood Disorders: reports: None Skin: reports: Other Smoking Status: Former smoker - Surgical History Eyes Ears Nose Throat (EENT): Other Orthopedic: Other Exam General: Alert, Oriented x3, Cooperative Dental: WNL Mouth Openin Fingerbreadth Neck Mobility: Normal Mallampati classification: II Thyromental Distance: 4-6 cm Respiratory: Lungs clear, Normal breath sounds Cardiovascular: Regular rate Neurological: Normal speech Mental/Cognitive Status: Alert/Oriented X3 Cognitive Status: Within normal limits Plan Anesthesia Type: General (vs MAC local) Regional Block: Per Surgeon's request for Post Op pain control Consent for Procedure(s) Verified and Reviewed: Yes Code Status: Attempt Resuscitation ASA classification: 2-Mild systemic disease Is this case an emergency?: No
[2019-06-19 07:11] LABS: CALCIUM 9.6 mg/dL (8.5-10.3); CREATININE 1.1 mg/dL (0.6-1.2)
[2019-06-19] MEDS ORDERED: INSULIN REGULAR HUMAN 100 UNIT/1 ML 10 ML MDV ONE (07:17)
[2019-06-19] MEDS ORDERED: BUPIVACAINE 0.5% PF 10 ML VIAL ONE (07:23)
[2019-06-19] MEDS ORDERED: LIDOCAINE-MPF 1% 30 ML VIAL ONE (07:24)
--- NOTE | 2019-06-19 09:15 | OPERATIVE REPORT ---
Operative Report - General Procedure Date: 06/19/19 Planned Procedure: debridement and partial left great toe amputation Pre-Op Diagnosis: diabetic ulcer beneath 1st left Metatarsal phalangeal joint Procedure Performed: Deep debridement: skin, subcutaneous tissue, bone Excision of Sesamoid bones of great toe: medial and lateral sesamoid release of capsule, tendons around 1st MTP joint. extensors, abductor hallucis. - Procedure Note Primary Surgeon: melida Anesthesia Provider: emmy, Anesthesia Technique: MAC Pathology: tissue sent to path: Medial Sesamoid bone. Culture of wound sent Estimated Blood Loss (mL): 20
[2019-06-19 10:49] VITALS: BP 136/98
--- NOTE | 2019-06-19 13:32 | OPERATIVE REPORT ---
DATE OF SERVICE: 06/19/2019 Physician: Giancarlo Hinds MD PREOPERATIVE DIAGNOSIS: Infected diabetic ulceration of plantar first metatarsophalangeal joint, left foot. POSTOPERATIVE DIAGNOSIS: Infected diabetic ulceration of plantar first metatarsophalangeal joint, left foot. PROCEDURE PERFORMED: Debridement of plantar wound of left foot with debridement of skin, subcutaneous tissue, and bone; and excision of medial and lateral sesamoid bones, release of abductor hallucis insertion, and release of extensor tendon. OPERATING SURGEON: Giancarlo Hinds MD ANESTHESIA: General, Mary Guerra CRNA. INDICATIONS FOR SURGERY: Patient is a 33-year-old male, who has had problems of diabetic ulceration of both feet and has recently recovered from a ray amputation of his left fifth toe and ray, who has developed a deep plantar ulceration beneath the left first metatarsophalangeal joint with increasing reddening and increasing wound expansion. The recommendation has been made that he undergo an aggressive surgical debridement, including resection of bone and cultures and an attempt at salvation of that toe. The patient has given informed consent that this is a procedure that will develop as indicated in surgery. FINDINGS AT SURGERY: The patient had a fixed hallux valgus deformity, with a deep plantar ulcer exposing the underlying deep aponeurosis on the foot with mild foul smelling drainage, but not abundant, and with a tendency of extension through the metatarsophalangeal joint because of a tight extensor tendon. On deep dissection beneath the plantar aponeurosis, there was not purulent abscess, and there did not appear to be gross involvement of bone, although the medial sesamoid appeared to be the pressure point beneath the ulcer, and therefore, it was the bone that was sent for path as a specimen. Cultures also were sent. DESCRIPTION OF OPERATIVE PROCEDURE: Patient was taken to the operating room. He was given sedation, and he had undergone an ankle block by Mary Guerra CRNA. After this, his foot and leg were sterilely prepped and draped in standard fashion. A scalpel was used to debride the patient's wound, and the entire wound was ellipsed with an incision that extended along the plantar medial aspect of the foot. This was taken down through subcutaneous tissues, beneath the plantar aponeurosis, and carefully excising tissue and avoiding neurovascular bundles that were deep to this. The medial sesamoid was deep in the field here and was excised and the specimen sent for micro and pathology. Cultures were sent. It was elected to proceed with excision of the lateral sesamoid, which was adjacent to this area and not directly under the wound, but definitely a future pressure point. This was excised. At the conclusion of this, the foot was in a position of easier correctability, and the wound showed more tendency towards closure without tension; but it was felt necessary to debride some of the medial exostosis on the metatarsal head, and to do a release of the extensor hallucis tendon so that the toe was not drawn up and forced into dorsiflexion, and also to release the adductor tendon so that the toe could fall into a better corrected position. These releases were done through small stab wounds, and the foot was flushed, irrigated, and the Esmarch used as the tourniquet was released; and there was some venous bleeding, and the toe pinked up appropriately. There was no arterial bleeding evident. Dressings were applied after tacking the wound lightly closed with 2-0 Ethibond and then placing a compressive dressing and a posterior splint. The patient was taken to the recovery room in stable condition. ESTIMATED BLOOD LOSS: About 25 mL COMPLICATIONS: None. COUNTS: Sponge and needle counts were correct. TD: 06/19/2019 12:30 ABISAI
== END 2019-06-19 06:02 | disposition home or self-care (01) ==
LOC: SDS 06:01
PROVIDERS: ATTEND Orthopaedic Surgery
PROC: 0LNW0ZZ Release Left Foot Tendon, Open Approach (ICD-10-PCS; 2019-06-19)
PROC: 0LNW0ZZ Release Left Foot Tendon, Open Approach (ICD-10-PCS; 2019-06-19)
PROC: 0QTP0ZZ Resection of Left Metatarsal, Open Approach (ICD-10-PCS; 2019-06-19)
PROC: 0QBP0ZZ Excision of Left Metatarsal, Open Approach (ICD-10-PCS; principal; 2019-06-19 07:30)
DX: E11.621 Type 2 diabetes mellitus with foot ulcer (principal); L97.526 Non-pressure chronic ulcer of other part of left foot with bone involvement without evidence of necrosis; M86.672 Other chronic osteomyelitis, left ankle and foot; Z79.84 Long term (current) use of oral hypoglycemic drugs; I10 Essential (primary) hypertension; E11.42 Type 2 diabetes mellitus with diabetic polyneuropathy; M20.12 Hallux valgus (acquired), left foot
CPT/HCPCS: 11044; 28234; 28315; 80048; 85025; J0690; J1815; J7120; 87070; 87205

== ENCOUNTER 2019-06-19 16:56 | Inpatient (IN) | payer SELFPAY ==
--- NOTE | 2019-06-19 17:27 | ED Physician Documentation ---
History of Present Illness - Stated complaint Stated Complaint: FEVER/POST OP - Chief complaint Chief Complaint: Fever - History obtained from History obtained from: Patient, Family - History of Present Illness Timing: Today Pain level max: 0 Pain level now: 0 - Additonal information Additional information: 33-year-old male, diabetic presents to the emergency department after having debridement on a diabetic foot ulcer on his foot today. He states that when he returned home he began to feel chilled and took his temperature and it was 100.7. He states he was told to return to the emergency department if he develops fevers. Mild cough. No vomiting. No abdominal pain. He is on Augmentin and doxycycline at home and has been for 3 months for the foot infection. Nothing makes it better or worse. Did take Tylenol Prior to coming to the emergency department. Review of Systems Ten Systems: 10 systems reviewed and negative Constitutional: reports: Fever (100.7) Nose: denies: Rhinorrhea / runny nose, Congestion GI: denies: Abdominal Pain, Nausea, Vomiting, Diarrhea Skin: denies: Rash Musculoskeletal: denies: Neck pain, Back pain PD PAST MEDICAL HISTORY - Past Medical History Cardiovascular: Hypertension, High cholesterol Respiratory: None Neuro: Headaches, Peripheral neuropathy Endocrine/Autoimmune: Type 2 diabetes GI: GERD : None HEENT: None Psych: None Musculoskeletal: None Derm: Other - Past Surgical History Past Surgical History: No Ortho: Other HEENT: Other - Present Medications Home Medications: Ambulatory Orders Medication Instructions Recorded Confirmed Metformin HCl 1,000 mg PO BIDWM 03/30/19 06/19/19 glipiZIDE [Glipizide] 5 mg PO 0730 03/30/19 06/19/19 Cyanocobalamin (Vitamin B-12) 1,000 mcg PO DAILY #10 capsule 04/07/19 06/19/19 [Vitamin B-12] Lisinopril [Zestril] 2.5 mg PO DAILY #15 tablet 04/07/19 06/19/19 Saccharomyces Boulardii [Florastor] 250 mg PO DAILY #15 capsule 04/07/19 06/19/19 Doxycycline Hyclate 100 mg PO BID 05/07/19 06/19/19 Aspirin [Robby] 325 mg PO DAILY 06/18/19 06/19/19 Cholecalciferol (Vitamin D3) 2,000 unit PO DAILY 06/18/19 06/18/19 [Vitamin D] Amoxicillin/Potassium Clav 1 BID 06/19/19 [Augmentin 250-62.5 mg/5 ml] - Allergies Allergies/Adverse Reactions: Allergies Allergy/AdvReac Type Severity Reaction Status Date / Time No Known Drug Intolerances Allergy Unknown Unknown Verified 06/19/19 17:06 macadamia nut oil Allergy Anaphylaxis Verified 06/19/19 17:06 tree nut Allergy Anaphylaxis Verified 06/19/19 17:06 walnut Allergy Anaphylaxis Verified 06/19/19 17:06 - Social History Does the pt smoke?: No Smoking Status: Never smoker Does the pt drink ETOH?: No Does the pt have substance abuse?: No - Immunizations Immunizations are current?: Yes - POLST Patient has POLST: No POLST Status: Full Code PD ED PE NORMAL - Vitals Vital signs reviewed: Yes - General General: Alert and oriented X 3, No acute distress - HEENT HEENT: Moist mucous membranes - Neck Neck: Supple, no meningeal sign - Cardiac Cardiac: RRR - Respiratory Respiratory: No respiratory distress, Clear bilaterally - Abdomen Abdomen: Soft, Non tender, Non distended - Derm Derm: Warm and dry - Extremities Extremities: Other (L foot in splint.) - Neuro Neuro: Alert and oriented X 3 - Psych Psych: Normal mood, Normal affect Results - Vitals Vitals: Vital Signs - 24 hr 06/19/19 17:03 Temperature 36.9 C Heart Rate 116 H Respiratory 19 Rate Blood Pressure 134/94 H O2 Saturation 97 Oxygen O2 Source Room air - Labs Labs: Laboratory Tests 06/19/19 06/19/19 06/19/19 17:23 17:23 17:23 WBC 9.0 RBC 5.06 Hgb 13.5 L Hct 40.2 L MCV 79.4 L MCH 26.7 L MCHC 33.6 RDW 15.0 Plt Count 224 MPV 8.7 Neut # (Auto) 6.8 H Lymph # (Auto) 1.4 L Phillips # (Auto) 0.6 Eos # (Auto) 0.1 Baso # (Auto) 0.1 Absolute Nucleated RBC 0.00 Nucleated RBC % 0.0 Sodium 133 L Potassium 4.1 Chloride 96 L Carbon Dioxide 23 Anion Gap 14.0 H BUN 18 Creatinine 1.1 Estimated GFR (MDRD) 76 L Glucose 253 H Lactic Acid 3.3 H* Calcium 9.3 Total Bilirubin 0.8 AST 18 ALT 22 Alkaline Phosphatase 73 Total Protein 7.9 Albumin 4.0 Globulin 3.9 Albumin/Globulin Ratio 1.0 Lipase 32 Urine Color Urine Clarity Urine pH Ur Specific [place] Urine Protein Urine Glucose (UA) Urine Ketones Urine Occult Blood Urine Nitrite Urine Bilirubin Urine Urobilinogen Ur Leukocyte Esterase Urine RBC Urine WBC Ur Squamous Epith Cells Urine Bacteria Urine Mucus Ur Microscopic Review Urine Culture Comments 06/19/19 18:05 WBC RBC Hgb Hct MCV MCH MCHC RDW Plt Count MPV Neut # (Auto) Lymph # (Auto) Phillips # (Auto) Eos # (Auto) Baso # (Auto) Absolute Nucleated RBC Nucleated RBC % Sodium Potassium Chloride Carbon Dioxide Anion Gap BUN Creatinine Estimated GFR (MDRD) Glucose Lactic Acid Calcium Total Bilirubin AST ALT Alkaline Phosphatase Total Protein Albumin Globulin Albumin/Globulin Ratio Lipase Urine Color YELLOW Urine Clarity CLEAR Urine pH 5.5 Ur Specific [place] 1.020 Urine Protein 30 H Urine Glucose (UA) 250 H Urine Ketones TRACE Urine Occult Blood TRACE-INTA Urine Nitrite NEGATIVE Urine Bilirubin NEGATIVE Urine Urobilinogen 0.2 (NORMAL) Ur Leukocyte Esterase NEGATIVE Urine RBC 0-5 Urine WBC 0-3 Ur Squamous Epith Cells NONE SEEN Urine Bacteria None Seen Urine Mucus Moderate Strands Ur Microscopic Review INDICATED Urine Culture Comments NOT INDICATED - Rads (name of study) Chest x-ray Radiology: Prelim report reviewed, EMP read contemporaneously, See rad report (No acute abnormalities) PD MEDICAL DECISION MAKING - ED course Complexity details: reviewed results, re-evaluated patient, considered differential, d/w patient, d/w public relations consultant ED course: 33 year old male with apparent sepsis. Likely due to the wound that is infected on the plantar aspect of the left foot that he had surgery on today. IV fluids given. Broad-spectrum antibiotics given. Blood cultures drawn. No orthopedics flight reservations manager tonight, will admit to the hospitalist and they can consult orthopedics in the morning. This document was made in part using voice recognition software. While efforts are made to proofread this document, sound alike and grammatical errors may occur. - Sepsis Event Current Stage of Sepsis: Sepsis Possible source of Sepsis: Skin/soft tissue, Wound Mental/Cognitive Status: Alert/Oriented X3 Capillary refill: Less than 2 seconds Peripheral Pulse Strength: 3+ Normal Peripheral Pulse Location: Radial Bedside ultrasound performed: No Departure - Departure Disposition: 66 [facility] DC/Xfer Clinical Impression: Cellulitis in diabetic foot Sepsis Qualifiers: Sepsis type: sepsis due to unspecified organism Sepsis acute organ dysfunction status: without acute organ dysfunction Qualified Code(s): A41.9 - Sepsis, unspecified organism Fever Qualifiers: Fever type: unspecified Qualified Code(s): R50.9 - Fever, unspecified Type 2 diabetes mellitus Qualifiers: Diabetes mellitus [employer] insulin use: unspecified [employer] insulin use status Diabetes mellitus complication status: with skin complications Diabetes mellitus complication detail: with foot ulcer Qualified Code(s): E11.621 - Type 2 diabetes mellitus with foot ulcer Condition: Stable Discharge Date/Time: 06/19/19 18:51
[2019-06-19 17:36] LABS: BASOPHILS # (AUTO) 0.1 10^3/uL (0.0-0.1); BASOPHILS % (AUTO) 0.6 %; EOSINOPHILS # (AUTO) 0.1 10^3/uL (0.0-0.7); EOSINOPHILS % (AUTO) 1.1 %; HGB - HEMOGLOBIN 13.5 g/dL (14.0-18.0); LYMPHOCYTES # (AUTO) 1.4 10^3/uL (1.5-3.5); MEAN CORPUSCULAR HEMOGLOBIN 26.7 pg (27.0-31.0); MEAN CORPUSCULAR HGB CONC 33.6 g/dL (32.0-36.0); MEAN CORPUSCULAR VOLUME 79.4 fL (80.0-94.0); MEAN PLATELET VOLUME 8.7 fL (7.4-11.4); MONOCYTES # (AUTO) 0.6 10^3/uL (0.0-1.0); MONOCYTES % (AUTO) 6.1 %; NEUTROPHILS # (AUTO) 6.8 10^3/uL (1.5-6.6); NEUTROPHILS % (AUTO) 75.9 %; PLT - PLATELET COUNT 224 10^3/uL (130-450); RED BLOOD COUNT 5.06 10^6/uL (4.70-6.10)
[2019-06-19] MEDS ORDERED: PIPERACILLIN/TAZOBACTAM 4.5 GM in SODIUM CHLORIDE 0.9% MINIBAG 100 ML IV STA (17:58)
[2019-06-19] MEDS ORDERED: VANCOMYCIN INJ 2 GM in SODIUM CHLORIDE 0.9% 500 ML IV STA (17:58)
[2019-06-19] MEDS ORDERED: TEMAZEPAM 15 MG CAPSULE PO PRN (18:09)
[2019-06-19] MEDS ORDERED: PROCHLORPERAZINE 10 MG/2 ML VIAL IVP PRN (18:09)
[2019-06-19] MEDS ORDERED: HYDROmorphone 1 MG/ML CARPUJECT IVP PRN (18:09)
[2019-06-19] MEDS ORDERED: HYDROcod/ACETAM 5/325 MG TABLET PO PRN (18:09)
[2019-06-19 18:16] LABS: BILIRUBIN,URINE NEGATIVE (NEGATIVE); GLUCOSE, URINE (UA) 250 mg/dL (NEGATIVE); KETONES,URINE (UA) TRACE mg/dL (NEGATIVE); LEUKOCYTE ESTERASE, URINE NEGATIVE (NEGATIVE); NITRITE,URINE NEGATIVE (NEGATIVE); OCCULT BLOOD,URINE TRACE-INTA (NEGATIVE); PH,URINE 5.5 PH (5.0-7.5); PROTEIN,URINE 30 mg/dL (NEGATIVE); UROBILINOGEN,URINE 0.2 (NORMAL) E.U./dL (NORMAL)
[2019-06-19 18:19] LABS: CLARITY,URINE CLEAR (CLEAR)
[2019-06-19] MEDS: LACTATED RINGERS IV STA ×2 (18:24→19:12)
[2019-06-19 18:26] LABS: BILIRUBIN,TOTAL 0.8 mg/dL (0.2-1.0); CALCIUM 9.3 mg/dL (8.5-10.3); CREATININE 1.1 mg/dL (0.6-1.2); TOTAL PROTEIN 7.9 g/dL (6.7-8.2)
[2019-06-19 18:31] LABS: BACTERIA,URINE None Seen /HPF (None Seen); RBC,URINE 0-5 /HPF (0-5); SQUAMOUS EPITHELIAL CELL,UR NONE SEEN (<= Few)
[2019-06-19 18:32] LABS: MUCUS,URINE Moderate Strands
--- NOTE | 2019-06-19 18:35 | XRAY Report ---
Reason: cough Procedure Date: 06/19/2019 Accession Number: [id number] / [id number] Procedure: XR - Chest 2 View X-Ray CPT Code: 59318 FULL RESULT: EXAM: CHEST RADIOGRAPHY EXAM DATE: 06/19/2019 06:18 PM. CLINICAL HISTORY: Cough. COMPARISON: CHEST 1 VIEW 11/19/2018 9:43 PM. TECHNIQUE: 2 views. FINDINGS: Lungs/Pleura: No dense consolidation. No large effusion or pneumothorax. No pulmonary edema. Mediastinum: Heart and mediastinal contours are unremarkable. Other: None. IMPRESSION: No acute radiographic pulmonary abnormalities. RADIA
[2019-06-19] MEDS: LACTATED RINGERS 1,000 ML IV SCH ×2 (19:14→20:42)
--- NOTE | 2019-06-19 20:09 | HISTORY & PHYSICAL EXAMINATION ---
Chief Complaint - Chief Complaint Chief Complaint: Fevers and chills History of Present Illness - Admitted From Admitted From:: Home - History Obtained From Records Reviewed: Yes History obtained from: Patient, Mother - History of Present Illness HPI Comment/Other: This is a 33 year old male with a past medical history significant for type diabetes complicated by foot ulcers who presents from home today complaining of fevers and chills. This morning he underwent debridement of a left foot ulcer and exicision of medial and lateral sesamoid bones with Dr. Hinds of Orthopedics. He was discharged home around 10am when he started to develop chill s and then measured his temperature which was 100.7. He had associated nausea but reports no vomiting. He states the pain his lower extremity is well controlled at this time but he does have sharp nerve pain at times. He denies numbness, weakness. He tells me he first developed foot ulcers about 6 months. Initially he had bilateral feet ulcers which were attributed to pressure sores. He has had prior interventions for both of his feet. He has been unable to work because of these complications. He follows with wound care and orthopedics on a regular basis. He has been on Augmentin and Doxycycline now for about 3 months. In the ER, he was was no longer febrile but he was tachycardic in the 110's. Labs were significant for a lactic acid of 3.3. He had no leukocytosis but he did have a left shift. He will be admitted for further management. History - Past Medical History Cardiovascular: reports: Hypertension Respiratory: reports: None Neuro: reports: Headaches, Peripheral neuropathy Endocrine/Autoimmune: reports: Type 2 diabetes GI: reports: GERD : reports: None HEENT: reports: None Psych: reports: None Musculoskeletal: reports: None Derm: reports: Other MRSA Hx?: No - Past Surgical History Ortho: reports: Other (Foot debridements) HEENT: reports: Other (Eye surgery in the 's) - Family & Social History Family History: Mother: Diabetes, Type 2, Hyperlipidemia, Hypertension, Father: Hyperlipidemia, Hypertension Family History Comment/Other: He has a strong history of diabetes on both sides of the family. There have been complications from diabetes including cardiovascular disease and heart failure. Living arrangement: At home Social History Notes: He lives in [place] but is currently staying with his mother in [place] as he treats his foot ulcers. Does not smoke or drink alcohol. Previously worked in a [employer] but has been unable to for the 7 months because of his feet. - Substance History Use: Uses substance without health or social issues: NONE - POLST Patient has POLST: No POLST Status: Full Code Meds/Allgy - Home Medications Home Medications: Ambulatory Orders Medication Instructions Recorded Confirmed Metformin HCl 1,000 mg PO BIDWM 03/30/19 06/19/19 glipiZIDE [Glipizide] 5 mg PO 0730 03/30/19 06/19/19 Cyanocobalamin (Vitamin B-12) 1,000 mcg PO DAILY #10 capsule 04/07/19 06/19/19 [Vitamin B-12] Lisinopril [Zestril] 2.5 mg PO DAILY #15 tablet 04/07/19 06/19/19 Saccharomyces Boulardii [Florastor] 250 mg PO DAILY #15 capsule 04/07/19 06/19/19 Doxycycline Hyclate 100 mg PO BID 05/07/19 06/19/19 Aspirin [Robby] 325 mg PO DAILY 06/18/19 06/19/19 Cholecalciferol (Vitamin D3) 2,000 unit PO DAILY 06/18/19 06/18/19 [Vitamin D] Amoxicillin/Potassium Clav 1 BID 06/19/19 [Augmentin 250-62.5 mg/5 ml] - Allergies Allergies/Adverse Reactions: Allergies Allergy/AdvReac Type Severity Reaction Status Date / Time No Known Drug Intolerances Allergy Unknown Unknown Verified 06/19/19 17:06 macadamia nut oil Allergy Anaphylaxis Verified 06/19/19 17:06 tree nut Allergy Anaphylaxis Verified 06/19/19 17:06 walnut Allergy Anaphylaxis Verified 06/19/19 17:06 Review of Systems - Constitutional Constitutional: reports: Fever, Chills. denies: Fatigue, Weakness, Poor appetite - Cardiovascular Cariovascular: denies: Chest pain, Exertional dyspnea, Decr. exercise tolerance - Respiratory Respiratory: denies: SOB at rest, SOB with exertion - Gastrointestinal Gastrointestinal: reports: Nausea. denies: Abdominal pain, Vomiting - Genitourinary Genitourinary: denies: Dysuria, Frequency, Hematuria - Musculoskeletal Musculoskeletal: denies: Muscle pain, Muscle weakness - Integumentary Integumentary: denies: Rash - Neurological Neurological: denies: General weakness, Numbness - All Other Systems All Other Systems: reports: Reviewed and negative Prior Level of Functionality: Independent with ADL's. Ambulates on his own usually. Exam - Vital Signs Reviewed Vital Signs: Yes Vital Signs: Vital Signs x48h Temp Pulse Pulse Resp BP BP Pulse Ox 06/19/19 19:00 37.9 C H 95 16 126/73 97 06/19/19 18:35 102 H 21 119/84 H 99 06/19/19 18:15 107 H 17 98 06/19/19 17:03 36.9 C 116 H 19 134/94 H 97 - Physical Exam General Appearance: positive: No acute distress, Alert Eyes Bilateral: positive: Normal inspection ENT: positive: ENT inspection nml Neck: positive: Nml inspection Respiratory: positive: No respiratory distress. negative: Wheezes, Rales, Rhonchi Cardiovascular: positive: Regular rate & rhythm, No murmur, Tachycardia. negative: Systolic murmur, Diastolic murmur Abdomen: positive: Non-tender, No distention. negative: Tenderness, Guarding, Rebound Extremities: positive: Full ROM, Other (Capillary refill <2 seconds in both of his lower extremities. Dressing in place over the left foot.) Neurologic/Psychiatric: positive: Oriented x3. negative: Disoriented to person, Disoriented to place, Disoriented to time, Weakness Sepsis Event Note (H) - Evaluation Current Stage of Sepsis: Sepsis Possible source of Sepsis: positive: Skin/soft tissue, Wound - Sepsis Criteria Sepsis Criteria: Recorded Heart Rate greater than 90 bpm, Metabolic: lactate > 2 mmol/L Conclusion/Plan - Problem List (1) Sepsis Conclusion/Plan: Suspect the source of his sepsis is the osteomyelitis of his left foot given the recent intervention and lack of any other obvious source of infection. Presented with fevers, tachycardia, and elevated lactic acid. Urinalysis and chest x-ray are unremarkable. - Vancomycin and Zosyn IV for broad spectrum coverage until cultures from the OR are back - IV hydration with LR - Tylenol and Zofran PRN - Recheck lactic - Follow up blood and OR cultures - Orthopedics consult Qualifiers: Sepsis type: sepsis due to unspecified organism Sepsis acute organ dysfunction status: without acute organ dysfunction Qualified Code(s): A41.9 - Sepsis, unspecified organism (2) Osteomyelitis of foot Conclusion/Plan: This is likely the source of his sepsis. He is now s/p debridement of his left and excision of medial and lateral sesamoid bones. He has been on Augmentin and Doxycycline for past three months. Prior foot cultures Strep group B and Providencia. Cultures pending from OR. - Vancomycin and Zosyn while hospitalized - Hydrocodone PO and Dilaudid IV PRN - Deescalate antibiotics based off cultures from OR - Orthopedics consult given his recent intervention (3) Type 2 diabetes mellitus Conclusion/Plan: His last A1c was 8.4%. He is on Glipizide and Metformin. Also on Lisinopril because of proteinuria. Blood glucose currently elevated >200. 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
[2019-06-19] MEDS: SODIUM CHLORIDE FLUSH 0.9% 10 ML SYRINGE IVP PRN (20:35)
[2019-06-19] MEDS: SACCHAROMYCES BOULARDII 250 MG CAPSULE PO SCH (20:36)
[2019-06-19] MEDS: FAMOTIDINE 20 MG TABLET PO SCH (20:43)
[2019-06-19] MEDS ORDERED: INSULIN ASPART 300 UNIT/3 ML PEN SUBQ SCH (21:00)
[2019-06-19] MEDS: HEPARIN 5,000 UNIT/ML VIAL SUBQ SCH (21:08)
[2019-06-19] MEDS: INSULIN GLARGINE 300 UNIT/3 ML PEN SUBQ SCH (21:08)
[2019-06-20] MEDS: PIPERACILLIN/TAZOBACTAM 4.5 GM in SODIUM CHLORIDE 0.9% MINIBAG 100 ML IV SCH ×4 (00:02→17:40)
[2019-06-20] MEDS: SODIUM CHLORIDE FLUSH 0.9% 10 ML SYRINGE IVP SCH ×3 (00:02→17:40)
[2019-06-20 03:35] LABS: BASOPHILS % (AUTO) 0.3 %; EOSINOPHILS # (AUTO) 0.1 10^3/uL (0.0-0.7); EOSINOPHILS % (AUTO) 0.7 %; HGB - HEMOGLOBIN 12.8 g/dL (14.0-18.0); LYMPHOCYTES # (AUTO) 1.9 10^3/uL (1.5-3.5); LYMPHOCYTES % (AUTO) 20.5 %; MEAN CORPUSCULAR HGB CONC 33.8 g/dL (32.0-36.0); MEAN PLATELET VOLUME 8.6 fL (7.4-11.4); MONOCYTES # (AUTO) 0.9 10^3/uL (0.0-1.0); MONOCYTES % (AUTO) 9.3 %; NEUTROPHILS # (AUTO) 6.4 10^3/uL (1.5-6.6); NEUTROPHILS % (AUTO) 68.9 %; PLT - PLATELET COUNT 223 10^3/uL (130-450); RED BLOOD COUNT 4.74 10^6/uL (4.70-6.10); WHITE BLOOD COUNT 9.4 x10^3/uL (4.8-10.8)
[2019-06-20 03:49] LABS: CREATININE 1.1 mg/dL (0.6-1.2); MAGNESIUM 1.5 mg/dL (1.7-2.8); PHOSPHORUS 3.3 mg/dL (2.5-4.6)
[2019-06-20] MEDS: LACTATED RINGERS 1,000 ML IV SCH ×3 (03:49→16:56)
[2019-06-20] MEDS: ACETAMINOPHEN 325 MG TABLET PO PRN (03:55)
[2019-06-20 04:24] LABS: HB2 TOTAL 13.4 g/dL; HEMOGLOBIN A1C 1.12 g/dL; HEMOGLOBIN A1C % 9.8 % (4.6-6.2)
[2019-06-20] MEDS ORDERED: LACTATED RINGERS 500 ML IV ONE (06:25)
[2019-06-20] MEDS ORDERED: INSULIN ASPART 300 UNIT/3 ML PEN SUBQ SCH (08:00)
[2019-06-20] MEDS: FAMOTIDINE 20 MG TABLET PO SCH ×2 (08:07→20:40)
[2019-06-20] MEDS: SACCHAROMYCES BOULARDII 250 MG CAPSULE PO SCH ×2 (08:07→20:40)
[2019-06-20] MEDS: HEPARIN 5,000 UNIT/ML VIAL SUBQ SCH (08:08)
[2019-06-20] MEDS: POLYETHYLENE GLYCOL 3350 17 GM PACKET PO SCH (08:08)
--- NOTE | 2019-06-20 08:52 | PROVIDER PROGRESS NOTE ---
Assessment/Plan - Problem List (1) Sepsis Assessment/Plan: He presented with fevers, tachycardia, and elevated lactic acid, which are criteria for sepsis. Today the tachycardia was still present but fever and lactic acid have normalized. He is on empiric Vancomycin and Zosyn IV for broad spectrum coverage until cultures from the OR are back. The lactic acid improved then dilan again into banorml range and his iv fluids were bolused again. Now lactic acid is normal. Continue gentle hydration and treaating the infection. (2) Osteomyelitis of foot Assessment/Plan: This had been documented previously and the patient was on 3 mos of Doxy and Augmentin. Suspect the source of his sepsis is the osteomyelitis of his left foot given the recent intervention and lack of any other obvious source of infection. An MRI was not recommended by Dr Nguyễn, as we spoke today, since the MRI will be abnormal from surgical manipulation anyway. Duration of treatment to be determined with reaching out to ID at . (3) Diabetic foot ulcer Assessment/Plan: Topical care and bandaging planned. He does not c/o much pain (due to neuropathy). (4) Type 2 diabetes mellitus Qualifiers: Diabetes mellitus long term care social worker insulin use: unspecified long term care social worker insulin use status Diabetes mellitus complication status: with skin complications Diabetes mellitus complication detail: with foot ulcer Qualified Code(s): E11.621 - Type 2 diabetes mellitus with foot ulcer; L97.509 - Non-pressure chronic ulcer of other part of unspecified foot with unspecified severity Assessment/Plan: His last A1c was 8.4%. He is on Glipizide and Metformin. Also on Lisinopril because of proteinuria. Now the A1c is 9.8, suggesting that the infection was preventing good glu control. He is off Glipizide and Metformin while hospitalized Holding Lisinopril for now while sepsis is treated He was started on Lantus 5 units at night and sliding scale, plus CC diet (5) Peripheral neuropathy Assessment/Plan: His initial presentation in Oct 2018, was for a diabetic foot ulcer causing infection, and he did not even feel that he had an open foot ulcer. It is not clear if he has been started on any meds for diabetic neuropathy, since that time. Will ask Pharmacist to check, and resume. (6) Hypomagnesemia Assessment/Plan: Replace iv and po. Follow Mg in daily labs. - Current Meds Current Meds: Current Medications Generic Name Dose Route Start Last Admin Trade Name Freina PRN Reason Stop Dose Admin Acetaminophen 650 mg 06/19/19 18:09 06/20/19 03:55 Tylenol PO 650 mg Q4HR PRN Administration Pain 1 to 4 Famotidine 20 mg 06/19/19 21:00 06/20/19 08:07 Pepcid PO 20 mg BID PASCUAL Administration Heparin Sodium (Porcine) 5,000 unit 06/19/19 21:00 06/20/19 08:08 SUBQ 5,000 unit BID PASCUAL Administration Lactated Ringer's 1,000 mls @ 150 mls/hr 06/19/19 19:00 06/20/19 08:07 Lr IV 150 mls/hr .Q6H40M PASCUAL Administration Piperacillin Sod/Tazobactam 100 mls @ 200 mls/hr 06/19/19 23:59 06/20/19 07:08 Sod 4.5 gm/ Sodium Chloride IV Infused Q6H PASCUAL Infusion Insulin Aspart 2 - 10 unit 06/20/19 08:00 06/20/19 08:06 Novolog SUBQ 4 unit 0800,1200,1700,2100 PASCUAL Administration Protocol Insulin Glargine 5 unit 06/19/19 21:00 06/19/19 21:08 Lantus Solostar SUBQ 5 unit QPM PASCUAL Administration Polyethylene Glycol 17 gm 06/20/19 09:00 06/20/19 08:08 Miralax PO 17 gm DAILY PASCUAL Administration Saccharomyces Boulardii 250 mg 06/19/19 21:00 06/20/19 08:07 Florastor PO 250 mg BID PASCUAL Administration Sodium Chloride 10 ml 06/19/19 18:09 06/19/19 20:35 Normal Saline Flush 0.9% IVP 10 ml PRN PRN Administration NEEDED PER PROVIDER ORDERS Sodium Chloride 10 ml 06/20/19 01:00 06/20/19 08:08 Normal Saline Flush 0.9% IVP Not Given 0100,0900,1700 PASCUAL - Lab Result Fish Bone Diagrams: 06/20/19 03:30 06/20/19 03:30 - Additional Planning My Orders: My Active Orders 06/19/19 18:09 Activity Orders [RC] Q2HR IO [RC] IOSHIFT Initiate Bowel Care Protocol [RC] .protocol Initiate Line Care Protocol [RC] QSHIFT Initiate Personal Care Protoco [RC] .protocol Oxygen Therapy [RC] Routine Telemetry- [RC] Q4HR Vital Signs [RC] Q4HR Acetaminophen [Tylenol] 650 mg PO Q4HR PRN HYDROcod/ACETAM 5/325 [Protem 5/325] 1 tab PO Q4HR PRN HYDROmorphone INJ CARP [Dilaudid Inj Carp] 1 mg IVP Q3HR PRN Prochlorperazine Inj [Compazine Inj] 10 mg IVP Q6HR PRN Sodium Chloride Flush 0.9% [Normal Saline Flush 0.9%] 10 ml IVP PRN PRN Temazepam [Restoril] 15 mg PO QPM PRN Code Status [OTHERS] Routine Condition of Patient [OTHERS] Routine DVT Prophylaxis [OTHERS] Routine 06/19/19 18:12 SCDs [RC] QSHIFT 06/19/19 18:18 Blood Glucose Checks - Eating [RC] 0800,1200,1700,2100 Initiate Hypoglycemia Protocol [RC] .protocol 06/19/19 19:00 Lactated Ringers [Lr] 1,000 ml IV 150 mls/hr 06/19/19 21:00 Famotidine [Pepcid] 20 mg PO BID Saccharomyces Boulardii [Florastor] 250 mg PO BID 06/19/19 Dinner Carb-controlled Diet [DIET] 06/20/19 01:00 Sodium Chloride Flush 0.9% [Normal Saline Flush 0.9%] 10 ml IVP 0100,0900,1700 06/20/19 08:00 Insulin Aspart [NovoLOG] 2 - 10 unit SUBQ 0800,1200,1700,2100 06/20/19 09:00 Polyethylene Glycol 3350 [Miralax] 17 gm PO DAILY Subjective - Subjective Patient Reports: Feeling Better, Resting Comfortably Nursing Reports: Other (Pt was told not to bear any weight on the foot involved, he hobles around) Objective Vital Signs: Vital Signs - 24 hr 06/19/19 06/19/19 06/19/19 17:03 18:15 18:35 Temperature 36.9 C Heart Rate 116 H 107 H 102 H Heart Rate [ Brachial] Heart Rate [ Radial] Respiratory 19 17 21 Rate Blood Pressure 134/94 H 119/84 H Blood Pressure [Right Brachial artery] O2 Saturation 97 98 99 06/19/19 06/19/19 06/20/19 19:00 21:02 00:45 Temperature 37.9 C H 36.8 C 37.4 C Heart Rate Heart Rate [ 85 88 Brachial] Heart Rate [ 95 Radial] Respiratory 16 20 18 Rate Blood Pressure Blood Pressure 126/73 126/84 H 145/93 H [Right Brachial artery] O2 Saturation 97 97 98 06/20/19 06/20/19 06/20/19 03:52 05:02 07:45 Temperature 38.0 C H 37.5 C 36.9 C Heart Rate Heart Rate [ 100 80 Brachial] Heart Rate [ Radial] Respiratory 20 18 Rate Blood Pressure Blood Pressure 139/86 H 121/83 H [Right Brachial artery] O2 Saturation 96 97 Oxygen O2 Source Room air I&O (Last 24 Hrs): Intake and Output Totals x24h 06/18/19 06/19/19 06/20/19 23:59 23:59 23:59 Intake Total 0766.409 1173.36 Output Total 1500 700 Balance 665.680 8293.36 General: Alert HEENT: Mucous membr. moist/pink Neck: Supple, No JVD Neuro: Non Focal, Other (Foot numbness) Cardiovascular: Regular rate Respiratory: No respiratory distress Abdomen: Soft Extremities: Other (L foot bandaged) - Results Results: Laboratory Results WBC 9.4 x10^3/uL (4.8-10.8) 06/20/19 03:30 RBC 4.74 10^6/uL (4.70-6.10) 06/20/19 03:30 Hgb 12.8 g/dL (14.0-18.0) L 06/20/19 03:30 Hct 37.9 % (42.0-52.0) L 06/20/19 03:30 MCV 80.0 fL (80.0-94.0) 06/20/19 03:30 MCH 27.0 pg (27.0-31.0) 06/20/19 03:30 MCHC 33.8 g/dL (32.0-36.0) 06/20/19 03:30 RDW 15.0 % (12.0-15.0) 06/20/19 03:30 Plt Count 223 10^3/uL (130-450) 06/20/19 03:30 MPV 8.6 fL (7.4-11.4) 06/20/19 03:30 Neut # (Auto) 6.4 10^3/uL (1.5-6.6) 06/20/19 03:30 Lymph # (Auto) 1.9 10^3/uL (1.5-3.5) 06/20/19 03:30 [place] # (Auto) 0.9 10^3/uL (0.0-1.0) 06/20/19 03:30 Eos # (Auto) 0.1 10^3/uL (0.0-0.7) 06/20/19 03:30 Baso # (Auto) 0.0 10^3/uL (0.0-0.1) 06/20/19 03:30 Absolute Nucleated RBC 0.00 x10^3/uL 06/20/19 03:30 Nucleated RBC % 0.0 /100WBC 06/20/19 03:30 Sodium 133 mmol/L (135-145) L 06/20/19 03:30 Potassium 3.9 mmol/L (3.5-5.0) 06/20/19 03:30 Chloride 97 mmol/L (101-111) L 06/20/19 03:30 Carbon Dioxide 23 mmol/L (21-32) 06/20/19 03:30 Anion Gap 13.0 (6-13) 06/20/19 03:30 BUN 14 mg/dL (6-20) 06/20/19 03:30 Creatinine 1.1 mg/dL (0.6-1.2) 06/20/19 03:30 Estimated GFR (MDRD) 76 (>89) L 06/20/19 03:30 Glucose 253 mg/dL (70-100) H 06/20/19 03:30 POC Whole Bld Glucose 225 mg/dL (70 - 100) H 06/20/19 07:47 Glycated Hemoglobin 9.8 % (4.6-6.2) H 06/20/19 03:30 Estim Average Glucose 235 (70-100) H 06/20/19 03:30 Lactic Acid 1.4 mmol/L (0.5-2.2) 06/20/19 07:24 Calcium 9.0 mg/dL (8.5-10.3) 06/20/19 03:30 Phosphorus 3.3 mg/dL (2.5-4.6) 06/20/19 03:30 Magnesium 1.5 mg/dL (1.7-2.8) L 06/20/19 03:30 Total Bilirubin 0.8 mg/dL (0.2-1.0) 06/19/19 17:23 AST 18 IU/L (10-42) 06/19/19 17:23 ALT 22 IU/L (10-60) 06/19/19 17:23 Alkaline Phosphatase 73 IU/L (42-121) 06/19/19 17:23 Total Protein 7.9 g/dL (6.7-8.2) 06/19/19 17:23 Albumin 4.0 g/dL (3.2-5.5) 06/19/19 17:23 Globulin 3.9 g/dL (2.1-4.2) 06/19/19 17:23 Albumin/Globulin Ratio 1.0 (1.0-2.2) 06/19/19 17:23 Lipase 32 U/L (22-51) 06/19/19 17:23 Urine Color YELLOW 06/19/19 18:05 Urine Clarity CLEAR (CLEAR) 06/19/19 18:05 Urine pH 5.5 PH (5.0-7.5) 06/19/19 18:05 Ur Specific [place] 1.020 (1.002-1.030) 06/19/19 18:05 Urine Protein 30 mg/dL (NEGATIVE) H 06/19/19 18:05 Urine Glucose (UA) 250 mg/dL (NEGATIVE) H 06/19/19 18:05 Urine Ketones TRACE mg/dL (NEGATIVE) 06/19/19 18:05 Urine Occult Blood TRACE-INTA (NEGATIVE) 06/19/19 18:05 Urine Nitrite NEGATIVE (NEGATIVE) 06/19/19 18:05 Urine Bilirubin NEGATIVE (NEGATIVE) 06/19/19 18:05 Urine Urobilinogen 0.2 (NORMAL) E.U./dL (NORMAL) 06/19/19 18:05 Ur Leukocyte Esterase NEGATIVE (NEGATIVE) 06/19/19 18:05 Urine RBC 0-5 /HPF (0-5) 06/19/19 18:05 Urine WBC 0-3 /HPF (0-3) 06/19/19 18:05 Ur Squamous Epith Cells NONE SEEN (<= Few) 06/19/19 18:05 Urine Bacteria None Seen /HPF (None Seen) 06/19/19 18:05 Urine Mucus Moderate Strands 06/19/19 18:05 Ur Microscopic Review INDICATED 06/19/19 18:05 Urine Culture Comments NOT INDICATED 06/19/19 18:05 - Procedures Procedures: Procedures DETACHMENT AT LEFT 5TH TOE, COMPLETE, OPEN APPROACH (03/29/19) DRAINAGE OF LEFT KNEE JOINT, PERCUTANEOUS APPROACH, DIAGN (03/29/19) EXCISION OF LEFT FOOT TENDON, OPEN APPROACH (03/29/19) Sepsis Event Note (H) - Evaluation Current Stage of Sepsis: Sepsis Possible source of Sepsis: positive: Skin/soft tissue, Wound - Sepsis Criteria Sepsis Criteria: Recorded Heart Rate greater than 90 bpm, Metabolic: lactate > 2 mmol/L
[2019-06-20] MEDS ORDERED: VANCOMYCIN INJ 1.75 GM in SODIUM CHLORIDE 0.9% 500 ML IV SCH (09:00)
[2019-06-20] MEDS ORDERED: MAGNESIUM SULFATE 2 GRAM 2 GM/50 ML BAG IV ONE (09:30)
[2019-06-20] MEDS: CYANOCOBALAMIN 500 MCG TABLET PO SCH (09:53)
[2019-06-20] MEDS: CHOLECALCIFEROL 1,000 UNIT TABLET PO SCH (09:53)
[2019-06-20] MEDS: ASPIRIN 325 MG TABLET PO SCH (09:53)
[2019-06-20] MEDS: VANCOMYCIN INJ 1.75 GM in SODIUM CHLORIDE 0.9% 500 ML IV SCH ×2 (09:53→22:11)
[2019-06-20] MEDS ORDERED: MAGNESIUM OXIDE 400 MG TABLET PO ONE (12:00)
[2019-06-20] MEDS: INSULIN ASPART 300 UNIT/3 ML PEN SUBQ SCH ×3 (12:22→20:40)
[2019-06-20] MEDS: ENOXAPARIN 40 MG/0.4 ML SYRINGE SUBQ SCH (12:22)
[2019-06-20] MEDS: ASCORBIC ACID CHEW 500 MG TABLET PO SCH (16:54)
[2019-06-20] MEDS: ZINC SULFATE 220 MG CAPSULE PO SCH (16:54)
--- NOTE | 2019-06-20 17:21 | CONSULTATION NOTE ---
Referring Provider Name of Referring Provider:: Josee Elizalde MD Consult Date: 06/20/19 Chief Complaint - Chief Complaint Chief Complaint: Asked to evaluate for left fifth metatarsal infection History of Present Illness - History Obtained From History obtained from: Patient, chart, hospitalist - History of Present Illness HPI Comment/Other: Pelon is a 33-year-old gentleman with diabetes. He has had long-standing off and on foot issues had a very remote history by Dr. Noyola for his left fifth metatarsal and a more recent surgery on his left great toe yesterday. He was advised to come back to the hospital if he had any temperature. As such he came in yesterday with reported temperature and reported elevated lactate and was diagnosed with sepsis by the hospitalist team. He is been placed on IV antibiotics. Orthopedic consultation was sought to evaluate the left foot as possible source of this. Patient says he is comfortable does not really have much in the way of discomfort at this time he does note that he is able to feel his foot in general and that the splint has been comfortable. He said he did have some toe swelling yesterday but that is much improved. History - Past Medical History Cardiovascular: reports: Hypertension, High cholesterol Respiratory: reports: None Neuro: reports: Headaches, Peripheral neuropathy Endocrine/Autoimmune: reports: Type 2 diabetes GI: reports: GERD : reports: None HEENT: reports: None Psych: reports: None Musculoskeletal: reports: None Derm: reports: Other MRSA Hx?: No - Past Surgical History Ortho: reports: Other HEENT: reports: Other - Family & Social History Family History: Mother: Diabetes, Type 2, Hyperlipidemia, Hypertension, Father: Hyperlipidemia, Hypertension Family History Comment/Other: He has a strong history of diabetes on both sides of the family. There have been complications from diabetes including cardiovascular disease and heart failure. Living arrangement: At home Social History Notes: He lives in [place] but is currently staying with his mother in [place] as he treats his foot ulcers. Does not smoke or drink alcohol. 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 - Substance History Use: Uses substance without health or social issues: NONE - POLST Patient has POLST: No POLST Status: Full Code Meds/Allgy - Home Medications Home Medications: Ambulatory Orders Medication Instructions Recorded Confirmed Metformin HCl 1,000 mg PO BIDWM 03/30/19 06/20/19 glipiZIDE [Glipizide] 5 mg PO 0730 03/30/19 06/20/19 Cyanocobalamin (Vitamin B-12) 1,000 mcg PO DAILY #10 capsule 04/07/19 06/20/19 [Vitamin B-12] Aspirin [Robby] 325 mg PO DAILY 06/18/19 06/20/19 Cholecalciferol (Vitamin D3) 2,000 unit PO DAILY 06/18/19 06/20/19 [Vitamin D] Amox/Clav 875/125 [Augmentin] 1 tab PO BID 06/20/19 06/20/19 Doxycycline Hyclate 100 mg PO BID 06/20/19 06/20/19 Ferrous Sulfate 325 mg PO DAILYWM 06/20/19 06/20/19 - Allergies Allergies/Adverse Reactions: Allergies Allergy/AdvReac Type Severity Reaction Status Date / Time No Known Drug Intolerances Allergy Unknown Unknown Verified 06/19/19 17:06 macadamia nut oil Allergy Anaphylaxis Verified 06/19/19 17:06 tree nut Allergy Anaphylaxis Verified 06/19/19 17:06 walnut Allergy Anaphylaxis Verified 06/19/19 17:06 Exam - Vital Signs Vital Signs: Vital Signs x48h Temp Pulse Resp BP Pulse Ox 06/20/19 15:24 37.0 C 75 18 132/82 H 97 06/20/19 11:40 36.9 C 75 18 127/87 H 98 - Physical Exam Comments/Other: Patient's left lower extremity has his splint removed dressing removed and demonstrates a dorsal and plantar surgical incision on the left great toe with nylon sutures in place Xeroform in place no significant surrounding erythema. Minimal soft tissue swelling. Minimal sanguinous drainage. No streaking or erythema noted. He reports light touch sensation in his toes and foot and has cap refill less than 2 seconds in his great toe. Foot compartments and calf compartments soft. Patient is redressed with his primary Xeroform which was left as well as 4 x 4 Emily soft roll and splint he reports being comfortable in splint Conclusion/Plan - Diagnosis Diagnosis: Status post left foot great toe surgery. No current evidence for left great toe infection. - Plan Plan: Pelon shows no acute signs of infection of his Left great toe. The incisions appear benign. He is redressed with Xeroform 4 x 4 Emily wrap soft roll and reports being comfortable in his posterior splint which is placed. I do recommend continued treatment by Hospitalist team for reported sepsis though he appears overall well today. Defer regarding IV antibiotic's. He may follow-up as discussed with Dr. Hinds previously. At the very latest we would see him in 4 to 5 days for recheck of his wound though sooner should problems questions or worsening condition arise. Rationale and importance of close follow-up was discussed with the patient. He will notify sooner as necessary. He will notify us if his splint at all becomes uncomfortable. - Lab Results Lab results reviewed: Yes Fish Bones: 06/20/19 03:30 06/20/19 03:30
[2019-06-20] MEDS: INSULIN GLARGINE 300 UNIT/3 ML PEN SUBQ SCH (20:41)
[2019-06-21 04:58] LABS: BASOPHILS % (AUTO) 0.3 %; EOSINOPHILS # (AUTO) 0.1 10^3/uL (0.0-0.7); HGB - HEMOGLOBIN 10.4 g/dL (14.0-18.0); LYMPHOCYTES # (AUTO) 2.1 10^3/uL (1.5-3.5); LYMPHOCYTES % (AUTO) 31.5 %; MEAN CORPUSCULAR HEMOGLOBIN 27.1 pg (27.0-31.0); MEAN CORPUSCULAR HGB CONC 32.8 g/dL (32.0-36.0); MEAN CORPUSCULAR VOLUME 82.6 fL (80.0-94.0); MEAN PLATELET VOLUME 8.6 fL (7.4-11.4); MONOCYTES # (AUTO) 0.5 10^3/uL (0.0-1.0); NEUTROPHILS # (AUTO) 3.8 10^3/uL (1.5-6.6); NEUTROPHILS % (AUTO) 57.9 %; PLT - PLATELET COUNT 173 10^3/uL (130-450); RED BLOOD COUNT 3.84 10^6/uL (4.70-6.10); WHITE BLOOD COUNT 6.6 x10^3/uL (4.8-10.8)
[2019-06-21 05:06] LABS: CALCIUM 8.5 mg/dL (8.5-10.3); CREATININE 1.1 mg/dL (0.6-1.2); PHOSPHORUS 3.4 mg/dL (2.5-4.6)
[2019-06-21] MEDS: PIPERACILLIN/TAZOBACTAM 4.5 GM in SODIUM CHLORIDE 0.9% MINIBAG 100 ML IV SCH ×5 (06:00→16:33)
[2019-06-21] MEDS: SODIUM CHLORIDE FLUSH 0.9% 10 ML SYRINGE IVP PRN (06:01)
[2019-06-21] MEDS: LACTATED RINGERS 1,000 ML IV SCH ×4 (06:34→14:18)
--- NOTE | 2019-06-21 07:50 | PROVIDER PROGRESS NOTE ---
Assessment/Plan - Problem List (1) Diabetic foot ulcer Assessment/Plan: The culture from the OR on 06/19/19 is growing out many Gram neg baccilli. Identification is pending. I spoke to the ID Fellow at and reviewed his entire course since 10/2018. The recommendations were: Since he has never had MRSA, the Vanco can be stopped. Since he came in septic this time (but is not yet bacteremic), he should be treated with iv antibiotics. Await the identification and adjust antibiotic choice based on MICCs Will recheck bilateral leg PAM's to determine if PVD is slowing the healing (PAM was done in 04/11, and the R was 1.3, the L was 1.0) Will order a PICC line insertion by Anesthesia. Will request a SW consult to determine who will administer iv antibiotics for 2 weeks minimum. I discussed this plan with the patient and family member at bedside and they are agreeable with the plan. I also spoke with Dr Hinds: Dr Hinds said that a Wound Consult is advised to deal with this post-op wound, to cut out sutures and pack the wound, is OK with him, he said. The patient sees Jin Carlos NP at [facility], I will request a consult from her. (2) Osteomyelitis of foot Assessment/Plan: The 05/24/19 MRI showed osteo. He was kept on his po antibiotics and had the surgery on 06/19/19. The ID Fellow from advised that the duration of iv antibiotics may need to be 6 weeks, if the Orthopedist felt there was more extensive infection, when he was seeing the bones in the OR [address] Nguyễn saw the patient in consult, but did not do the surgery. I will try to reach and discuss the case with Dr Hinds. I spoke to Dr Hinds who described the wound as non-purulent, it was foul smelling and he did deep soft tissue undercutting and took out the sesmoid bones as they are the first point of contact. The other bones did not look bad. Dr Hinds also said that a Wound Consult is advised to deal with this post-op wound, to cut out sutures and pack the wound, is OK with him, he said. The patient sees Jin Carlos NP at [facility], I will request a consult from her. (3) Type 2 diabetes mellitus Qualifiers: Diabetes mellitus shelter insulin use: unspecified shelter insulin use status Diabetes mellitus complication status: with skin complications Diabetes mellitus complication detail: with foot ulcer Qualified Code(s): E11.621 - Type 2 diabetes mellitus with foot ulcer; L97.509 - Non-pressure chronic ulcer of other part of unspecified foot with unspecified severity Assessment/Plan: He has not wanted to fill his Insulin prescription in the recent past, and his DM oral management has stephanie escalated this year. Glu are running >200. Continue cc diet, ss Insulin and will increase the Lantus to 7U qpm. (4) Peripheral neuropathy Assessment/Plan: I went through all his inpatient medication records and he was never on a med for neuropathy while here. He has food pain control with prn pain meds currently. (5) Anemia Qualifiers: Anemia type: iron deficiency Assessment/Plan: Hemodilution and suspected low iron stores. His Iron panel was low but his B12 and Folate were checked earlier this year and were adequate. Will restart his oral Iron replacement. (6) Hypomagnesemia Assessment/Plan: Replace and follow labs. (7) Sepsis Assessment/Plan: Resolved. Will DC telemetry - Current Meds Current Meds: Current Medications Generic Name Dose Route Start Last Admin Trade Name Freq PRN Reason Stop Dose Admin Acetaminophen 650 mg 06/19/19 18:09 06/20/19 03:55 Tylenol PO 650 mg Q4HR PRN Administration Pain 1 to 4 Ascorbic Acid 500 mg 06/20/19 16:30 06/20/19 16:54 Vitamin C PO 500 mg DAILY PASCUAL Administration Aspirin 325 mg 06/20/19 09:00 06/20/19 09:53 Robby PO 325 mg DAILY PASCUAL Administration Cholecalciferol 2,000 unit 06/20/19 09:00 06/20/19 09:53 Vitamin D3 PO 2,000 unit DAILY PASCUAL Administration Cyanocobalamin 1,000 mcg 06/20/19 09:00 06/20/19 09:53 Vitamin B-12 PO 1,000 mcg DAILY PASCUAL Administration Enoxaparin Sodium 40 mg 06/20/19 13:00 06/20/19 12:22 Lovenox SUBQ Not Given DAILY PASCUAL Famotidine 20 mg 06/19/19 21:00 06/20/19 20:40 Pepcid PO 20 mg BID PASCUAL Administration Lactated Ringer's 1,000 mls @ 150 mls/hr 06/19/19 19:00 06/21/19 06:34 Lr IV 150 mls/hr .Q6H40M PASCUAL Administration Piperacillin Sod/Tazobactam 100 mls @ 200 mls/hr 06/19/19 23:59 06/21/19 06:30 Sod 4.5 gm/ Sodium Chloride IV Infused Q6H PASCUAL Infusion Vancomycin HCl 1.75 gm/ Sodium 500 mls @ 250 mls/hr 06/20/19 09:00 06/21/19 00:53 Chloride IV Infused Q12H PASCUAL Infusion Insulin Aspart 3 - 11 unit 06/20/19 12:00 06/20/19 20:40 Novolog SUBQ 7 unit 0800,1200,1700,2100 PASCUAL Administration Protocol Insulin Glargine 5 unit 06/19/19 21:00 06/20/19 20:41 Lantus Solostar SUBQ 5 unit QPM PASCUAL Administration Polyethylene Glycol 17 gm 06/20/19 09:00 06/20/19 08:08 Miralax PO 17 gm DAILY PASCUAL Administration Saccharomyces Boulardii 250 mg 06/19/19 21:00 06/20/19 20:40 Florastor PO 250 mg BID PASCUAL Administration Sodium Chloride 10 ml 06/19/19 18:09 06/21/19 06:01 Normal Saline Flush 0.9% IVP 10 ml PRN PRN Administration NEEDED PER PROVIDER ORDERS Sodium Chloride 10 ml 06/20/19 01:00 06/21/19 00:00 Normal Saline Flush 0.9% IVP 10 ml 0100,0900,1700 PASCUAL Administration Zinc Sulfate 220 mg 06/20/19 16:30 06/20/19 16:54 PO 220 mg DAILY PASCUAL Administration - Lab Result Fish Bone Diagrams: 06/21/19 04:50 06/21/19 04:50 - Additional Planning My Orders: My Active Orders 06/20/19 09:00 Aspirin [Robby] 325 mg PO DAILY Cholecalciferol [Vitamin D3] 2,000 unit PO DAILY Cyanocobalamin [Vitamin B-12] 1,000 mcg PO DAILY Polyethylene Glycol 3350 [Miralax] 17 gm PO DAILY 06/20/19 12:00 Insulin Aspart [NovoLOG] 3 - 11 unit SUBQ 0800,1200,1700,2100 06/20/19 13:00 Enoxaparin [Lovenox] 40 mg SUBQ DAILY 06/20/19 16:30 Ascorbic Acid Chew [Vitamin C] 500 mg PO DAILY Zinc Sulfate 220 mg PO DAILY 06/21/19 07:46 Telemetry-Discontinue [RC] .ONCE 06/21/19 08:30 VANCOMYCIN TROUGH [CHEM] Timed Objective Vital Signs: Vital Signs - 24 hr 06/20/19 06/20/19 06/20/19 11:40 15:24 19:25 Temperature 36.9 C 37.0 C 37.4 C Heart Rate Heart Rate [ 75 75 77 Brachial] Respiratory 18 18 18 Rate Blood Pressure 127/87 H 132/82 H 126/80 [Right Brachial artery] O2 Saturation 98 97 97 06/20/19 06/21/19 06/21/19 23:44 01:03 04:59 Temperature 37.2 C 37.2 C 37.3 C Heart Rate 85 Heart Rate [ 85 79 Brachial] Respiratory 18 18 18 Rate Blood Pressure 136/92 H 125/73 [Right Brachial artery] O2 Saturation 97 97 98 Oxygen O2 Source Room air I&O (Last 24 Hrs): Intake and Output Totals x24h 06/19/19 06/20/19 06/21/19 23:59 23:59 23:59 Intake Total 1702.544 22190.36 1685 Output Total 1500 4700 1425 Balance 297.189 3911.36 260 General: Alert, Oriented x3 HEENT: Mucous membr. moist/pink, Other (Pale) Neck: Supple, No JVD Neuro: Non Focal, Other (Abn sensation of feet) Cardiovascular: Regular rate Respiratory: No respiratory distress Abdomen: Soft Extremities: No edema, Other (L foor bandaged) - Results Results: Laboratory Results WBC 6.6 x10^3/uL (4.8-10.8) 06/21/19 04:50 RBC 3.84 10^6/uL (4.70-6.10) L 06/21/19 04:50 Hgb 10.4 g/dL (14.0-18.0) L 06/21/19 04:50 Hct 31.7 % (42.0-52.0) L 06/21/19 04:50 MCV 82.6 fL (80.0-94.0) 06/21/19 04:50 MCH 27.1 pg (27.0-31.0) 06/21/19 04:50 MCHC 32.8 g/dL (32.0-36.0) 06/21/19 04:50 RDW 15.0 % (12.0-15.0) 06/21/19 04:50 Plt Count 173 10^3/uL (130-450) 06/21/19 04:50 MPV 8.6 fL (7.4-11.4) 06/21/19 04:50 Neut # (Auto) 3.8 10^3/uL (1.5-6.6) 06/21/19 04:50 Lymph # (Auto) 2.1 10^3/uL (1.5-3.5) 06/21/19 04:50 [place] # (Auto) 0.5 10^3/uL (0.0-1.0) 06/21/19 04:50 Eos # (Auto) 0.1 10^3/uL (0.0-0.7) 06/21/19 04:50 Baso # (Auto) 0.0 10^3/uL (0.0-0.1) 06/21/19 04:50 Absolute Nucleated RBC 0.00 x10^3/uL 06/21/19 04:50 Nucleated RBC % 0.0 /100WBC 06/21/19 04:50 Sodium 137 mmol/L (135-145) 06/21/19 04:50 Potassium 3.9 mmol/L (3.5-5.0) 06/21/19 04:50 Chloride 101 mmol/L (101-111) 06/21/19 04:50 Carbon Dioxide 28 mmol/L (21-32) 06/21/19 04:50 Anion Gap 8.0 (6-13) 06/21/19 04:50 BUN 11 mg/dL (6-20) 06/21/19 04:50 Creatinine 1.1 mg/dL (0.6-1.2) 06/21/19 04:50 Estimated GFR (MDRD) 76 (>89) L 06/21/19 04:50 Glucose 233 mg/dL (70-100) H 06/21/19 04:50 POC Whole Bld Glucose 223 mg/dL (70 - 100) H 06/21/19 07:32 Glycated Hemoglobin 9.8 % (4.6-6.2) H 06/20/19 03:30 Estim Average Glucose 235 (70-100) H 06/20/19 03:30 Lactic Acid 1.4 mmol/L (0.5-2.2) 06/20/19 07:24 Calcium 8.5 mg/dL (8.5-10.3) 06/21/19 04:50 Phosphorus 3.4 mg/dL (2.5-4.6) 06/21/19 04:50 Magnesium 2.0 mg/dL (1.7-2.8) 06/21/19 04:50 Total Bilirubin 0.8 mg/dL (0.2-1.0) 06/19/19 17:23 AST 18 IU/L (10-42) 06/19/19 17:23 ALT 22 IU/L (10-60) 06/19/19 17:23 Alkaline Phosphatase 73 IU/L (42-121) 06/19/19 17:23 Total Protein 7.9 g/dL (6.7-8.2) 06/19/19 17:23 Albumin 4.0 g/dL (3.2-5.5) 06/19/19 17:23 Globulin 3.9 g/dL (2.1-4.2) 06/19/19 17:23 Albumin/Globulin Ratio 1.0 (1.0-2.2) 06/19/19 17:23 Lipase 32 U/L (22-51) 06/19/19 17:23 Urine Color YELLOW 06/19/19 18:05 Urine Clarity CLEAR (CLEAR) 06/19/19 18:05 Urine pH 5.5 PH (5.0-7.5) 06/19/19 18:05 Ur Specific [place] 1.020 (1.002-1.030) 06/19/19 18:05 Urine Protein 30 mg/dL (NEGATIVE) H 06/19/19 18:05 Urine Glucose (UA) 250 mg/dL (NEGATIVE) H 06/19/19 18:05 Urine Ketones TRACE mg/dL (NEGATIVE) 06/19/19 18:05 Urine Occult Blood TRACE-INTA (NEGATIVE) 06/19/19 18:05 Urine Nitrite NEGATIVE (NEGATIVE) 06/19/19 18:05 Urine Bilirubin NEGATIVE (NEGATIVE) 06/19/19 18:05 Urine Urobilinogen 0.2 (NORMAL) E.U./dL (NORMAL) 06/19/19 18:05 Ur Leukocyte Esterase NEGATIVE (NEGATIVE) 06/19/19 18:05 Urine RBC 0-5 /HPF (0-5) 06/19/19 18:05 Urine WBC 0-3 /HPF (0-3) 06/19/19 18:05 Ur Squamous Epith Cells NONE SEEN (<= Few) 06/19/19 18:05 Urine Bacteria None Seen /HPF (None Seen) 06/19/19 18:05 Urine Mucus Moderate Strands 06/19/19 18:05 Ur Microscopic Review INDICATED 06/19/19 18:05 Urine Culture Comments NOT INDICATED 06/19/19 18:05 - Procedures Procedures: Procedures DETACHMENT AT LEFT 5TH TOE, COMPLETE, OPEN APPROACH (03/29/19) DRAINAGE OF LEFT KNEE JOINT, PERCUTANEOUS APPROACH, DIAGN (03/29/19) EXCISION OF LEFT FOOT TENDON, OPEN APPROACH (03/29/19) Sepsis Event Note (H) - Evaluation Current Stage of Sepsis: Sepsis Possible source of Sepsis: positive: Skin/soft tissue, Wound - Sepsis Criteria Sepsis Criteria: Recorded Heart Rate greater than 90 bpm, Metabolic: lactate > 2 mmol/L
[2019-06-21] MEDS: ASCORBIC ACID CHEW 500 MG TABLET PO SCH (07:57)
[2019-06-21] MEDS: FERROUS GLUCONATE 324 MG TABLET PO SCH (07:57)
[2019-06-21] MEDS: SACCHAROMYCES BOULARDII 250 MG CAPSULE PO SCH ×2 (07:57→20:00)
[2019-06-21] MEDS: ASPIRIN 325 MG TABLET PO SCH (07:57)
[2019-06-21] MEDS: INSULIN ASPART 300 UNIT/3 ML PEN SUBQ SCH ×4 (07:57→21:43)
[2019-06-21] MEDS: ZINC SULFATE 220 MG CAPSULE PO SCH (07:57)
[2019-06-21] MEDS: CYANOCOBALAMIN 500 MCG TABLET PO SCH (07:58)
[2019-06-21] MEDS: FAMOTIDINE 20 MG TABLET PO SCH (07:58)
[2019-06-21] MEDS: SODIUM CHLORIDE FLUSH 0.9% 10 ML SYRINGE IVP SCH ×3 (07:58→16:33)
[2019-06-21] MEDS: CHOLECALCIFEROL 1,000 UNIT TABLET PO SCH (07:58)
[2019-06-21] MEDS: ENOXAPARIN 40 MG/0.4 ML SYRINGE SUBQ SCH (07:58)
[2019-06-21] MEDS: POLYETHYLENE GLYCOL 3350 17 GM PACKET PO SCH (08:01)
[2019-06-21 09:49] LABS: VANCOMYCIN,TROUGH 10.5 ug/mL (10.0-20.0)
[2019-06-21] MEDS: VANCOMYCIN INJ 1.75 GM in SODIUM CHLORIDE 0.9% 500 ML IV SCH (10:01)
--- NOTE | 2019-06-21 15:45 | ANESTHESIA PROCEDURE NOTE ---
Diagnosis: Osteomylitis left foot, need for [employer] antibiotics Procedure: placement of PICC Consent for Procedure(s) Verified and Reviewed: Yes Height and Weight: Height 6 ft 7 in Weight (kg) 115 kg Body Mass Index 28.5 Vital Signs: Temp Pulse Resp BP Pulse Ox 36.9 C 78 16 126/86 H 98 06/21/19 11:05 06/21/19 11:05 06/21/19 11:05 06/21/19 11:05 06/21/19 11:05 Allergies No Known Drug Intolerances Allergy (Unknown, Verified 06/19/19 17:06) Unknown macadamia nut oil Allergy (Verified 06/19/19 17:06) Anaphylaxis tree nut Allergy (Verified 06/19/19 17:06) Anaphylaxis walnut Allergy (Verified 06/19/19 17:06) Anaphylaxis Requesting Provider: flaco [place]. Monitoring and Equipment: Sterile prep and drape Anes. Procedure Start Time: 14:49 Anes. Procedure Stop Time: 15:17 Procedure Notes: Informed consent obtained. Patient's right arm was prepped with chloroprep x2. Full sterile drape, gown, gloves and mask utilized. Time-out completed at bedside. After localizing the right upper arm with 5ml of 1% lidocaine, a 20G needle was used to access the right basilic vein under ultrasound guidance. The wire advanced with ease and sheath was placed. A 5 Fr dual lumen catheter was inserted and using teleflex with p-wave technology, it was guided to the lower 1/3 of the SVC (see teleflex report). The 55cm catheter was not trimmed due to patient's height and 9cm of the catheter was exposed. Both ports aspirated blood and flushed with ease. All wires were accounted for and line was secured with statlock and opsite. Patient tolerated the procedure well.
[2019-06-21] MEDS ORDERED: SODIUM CHLORIDE FLUSH 0.9% 10 ML SYRINGE IVP PRN (15:46)
[2019-06-21] MEDS ORDERED: INSULIN GLARGINE 300 UNIT/3 ML PEN SUBQ SCH (21:00)
--- NOTE | 2019-06-21 21:47 | Ultrasound Report ---
Reason: bilat foot infections, eval for PVD Procedure Date: 06/21/2019 Accession Number: [id number] / [id number] Procedure: US - Ankle Brachial Index CPT Code: FULL RESULT: EXAM: BILATERAL ANKLE/BRACHIAL INDEX EXAM DATE: 06/21/2019 07:13 PM. CLINICAL HISTORY: Bilat foot infections, eval for PVD. COMPARISON: ANKLE BRACHIAL INDEX 04/02/2019 12:19 PM. TECHNIQUE: A blood pressure cuff and pulse volume recording Doppler ultrasound was used to evaluate the arterial pressures in the arms and ankle. No images were acquired. FINDINGS: Brachial pressure: Right brachial artery: 160/95 mmHg Left brachial artery: 159/95 mmHg Right ankle pressures: 140/55 mmHg Triphasic waveform within the posterior tibial artery with peak systolic velocity 88 cm/s. Triphasic waveform within the dorsalis pedis artery with peak systolic velocity 59 cm/s. Left ankle pressures: 156/65 mmHg Monophasic waveform within the posterior tibial artery with peak systolic velocity 91 cm/s. Wave length not obtained in the dorsalis pedis artery due to overlying bandage. IMPRESSION: 1. Right ankle/brachial index: 0.9. 2. Left ankle/brachial index: 1.0. ANKLE/BRACHIAL INDEX REFERENCE STANDARDS 1.0-1.4: Normal 0.90-0.99: Borderline < 0.9: Abnormal RADIA
[2019-06-22] MEDS: PIPERACILLIN/TAZOBACTAM 4.5 GM in SODIUM CHLORIDE 0.9% MINIBAG 100 ML IV SCH ×5 (00:15→23:58)
[2019-06-22] MEDS: ACETAMINOPHEN 325 MG TABLET PO PRN (00:15)
[2019-06-22] MEDS: SODIUM CHLORIDE FLUSH 0.9% 10 ML SYRINGE IVP SCH ×4 (00:15→23:58)
[2019-06-22] MEDS: LACTATED RINGERS 1,000 ML IV SCH (03:33)
[2019-06-22] MEDS: SODIUM CHLORIDE FLUSH 0.9% 10 ML SYRINGE IVP PRN ×3 (05:54→23:58)
[2019-06-22] MEDS: CHOLECALCIFEROL 1,000 UNIT TABLET PO SCH (09:16)
[2019-06-22] MEDS: FAMOTIDINE 20 MG TABLET PO SCH ×2 (09:16→21:27)
[2019-06-22] MEDS: SACCHAROMYCES BOULARDII 250 MG CAPSULE PO SCH ×2 (09:16→21:27)
[2019-06-22] MEDS: CYANOCOBALAMIN 500 MCG TABLET PO SCH (09:16)
[2019-06-22] MEDS: ENOXAPARIN 40 MG/0.4 ML SYRINGE SUBQ SCH (09:17)
[2019-06-22] MEDS: ASPIRIN 325 MG TABLET PO SCH (09:17)
[2019-06-22] MEDS: ASCORBIC ACID CHEW 500 MG TABLET PO SCH (09:17)
[2019-06-22] MEDS: FERROUS GLUCONATE 324 MG TABLET PO SCH (09:17)
[2019-06-22] MEDS: ZINC SULFATE 220 MG CAPSULE PO SCH (09:17)
[2019-06-22] MEDS: INSULIN ASPART 300 UNIT/3 ML PEN SUBQ SCH ×4 (09:17→21:28)
[2019-06-22] MEDS: POLYETHYLENE GLYCOL 3350 17 GM PACKET PO SCH (10:18)
[2019-06-22] MEDS ORDERED: WATER FOR INJECTION,STERILE 10 ML ONE (11:44)
--- NOTE | 2019-06-22 11:53 | Discharge Plan ---
Discharge Plan Problem Reviewed?: Yes Disposition: Home, Self Care Condition: Stable Prescriptions: Ceftriaxone Sodium [Ceftriaxone 2 gram] 2 gm IV DAILY #14 vial.port Insulin NPH Hum/Reg Insulin Hm [Humulin 70-30 Vial] 5 unit SUBQ BID #2 vial Pen Needle, Diabetic [Insulin Pen Needle] 1 each MC BID #60 dis.needle Saccharomyces Boulardii [Daily Probiotic] 250 mg PO BID #28 capsule Syringe,Insul U-500,Ndl,0.5ML [Insulin Syringe] 1 each MC BID #60 disp.syrin Diet: Diabetic Activity Restrictions: Activity as Tolerated Shower Restrictions: No Weight Bearing: As per Dr Hinds Instruction Topics: Insulin Injected, PICC, PICC Care Dc, PICC Line Flush Home Health Concerns: Admitted with a fever from soft tissue infection from a diabetic foot ulcer. Diabetes control needs to be tighter. Plan of Treatment: 2 weeks of daily iv antibiotics and new Insulin use and follow-ups and MAC cl inic for Diabetes and for daily antibiotic dosing via a PICC line. The final identification of the bacteria was unavailable from [facility], at the time of discharge. Your PCP will manage further medication adjustments. Care Goals: Diabetic ulcer healing. Improved Diabetes management. Assessment: The patient is agreeable with the plan. Additional Instructions or Follow Up instructions: If you have new or worsening symptoms, call your PCP for advice or come to the ER. No Smoking: If you smoke, Please STOP! Call for help. Follow-up with: Viky Hadley MD [Primary Care Provider] -
--- NOTE | 2019-06-22 12:43 | PROVIDER PROGRESS NOTE ---
Assessment/Plan - Problem List (1) Bacterial infection due to Pseudomonas Assessment/Plan: The wound specimen from the OR, sent 06/19/19, when seismoid bones were removed, has returned with a result today: it has grown Pseudomonas. Most of the antibiotics have sensitivity results, but some are pending. Ceftriaxone once a day is not an option for management, based on these results. He will need either Pip/Tazo qid (with home infusion) or Levofloxacin (Intermediate sens) plus Gentamicin once a day with Gent levels monitored, in the MAC clinic potentially. I presented his options, thus far, to the patient (and mother at bedside). The Inclusion Teacher, ANGELLA Marcus, was present too. I will discuss with ID at . SW will help determine where the most affordable and least obtrusive management will be. No HIh home today, until correct antibiotic management is determined and arran travis. (2) Acute gout of left knee Assessment/Plan: This is a new complaint today, and he describes the L knee pain as similar to a past admission when Dr Reyes asoirated the knee, and gouty crystals were found. Will begin a course of Cochicine, at least 7 days. Will hold daily aspirin while on Colchicine. (3) Diabetic foot ulcer Qualifiers: Laterality: left Assessment/Plan: [facility] [place] was requested, after speaking with Dr Hinds yesterday. The plan will be at least 2 weeks of iv antibiotics, since he presented with sepsis. Choice of antibiotic will depend on arrangements for how often and where he will get infusions. SW is arranging. A PICC line was inserted yesterday. ABIs were done yesterday and were in the borderline range, not severe PVD there fore. (4) Osteomyelitis of foot Qualifiers: Laterality: left Assessment/Plan: The pathology report has not been received yet, from the SDS done 06/19/19, to determine if borders were all removed. The MRI which showed osteo was done 05/24/19. 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 621 - Type 2 diabetes mellitus with foot ulcer; L97.509 - Non-pressure chronic ulcer of other part of unspecified foot with unspecified severity Assessment/Plan: The patient agreed today to start using Insulin for better glu control. During this year, his DM management has increased from Metformin 500 mg daily, to bid, to 100 mg bid, to addition of second oral agent with Gllipizide. Will plan an inexpensive (Insulin 70/30) bid use as an outpatient (since hre has no health insurance and is a "self pay". Will put in a consult and request [facility] to start seeing him. (6) Peripheral neuropathy Assessment/Plan: No c/o foot pain, has numbness. (7) Anemia Qualifiers: Anemia type: other cause Other causes of anemia: chronic disease, other Qualified Code(s): D63.8 - Anemia in other chronic diseases classified elsewhere Assessment/Plan: As per Route Service Representative, he has anemia of chronic disease and does not require Iron replacement. He is on vit C and Zinc for wound healing. Will add a multivitamin daily. (8) Hypomagnesemia Assessment/Plan: Resolved with po replacement. Will monitor serum Mg intermittently. (9) Sepsis Assessment/Plan: Resolved - Current Meds Current Meds: Current Medications Generic Name Dose Route Start Last Admin Trade Name Freq PRN Reason Stop Dose Admin Acetaminophen 650 mg 06/19/19 18:09 06/22/19 00:15 Tylenol PO 650 mg Q4HR PRN Administration Pain 1 to 4 Ascorbic Acid 500 mg 06/20/19 16:30 06/22/19 09:17 Vitamin C PO 500 mg DAILY PASCUAL Administration Aspirin 325 mg 06/20/19 09:00 06/22/19 09:17 Robby PO 325 mg DAILY PASCUAL Administration Cholecalciferol 2,000 unit 06/20/19 09:00 06/22/19 09:16 Vitamin D3 PO 2,000 unit DAILY PASCUAL Administration Cyanocobalamin 1,000 mcg 06/20/19 09:00 06/22/19 09:16 Vitamin B-12 PO 1,000 mcg DAILY PASCUAL Administration Enoxaparin Sodium 40 mg 06/20/19 13:00 06/22/19 09:17 Lovenox SUBQ 40 mg DAILY PASCUAL Administration Famotidine 20 mg 06/19/19 21:00 06/22/19 09:16 Pepcid PO 20 mg BID PASCUAL Administration Ferrous Gluconate 324 mg 06/21/19 08:00 08/30/19 09:17 Fergon PO 324 mg DAILYWM PASCUAL Administration Piperacillin Sod/Tazobactam 100 mls @ 200 mls/hr 06/19/19 23:59 06/22/19 12:16 Sod 4.5 gm/ Sodium Chloride IV Infused Q6H PASCUAL Infusion Insulin Aspart 3 - 11 unit 06/20/19 12:00 06/22/19 11:46 Novolog SUBQ 7 unit 0800,1200,1700,2100 PASCUAL Administration Protocol Insulin Glargine 7 unit 06/21/19 21:00 06/21/19 21:41 Lantus Solostar SUBQ 7 unit QPM PASCUAL Administration Polyethylene Glycol 17 gm 06/20/19 09:00 06/22/19 10:18 Miralax PO Not Given DAILY PASCUAL Saccharomyces Boulardii 250 mg 06/19/19 21:00 06/22/19 09:16 Florastor PO 250 mg BID PASCUAL Administration Sodium Chloride 10 ml 06/19/19 18:09 06/22/19 05:54 Normal Saline Flush 0.9% IVP 10 ml PRN PRN Administration NEEDED PER PROVIDER ORDERS Sodium Chloride 10 ml 06/20/19 01:00 06/22/19 09:19 Normal Saline Flush 0.9% IVP 10 ml 0100,0900,1700 PASCUAL Administration Zinc Sulfate 220 mg 06/20/19 16:30 06/22/19 09:17 PO 220 mg DAILY APSCUAL Administration - Lab Result Fish Bone Diagrams: 06/21/19 04:50 06/21/19 04:50 - Additional Planning My Orders: My Active Orders 06/21/19 13:00 Miscellaenous Nursing Order [RC] QSHIFT 06/21/19 13:24 PICC Line Care [RC] Q4H PICC Line Insert [RC] .ONCE 06/21/19 15:40 Sodium Chloride Flush 0.9% [Normal Saline Flush 0.9%] 20 ml IVP PRN PRN 06/21/19 15:46 Sodium Chloride Flush 0.9% [Normal Saline Flush 0.9%] 10 ml IVP PRN PRN 06/21/19 21:00 Insulin Glargine [Lantus Solostar] 7 unit SUBQ QPM 06/22/19 Diabetes Outpatient Education MAC [MAC] Routine Subjective - Subjective Patient Reports: Pain, Other (New swelling, redness of L knee that had previous aspuration and gout was found. He took 1 week of "gout meication" (Colchicine).) Objective Vital Signs: Vital Signs - 24 hr 06/21/19 06/21/19 06/21/19 16:09 19:37 22:12 Temperature 37.0 C 36.8 C Heart Rate [ 76 78 Brachial] Respiratory 16 16 Rate Blood Pressure 142/114 H 155/112 H 139/83 H [Left Brachial artery] Blood Pressure [Right Brachial artery] O2 Saturation 99 95 06/22/19 06/22/19 06/22/19 00:49 05:00 07:58 Temperature 36.9 C 37.0 C 37.1 C Heart Rate [ 77 81 80 Brachial] Respiratory 18 18 16 Rate Blood Pressure 150/89 H 130/81 H 132/72 H [Left Brachial artery] Blood Pressure [Right Brachial artery] O2 Saturation 99 95 95 06/22/19 11:27 Temperature 36.8 C Heart Rate [ 82 Brachial] Respiratory 16 Rate Blood Pressure [Left Brachial artery] Blood Pressure 142/90 H [Right Brachial artery] O2 Saturation 98 Oxygen O2 Source Room air I&O (Last 24 Hrs): Intake and Output Totals x24h 06/20/19 06/21/19 06/22/19 23:59 23:59 23:59 Intake Total 75969.36 6161.25 920 Output Total 4700 3525 1280 Balance 6544.36 2636.25 -360 General: Alert, Oriented x3 HEENT: Mucous membr. moist/pink Neck: Supple Neuro: Alert, Non Focal, Other (Foot numbness) Cardiovascular: Regular rate Respiratory: No respiratory distress Abdomen: Soft Extremities: Other (L miial knee slightly red, slightly warm, slightly swollen. L foot bandaged.) - Results Results: Laboratory Results WBC 6.6 x10^3/uL (4.8-10.8) 06/21/19 04:50 RBC 3.84 10^6/uL (4.70-6.10) L 06/21/19 04:50 Hgb 10.4 g/dL (14.0-18.0) L 06/21/19 04:50 Hct 31.7 % (42.0-52.0) L 06/21/19 04:50 MCV 82.6 fL (80.0-94.0) 06/21/19 04:50 MCH 27.1 pg (27.0-31.0) 06/21/19 04:50 MCHC 32.8 g/dL (32.0-36.0) 06/21/19 04:50 RDW 15.0 % (12.0-15.0) 06/21/19 04:50 Plt Count 173 10^3/uL (130-450) 06/21/19 04:50 MPV 8.6 fL (7.4-11.4) 06/21/19 04:50 Neut # (Auto) 3.8 10^3/uL (1.5-6.6) 06/21/19 04:50 Lymph # (Auto) 2.1 10^3/uL (1.5-3.5) 06/21/19 04:50 [place] # (Auto) 0.5 10^3/uL (0.0-1.0) 06/21/19 04:50 Eos # (Auto) 0.1 10^3/uL (0.0-0.7) 06/21/19 04:50 Baso # (Auto) 0.0 10^3/uL (0.0-0.1) 06/21/19 04:50 Absolute Nucleated RBC 0.00 x10^3/uL 06/21/19 04:50 Nucleated RBC % 0.0 /100WBC 06/21/19 04:50 Sodium 137 mmol/L (135-145) 06/21/19 04:50 Potassium 3.9 mmol/L (3.5-5.0) 06/21/19 04:50 Chloride 101 mmol/L (101-111) 06/21/19 04:50 Carbon Dioxide 28 mmol/L (21-32) 06/21/19 04:50 Anion Gap 8.0 (6-13) 06/21/19 04:50 BUN 11 mg/dL (6-20) 06/21/19 04:50 Creatinine 1.1 mg/dL (0.6-1.2) 06/21/19 04:50 Estimated GFR (MDRD) 76 (>89) L 06/21/19 04:50 Glucose 233 mg/dL (70-100) H 06/21/19 04:50 POC Whole Bld Glucose 248 mg/dL (70 - 100) H 06/22/19 11:04 Glycated Hemoglobin 9.8 % (4.6-6.2) H 06/20/19 03:30 Estim Average Glucose 235 (70-100) H 06/20/19 03:30 Lactic Acid 1.4 mmol/L (0.5-2.2) 06/20/19 07:24 Calcium 8.5 mg/dL (8.5-10.3) 06/21/19 04:50 Phosphorus 3.4 mg/dL (2.5-4.6) 06/21/19 04:50 Magnesium 2.0 mg/dL (1.7-2.8) 06/21/19 04:50 Total Bilirubin 0.8 mg/dL (0.2-1.0) 06/19/19 17:23 AST 18 IU/L (10-42) 06/19/19 17:23 ALT 22 IU/L (10-60) 06/19/19 17:23 Alkaline Phosphatase 73 IU/L (42-121) 06/19/19 17:23 Total Protein 7.9 g/dL (6.7-8.2) 06/19/19 17:23 Albumin 4.0 g/dL (3.2-5.5) 06/19/19 17:23 Globulin 3.9 g/dL (2.1-4.2) 06/19/19 17:23 Albumin/Globulin Ratio 1.0 (1.0-2.2) 06/19/19 17:23 Lipase 32 U/L (22-51) 06/19/19 17:23 Urine Color YELLOW 06/19/19 18:05 Urine Clarity CLEAR (CLEAR) 06/19/19 18:05 Urine pH 5.5 PH (5.0-7.5) 06/19/19 18:05 Ur Specific [place] 1.020 (1.002-1.030) 06/19/19 18:05 Urine Protein 30 mg/dL (NEGATIVE) H 06/19/19 18:05 Urine Glucose (UA) 250 mg/dL (NEGATIVE) H 06/19/19 18:05 Urine Ketones TRACE mg/dL (NEGATIVE) 06/19/19 18:05 Urine Occult Blood TRACE-INTA (NEGATIVE) 06/19/19 18:05 Urine Nitrite NEGATIVE (NEGATIVE) 06/19/19 18:05 Urine Bilirubin NEGATIVE (NEGATIVE) 06/19/19 18:05 Urine Urobilinogen 0.2 (NORMAL) E.U./dL (NORMAL) 06/19/19 18:05 Ur Leukocyte Esterase NEGATIVE (NEGATIVE) 06/19/19 18:05 Urine RBC 0-5 /HPF (0-5) 06/19/19 18:05 Urine WBC 0-3 /HPF (0-3) 06/19/19 18:05 Ur Squamous Epith Cells NONE SEEN (<= Few) 06/19/19 18:05 Urine Bacteria None Seen /HPF (None Seen) 06/19/19 18:05 Urine Mucus Moderate Strands 06/19/19 18:05 Ur Microscopic Review INDICATED 06/19/19 18:05 Urine Culture Comments NOT INDICATED 06/19/19 18:05 Last Dose Date UNK 06/21/19 09:27 Last Dose Time UNK 06/21/19 09:27 Vancomycin Trough 10.5 ug/mL (10.0-20.0) 06/21/19 09:27 - Procedures Procedures: Procedures DETACHMENT AT LEFT 5TH TOE, COMPLETE, OPEN APPROACH (03/29/19) DRAINAGE OF LEFT KNEE JOINT, PERCUTANEOUS APPROACH, DIAGN (03/29/19) EXCISION OF LEFT FOOT TENDON, OPEN APPROACH (03/29/19) Sepsis Event Note (H) - Evaluation Current Stage of Sepsis: Sepsis Possible source of Sepsis: positive: Skin/soft tissue, Wound - Sepsis Criteria Sepsis Criteria: Recorded Heart Rate greater than 90 bpm, Metabolic: lactate > 2 mmol/L
[2019-06-22] MEDS: COLCHICINE 0.6 MG TABLET PO SCH (14:42)
[2019-06-22] MEDS: PRENATAL VITAMIN TABLET PO SCH (17:29)
[2019-06-22] MEDS ORDERED: INSULIN GLARGINE 300 UNIT/3 ML PEN SUBQ SCH (21:00)
[2019-06-23] MEDS: SODIUM CHLORIDE FLUSH 0.9% 10 ML SYRINGE IVP PRN ×4 (05:23→14:02)
[2019-06-23] MEDS: PIPERACILLIN/TAZOBACTAM 4.5 GM in SODIUM CHLORIDE 0.9% MINIBAG 100 ML IV SCH ×2 (05:23→11:55)
[2019-06-23 05:33] LABS: BASOPHILS % (AUTO) 0.5 %; EOSINOPHILS # (AUTO) 0.3 10^3/uL (0.0-0.7); EOSINOPHILS % (AUTO) 3.4 %; HGB - HEMOGLOBIN 10.2 g/dL (14.0-18.0); LYMPHOCYTES # (AUTO) 2.4 10^3/uL (1.5-3.5); LYMPHOCYTES % (AUTO) 32.8 %; MEAN CORPUSCULAR HEMOGLOBIN 26.7 pg (27.0-31.0); MEAN CORPUSCULAR HGB CONC 32.4 g/dL (32.0-36.0); MEAN CORPUSCULAR VOLUME 82.5 fL (80.0-94.0); MEAN PLATELET VOLUME 8.8 fL (7.4-11.4); MONOCYTES # (AUTO) 0.6 10^3/uL (0.0-1.0); MONOCYTES % (AUTO) 8.4 %; NEUTROPHILS % (AUTO) 54.6 %; PLT - PLATELET COUNT 240 10^3/uL (130-450); RED BLOOD COUNT 3.82 10^6/uL (4.70-6.10); RED CELL DISTRIBUTION WIDTH 14.6 % (12.0-15.0); WHITE BLOOD COUNT 7.4 x10^3/uL (4.8-10.8)
[2019-06-23 05:34] LABS: CREATININE 1.1 mg/dL (0.6-1.2); MAGNESIUM 2.1 mg/dL (1.7-2.8)
[2019-06-23 07:57] VITALS: BP 129/82
[2019-06-23] MEDS: INSULIN ASPART 300 UNIT/3 ML PEN SUBQ SCH ×2 (08:32→11:56)
[2019-06-23] MEDS: ZINC SULFATE 220 MG CAPSULE PO SCH (08:33)
[2019-06-23] MEDS: CYANOCOBALAMIN 500 MCG TABLET PO SCH (08:33)
[2019-06-23] MEDS: ASCORBIC ACID CHEW 500 MG TABLET PO SCH (08:33)
[2019-06-23] MEDS: SACCHAROMYCES BOULARDII 250 MG CAPSULE PO SCH (08:33)
[2019-06-23] MEDS: FAMOTIDINE 20 MG TABLET PO SCH (08:33)
[2019-06-23] MEDS: COLCHICINE 0.6 MG TABLET PO SCH (08:33)
[2019-06-23] MEDS: CHOLECALCIFEROL 1,000 UNIT TABLET PO SCH (08:33)
[2019-06-23] MEDS: ENOXAPARIN 40 MG/0.4 ML SYRINGE SUBQ SCH (08:34)
[2019-06-23] MEDS: POLYETHYLENE GLYCOL 3350 17 GM PACKET PO SCH (08:34)
[2019-06-23] MEDS: SODIUM CHLORIDE FLUSH 0.9% 10 ML SYRINGE IVP SCH (08:35)
[2019-06-23] MEDS: PRENATAL VITAMIN TABLET PO SCH (08:40)
--- NOTE | 2019-06-23 12:38 | Discharge Plan ---
Discharge Plan Problem Reviewed?: Yes Disposition: Home, Self Care Condition: Stable Prescriptions: Colchicine [Colcrys] 0.6 mg PO DAILY #7 tablet Insulin NPH Hum/Reg Insulin Hm [Humulin 70-30 Vial] 5 unit SUBQ BID #2 vial Levofloxacin/D5w [Levofloxacin 500 mg/100 ml-D5w] 750 mg IV DAILY #12 ml Pen Needle, Diabetic [Insulin Pen Needle] 1 each MC BID #60 dis.needle Vitamin [Trinatal Rx 1] 1 tab PO DAILYWM #30 tablet Saccharomyces Boulardii [Daily Probiotic] 250 mg PO BID #28 capsule Syringe,Insul U-500,Ndl,0.5ML [Insulin Syringe] 1 each MC BID #60 disp.syrin Activity Restrictions: Activity as Tolerated Shower Restrictions: No Weight Bearing: As per Dr Hinds (your orthopedic doctor) Instruction Topics: Insulin Injected, PICC, PICC Care Dc, PICC Line Flush Home Ch Health Concerns: Admitted with a fever from soft tissue infection from a diabetic foot ulcer. Diabetes control needs to be tighter. Plan of Treatment: 12 MORE DAYS of daily iv antibiotic dosing via a PICC line at the [facility]. The final ANAEROBIC identification of the bacteria was unavailable from [facility], at the time of discharge. Your PCP will manage further medication adjustments. Come for Wound Care with Jin Carlos NP at the [facility] as well. New Insulin prescriptions were sent and you are advised to come to [facility] for Diabetes management. New prescription ordered for Colchicine for gout, and it should be taken for a week. After that, resume taking the daily aspirin. Care Goals: Diabetic ulcer healing. Improved Diabetes management. Assessment: The patient is agreeable with the plan. Additional Instructions or Follow Up instructions: If you have new or worsening symptoms, call your PCP for advice or come to the ER. Follow-Up Care: [facility] - Wound/Ostomy, [facility] - Medical, [facility] - Diabetes Ed No Smoking: If you smoke, Please STOP! Call for help. Follow-up with: Viky Hadlye MD [Primary Care Provider] -
--- NOTE | 2019-06-23 13:27 | DISCHARGE SUMMARY ---
Discharge Summary Admit Date: 06/19/19 Discharge Date: 06/23/19 Discharging Provider: Dr Josee Valles Primary Care Provider: Dr Viky Nelson Code Status: Attempt Resuscitation Condition at Discharge: Stable Discharge Disposition: 01 Home, Self Care - DIAGNOSES Admission Diagnoses: 1) Sepsis 2) Diabetic foot ulcer 3) Diabetic cellulitis 4) Osteomyelitis 5) IDDM, uncontrolled 6) Diabetic neuropathy Discharge Diagnoses with Status of Each Condition: See below - HPI History of Present Illness: This is a 33-year-old white male with a history of diabetes that has required escalating doses of oral diabetic medications (Metformin and Glipizide) for glucose control this year, since he did not wish to use Insulin He also has a history of 4 prior diabetic foot ulcers this year, two associated with osteomyelitis. He has required admissions 3 previous times for these infections. Cultures of the wound grew MSSA in December 2018. In March 2018, wound cultures grew Providencia stuartii and beta-hemolytic Strep group B. In April 2019, wound cultures grew beta hemolytic group Strep B. Since March, he has been on oral Augmentin and Doxycycline. He has undergone debridement or bone removal for prior involvement of the left fifth toe, left great toe and on the day of this admission, had 2 seismoid bones removed of the right great toe by Dr Hinds, in same day surgery. He was discharged home, spiked a fever, returned to the ER and was febrile, tachycardic with an elevated lactic acid and was admitted for management of sepsis with infection. - CONSULTS | PROCEDURES Consultations: Dr Nguyễn, Orthopedics - HOSPITAL COURSE Hospital Course: 1) Sepsis He presented with fevers, tachycardia, and elevated lactic acid, which are criteria for sepsis. He was put on empiric Vancomycin IV and Zosyn IV for broad spectrum coverage until cultures from the OR are back. The lactic acid improved then dilan again and his iv fluids were bolused again. He was getting gentle hydration for several days. 2) Osteomyelitis of L foot The most recent MRI was done 05/24/19, which did show osteo of the right great toe. The bone specimens from same day surgery of 06/19/19, were sent to pathology, and results were still pending at the time of discharge. I spoke to the ID Fellow at [facility] [employer] [facility], who advised that I speak to the Orthopod and have him describe the surgical site, as to whether all portions of the infection were removed. I spoke to Dr. Hinds, who said that he felt he got all areas of infection. The ID Fellow advised at least 2 weeks of iv antibiotics, since he presented with sepsis. 3) Diabetic foot ulcer Dr. Ty Nguyễn saw this patient in consult and did not have new recomm endations. I spoke on the phone to Dr. Hinds, who did his past surgeries, who advised that a [facility] be ordered. Jin Carlos, FERNANDO, did not see the patient, but gave recommendations over the phone to his nurse regarding wound care and is to see this patient in follow-up in [facility], where he is already established with her. The wound specimen from same day surgery of 06/19/19, grew Pseudomonas. ABIs were done and were in the borderline range, he did not have severe PVD impeding healing, therefore. 4) Bacterial infection due to Pseudomonas On the day of discharge, sensitivities were available from the [facility] lab wound culture results. Based on those, and from the advice of the ID Fellow at , he was ordered to get IV Levofloxacin 750 mg daily for 14 days, via a PICC line (which was inserted). This would be done for 12 more days, managed through the [facility]. 5) Acute gout of L knee On the day before discharge, he had a new complaint and he describes L knee swelling and pain as similar to a past admission when Dr Reyes aspirated the knee, and gouty crystals were found. He was therefore empirically started on a 7-day course of Cochicine, holding daily aspirin while on Colchicine. 6) Type 2 DM, uncontrolled His A1c was 9.8, indicating poor control, likely due to active infections intermittently and no Insulin use at home. While in inpatient, his Metformin and Glipizide were on hold and he was put on Lantus Insulin at bedtime and sliding scale Aspart Insulin coverage on a high scale. He was seen by the dietitian and the adaptive physical educator was requested to see him as well. The patient agreed to start using Insulin for better glu control. During this year, his DM management has increased from Metformin 500 mg daily, to 500 mg bid, to 1000 mg bid, to addition of second oral agent with Glipizide. Will order the inexpensive Insulin 70/30 b.i.d. to start as an outpatient (since he has no health insurance and is a "self pay"). He was prescribed to use 70/30 Insulin, 5 units twice daily subq and resume his oral diabetic medications as well. He w as also on vitamin C and Zinc to promote soft tissue healing. 7) Peripheral neuropathy Numbness of the plantar surfaces of his feet led to his multiple infections; he could not feel the ulcers starting. The patient has never had evaluation of his neuropathy or been treated with any meds for diabetic neuropathy. 8)Anemia of chronic disease Patient had low iron stores and was on home iron treatment. Labs were repeated here, and he was still low in iron but had adequate B12 and Folate stores. He was seen by the dietitian regarding his diabetes and was felt to have anemia of chronic disease and she advised that the iron replacement be stopped 9) Hypomagnesemia This needed replacement while here. - ALLERGIES Allergies/Adverse Reactions: Allergies Allergy/AdvReac Type Severity Reaction Status Date / Time No Known Drug Intolerances Allergy Unknown Unknown Verified 06/19/19 17:06 macadamia nut oil Allergy Anaphylaxis Verified 06/19/19 17:06 tree nut Allergy Anaphylaxis Verified 06/19/19 17:06 walnut Allergy Anaphylaxis Verified 06/19/19 17:06 - MEDICATIONS Home Medications: Ambulatory Orders Medication Instructions Recorded Confirmed Metformin HCl 1,000 mg PO BIDWM 03/30/19 06/20/19 glipiZIDE [Glipizide] 5 mg PO 0730 03/30/19 06/20/19 Cyanocobalamin (Vitamin B-12) 1,000 mcg PO DAILY #10 capsule 04/07/19 06/20/19 [Vitamin B-12] Aspirin [Robby] 325 mg PO DAILY 06/18/19 06/20/19 Cholecalciferol (Vitamin D3) 2,000 unit PO DAILY 06/18/19 06/20/19 [Vitamin D3] Ferrous Sulfate 325 mg PO DAILYWM 06/20/19 06/20/19 Insulin NPH Hum/Reg Insulin Hm 5 unit SUBQ BID #2 vial 06/22/19 [Humulin 70-30 Vial] Saccharomyces Boulardii [Daily 250 mg PO BID #28 capsule 06/22/19 Probiotic] Syringe,Insul U-500,Ndl,0.5ML 1 each MC BID #60 disp.syrin 06/22/19 [Insulin Syringe] Colchicine [Colcrys] 0.6 mg PO DAILY #7 tablet 06/23/19 Levofloxacin/D5w [Levofloxacin 500 750 mg IV DAILY #12 ml 06/23/19 mg/100 ml-D5w] Vitamin [Trinatal Rx 1] 1 tab PO DAILYWM #30 tablet 06/23/19 Syring-Needl,Disp,Insul,0.3 ml 1 each SQ BID #60 disp.syrin 06/23/19 [Insulin Syringe] - PHYSICAL EXAM AT DISCHARGE General Appearance: positive: No acute distress, Alert, Other (Male-pattern baldness) Eyes Bilateral: positive: Normal inspection ENT: positive: ENT inspection nml, No signs of dehydration Neck: positive: Nml inspection, Thyroid nml, No JVD Respiratory: positive: No respiratory distress, Breath sounds nml Cardiovascular: positive: Regular rate & rhythm, No murmur Abdomen: positive: Non-tender, No distention Skin: positive: Pallor Extremities: positive: Other (L knee not warm or swollen. R foot bandaged.) Neurologic/Psychiatric: positive: Oriented x3, Other (Numbness of feet.) - LABS Result Diagrams: 06/23/19 04:55 06/23/19 04:55 - DIAGNOSTIC IMAGING Diagnostic Imaging Results: Final report reviewed - SEPSIS Current Stage of Sepsis: Sepsis Possible source of Sepsis: Skin/soft tissue, Wound Sepsis Criteria: Recorded Heart Rate greater than 90 bpm, Metabolic: lactate > 2 mmol/L - FOLLOW UP Follow Up: Come to [facility] for daily antibiotic infusions via the PICC line. See Jin Carlos NP in [facility] for follow-up. Come to Diabetes Education at the [facility]. See your PCP in follow-up in the next 1-2 weeks for hospital follow-up.
== END 2019-06-23 14:40 | disposition home or self-care (01) | DRG 872 ==
LOC: ED 16:56 → MS2 18:09
PROVIDERS: ADMIT Internal Medicine; ATTEND Internal Medicine
PROC: 02HV33Z Insertion of Infusion Device into Superior Vena Cava, Percutaneous Approach (ICD-10-PCS; principal; 2019-06-21)
PROC: B548ZZA Ultrasonography of Superior Vena Cava, Guidance (ICD-10-PCS; 2019-06-21)
DX: A41.52 Sepsis due to Pseudomonas (principal); M86.9 Osteomyelitis, unspecified; E87.2 Acidosis; L97.526 Non-pressure chronic ulcer of other part of left foot with bone involvement without evidence of necrosis; E11.69 Type 2 diabetes mellitus with other specified complication; E11.621 Type 2 diabetes mellitus with foot ulcer; E11.65 Type 2 diabetes mellitus with hyperglycemia; E11.42 Type 2 diabetes mellitus with diabetic polyneuropathy; M10.9 Gout, unspecified; D63.8 Anemia in other chronic diseases classified elsewhere; E83.42 Hypomagnesemia; K21.9 Gastro-esophageal reflux disease without esophagitis; R80.9 Proteinuria, unspecified; E78.00 Pure hypercholesterolemia, unspecified; Z98.890 Other specified postprocedural states; Z83.3 Family history of diabetes mellitus; Z79.84 Long term (current) use of oral hypoglycemic drugs; Z79.2 Long term (current) use of antibiotics; Z79.82 Long term (current) use of aspirin; Z91.14 Patient's other noncompliance with medication regimen
CPT/HCPCS: 36415; 71046; 80048; 80053; 80202; 81001; 83036; 83605; 83690; 83735; 84100; 85025; 87040; 93922; 99284; 99285; A9270; C1751; J1650; J1815; J3370; J7120; 81003; 87086

== ENCOUNTER 2019-07-16 15:14 | Emergency (ER) | payer OTHER ==
[2019-07-16] MEDS ORDERED: TETANUS/DIPHTHERIA/PERTUSSIS 0.5 ML SYRINGE IM ONE (16:31)
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
--- NOTE | 2019-07-16 17:11 | XRAY Report ---
Reason: cough Procedure Date: 07/16/2019 Accession Number: [id number] / [id number] Procedure: XR - Chest 2 View X-Ray CPT Code: 78611 FULL RESULT: EXAM: CHEST RADIOGRAPHY. EXAM DATE: 07/16/2019 04:46 PM. CLINICAL HISTORY: Cough. COMPARISON: CHEST 2 VIEW 06/19/2019 5:49 PM. TECHNIQUE: 2 views. FINDINGS: Lungs/Pleura: No focal opacities evident. No pleural effusion. No pneumothorax. Normal volumes. Mediastinum: Heart and mediastinal contours are unremarkable. Other: Right upper extremity PICC line is placed to the level of the cavoatrial junction. IMPRESSION: Unremarkable chest radiographs. RADIA
[2019-07-16 17:23] VITALS: BP 133/104
== END 2019-07-16 17:32 | disposition home or self-care (01) ==
LOC: ED 15:14
DX: S40.011A Contusion of right shoulder, initial encounter (principal); S80.812A Abrasion, left lower leg, initial encounter; R07.9 Chest pain, unspecified; H93.19 Tinnitus, unspecified ear; V43.62XA Car passenger injured in collision with other type car in traffic accident, initial encounter; W22.12XA Striking against or struck by front passenger side automobile airbag, initial encounter; Z23 Encounter for immunization; E11.42 Type 2 diabetes mellitus with diabetic polyneuropathy; Z79.4 Long term (current) use of insulin; I10 Essential (primary) hypertension; Z79.82 Long term (current) use of aspirin
CPT/HCPCS: 71046; 90471; 93005; 99282

== ENCOUNTER 2019-07-23 15:36 | Outpatient (CLI) | payer OTHER, MEDICAID ==
--- NOTE | 2019-07-24 08:17 | XRAY Report ---
Reason: LT ANKLE EDEMA AFTER TRAUMA Procedure Date: 07/23/2019 Accession Number: [id number] / [id number] Procedure: XR - Ankle 3 View LT CPT Code: FULL RESULT: EXAM: LEFT ANKLE RADIOGRAPHY EXAM DATE: 07/23/2019 04:05 PM. CLINICAL HISTORY: Left ankle edema after trauma. COMPARISON: FOOT 3 VIEW LT 03/29/2019. TECHNIQUE: 3 views. FINDINGS: Circumferential soft tissue swelling at the ankle. The ankle mortise appears approximated. No acute fracture detected at the ankle. Status post amputation of the 5th ray distal to the proximal diaphysis of the metatarsal. Distal edge of this bone appears smooth. No subcutaneous radiopaque foreign bodies identified. Vascular calcifications. No ankle joint effusion detected. IMPRESSION: Soft tissue prominence at the ankle, without acute fracture detected. RADIA
== END 2019-07-23 15:37 | disposition home or self-care (01) ==
LOC: DI 15:36
PROVIDERS: ATTEND Internal Medicine
DX: R60.0 Localized edema (principal)

== ENCOUNTER 2019-07-24 09:54 | Emergency (ER) | payer MEDICAID ==
[2019-07-24 11:06] LABS: BASOPHILS % (AUTO) 0.3 %; EOSINOPHILS # (AUTO) 0.3 10^3/uL (0.0-0.7); EOSINOPHILS % (AUTO) 3.6 %; HGB - HEMOGLOBIN 11.6 g/dL (14.0-18.0); LYMPHOCYTES # (AUTO) 1.9 10^3/uL (1.5-3.5); LYMPHOCYTES % (AUTO) 25.8 %; MEAN CORPUSCULAR HEMOGLOBIN 26.1 pg (27.0-31.0); MEAN CORPUSCULAR VOLUME 79.1 fL (80.0-94.0); MEAN PLATELET VOLUME 8.1 fL (7.4-11.4); MONOCYTES # (AUTO) 0.4 10^3/uL (0.0-1.0); MONOCYTES % (AUTO) 5.2 %; NEUTROPHILS # (AUTO) 4.6 10^3/uL (1.5-6.6); NEUTROPHILS % (AUTO) 64.5 %; PLT - PLATELET COUNT 334 10^3/uL (130-450); RED BLOOD COUNT 4.44 10^6/uL (4.70-6.10); RED CELL DISTRIBUTION WIDTH 13.5 % (12.0-15.0); WHITE BLOOD COUNT 7.2 x10^3/uL (4.8-10.8)
[2019-07-24 11:25] LABS: ALBUMIN 3.7 g/dL (3.2-5.5); ALBUMIN/GLOBULIN RATIO 0.8 (1.0-2.2); BILIRUBIN,TOTAL 0.6 mg/dL (0.2-1.0); CALCIUM 9.3 mg/dL (8.5-10.3); CRP - C-REACTIVE PROTEIN 6.4 mg/dL (0-1.0); TOTAL PROTEIN 8.3 g/dL (6.7-8.2)
--- NOTE | 2019-07-24 11:35 | ED Physician Documentation ---
History of Present Illness - Stated complaint Stated Complaint: RED STREAKING R FOOT - Chief complaint Chief Complaint: Laceration - History obtained from History obtained from: Patient, Family - History of Present Illness Timing: Other (2+ months) - Additonal information Additional information: 34-year-old unfortunate type II diabetic male with a bad family history of complications of diabetes has had he is left fifth toe amputated this summer and he has been having issues with an ulcer in the left great toe and this is now worsening with enlargement of the ulceration increased drainage and he is developed areas on the right foot that are beginning to be involved as well. He had amputation of the fifth toe this summer and felt improved following that. He has seen Dr. Reyes who did the amputation earlier. He has seen Dr. Hinds who did a debridement of the area on the great toe at the end of May. The patient is concerned about the degree of amputation. Dr. Reyes has recommended amputation below the knee and the patient states that he is not yet ready for that. Review of Systems Constitutional: reports: Fatigue. denies: Fever, Chills, Myalgias Eyes: denies: Decreased vision Ears: denies: Ear pain Nose: denies: Rhinorrhea / runny nose, Congestion Throat: denies: Sore throat Cardiac: denies: Chest pain / pressure, Palpitations Respiratory: denies: Dyspnea, Cough GI: denies: Abdominal Pain, Nausea, Vomiting : denies: Dysuria, Frequency Skin: denies: Rash Musculoskeletal: reports: Extremity pain. denies: Neck pain, Back pain Neurologic: denies: Generalized weakness, Focal weakness, Numbness PD PAST MEDICAL HISTORY - Past Medical History Cardiovascular: Hypertension, High cholesterol Respiratory: None Neuro: Headaches, Peripheral neuropathy Endocrine/Autoimmune: Type 2 diabetes GI: GERD : None HEENT: None Psych: None Musculoskeletal: None Derm: Other - Past Surgical History Past Surgical History: No Ortho: Other HEENT: Other - Present Medications Home Medications: Ambulatory Orders Medication Instructions Recorded Confirmed Metformin HCl 1,000 mg PO BIDWM 03/30/19 06/26/19 glipiZIDE [Glipizide] 5 mg PO 0730 03/30/19 06/26/19 Cyanocobalamin (Vitamin B-12) 1,000 mcg PO DAILY #10 capsule 04/07/19 06/26/19 [Vitamin B-12] Aspirin [Robby] 325 mg PO DAILY 06/18/19 06/26/19 Cholecalciferol (Vitamin D3) 2,000 unit PO DAILY 06/18/19 06/26/19 [Vitamin D3] Ferrous Sulfate 325 mg PO DAILYWM 06/20/19 06/26/19 Insulin NPH Hum/Reg Insulin Hm 5 unit SUBQ BID #2 vial 06/22/19 06/26/19 [Humulin 70-30 Vial] Saccharomyces Boulardii [Daily 250 mg PO BID #28 capsule 06/22/19 06/26/19 Probiotic] Syringe,Insul U-500,Ndl,0.5ML 1 each MC BID #60 disp.syrin 06/22/19 06/26/19 [Insulin Syringe] Colchicine [Colcrys] 0.6 mg PO DAILY #7 tablet 06/23/19 06/26/19 Levofloxacin/D5w [Levofloxacin 500 750 mg IV DAILY #12 ml 06/23/19 06/26/19 mg/100 ml-D5w] Vitamin [Trinatal Rx 1] 1 tab PO DAILYWM #30 tablet 06/23/19 06/26/19 Syring-Needl,Disp,Insul,0.3 ml 1 each SQ BID #60 disp.syrin 06/23/19 06/26/19 [Insulin Syringe] Cefepime 2 gm IV Q12H #10 vial 07/24/19 - Allergies Allergies/Adverse Reactions: Allergies Allergy/AdvReac Type Severity Reaction Status Date / Time No Known Drug Intolerances Allergy Unknown Unknown Verified 07/16/19 15:31 macadamia nut oil Allergy Anaphylaxis Verified 07/16/19 15:31 tree nut Allergy Anaphylaxis Verified 07/16/19 15:31 walnut Allergy Anaphylaxis Verified 07/16/19 15:31 - Social History Does the pt smoke?: No Smoking Status: Never smoker Does the pt drink ETOH?: No Does the pt have substance abuse?: No - Immunizations Immunizations are current?: Yes - POLST Patient has POLST: No POLST Status: Full Code PD ED PE NORMAL - Vitals Vital signs reviewed: Yes (hypertensive ) - General General: Alert and oriented X 3, No acute distress, Well developed/nourished - HEENT HEENT: Atraumatic, PERRL, EOMI - Neck Neck: Supple, no meningeal sign - Respiratory Respiratory: No respiratory distress - Derm Derm: Normal color, Warm and dry, No rash - Extremities Extremities: Other (There is deformity to the bony portions of both feet. The left has a 5th amputation and this appears to be healing well without signs of inflamation. There is a large draining ulceration to the left great toe over the ball of the foot. The area is 3 X 4 cm in size with surrounding erythema and drainage. The distal toe actually looks fairly normal. The right foot has beginnings of erythema without skin break down over the distal right 1st MT. There is a small ulceration over the distal 5th and I am not able to appreciate lymphangitic streaking. ) - Neuro Neuro: Alert and oriented X 3, conference services director 2-12 intact, No motor deficit, No sensory deficit, Normal speech Eye Opening: Spontaneous Motor: Obeys Commands Verbal: Oriented GCS Score: 15 - Psych Psych: Normal mood, Normal affect Results - Vitals Vitals: Vital Signs - 24 hr 07/24/19 07/24/19 09:58 11:46 Temperature 36.4 C L Heart Rate 99 83 Respiratory 18 18 Rate Blood Pressure 148/113 H 125/90 H O2 Saturation 100 98 Oxygen O2 Source Room air - Labs Labs: Laboratory Tests 07/24/19 07/24/19 07/24/19 10:55 10:55 10:55 WBC 7.2 RBC 4.44 L Hgb 11.6 L Hct 35.1 L MCV 79.1 L MCH 26.1 L MCHC 33.0 RDW 13.5 Plt Count 334 MPV 8.1 Neut # (Auto) 4.6 Lymph # (Auto) 1.9 Cole # (Auto) 0.4 Eos # (Auto) 0.3 Baso # (Auto) 0.0 Absolute Nucleated RBC 0.00 Nucleated RBC % 0.0 ESR 113 H Sodium 139 Potassium 4.1 Chloride 103 Carbon Dioxide 27 Anion Gap 9.0 BUN 11 Creatinine 1.0 Estimated GFR (MDRD) 85 L Glucose 193 H Calcium 9.3 Total Bilirubin 0.6 AST 15 ALT 15 Alkaline Phosphatase 76 C-Reactive Protein 6.4 H Total Protein 8.3 H Albumin 3.7 Globulin 4.6 H Albumin/Globulin Ratio 0.8 L Lipase 30 PD MEDICAL DECISION MAKING - ED course Complexity details: reviewed results, re-evaluated patient, considered differential, d/w patient, d/w family, d/w energy sales consultant (Amy: recommends consultation with Dr. Dias with anticipation of amputation. ) ED course: 34-year-old diabetic male with a diabetic foot ulcer and osteomyelitis of the left first distal metatarsal does not appear septic today his white blood cell count is 7.3 and his ESR is 113. An x-ray examination of the foot shows progression of disease from earlier this summer to complete obliteration of the distal first metatarsal. The patient is reluctant to have a below the knee amputation which was suggested by Dr. Reyes. The patient will see Dr. Hinds in follow-up tomorrow and we will place him on cefepime 2 g IV every 12 hours as it appears his Levaquin has failed. The last culture organism was Pseudomonas that was sensitive to Levaquin at that time. Departure - Departure Disposition: 01 Home, Self Care Clinical Impression: Osteomyelitis Qualifiers: Osteomyelitis type: subacute Osteomyelitis location: foot Laterality: left Qualified Code(s): M86.272 - Subacute osteomyelitis, left ankle and foot Condition: Stable Instructions: Osteomyelitis Dc Follow-Up: Giancarlo Hinds MD [Provider Admit Priv/Credential] - Prescriptions: Cefepime 2 gm IV Q12H #10 vial Comments: Follow up with Dr. Hinds tomorrow in the clinic.
[2019-07-24 11:47] VITALS: BP 125/90
[2019-07-24] MEDS ORDERED: CEFEPIME 2 GM in SODIUM CHLORIDE 0.9% MINIBAG 100 ML IV STA (12:06)
--- NOTE | 2019-07-24 12:08 | XRAY Report ---
Reason: great toe osteo Procedure Date: 07/24/2019 Accession Number: [id number] / [id number] Procedure: XR - Foot 3 View LT CPT Code: FULL RESULT: EXAM: LEFT FOOT RADIOGRAPHY EXAM DATE: 07/24/2019 11:43 AM. CLINICAL HISTORY: Great toe osteo. COMPARISON: FOOT 3 VIEW LT 03/29/2019 11:03 PM. TECHNIQUE: 3 views. FINDINGS: Bones: There are lytic changes involving the distal diaphysis and head of the first metatarsal. Lytic changes are also seen of the base of the first proximal phalanx. The associated joint is widened, and the first proximal phalanx is subluxed laterally. There is soft tissue swelling of the first toe. There are subcutaneous air lucencies at the plantar aspect of the mid and forefoot. Interval amputation of the fifth ray, distal to the proximal diaphysis of the fifth metatarsal. The end portion of the remnant bone is smoothly marginated. There are vascular calcifications. No subcutaneous radiopaque foreign bodies. IMPRESSION: Osteolytic changes of the first metatarsal and the first proximal phalanx. Soft tissue swelling of the left great toe. RADIA
== END 2019-07-24 13:11 | disposition home or self-care (01) ==
LOC: ED 09:54
DX: E11.69 Type 2 diabetes mellitus with other specified complication (principal); M86.272 Subacute osteomyelitis, left ankle and foot; E11.621 Type 2 diabetes mellitus with foot ulcer; L97.529 Non-pressure chronic ulcer of other part of left foot with unspecified severity; L97.519 Non-pressure chronic ulcer of other part of right foot with unspecified severity; E11.42 Type 2 diabetes mellitus with diabetic polyneuropathy; Z79.4 Long term (current) use of insulin; I10 Essential (primary) hypertension; Z79.82 Long term (current) use of aspirin
CPT/HCPCS: 36415; 80053; 83690; 85025; 85651; 86140; 87040; 96365; 99284

== ENCOUNTER 2019-08-02 08:17 | Outpatient (CLI) | payer MEDICAID ==
--- NOTE | 2019-08-03 17:09 | Ultrasound Report ---
Reason: BILAT DIABETIC FOOT ULCER, AFTERCARE OF SURGERY Procedure Date: 08/02/2019 Accession Number: [id number] / [id number] Procedure: US - Duplex Lwr Ext Arterial Bilat CPT Code: FULL RESULT: EXAM: Bilateral Lower Extremity Arterial Doppler Ultrasound EXAM DATE: 08/02/2019 09:43 AM. CLINICAL HISTORY: Bilateral diabetic foot ulcer, aftercare of surgery. History of type 2 diabetes. COMPARISON: 08/02/2019 9:41 AM. TECHNIQUE: Real-time sonographic vascular imaging was performed by the outreach consultant, utilizing color-flow, Doppler flow, and spectral analysis. Multiple retail account representative static images were saved for review. FINDINGS: Right Lower Extremity: BEAD INSPECTOR: PSV 75 cm/sec, triphasic waveform. PSFA: PSV 61 cm/sec, triphasic waveform. MSFA: PSV 72 cm/sec, triphasic waveform. DSFA: PSV 46 cm/sec, triphasic waveform. PFA: PSV 44 cm/sec, triphasic waveform. POP: PSV 44 cm/sec, triphasic waveform. EFRAIN: PSV 59 cm/sec, triphasic waveform. CASH CHECKER: PSV 85 cm/sec, triphasic waveform. GARETH: PSV 54 cm/sec, triphasic waveform. DPA: PSV 64 cm/sec, triphasic waveform. Left Lower Extremity: BEAD INSPECTOR: PSV 79 cm/sec, triphasic waveform. PSFA: PSV 82 cm/sec, triphasic waveform. MSFA: PSV 75 cm/sec, triphasic waveform. DSFA: PSV 80 cm/sec, triphasic waveform. PFA: PSV 62 cm/sec, triphasic waveform. POP: PSV 69 cm/sec, triphasic waveform. EFRAIN: PSV 105 cm/sec, monophasic waveform. CASH CHECKER: PSV 111 cm/sec, monophasic waveform. GARETH: PSV 62 cm/sec, monophasic waveform. DPA: PSV 39 cm/sec, monophasic waveform. Systolic Pressures: (R, L) Brachial: 148/94, 144/100 Ankle: 167/51, 172/82 Ankle/Arm Index: 1.12, 1.16 IMPRESSION: 1. No hemodynamically significant stenosis within the right or left lower extremity arteries. 2. Normal PAM, 1.12 on the right and 1.16 on the left. RADIA
== END 2019-08-02 08:18 | disposition home or self-care (01) ==
LOC: DI 08:17
PROVIDERS: ATTEND Orthopaedic Surgery
DX: E11.621 Type 2 diabetes mellitus with foot ulcer (principal); Z48.89 Encounter for other specified surgical aftercare
CPT/HCPCS: 93922; 93925

== ENCOUNTER 2019-08-21 16:26 | Outpatient (CLI) | payer MEDICAID ==
[2019-08-21] MEDS ORDERED: GADOBUTROL 15 MMOL/15 ML VIAL ONE (17:08)
[2019-08-21] MEDS: GADOBUTROL 15 MMOL/15 ML VIAL IVP ONE (18:16)
--- NOTE | 2019-08-21 18:59 | MRI Report ---
Reason: OSTEOMYELITIS OF BILATERAL FEET Procedure Date: 08/21/2019 Accession Number: [id number] / [id number] Procedure: MRI - Foot RT W/WO CPT Code: FULL RESULT: EXAM: RIGHT FOREFOOT MRI WITHOUT AND WITH CONTRAST EXAM DATE: 08/21/2019 06:24 PM. CLINICAL HISTORY: OSTEOMYELITIS OF BILATERAL FEET. COMPARISON: 05/24/2019 right foot MRI. TECHNIQUE: Multiplanar, multisequence T1-weighted and fluid-sensitive sequences of the forefoot before and after administration of intravenous contrast. IV contrast: 15 mL Gadavist. Other: None. FINDINGS: Bones/joints: Destructive changes of the first metatarsophalangeal joint are similar to the prior examination and consistent with septic arthritis with adjacent osteomyelitis of the proximal phalanx base and metatarsal head. No other areas suspicious for osteomyelitis. Apparently within the fifth proximal and distal phalanges is not associated with any T1 marrow signal loss and may reflect artifact. Ligaments: The visualized collateral ligaments are intact. Tendons: The flexor and extensor tendons are unremarkable. Musculature: Diffuse intramuscular edema with mild atrophy of the intrinsic musculature of the foot, unchanged. Other: No Mortons neuroma. No intermetatarsal bursitis. The subcutaneous tissues are unremarkable. No abscess or cellulitis. IMPRESSION: 1. Destructive changes of septic arthritis with surrounding osteomyelitis at the first metatarsophalangeal joint appears similar to the prior examination. 2. No other findings of osteomyelitis at the forefoot. RADIA
== END 2019-08-21 16:27 | disposition home or self-care (01) ==
LOC: DI 16:26
PROVIDERS: ATTEND Registered Nurse Wound Care
DX: M00.9 Pyogenic arthritis, unspecified (principal); M86.9 Osteomyelitis, unspecified
CPT/HCPCS: 73720; A9585

== ENCOUNTER 2019-08-27 07:31 | Outpatient (CLI) | payer MEDICAID ==
[2019-08-27] MEDS ORDERED: GADOBUTROL 15 MMOL/15 ML VIAL ONE (08:43)
--- NOTE | 2019-08-27 10:25 | MRI Report ---
Reason: OSTEO BILAT FEET Procedure Date: 08/27/2019 Accession Number: [id number] / [id number] Procedure: MRI - Foot LT W/WO CPT Code: Final Report FULL RESULT: EXAM: LEFT FOREFOOT MRI WITHOUT AND WITH CONTRAST EXAM DATE: 08/27/2019 08:56 AM. CLINICAL HISTORY: Osteomyelitis of the bilateral feet. Patient is on IV antibiotics. COMPARISON: Radiograph 07/24/2019, MRI 04/02/2019. TECHNIQUE: Multiplanar, multisequence T1-weighted and fluid-sensitive sequences of the forefoot before and after administration of intravenous contrast. IV contrast: 12 mL Gadavist. Other: None. FINDINGS: Bones: Abnormal increased T2 signal is demonstrated within the entire first metatarsal. There is abnormal decreased T1 signal in the distal two-thirds of the bone. Multiple erosions are seen at the distal portion of the bone. Findings are consistent with osteomyelitis. The patient has complete dislocation of the first metatarsophalangeal joint with the proximal phalanx distally positioned. Marrow edema in the first proximal phalanx has some low T1 signal in the periphery of the proximal portion of the bone. Erosions are seen on the prior radiograph. Likely there is subtle osteomyelitis of the periarticular portion of this bone. No fractures. The sesamoids are absent either postsurgically or through erosion. Since the prior MRI, the patient has undergone a fifth digit transmetatarsal amputation. The distal half of the residual bone has edema and enhancement within it. There does appear to be some low T1 signal on series 901, image 7. Joints: The patient has a large effusion of the first metatarsophalangeal joint, likely septic arthritis. The articular cartilage of the first metatarsophalangeal joint is severely thinned. Ligaments: The medial collateral ligament of the first metatarsophalangeal joint is completely torn. The lateral collateral ligament of the same joint is lax. The other visualized collateral joints are unremarkable. The visualized intertarsal, intermetatarsal, and tarsometatarsal ligaments are intact. Tendons: The flexor hallucis longus tendon is positioned medially relative laterally relative to its normal location at the central volar portion of the distal first metatarsal. This likely is a result of plantar plate/capsular tear of the first metatarsophalangeal joint. The other visualized flexor and extensor tendons are unremarkable. Musculature: No edema or fatty atrophy. Other: No Mortons neuroma. No intermetatarsal bursitis. The patient has a large open wound at the medial portion of the first metatarsophalangeal joint that appears to communicate with the joint space. Prominent enhancing phlegmon is seen adjacent to the distal portion of the first metatarsal. There is cellulitis in the medial forefoot. No rim-enhancing drainable fluid collections. Mild cellulitis also is seen adjacent to the fifth digit. IMPRESSION: 1. 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 Osteomyelitis throughout much of the first metatarsal and at the periarticular region of the first proximal phalanx. 2. Interval fifth digit transmetatarsal amputation. There appears to be some osteomyelitis in the residual portion of the bone. 3. Cellulitis of the forefoot with a large open wound communicating with the first metatarsophalangeal joint. 4. Plantar plate/capsular disruption of the first metatarsophalangeal joint with altered positioning of the flexor hallucis longus tendon. RADIA
== END 2019-08-27 07:32 | disposition home or self-care (01) ==
LOC: DI 07:31
PROVIDERS: ATTEND Registered Nurse Wound Care
DX: M86.8X7 Other osteomyelitis, ankle and foot (principal); M00.9 Pyogenic arthritis, unspecified; L03.116 Cellulitis of left lower limb
CPT/HCPCS: 73720; A9585

== ENCOUNTER 2019-10-15 12:35 | Outpatient (CLI) | payer MEDICAID ==
[2019-10-15 12:54] LABS: BASOPHILS # (AUTO) 0.1 10^3/uL (0.0-0.1); BASOPHILS % (AUTO) 0.6 %; EOSINOPHILS # (AUTO) 0.2 10^3/uL (0.0-0.7); EOSINOPHILS % (AUTO) 3.1 %; LYMPHOCYTES # (AUTO) 2.5 10^3/uL (1.5-3.5); LYMPHOCYTES % (AUTO) 31.9 %; MEAN CORPUSCULAR HEMOGLOBIN 25.7 pg (27.0-31.0); MEAN CORPUSCULAR HGB CONC 32.3 g/dL (32.0-36.0); MEAN CORPUSCULAR VOLUME 79.6 fL (80.0-94.0); MEAN PLATELET VOLUME 8.7 fL (7.4-11.4); MONOCYTES # (AUTO) 0.3 10^3/uL (0.0-1.0); MONOCYTES % (AUTO) 3.9 %; NEUTROPHILS # (AUTO) 4.7 10^3/uL (1.5-6.6); NEUTROPHILS % (AUTO) 60.1 %; PLT - PLATELET COUNT 258 10^3/uL (130-450); RED BLOOD COUNT 5.05 10^6/uL (4.70-6.10); RED CELL DISTRIBUTION WIDTH 15.8 % (12.0-15.0); WHITE BLOOD COUNT 7.7 x10^3/uL (4.8-10.8)
[2019-10-15 13:28] LABS: ALBUMIN 4.2 g/dL (3.2-5.5); ALBUMIN/GLOBULIN RATIO 1.1 (1.0-2.2); BILIRUBIN,TOTAL 0.5 mg/dL (0.2-1.0); CALCIUM 9.5 mg/dL (8.5-10.3); CREATININE 1.1 mg/dL (0.6-1.2); TOTAL PROTEIN 8.2 g/dL (6.7-8.2)
== END 2019-10-15 12:36 | disposition home or self-care (01) ==
LOC: LAB 12:35
DX: E11.621 Type 2 diabetes mellitus with foot ulcer (principal); M86.172 Other acute osteomyelitis, left ankle and foot
CPT/HCPCS: 36415; 80053; 85025

== ENCOUNTER 2020-07-08 07:58 | Outpatient (CLI) | payer MEDICAID ==
[2020-07-08 09:21] LABS: BASOPHILS # (AUTO) 0.1 10^3/uL (0.0-0.1); BASOPHILS % (AUTO) 0.7 %; EOSINOPHILS # (AUTO) 0.2 10^3/uL (0.0-0.7); EOSINOPHILS % (AUTO) 3.4 %; HGB - HEMOGLOBIN 14.1 g/dL (14.0-18.0); LYMPHOCYTES # (AUTO) 2.6 10^3/uL (1.5-3.5); LYMPHOCYTES % (AUTO) 37.5 %; MEAN CORPUSCULAR HEMOGLOBIN 27.8 pg (27.0-31.0); MEAN CORPUSCULAR HGB CONC 33.3 g/dL (32.0-36.0); MEAN CORPUSCULAR VOLUME 83.5 fL (80.0-94.0); MEAN PLATELET VOLUME 8.7 fL (7.4-11.4); MONOCYTES # (AUTO) 0.4 10^3/uL (0.0-1.0); MONOCYTES % (AUTO) 5.7 %; NEUTROPHILS # (AUTO) 3.7 10^3/uL (1.5-6.6); NEUTROPHILS % (AUTO) 52.3 %; PLT - PLATELET COUNT 195 10^3/uL (130-450); RED BLOOD COUNT 5.08 10^6/uL (4.70-6.10); RED CELL DISTRIBUTION WIDTH 13.2 % (12.0-15.0)
[2020-07-08 09:38] LABS: ALBUMIN 4.1 g/dL (3.2-5.5); ALBUMIN/GLOBULIN RATIO 1.1 (1.0-2.2); ALKALINE PHOSPHATASE 92 IU/L (42-121); ALT ALANINE AMINOTRANSFERASE 40 IU/L (10-60); AMYLASE 41 U/L (28-100); AST ASPARTATE AMINOTRANSFERASE 25 IU/L (10-42); BILIRUBIN,TOTAL 0.9 mg/dL (0.2-1.0); BUN - BLOOD UREA NITROGEN 14 mg/dL (6-20); CALCIUM 9.1 mg/dL (8.5-10.3); CARBON DIOXIDE - CO2 24 mmol/L (21-32); CHLORIDE 94 mmol/L (101-111); CHOL/HDL RATIO 6.4 (<5.0); CHOLESTEROL 248 mg/dL; CREATININE 0.9 mg/dL (0.6-1.2); GLUCOSE 338 mg/dL (70-100); HDL CHOLESTEROL 39 mg/dL; LIPASE 35 U/L (22-51); SODIUM 132 mmol/L (135-145); TOTAL PROTEIN 7.8 g/dL (6.7-8.2)
[2020-07-08 09:42] LABS: CREATININE,URINE 86.7 mg/dL; MICROALBUM/CREATININE RATIO,UR 161.5 ug/mg (<30.0)
[2020-07-08 10:07] LABS: LDL CHOLESTEROL,DIRECT 97 mg/dL; LDLD/HDL RATIO 2.5 (<3.6)
--- NOTE | 2020-07-08 10:15 | Ultrasound Report ---
PROCEDURE: Abdomen Complete INDICATIONS: ABDOMINAL PAIN TECHNIQUE: Real-time scanning was performed of the abdominal and retroperitoneal organs, with image documentatio n. COMPARISON: None. FINDINGS: Liver: Slightly nodular hepatic contour with coarsened hepatic echotexture with increased hepatic par enchymal echogenicity suggestive of cirrhosis. No focal hepatic mass demonstrated sonographically, al though evaluation is limited. Gallbladder: Wall echo shadow sign is present, indicating contraction of the gallbladder, either arou nd multiple gallstones or a large single gallstone. No findings of cholecystitis. Biliary ducts: Intrahepatic bile ducts are non-dilated. Extrahepatic bile duct caliber measures 4.3 mm. Normal is 6-7 mm or less in diameter, or 10 mm or less post-cholecystectomy. Pancreas: Visualized portions of the pancreas are sonographically normal. Spleen: Increased size of the spleen measuring up to 17 cm. Kidneys: Kidneys are normal in size and echotexture. Right kidney measures 11.9 cm long; left kidne y measures 11.8 cm long. No hydronephrosis or nephrolithiasis. No solid masses. Aorta: Visualized aorta is normal in caliber at less than 3 cm. Iliacs: Proximal common iliac arteries are normal in caliber at less than 2.5 cm. IVC: Intrahepatic inferior vena cava is patent. Miscellaneous: No free abdominal fluid. IMPRESSION: Findings suggestive of cirrhosis with splenomegaly. Cholelithiasis with contraction of the gallbladder around the stone(s). Reviewed by: Mal Mitchell MD on 07/08/2020 10:14 AM PDT Approved by: Mal Mitchell MD on 07/08/2020 10:14 AM PDT Station ID: [id number]
[2020-07-08 10:17] LABS: HEMOGLOBIN A1c% 11.6 % (4.27-6.07)
== END 2020-07-08 07:59 | disposition home or self-care (01) ==
LOC: DI 07:58
PROVIDERS: ATTEND Registered Nurse
DX: R93.2 Abnormal findings on diagnostic imaging of liver and biliary tract (principal); K80.20 Calculus of gallbladder without cholecystitis without obstruction; I10 Essential (primary) hypertension; R10.9 Unspecified abdominal pain; I25.10 Atherosclerotic heart disease of native coronary artery without angina pectoris; E11.9 Type 2 diabetes mellitus without complications
CPT/HCPCS: 36415; 76700; 80053; 80061; 82043; 82150; 82570; 83036; 83690; 83721; 84443; 85025

== ENCOUNTER 2020-08-20 12:15 | Outpatient (CLI) | payer MEDICAID ==
[2020-08-20 14:32] LABS: BASOPHILS # (AUTO) 0.1 10^3/uL (0.0-0.1); BASOPHILS % (AUTO) 0.8 %; EOSINOPHILS # (AUTO) 0.2 10^3/uL (0.0-0.7); HGB - HEMOGLOBIN 12.5 g/dL (14.0-18.0); LYMPHOCYTES % (AUTO) 30.9 %; MEAN CORPUSCULAR HEMOGLOBIN 27.1 pg (27.0-31.0); MEAN CORPUSCULAR HGB CONC 32.6 g/dL (32.0-36.0); MEAN CORPUSCULAR VOLUME 83.1 fL (80.0-94.0); MEAN PLATELET VOLUME 9.1 fL (7.4-11.4); MONOCYTES # (AUTO) 0.3 10^3/uL (0.0-1.0); MONOCYTES % (AUTO) 4.3 %; NEUTROPHILS % (AUTO) 60.5 %; PLT - PLATELET COUNT 284 10^3/uL (130-450); RED BLOOD COUNT 4.61 10^6/uL (4.70-6.10); RED CELL DISTRIBUTION WIDTH 13.9 % (12.0-15.0); WHITE BLOOD COUNT 6.6 x10^3/uL (4.8-10.8)
[2020-08-20 15:04] LABS: ALBUMIN 3.7 g/dL (3.2-5.5); ALBUMIN/GLOBULIN RATIO 1.2 (1.0-2.2); BILIRUBIN,TOTAL 0.8 mg/dL (0.2-1.0); CALCIUM 8.9 mg/dL (8.5-10.3); TOTAL PROTEIN 6.9 g/dL (6.7-8.2)
[2020-08-20 15:37] LABS: CRP - C-REACTIVE PROTEIN 2.8 mg/dL (0-1.0)
== END 2020-08-20 12:16 | disposition home or self-care (01) ==
LOC: LAB.R 12:15
PROVIDERS: ATTEND Internal Medicine Infectious Disease
DX: E11.621 Type 2 diabetes mellitus with foot ulcer (principal); M86.172 Other acute osteomyelitis, left ankle and foot
CPT/HCPCS: 80053; 85025; 86140

== ENCOUNTER 2020-08-27 14:32 | Outpatient (CLI) | payer MEDICAID ==
[2020-08-27 15:59] LABS: BASOPHILS # (AUTO) 0.1 10^3/uL (0.0-0.1); BASOPHILS % (AUTO) 0.7 %; EOSINOPHILS # (AUTO) 0.2 10^3/uL (0.0-0.7); HGB - HEMOGLOBIN 13.1 g/dL (14.0-18.0); LYMPHOCYTES # (AUTO) 1.7 10^3/uL (1.5-3.5); MEAN CORPUSCULAR HEMOGLOBIN 27.5 pg (27.0-31.0); MEAN CORPUSCULAR HGB CONC 33.1 g/dL (32.0-36.0); MEAN CORPUSCULAR VOLUME 83.2 fL (80.0-94.0); MEAN PLATELET VOLUME 9.7 fL (7.4-11.4); MONOCYTES # (AUTO) 0.3 10^3/uL (0.0-1.0); MONOCYTES % (AUTO) 4.3 %; NEUTROPHILS # (AUTO) 4.6 10^3/uL (1.5-6.6); NEUTROPHILS % (AUTO) 66.9 %; PLT - PLATELET COUNT 248 10^3/uL (130-450); RED BLOOD COUNT 4.76 10^6/uL (4.70-6.10); RED CELL DISTRIBUTION WIDTH 14.4 % (12.0-15.0); WHITE BLOOD COUNT 6.9 x10^3/uL (4.8-10.8)
[2020-08-27 16:22] LABS: ALBUMIN 3.9 g/dL (3.2-5.5); ALBUMIN/GLOBULIN RATIO 1.2 (1.0-2.2); BILIRUBIN,TOTAL 0.8 mg/dL (0.2-1.0); CALCIUM 9.6 mg/dL (8.5-10.3); CREATININE 1.2 mg/dL (0.6-1.2); CRP - C-REACTIVE PROTEIN 2.3 mg/dL (0-1.0); TOTAL PROTEIN 7.2 g/dL (6.7-8.2)
== END 2020-08-27 23:59 | disposition home or self-care (01) ==
LOC: LAB.R 14:32
PROVIDERS: ATTEND Internal Medicine Infectious Disease
DX: M86.172 Other acute osteomyelitis, left ankle and foot (principal); E11.621 Type 2 diabetes mellitus with foot ulcer
CPT/HCPCS: 80053; 85025; 86140

== ENCOUNTER 2020-09-03 14:55 | Outpatient (CLI) | payer MEDICAID ==
[2020-09-03 18:11] LABS: BASOPHILS # (AUTO) 0.1 10^3/uL (0.0-0.1); BASOPHILS % (AUTO) 0.7 %; EOSINOPHILS # (AUTO) 0.3 10^3/uL (0.0-0.7); EOSINOPHILS % (AUTO) 3.6 %; HGB - HEMOGLOBIN 13.6 g/dL (14.0-18.0); LYMPHOCYTES # (AUTO) 2.6 10^3/uL (1.5-3.5); LYMPHOCYTES % (AUTO) 34.6 %; MEAN CORPUSCULAR HEMOGLOBIN 27.9 pg (27.0-31.0); MEAN CORPUSCULAR HGB CONC 34.2 g/dL (32.0-36.0); MEAN CORPUSCULAR VOLUME 81.7 fL (80.0-94.0); MEAN PLATELET VOLUME 9.7 fL (7.4-11.4); MONOCYTES # (AUTO) 0.4 10^3/uL (0.0-1.0); MONOCYTES % (AUTO) 5.7 %; NEUTROPHILS % (AUTO) 54.5 %; PLT - PLATELET COUNT 252 10^3/uL (130-450); RED BLOOD COUNT 4.87 10^6/uL (4.70-6.10); WHITE BLOOD COUNT 7.4 x10^3/uL (4.8-10.8)
[2020-09-03 18:31] LABS: ALBUMIN/GLOBULIN RATIO 1.3 (1.0-2.2); BILIRUBIN,TOTAL 0.8 mg/dL (0.2-1.0); CALCIUM 9.7 mg/dL (8.5-10.3); CREATININE 1.1 mg/dL (0.6-1.2); TOTAL PROTEIN 7.2 g/dL (6.7-8.2)
== END 2020-09-03 23:59 | disposition home or self-care (01) ==
LOC: LAB.R 14:55
PROVIDERS: ATTEND Internal Medicine Infectious Disease
DX: E11.621 Type 2 diabetes mellitus with foot ulcer (principal); M86.172 Other acute osteomyelitis, left ankle and foot
CPT/HCPCS: 80053; 85025; 86140

== ENCOUNTER 2020-09-10 11:15 | Outpatient (CLI) | payer MEDICAID ==
[2020-09-10 12:06] LABS: BASOPHILS % (AUTO) 0.4 %; EOSINOPHILS # (AUTO) 0.3 10^3/uL (0.0-0.7); EOSINOPHILS % (AUTO) 3.7 %; LYMPHOCYTES # (AUTO) 2.6 10^3/uL (1.5-3.5); MEAN CORPUSCULAR HEMOGLOBIN 27.1 pg (27.0-31.0); MEAN CORPUSCULAR HGB CONC 33.3 g/dL (32.0-36.0); MEAN CORPUSCULAR VOLUME 81.4 fL (80.0-94.0); MEAN PLATELET VOLUME 9.1 fL (7.4-11.4); MONOCYTES # (AUTO) 0.3 10^3/uL (0.0-1.0); MONOCYTES % (AUTO) 4.2 %; NEUTROPHILS # (AUTO) 4.4 10^3/uL (1.5-6.6); NEUTROPHILS % (AUTO) 57.2 %; PLT - PLATELET COUNT 247 10^3/uL (130-450); RED BLOOD COUNT 5.17 10^6/uL (4.70-6.10); RED CELL DISTRIBUTION WIDTH 13.8 % (12.0-15.0); WHITE BLOOD COUNT 7.7 x10^3/uL (4.8-10.8)
[2020-09-10 12:35] LABS: ALBUMIN/GLOBULIN RATIO 1.2 (1.0-2.2); BILIRUBIN,TOTAL 0.9 mg/dL (0.2-1.0); CALCIUM 9.7 mg/dL (8.5-10.3); CREATININE 0.9 mg/dL (0.6-1.2); TOTAL PROTEIN 7.3 g/dL (6.7-8.2)
[2020-09-10 12:54] LABS: CRP - C-REACTIVE PROTEIN 2.4 mg/dL (0-1.0)
== END 2020-09-10 23:59 | disposition home or self-care (01) ==
LOC: LAB.R 11:15
PROVIDERS: ATTEND Internal Medicine Infectious Disease
DX: E11.621 Type 2 diabetes mellitus with foot ulcer (principal); M86.172 Other acute osteomyelitis, left ankle and foot
CPT/HCPCS: 80053; 85025; 86140

== ENCOUNTER 2020-09-22 12:20 | Outpatient (CLI) | payer MEDICAID | END 2020-09-22 23:59 | disposition home or self-care (01) | LOC: LAB.R 12:20 | PROVIDERS: ATTEND Podiatrist | DX: L97.422 Non-pressure chronic ulcer of left heel and midfoot with fat layer exposed (principal) | CPT/HCPCS: 87070; 87077; 87181; 87205 ==

== ENCOUNTER 2020-10-06 13:55 | Outpatient (CLI) | payer MEDICAID ==
[2020-10-06 14:34] LABS: BASOPHILS # (AUTO) 0.1 10^3/uL (0.0-0.1); BASOPHILS % (AUTO) 0.8 %; EOSINOPHILS # (AUTO) 0.2 10^3/uL (0.0-0.7); EOSINOPHILS % (AUTO) 3.9 %; HGB - HEMOGLOBIN 13.4 g/dL (14.0-18.0); LYMPHOCYTES # (AUTO) 2.2 10^3/uL (1.5-3.5); LYMPHOCYTES % (AUTO) 35.4 %; MEAN CORPUSCULAR HEMOGLOBIN 27.6 pg (27.0-31.0); MEAN CORPUSCULAR VOLUME 81.2 fL (80.0-94.0); MEAN PLATELET VOLUME 9.1 fL (7.4-11.4); MONOCYTES # (AUTO) 0.3 10^3/uL (0.0-1.0); MONOCYTES % (AUTO) 4.7 %; NEUTROPHILS # (AUTO) 3.4 10^3/uL (1.5-6.6); NEUTROPHILS % (AUTO) 54.9 %; PLT - PLATELET COUNT 218 10^3/uL (130-450); RED BLOOD COUNT 4.85 10^6/uL (4.70-6.10); RED CELL DISTRIBUTION WIDTH 13.5 % (12.0-15.0); WHITE BLOOD COUNT 6.2 x10^3/uL (4.8-10.8)
[2020-10-06 14:53] LABS: CALCIUM 9.2 mg/dL (8.5-10.3); CREATININE 1.1 mg/dL (0.6-1.2); CRP - C-REACTIVE PROTEIN 1.9 mg/dL (0-1.0)
== END 2020-10-06 23:59 | disposition home or self-care (01) ==
LOC: LAB.R 13:55
PROVIDERS: ATTEND Podiatrist
DX: L03.116 Cellulitis of left lower limb (principal)
CPT/HCPCS: 80048; 85025; 86140

== ENCOUNTER 2020-10-27 11:15 | Outpatient (CLI) | payer MEDICAID | END 2020-10-27 23:59 | disposition home or self-care (01) | LOC: LAB.R 11:15 | PROVIDERS: ATTEND Podiatrist | DX: M86.171 Other acute osteomyelitis, right ankle and foot (principal) | CPT/HCPCS: 87070; 87077; 87181; 87205 ==

== ENCOUNTER 2020-11-19 11:10 | Outpatient (CLI) | payer MEDICAID ==
[2020-11-19 12:39] LABS: CREATININE,URINE 250.7 mg/dL; MICROALBUM/CREATININE RATIO,UR 53.1 ug/mg (<30.0); MICROALBUMIN,URINE 13.3 mg/dL (0-300.0)
[2020-11-19 12:42] LABS: CHOL/HDL RATIO 6.9 (<5.0); CHOLESTEROL 248 mg/dL; HDL CHOLESTEROL 36 mg/dL
[2020-11-19 12:48] LABS: HEMOGLOBIN A1c% 9.8 % (4.27-6.07)
[2020-11-19 13:05] LABS: LDL CHOLESTEROL,DIRECT 114 mg/dL; LDLD/HDL RATIO 3.2 (<3.6)
== END 2020-11-19 23:59 | disposition home or self-care (01) ==
LOC: LAB.R 11:10
PROVIDERS: ATTEND Nurse Practitioner
DX: E11.65 Type 2 diabetes mellitus with hyperglycemia (principal); E11.42 Type 2 diabetes mellitus with diabetic polyneuropathy; E11.59 Type 2 diabetes mellitus with other circulatory complications
CPT/HCPCS: 80061; 81599; 82043; 82570; 83036; 83721; 84681; 86337; 86341

== ENCOUNTER 2021-01-12 08:00 | Outpatient (CLI) | payer MEDICAID ==
[2021-01-12 18:03] LABS: CALCIUM 9.7 mg/dL (8.5-10.3); CREATININE 1.2 mg/dL (0.6-1.2); POTASSIUM 3.6 mmol/L (3.5-5.0)
[2021-01-12 19:54] LABS: ESTIMATED AVERAGE GLUCOSE 192 mg/dL (70-100); HEMOGLOBIN A1c% 8.3 % (4.27-6.07)
== END 2021-01-12 23:59 | disposition home or self-care (01) ==
LOC: LAB.R 08:00
PROVIDERS: ATTEND Registered Nurse
DX: E11.9 Type 2 diabetes mellitus without complications (principal)
CPT/HCPCS: 80048; 83036

== ENCOUNTER 2021-02-11 08:00 | Outpatient (CLI) | payer MEDICAID ==
[2021-02-11 18:26] LABS: BASOPHILS # (AUTO) 0.1 10^3/uL (0.0-0.1); BASOPHILS % (AUTO) 0.9 %; EOSINOPHILS # (AUTO) 0.2 10^3/uL (0.0-0.7); EOSINOPHILS % (AUTO) 3.9 %; HCT - HEMATOCRIT 40.6 % (42.0-52.0); HGB - HEMOGLOBIN 12.9 g/dL (14.0-18.0); LYMPHOCYTES # (AUTO) 1.9 10^3/uL (1.5-3.5); MEAN CORPUSCULAR HEMOGLOBIN 27.6 pg (27.0-31.0); MEAN CORPUSCULAR HGB CONC 31.8 g/dL (32.0-36.0); MEAN CORPUSCULAR VOLUME 86.8 fL (80.0-94.0); MEAN PLATELET VOLUME 9.2 fL (7.4-11.4); MONOCYTES # (AUTO) 0.3 10^3/uL (0.0-1.0); MONOCYTES % (AUTO) 5.8 %; NEUTROPHILS # (AUTO) 3.3 10^3/uL (1.5-6.6); NEUTROPHILS % (AUTO) 56.2 %; PLT - PLATELET COUNT 225 10^3/uL (130-450); RED BLOOD COUNT 4.68 10^6/uL (4.70-6.10); RED CELL DISTRIBUTION WIDTH 14.2 % (12.0-15.0); WHITE BLOOD COUNT 5.9 x10^3/uL (4.8-10.8)
[2021-02-11 19:27] LABS: BUN - BLOOD UREA NITROGEN 29 mg/dL (6-20); CALCIUM 9.4 mg/dL (8.5-10.3); CARBON DIOXIDE - CO2 26 mmol/L (21-32); CHLORIDE 102 mmol/L (101-111); CREATININE 1.3 mg/dL (0.6-1.2); GFR - MDRD 62 (>89); GLUCOSE 98 mg/dL (70-100); POTASSIUM 3.9 mmol/L (3.5-5.0); SODIUM 138 mmol/L (135-145)
[2021-02-11 20:01] LABS: CRP - C-REACTIVE PROTEIN < 1.0 mg/dL (0-1.0)
== END 2021-02-11 23:59 | disposition home or self-care (01) ==
LOC: LAB.WCP 08:00
PROVIDERS: ATTEND Podiatrist
DX: E11.621 Type 2 diabetes mellitus with foot ulcer (principal); M86.171 Other acute osteomyelitis, right ankle and foot
CPT/HCPCS: 36415; 80048; 85025; 85651; 86140

== ENCOUNTER 2021-02-18 11:50 | Outpatient (CLI) | payer MEDICAID | END 2021-02-18 23:59 | disposition home or self-care (01) | LOC: LAB.R 11:50 | PROVIDERS: ATTEND Emergency Medicine | DX: M86.171 Other acute osteomyelitis, right ankle and foot (principal) | CPT/HCPCS: 87070; 87077; 87181; 87205 ==

== ENCOUNTER 2021-02-23 13:09 | Outpatient (CLI) | payer MEDICAID ==
[2021-02-23 13:25] LABS: CALCIUM 9.4 mg/dL (8.5-10.3); CREATININE 1.3 mg/dL (0.6-1.2); POTASSIUM 3.8 mmol/L (3.5-5.0)
== END 2021-02-23 13:10 | disposition home or self-care (01) ==
LOC: LAB 13:09
PROVIDERS: ATTEND Podiatrist
DX: E11.621 Type 2 diabetes mellitus with foot ulcer (principal); L97.412 Non-pressure chronic ulcer of right heel and midfoot with fat layer exposed
CPT/HCPCS: 36415; 80048

== ENCOUNTER 2021-06-07 00:04 | Outpatient (CLI) | payer MEDICAID | END 2021-06-07 00:05 | disposition EMS.NT | LOC: EMS 00:04 | DX: R53.1 Weakness (principal); E11.649 Type 2 diabetes mellitus with hypoglycemia without coma; Z79.4 Long term (current) use of insulin ==